=== PATIENT | male | born 1955 | race Caucasian/White ===

== ENCOUNTER 2016-07-06 09:03 | Emergency (ER) | payer MEDICARE, MEDICAID | END 2016-07-06 10:55 | disposition home or self-care (01) | LOC: D.ER 09:03 | DX: S22.41XA Multiple fractures of ribs, right side, initial encounter for closed fracture (principal); W22.8XXA Striking against or struck by other objects, initial encounter; Y93.89 Activity, other specified; Y92.019 Unspecified place in single-family (private) house as the place of occurrence of the external cause; J44.9 Chronic obstructive pulmonary disease, unspecified; B19.20 Unspecified viral hepatitis C without hepatic coma; G40.909 Epilepsy, unspecified, not intractable, without status epilepticus; Z89.512 Acquired absence of left leg below knee; F17.200 Nicotine dependence, unspecified, uncomplicated ==

== ENCOUNTER 2016-10-10 08:05 | Inpatient (IN) | payer MEDICARE, MEDICAID ==
[~2016-10-10] VITALS: Ht 175.3 cm; Wt 63.2 kg
[2016-10-10 10:17] LABS: BASOPHILS 0.2 % (0-2); EOSINOPHILS 0 % (0-7); HEMATOCRIT 40.1 % (42.0-54.0); HEMOGLOBIN 13.4 g/dL (13.5-17.5); IMMATURE GRANULOCYTES 0.3 % (0-5); LYMPHOCYTES 10.7 % (15-50); MCHC 33.4 g/dL (31.0-37.0); MCV 101.8 fL (80.0-100.0); MEAN PLATELET VOLUME 8.6 fL (7.4-10.4); NEUTROPHILS 78.8 % (40-80); RBC 3.94 10x6/uL (4.20-6.10); RDW 13.1 % (11.5-14.5); WBC 9.2 10x3/uL (4.8-10.8)
[2016-10-10 10:19] LABS: PLATELET COUNT 277 10x3/uL (130-400)
[2016-10-10 10:27] LABS: INR 0.85 (0.85-1.17); PROTIME 11.5 SECONDS (11.6-15.0)
[2016-10-10 10:37] LABS: ALBUMIN 3.6 g/dL (3.4-5.0); ALKALINE PHOSPHATASE 76 U/L (46-116); ALT (SGPT) 124 U/L (10-68); BILIRUBIN - TOTAL 0.36 mg/dL (0.2-1.3); CALC OSMOLALITY 279 mosm/kg (275-300); CARBON DIOXIDE 20.2 mmol/L (21.0-32.0); CHLORIDE - SERUM 101 mmol/L (98-107); CREATININE - SERUM 0.8 mg/dL (0.6-1.3); GLUCOSE 102 mg/dL (74-106); POTASSIUM - SERUM 4.6 mmol/L (3.5-5.1); SODIUM 141 mmol/L (136-145); UREA NITROGEN 11 mg/dL (7-18); eGFR NON AFRICAN AMERICAN > 90 mL/min (90-120)
--- NOTE | 2016-10-10 14:10 | NUR ---
RECIEVED PT FROM ER, REPORT WAS GIVEN BY ADRIANNE BARRON. PT ADJUSTED IN BED. ASSESSMENT DONE PER FLOWSHEET. BED IN LOW POSITION AND CALL LIGHT WITHIN REACH. WILLCONTINUE TO MONITOR.
[2016-10-10 14:20] VITALS: BP 145/109
[2016-10-10 14:30] VITALS: BP 145/109; Ht 175.3 cm; Wt 63.2 kg
[2016-10-10] MEDS ORDERED: PERCOCET 10/3251 TA1 PO (14:31)
[2016-10-10] MEDS ORDERED: NEURONTIN 300300 MG PO (14:31)
[2016-10-10] MEDS ORDERED: PROZAC20 MG PO (14:32)
[2016-10-10] MEDS ORDERED: APTIOM 800 MG (14:33)
[2016-10-10] MEDS ORDERED: DILANTIN100 MG PO (14:34)
[2016-10-10 15:59] VITALS: BP 170/110
--- NOTE | 2016-10-10 16:06 | NUR ---
CALL PLACED AT THIS TIME TO ELIZABETH VELASQUEZ (ON-CALL) ABOUT PT BLOOD PRESSURE. WILL CALL BACK WITH ORDERS.
--- NOTE | 2016-10-10 19:00 | NUR ---
PATIENT SLEEPING ON RIGHT SIDE. HOB 10 DEGREES. RR EVEN AND UNLABORED 0 S/S OF DISTRESS. IV TO RIGHT HAND PATENT WITH NO REDNESS OR SWELLING. TELEMETRY ON. B/A ON. SR PADDED AND UPX2. BED LOW. CALL LIGHT WITHIN REACH.
[2016-10-10 20:00] VITALS: BP 143/80
--- NOTE | 2016-10-10 21:00 | NUR ---
NIGHTTIME MED GIVEN. MORPHINE GIVEN FOR PAIN. WILL REASSESS.
--- NOTE | 2016-10-10 23:40 | NUR ---
PERCOCET GIVEN FOR PAIN.
[2016-10-11] VITALS: BP 138/81
--- NOTE | 2016-10-11 03:30 | NUR ---
PATIENT PULLED IV TO RIGHT HAND OUT. RESITED TO RIGHT FA WITH 20 GAUGE. MORPHINE GIVEN. BATH GIVEN.
[2016-10-11 04:00] VITALS: BP 139/94
--- NOTE | 2016-10-11 04:11 | NUR ---
PATIENT KEEPS URINATING ON SELF AND SPILLING URINAL. HAVE CHANGED HIM TWICE, BUT EVERY TIME IT CAUSES HIM INTENSE PAIN. HE IS BARELY ABLE TO TURN OFF OF RIGHT SIDE AT ALL. LOPEZ CATHETER INSERTED PER ORDER.
[2016-10-11 05:46] LABS: BASOPHILS 0.4 % (0-2); EOSINOPHILS 0.1 % (0-7); HEMOGLOBIN 12.5 g/dL (13.5-17.5); IMMATURE GRANULOCYTES 0.3 % (0-5); MCH 34.8 pg (26.0-34.0); MCHC 34.7 g/dL (31.0-37.0); MCV 100.3 fL (80.0-100.0); MONOCYTES 20.9 % (2-11); NEUTROPHILS 57.3 % (40-80); PLATELET COUNT 236 10x3/uL (130-400); RBC 3.59 10x6/uL (4.20-6.10); RDW 12.7 % (11.5-14.5); WBC 7.9 10x3/uL (4.8-10.8)
[2016-10-11 06:11] LABS: ALBUMIN 3.1 g/dL (3.4-5.0); ALKALINE PHOSPHATASE 65 U/L (46-116); ALT (SGPT) 113 U/L (10-68); BILIRUBIN - TOTAL 1.08 mg/dL (0.2-1.3); CHLORIDE - SERUM 97 mmol/L (98-107); CREATININE - SERUM 0.7 mg/dL (0.6-1.3); SODIUM 135 mmol/L (136-145); eGFR NON AFRICAN AMERICAN > 90 mL/min (90-120)
[2016-10-11 06:17] LABS: CALC OSMOLALITY 270 mosm/kg (275-300); CARBON DIOXIDE 32.9 mmol/L (21.0-32.0); GLUCOSE 151 mg/dL (74-106); POTASSIUM - SERUM 3.7 mmol/L (3.5-5.1); UREA NITROGEN 7 mg/dL (7-18)
--- NOTE | 2016-10-11 07:30 | NUR ---
PT AWAKE AND ALERT ORINETD X 3 LUNGS CLEAR BIALTERALLY HAS NOTED FRACTURE TO FEMUR ABOVE AMPUTATION SITE. PT WITH SIGNIFICANT AMOUT OF PAIN WILL TREAT PER ORDER
--- NOTE | 2016-10-11 07:30 | NUR ---
PATIENT IS AWAKE AND ALERT. LAYING ON HIS RIGHT SIDE. PATIENT VERBALIZING PAIN. SKIN IS HOT AND SWEATY. DRUG CLERK IN ROOM, CHECKED OXYGEN SATURATION 80% ON ROOM AIR. APPLIED 2L/MIN OF OXYGEN VIA NASAL CANNULA. BED IN LOWEST POSITION, CALL LIGHT IN REACH. BED RAILS UP X'S 2.
[2016-10-11 08:17] VITALS: BP 148/79
[2016-10-11 12:03] VITALS: BP 143/74
[2016-10-11 16:06] VITALS: BP 155/91
--- NOTE | 2016-10-11 19:00 | NUR ---
PATIENT SLEEPING WITH NO DISTRESS NOTED. HOB 20 DEGREES. RR EVEN AND UNLABORED. 0 S/S OF DISTRESS. IV TO RIGHT FA PATENT WITH NO REDNESS OR SWELLING.LOPEZ SECURED WITH STAT LOCK AND DRAINING TO GRAVITY. TELEMETRY ON. / ON. SRX2. BED LOW. CALL LIGHT WITHIN REACH.
[2016-10-11 20:00] VITALS: BP 107/63
--- NOTE | 2016-10-11 22:30 | NUR ---
PATIENT AWAKE AND STATES THAT PAIN IS A 6/10. NIGHTTIME MED GIVEN.
[2016-10-12] VITALS: BP 123/79
--- NOTE | 2016-10-12 03:00 | NUR ---
PATIENT'S LOPEZ IS LEAKING AND BED IS SOAKED WITH URINE. PATIENT STATES THAT HE CAN USE A URINAL AND PREFERS THE LOPEZ BE REMOVED. REMOVED CATHETER. BATH GIVEN. LINENS CHANGED.
[2016-10-12 04:00] VITALS: BP 111/79
[2016-10-12 05:32] LABS: BASOPHILS 0.2 % (0-2); EOSINOPHILS 0.3 % (0-7); HEMATOCRIT 37.4 % (42.0-54.0); HEMOGLOBIN 12.8 g/dL (13.5-17.5); IMMATURE GRANULOCYTES 0.3 % (0-5); LYMPHOCYTES 22.9 % (15-50); MCHC 34.2 g/dL (31.0-37.0); MCV 99.5 fL (80.0-100.0); MEAN PLATELET VOLUME 9.2 fL (7.4-10.4); MONOCYTES 12.6 % (2-11); NEUTROPHILS 63.7 % (40-80); PLATELET COUNT 187 10x3/uL (130-400); RBC 3.76 10x6/uL (4.20-6.10); RDW 12.5 % (11.5-14.5); WBC 9.6 10x3/uL (4.8-10.8)
[2016-10-12 05:58] LABS: ALBUMIN 2.9 g/dL (3.4-5.0); ALKALINE PHOSPHATASE 62 U/L (46-116); BILIRUBIN - TOTAL 1.47 mg/dL (0.2-1.3); CALC OSMOLALITY 263 mosm/kg (275-300); CALCIUM 9.1 mg/dL (8.5-10.1); CHLORIDE - SERUM 94 mmol/L (98-107); CREATININE - SERUM 0.7 mg/dL (0.6-1.3); GLUCOSE 113 mg/dL (74-106); PHENYTOIN (DILANTIN) 8.4 ug/mL (10.0-20.0); POTASSIUM - SERUM 3.3 mmol/L (3.5-5.1); PROTEIN - SERUM 7.1 g/dL (6.4-8.2); SODIUM 132 mmol/L (136-145); UREA NITROGEN 7 mg/dL (7-18); eGFR NON AFRICAN AMERICAN > 90 mL/min (90-120)
[2016-10-12 06:00] LABS: ALT (SGPT) 83 U/L (10-68)
--- NOTE | 2016-10-12 08:30 | NUR ---
PATIENT AWAKE AND ALERT, HE IS PLEASANT.
[2016-10-12 09:04] VITALS: BP 110/78
--- NOTE | 2016-10-12 10:30 | NUR ---
PATIENT IS HAVING CRAMPS IN HIS LEFT STUMP WHERE HE FX IT, LOWERED THE HOB AND TOLD HIM TO PUSH HIS PAIN BUTTON AND TAKE SLOW DEEP BREATHS. THIS HELPED THE PATIENT HE BEGAN TO RELAX.
[2016-10-12 11:40] VITALS: BP 123/83
--- NOTE | 2016-10-12 12:00 | NUR ---
OBTAINED CONSENTS FOR PATIENT TO GO TO SURGERY AND HE IS READY TO GO.
--- NOTE | 2016-10-12 12:30 | NUR ---
PATIENT TAKEN TO SURGERY NOW.
--- NOTE | 2016-10-12 15:30 | NUR ---
PATIENT BACK FROM SURGERY, HE IS PLEASANT, SITTING UP IN BED, HE IS TALKING. VSS TAKEN.
--- NOTE | 2016-10-12 15:35 | NUR ---
BP 148/80, P 94, R 20 SPO2 94 ON O2 AT 4L/M.
--- NOTE | 2016-10-12 15:50 | NUR ---
BP 148/82, P 90, R 20, SPO2 96 ON 4L/M PER NC
[2016-10-12 15:52] VITALS: BP 140/82
--- NOTE | 2016-10-12 16:05 | NUR ---
BP 150/94, T. 98.7, R 20, P. 92, SPO2 96%
--- NOTE | 2016-10-12 16:25 | NUR ---
BP 142/80, P 90, R 20, SPO2 94%
--- NOTE | 2016-10-12 16:29 | NUR ---
Patient Name: CLAUDIA SUGGS Admission Status: ER Accout number: [id number] Admission Date: 10-10-2016 : 1955 Admission Diagnosis:DISPL SUPRCNDL FX W INTRCNDL EXTN LOWER END OF L FEMUR, Attending: RAFY Current LOS: 2 Anticipated DC Date: 10-15-2016 Planned Disposition: Home Primary Insurance: [facility] Discharge Planning Comments: CM MET WITH PATIENT REGARDING D/C NEEDS AND PLANS. PATIENT STATED HE LIVES WITH HIS BROTHER VENICE AND HE WILL DRIVE HIM HOME AT DISCHARGE. PATIENT STATED THERE ARE 3 STEPS W/O RAILS AND NO STAIRS AT HIS HOME. PATIENT STATED HE IS INDEPENDENT WITH HIS CARE AND HAS A WALKER, WC, SHOWER CHAIR, AND BS COMMODE AT HOME. PATIENTS PCP IS DR. MONGE AND PHARMACY IS [facility]. PATIENT DOES NOT WANT HOME HEALTH AND HAS NO OTHER NEEDS FOR DISCHARGE AT THIS TIME. CM WILL CONTINUE TO FOLLOW PATIENT WITH D/C NEEDS AND PLANS. PCP DR. MONGE [facility]- [phone] VENICE (BROTHER) [phone] Research Laboratory Specialist: Emma De Jesus Is the patient Alert and Oriented? Yes 0 * How many steps to enter\exit or inside your home? 3 W/O RAIL 0 * PCP DR. MONGE 0 * Pharmacy [facility] 0 * Preadmission Environment Home with Family 0 * ADLs Independent 0 * Equipment Bedside Commode Shower Chair Walker Wheelchair 0 * List name and contact numbers for known caregivers / representatives who currently or will assist patient after discharge: VENICE (BROTHER) [phone] 0 * Community resources currently utilized None 0 * Additional services required to return to the preadmission environment? Yes 0 * Can the patient safely return to the preadmission environment? Yes 0 * Has this patient been hospitalized within the prior 30 days at any hospital? No 0 Grand Total: 0
--- NOTE | 2016-10-12 18:51 | NUR ---
PATIENT IS AWAKE AND ALERT HE HAS NOW STATED THAT HE DOES NOT FEEL PAIN, HE FEELS SO MUCH BETTER THAN BEFORE HE LEFT, BUT SAYS "WOW, MY LEG FEELS HEAVY" EXPLAINED TO HIM THAT HE HAD A BLOCK. HE SAID 'OH YEA, I REMEMBER THE DR DID SAY THAT" PATIENT SITTING UP, READING MAGAXINES IN BED. NO NEEDS.
[2016-10-12 20:00] VITALS: BP 108/84
[2016-10-13] VITALS: BP 132/83; BP 136/80
--- NOTE | 2016-10-13 00:58 | NUR ---
ASSESSED AT THE BEGINNING OF THE SHIFT. PT IS ALERT AND ORIENTED, WITH JUST A LITTLE CONFUSION AT THE BEGINNING OF THE SHIFT. HE IS SET UP FOR SEIZURES A PRECAUTION. 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 THE DRESSING IS CLEAN DRY AND INTACT. WITH A ALIX WRAP IN PLACE. THERE IS ALSO TELEMETRY SHOWING SR AND A BROILER MANAGER FOR PAIN CONTROL. THE URINAL IS AT THE BEDSIDE AND HE IS USING IT FOR VOIDING AND OSTOMY. THE BED IS LOW, RAILS UP X'S 2 WITH THE CALL LIGHT AT HAND.
[2016-10-13 04:00] VITALS: BP 117/79
[2016-10-13 06:08] LABS: BASOPHILS 0.1 % (0-2); EOSINOPHILS 0.1 % (0-7); HEMATOCRIT 31.7 % (42.0-54.0); HEMOGLOBIN 10.9 g/dL (13.5-17.5); IMMATURE GRANULOCYTES 0.2 % (0-5); LYMPHOCYTES 21.3 % (15-50); MCH 34.5 pg (26.0-34.0); MCHC 34.4 g/dL (31.0-37.0); MCV 100.3 fL (80.0-100.0); MEAN PLATELET VOLUME 9.5 fL (7.4-10.4); MONOCYTES 15.7 % (2-11); NEUTROPHILS 62.6 % (40-80); RBC 3.16 10x6/uL (4.20-6.10); RDW 12.2 % (11.5-14.5); WBC 9.6 10x3/uL (4.8-10.8)
[2016-10-13 06:10] LABS: PLATELET COUNT 142 10x3/uL (130-400)
[2016-10-13 06:23] LABS: ALBUMIN 2.6 g/dL (3.4-5.0); ALKALINE PHOSPHATASE 51 U/L (46-116); CALC OSMOLALITY 263 mosm/kg (275-300); CHLORIDE - SERUM 97 mmol/L (98-107); CREATININE - SERUM 0.7 mg/dL (0.6-1.3); GLUCOSE 108 mg/dL (74-106); POTASSIUM - SERUM 3.1 mmol/L (3.5-5.1); PROTEIN - SERUM 6.3 g/dL (6.4-8.2); SODIUM 132 mmol/L (136-145); UREA NITROGEN 8 mg/dL (7-18); eGFR NON AFRICAN AMERICAN > 90 mL/min (90-120)
[2016-10-13 06:24] LABS: ALT (SGPT) 58 U/L (10-68)
--- NOTE | 2016-10-13 07:15 | NUR ---
PATIENT RECEIVED ALERT IN MID HEATH POSITION RESTING QUIETLY. RESPIRATIONS EVEN AND UNLABORED. SIDE RAILS UP X2. BED IN LOW POSITION. CALL LIGHT AND COTTON ROLL PACKER BUTTON IN REACH. DENIES NEEDS.
[2016-10-13 07:57] VITALS: BP 128/82
--- NOTE | 2016-10-13 09:20 | NUR ---
PATIENT IN BED RESTING QUIETLY WITH EYES CLOSED. RESPIRATIONS EVEN AND UNLABORED. WAKES EASY. SCHEDULED MEDICATION ADMINISTERED. SIDE RAILS UP X2. BED IN LOW POSITION. CALL LIGHT IN REACH. BED ALARM ON.
--- NOTE | 2016-10-13 11:30 | NUR ---
IV TO LEFT WRIST SALINE LOCKED. CROSS TIE TRAM LOADER D/C PER ORDERS. DENIES NEEDS. SIDE RAILS UP X2. BED IN LOW POSITION. CALL LIGHT IN REACH.
[2016-10-13 11:45] VITALS: BP 125/84
--- NOTE | 2016-10-13 13:33 | NUR ---
C/O PAIN 03/12. PERCOCET ADMINISTERED PER PROTOCOL. POTASSIUM REPLACED PER PROTOCOL. DENIES FURTHER NEEDS. SIDE RAILS UP X2. BED IN LOW POSITION. CALL LIGHT IN REACH.
--- NOTE | 2016-10-13 16:00 | NUR ---
PATIENT IN RIGHT LATERAL POSITION RESTING WITH EYES CLOSED. RESPIRATIONS EVEN AND UNLABORED. SIDE RAILS UP X2. BED IN LOW POSITION. CALL LIGHT IN REACH.
[2016-10-13 16:13] VITALS: BP 126/85
--- NOTE | 2016-10-13 17:38 | NUR ---
ALERT IN BED. SCHEDULED MEDICATION ADMINISTERED. SIDE RAILS UP X2. BED IN LOW POSITION. CALL LIGHT IN REACH. PATIENT DRY HEAVING AND C/O NAUSEA. ZOFRAN PER PRN ORDER. SIDE RAILS UP X2. BED IN LOW POSITION. CALL LIGHT IN REACH.
[2016-10-13 20:00] VITALS: BP 140/87
[2016-10-14] VITALS: BP 142/84
[2016-10-14 04:00] VITALS: BP 132/81
[2016-10-14 05:28] LABS: BASOPHILS 0.3 % (0-2); HEMATOCRIT 32.3 % (42.0-54.0); HEMOGLOBIN 11.1 g/dL (13.5-17.5); IMMATURE GRANULOCYTES 0.1 % (0-5); LYMPHOCYTES 20.3 % (15-50); MCH 34.2 pg (26.0-34.0); MCHC 34.4 g/dL (31.0-37.0); MCV 99.4 fL (80.0-100.0); MEAN PLATELET VOLUME 9.8 fL (7.4-10.4); MONOCYTES 20.2 % (2-11); NEUTROPHILS 58.1 % (40-80); PLATELET COUNT 128 10x3/uL (130-400); RBC 3.25 10x6/uL (4.20-6.10); RDW 12.2 % (11.5-14.5); WBC 7.3 10x3/uL (4.8-10.8)
[2016-10-14 05:54] LABS: ALBUMIN 2.5 g/dL (3.4-5.0); ALKALINE PHOSPHATASE 55 U/L (46-116); ALT (SGPT) 54 U/L (10-68); CALC OSMOLALITY 263 mosm/kg (275-300); CALCIUM 8.5 mg/dL (8.5-10.1); CARBON DIOXIDE 30.4 mmol/L (21.0-32.0); CHLORIDE - SERUM 96 mmol/L (98-107); CREATININE - SERUM 0.6 mg/dL (0.6-1.3); GLUCOSE 108 mg/dL (74-106); POTASSIUM - SERUM 3.4 mmol/L (3.5-5.1); PROTEIN - SERUM 6.5 g/dL (6.4-8.2); SODIUM 132 mmol/L (136-145); UREA NITROGEN 6 mg/dL (7-18); eGFR NON AFRICAN AMERICAN > 90 mL/min (90-120)
--- NOTE | 2016-10-14 06:04 | NUR ---
ASSESSED AT THE BEGINNING OF THE SHIFT. PT IS ALERT AND ORIENTED, ABLE TO VERBALIZE NEEDS. HE HAS A LEFT BKA AND HE HAD FALLEN AND FRACTURED IT SO IT IS A NEW ORIF AND THE DRESSING IS INPLACE WITH NO DRAINAGE NOTED. HE USES A URINAL TO VOID AND WE HAVE GIVEN HIM PAIN MEDS AND ATIVAN FOR HIS PAIN. HE FEELS PHANTOM PAIN IN HIS LEFT HEEL AND KIARA OUT IN HIS SLEEP WITH PAIN. THIS MORNING HE RECEIVED A BATH AND CLEAN LINENS. THE BED IS LOW, RAILS UP X'S 2 WITH THE CALL LIGHT AT HAND.
[2016-10-14 09:06] VITALS: BP 130/79
--- NOTE | 2016-10-14 09:12 | NUR ---
SCHEDULED MEDICATIONS ADMINISTERED AT THIS TIME WITHOUT DIFFICULTY. ELECTROLYTE PROTOCOL INITIATED FOR POTASSIUM OF 3.4. PT IS NAUSEOUS WITHOUT EMESIS AND NOT EATING BREAKFAST AT THIS TIME. DENIES NEED FOR ZOFRAN. SCD TO RIGHT LEG PRESENT AND DRESSING TO LEFT SURGICAL LEG C/D/I. ASSESSMENT PERFORMED PER FLOWSHEET AND IV TO LEFT WRIST PATENT WITH NO S/S OF INFILTRATION PRESENT.
--- NOTE | 2016-10-14 10:50 | NUR ---
PRN NORCO ADMINISTERED FOR PAIN 10/10 INCISIONALLY AT THIS TIME. DENIES FURTHER NEEDS. BED ALARM ON AND CALL LIGHT IN REACH, WILL CONTINUE WITH PLAN OF CARE.
[2016-10-14 11:48] VITALS: BP 104/63
--- NOTE | 2016-10-14 12:10 | NUR ---
PT HAD LARGE EPISODE OF LOOSE STOOL AT THIS TIME, AROUND 400ML IN THE BEDPAN. PT STATED THAT THE DIARRHEA WAS NEW. NOTIFIED DR ESCAMILLA VIA TELEPHONE AND NEW ORDERS GIVEN FOR STOOL CDT LAB TEST. SPECIMEN OBTAINED AND SENT TO LAB. WILL AWAIT RESULTS AND IF NEGATIVE WILL ADMINISTER IMODIUM PER ORDER. DENIES FURTHER NEEDS, CALL LIGHT IN REACH. WILL CONTINUE WITH PLAN OF CARE.
--- NOTE | 2016-10-14 15:20 | NUR ---
DRESSING TO LEFT STUMP TIGHT AT THIS TIME AND PT COMPLAINING THAT UPPER THIGH IS SWOLLEN AND NUMB. CIRCULATION TO STUMP <3 SECONDS AND DRESSING RE-WRAPPED, BUT NOT TIGHT AT THIS TIME. PRN NORCO AND SCHEDULED NEURONTIN ADMINISTERED AT THIS TIME FOR PAIN 03/12. DENIES FURTHER NEEDS, PROVIDED PT WITH FRESH ICE WATER. CALL LIGHT IN REACH. WILL CONTINUE WITH PLAN OF CARE.
[2016-10-14 16:14] VITALS: BP 120/84
[2016-10-14 20:00] VITALS: BP 111/74
--- NOTE | 2016-10-14 21:10 | NUR ---
ASSESS PER FLOWSHEET. RESTING QUIETLY WITH EYES CLOSED. RESP DEEP EVEN UNLABORED. BED LOW, CL IN REACH, ALL FALL PRECAUTIONS IN PLACE.
--- NOTE | 2016-10-14 23:16 | NUR ---
AWAKE, ALERT, TEARFUL, C/O PAIN 10/10 TO RIGHT FEMUR. 1 PERCOCET GIVEN PER MD ORDER. RT. RESIDUAL LIMB ELEVATED FOR COMFORT. BED LOW CL IN REACH.
[2016-10-15] VITALS: BP 135/80
[2016-10-15 04:00] VITALS: BP 122/76
[2016-10-15 06:12] LABS: BASOPHILS 0.2 % (0-2); HEMATOCRIT 31.5 % (42.0-54.0); IMMATURE GRANULOCYTES 0.2 % (0-5); LYMPHOCYTES 20.2 % (15-50); MCH 34.2 pg (26.0-34.0); MCHC 34.9 g/dL (31.0-37.0); MCV 97.8 fL (80.0-100.0); MEAN PLATELET VOLUME 10.2 fL (7.4-10.4); NEUTROPHILS 56.4 % (40-80); RBC 3.22 10x6/uL (4.20-6.10); RDW 12.1 % (11.5-14.5)
[2016-10-15 06:13] LABS: PLATELET COUNT 154 10x3/uL (130-400); WBC 5.4 10x3/uL (4.8-10.8)
[2016-10-15 06:59] LABS: ALBUMIN 2.4 g/dL (3.4-5.0); ALKALINE PHOSPHATASE 56 U/L (46-116); ALT (SGPT) 42 U/L (10-68); BILIRUBIN - TOTAL 0.81 mg/dL (0.2-1.3); CALC OSMOLALITY 261 mosm/kg (275-300); CALCIUM 8.6 mg/dL (8.5-10.1); CARBON DIOXIDE 28.1 mmol/L (21.0-32.0); CHLORIDE - SERUM 96 mmol/L (98-107); CREATININE - SERUM 0.6 mg/dL (0.6-1.3); GLUCOSE 109 mg/dL (74-106); POTASSIUM - SERUM 3.4 mmol/L (3.5-5.1); PROTEIN - SERUM 6.4 g/dL (6.4-8.2); SODIUM 131 mmol/L (136-145); UREA NITROGEN 6 mg/dL (7-18); eGFR NON AFRICAN AMERICAN > 90 mL/min (90-120)
[2016-10-15 08:08] VITALS: BP 143/91
--- NOTE | 2016-10-15 08:55 | NUR ---
PATIENT ALERT AND ORIENTED X'S 4. FACE GRIMMACED. PATIENT RATED PAIN A 10/10. ADMINISTERED PERCOCET. PATIENT FINISHED EATING BREAKFAST. TOOK HIS TRAY. PATIENT STATED HE IS GOING TO BE DISCHARGED TODAY. PATIENT STATED HE HAS A WALKER AND WHEELCHAIR AT HOME. PATIENT STATED HE LIVES WITH HIS YOUNGER BROTHER AND HE CAN HELP HIM. HE STATED HE IS NOT GOING TO DRINK WHEN HE GETS HOME, AND STATED THAT HIS BROTHER WILL NOT SUPPLY HIM WITH ALCOHOL.
[2016-10-15 12:11] VITALS: BP 136/79
--- NOTE | 2016-10-15 12:35 | NUR ---
SET PATIENT UP FOR LUNCH. PATIENT DENIES NEEDS AT THIS TIME.
[2016-10-15 15:40] VITALS: BP 120/82
--- NOTE | 2016-10-15 18:11 | OP ---
PATIENT NAME: CLAUDIA SUGGS MEDICAL RECORD: [id number] :57 LOCATION:[id number] ADMISSION DATE:10/10/16 SURGEON: LEONID SMITH MD DATE OF OPERATION: 10/12/2016 DATE OF OPERATION: 10/12/2016 PREOPERATIVE DIAGNOSIS: Supracondylar femur fracture of the left femur with intercondylar split. POSTOPERATIVE DIAGNOSIS: Supracondylar femur fracture of the left femur with intercondylar split. PROCEDURE: Open reduction internal fixation of above. SURGEON: Leonid Smith MD. ANESTHESIA: General. INTRAOPERATIVE COMPLICATIONS: None. SUMMARY OF PATHOLOGIC FINDINGS: Consistent with the preoperative radiographs and CT. The patient not only had a valgus placed supracondylar femur fracture. There was a crack into the shaft. OPERATIVE SUMMARY IN DETAIL: After obtaining the appropriate preoperative surgery consent as well as anesthetic consultation, evaluation and clearance, the patient was brought to the operating room and placed on the operating table in supine position. After general laryngeal mask was administered, tourniquet was placed about the proximal aspect of the left lower extremity. The patient was placed in a right lateral decubitus position. All pressure points were well padded to include down leg peroneal pad as well as axillary roll. Left lower extremity and BKA stump were prepped and draped in routine sterile fashion. The BKA stump and thigh were exsanguinated and tourniquet was inflated to 350 mmHg. Lateral base incision was taken from the distal tip of the lateral thigh to beyond the area of fracture. This was taken to the IT band through the vastus lateralis, gentle periosteal elevation was done. The fracture was reduced. At this time, using fluoroscopic guidance back to a normal alignment. The Variax large frag plate was then utilized. Under fluoroscopic guidance, it was aligned and serial and sequential drill and fill with a combination of compression as well as locking screws, this resulted in good realignment. Having completed this, the wound was copiously irrigated. AP and lateral views were taken for final radiographic review. Wound was again copiously irrigated. The vastus lateralis was closed with #1 Vicryl. This was followed by closure of the IT band with #2 Ethibond and this was followed by closure of the skin with #1 Vicryl and skin kylee. Sterile dressings were applied. Tourniquet was deflated. A posterior splint was applied. The patient was awakened and taken to recovery in stable condition. All final needle and sponge counts were correct. TRANSINT:[id number] Voice Confirmation ID: [id number] DOCUMENT ID: [id number] OPERATIVE REPORT [id number] CLAUDIA SUGGS MD, LEONID PIPER at 1811 CC: [id number] DICTATION DATE: 10/12/16 1429 ETHICS INSTRUCTOR: 10/13/16 0130 ADM IN [facility] [address] [id number]
[2016-10-15 20:00] VITALS: BP 116/89
--- NOTE | 2016-10-15 20:00 | NUR ---
ASSESSMENT PER FLOWSHEET. IV PATENT LEFT WRIST OF NS AT 30CC'S/HR SITE CLEAR. OLD LEFT BKA NOTED WITH LEFT HIP INCISION DRESSING C/D/I. LEFT STUMP ELEVATED ON PILLOW. PT IN ENTERIC ISOLATION. SCD TO RT LEG.
--- NOTE | 2016-10-15 21:15 | NUR ---
MEDS GIVEN PER AUG. SR UP X2 CALL LIGHT WITHIN REACH.
--- NOTE | 2016-10-15 22:43 | NUR ---
C/O PAIN INCISIONAL SITE RATES PAIN LEVEL #10 PERCOCET TAB ONE PO GIVEN FOR PAIN CONTROL.
[2016-10-16] VITALS: BP 126/89
--- NOTE | 2016-10-16 00:23 | NUR ---
RESTING QUIETLY AT THIS TIME BODY IN GOOD ALIGNMENT.
[2016-10-16 04:00] VITALS: BP 128/90
--- NOTE | 2016-10-16 07:10 | NUR ---
PATIENT RECEIVED IN LOW HEATH POSITION ALERT AND RESTING QUIETLY. RESPIRATIONS EVEN AND UNLABORED. DENIES NEEDS. SIDE RAILS UP X2. BED IN LOW POSITION. CALL LIGHT IN REACH.
[2016-10-16] MEDS ORDERED: PERCOCET 10/3251 TA1 PO (07:55)
[2016-10-16] MEDS ORDERED: FLAGYL500 MG PO (07:58)
[2016-10-16 08:35] VITALS: BP 158/94
--- NOTE | 2016-10-16 08:40 | NUR ---
PATIENT ALERT IN BED. NO SIGNS OF DISTRESS NOTED. SCHEDULED MEDICATION ADMINISTERED WELL PRN PERCOCET. DENIES NEEDS. ANTICIPATING D/C TODAY. SIDE RAILS UP X2. BED IN LOW POSITION. CALL LIGHT IN REACH.
--- NOTE | 2016-10-16 09:24 | NUR ---
CM REASSESSMENT NOTE: PATIENT IS DISCHARGING HOME TODAY - NEEDS CAB RIDE. CM SPOKE TO HIM REGARDING HOME HEALTH. PATIENT CHOSE [facility] BUT THEY DID NOT TAKE HIS INSURANCE, 2ND IS [facility] (FACE SHEET FAXED-THEY ACCEPT SOME [facility]), 3RD IS [facility]. D/C IMM SERVED. CM WILL CONTINUE TO FOLLOW PATIENT WITH D/C NEEDS AND PLANS.
--- NOTE | 2016-10-16 09:35 | NUR ---
DRESSING TO LEFT LEG CHANGED. OLD DRESSING REMOVED. SMALL AMOUNT OF BLOODY DRAINAGE NOTED TO DRESSING. 27 VIC INTACT. NO REDNESS, DRAINAGE OR ODOR NOTED. XEROFORM GAUZE AND 4X4 PLACED OVER INCISION. WRAPPED WITH CAST PADDING. SPLINT APPLIED AND WRAPPED WITH ALIX WRAP. WELL TOLERATED. SIDE RAILS UP X2. BED IN LOW POSITION. CALL LIGHT IN REACH.
--- NOTE | 2016-10-16 11:15 | NUR ---
D/C REASSESSMENT NOTE: PATIENTS BROTHER WILL PICK HIM UP TODAY AT 5PM-NO NEED FOR A CAB.
--- NOTE | 2016-10-16 12:39 | NUR ---
ALERT IN BED. C/O PAIN 02/10. PERCOCET PER PRN ORDER. NO FURTHER NEEDS VOICED. SIDE RAILS UP X2. BED IN LOW POSITION. CALL LIGHT IN REACH.
[2016-10-16 13:46] VITALS: BP 153/90
--- NOTE | 2016-10-16 14:05 | NUR ---
ALERT IN BED WATCHING TV. NO SIGNS OF DISTRESS NOTED. DENIES NEEDS. SIDE RAILS UP X2. BED IN LOW POSITION. CALL LIGHT IN REACH.
--- NOTE | 2016-10-16 17:15 | NUR ---
D/C TEACHING AND WRITTEN PRESCRIPTION PROVIDED TO PATIENT. STATES UNDERSTANDING. IV D/C WITH CATH TIP INTACT. SITE COVERED WITH GAUZE AND BANDAID.
--- NOTE | 2016-10-16 17:20 | NUR ---
PATIENT D/C HOME VIA WHEELCHAIR WITH BROTHER.
== END 2016-10-16 17:25 | disposition home health service (06) | DRG 482 ==
LOC: D.ER 08:05 → D.MS 12:33
PROVIDERS: Emergency Medicine; Family Medicine; ADMIT Orthopaedic Surgery
PROC: 0QSC04Z Reposition Left Lower Femur with Internal Fixation Device, Open Approach (ICD-10-PCS; principal; 2016-10-12 13:00)
DX: S72.462A Displaced supracondylar fracture with intracondylar extension of lower end of left femur, initial encounter for closed fracture (principal); W19.XXXA Unspecified fall, initial encounter; Z89.512 Acquired absence of left leg below knee; G40.909 Epilepsy, unspecified, not intractable, without status epilepticus; J44.9 Chronic obstructive pulmonary disease, unspecified; F10.20 Alcohol dependence, uncomplicated; M62.838 Other muscle spasm; F17.200 Nicotine dependence, unspecified, uncomplicated

== ENCOUNTER → 2017-01-17 09:23 | Outpatient (CLI) | payer MEDICARE, MEDICAID ==
[2016-10-10 14:30] VITALS: BMI 20.5
[~2017-01-17 09:23] MED LIST: APTIOM 800 MG; DILANTIN100 MG PO; FLAGYL500 MG PO; NEURONTIN 300300 MG PO; PERCOCET 10/3251 TA1 PO; PROZAC20 MG PO
== END | disposition home or self-care (01) ==
LOC: D.US 09:23
DX: N49.2 Inflammatory disorders of scrotum (principal)

== ENCOUNTER 2017-02-15 07:36 | Outpatient (CLI) | payer MEDICARE, MEDICAID | END 2017-02-15 15:45 | disposition home or self-care (01) | LOC: D.OPS 07:36 | DX: R16.0 Hepatomegaly, not elsewhere classified (principal); J44.9 Chronic obstructive pulmonary disease, unspecified; Z01.812 Encounter for preprocedural laboratory examination ==

== ENCOUNTER 2017-04-04 07:38 | Outpatient (CLI) | payer MEDICARE, MEDICAID ==
[2017-04-04] VITALS (15 sets, daily range): BP systolic 156–199; BP diastolic 79–105; BMI 22.1
--- NOTE | ~2017-04-04 | HEMODYNAMI ---
PATIENT:CLAUDIA SUGGS MEDICAL RECORD: [id number] : 57 LOCATION:[facility] ADMISSION DATE: 04/04/17 Generatedon:04/04/201712:13 Patient name: CLAUDIA SUGGS Patient #: [id number] SSN: D OB: 1955 Date of study: 04/04/2017 Page: Of Hemodynamic Procedure Report Patient Data Patient Demographics Procedure consent was obtained First Name: CLAUDIA Gender: Male Last Name: IFEANYI : 1955 Middle Initial: E Age: 62 year(s) Patient #: [id number] Race: Unknown Additional ID: [id number] Contact details Address: [address] [place] [address] State: [place] City: [facility] Zip code: [address] Past Medical History Allergies: No known allergies Admission Admission Data Admission Date: 04/04/2017 Admission Time: 7:38 Weight (lbs.): 141 Weight (kg.): 63.96 Procedure Procedure Types Cath Procedure Peripheral Cath Diagnostic Procedure Cath Peripheral Peripheral vascular Intervention Embolization Chemo Embolization Procedure Description Procedure Date Procedure Date: 04/04/2017 Procedure Start Time: 10:36 Procedure Staff Name Function Mehdi Ramirez MD Performing Physician Alexei Ghotra RT Scrub Nicole Jaramillo RN Nurse Pilar Johnston RT Inspector Floor Sub Assembly Pilar Johnston RT Monitor Procedure Data Cath Procedure Fluoroscopy Diagnostic fluoroscopy Total fluoroscopy Time: time: 14.9 min 14.9 min Diagnostic fluoroscopy Total fluoroscopy dose: dose: 1804 mGy 1804 mGy Contrast Material Contrast Material Type Amount (ml) Isovue 300 80 Diagnostic catheters Device Type Used For End Catheter Placement Merit Impress 5Fr SIM 1 Catheter Procedure Medications Medication Administration Route Dosage Rocephin I.V. 1 g Versed I.V. 1 mg Fentanyl I.V. 50 mcg Versed I.V. 1 mg Fentanyl I.V. 50 mcg Heparin Flush Bag added to field 3 bags (1000units/500ml NS) Lidocaine 1% added to field 20 Oxygen NC 3 l/min Versed I.V. 1 mg Fentanyl I.V. 50 mcg Versed I.V. 1 mg Fentanyl I.V. 50 mcg Hydralizine I.V. 10 mg Hemodynamics Rest Heart Rate: 75 (bpm) Snapshots Pre Cath Intra NCS Post Cath Vital Signs Time Heart Resp SPO2 etCO2 NIBP (mmHg) Rhythm Pain Sedation Rate (ipm) (%) (mmHg) Status Level (bpm) 10:14:24 75 6 98 29.1 171/97(136) NSR 0 (11) 10(A) , No pain 10:18:46 77 9 99 42.6 156/107(144) NSR 0 (11) 10(A) , No pain 10:23:02 77 9 98 40.4 156/98(138) NSR 0 (11) 10(A) , No pain 10:28:01 78 5 98 41.1 Measuring NSR 0 (11) 10(A) , No pain 10:28:11 79 5 98 41.1 167/100(143) NSR 0 (11) 10(A) , No pain 10:32:33 80 9 96 37.4 159/101(144) NSR 0 (11) 10(A) , No pain 10:36:51 75 12 96 32.9 164/96(143) NSR 0 (11) 10(A) , No pain 10:41:11 95 10 98 26.9 164/114(142) NSR 0 (11) 10(A) , No pain 10:43:04 77 9 97 38.1 170/101(138) NSR 0 (11) 10(A) , No pain 10:47:16 80 21 90 29.9 140/93(122) NSR 0 (11) 10(A) , No pain 10:51:28 79 12 93 30.6 137/86(114) NSR 0 (11) 10(A) , No pain 10:55:40 79 10 95 16.4 136/85(118) NSR 0 (11) 10(A) , No pain 10:59:52 81 9 97 30.6 143/81(120) NSR 0 (11) 10(A) , No pain 11:04:06 77 10 97 28.4 148/86(131) NSR 0 (11) 10(A) , No pain 11:08:16 72 10 96 30.6 147/86(119) NSR 0 (11) 10(A) , No pain 11:12:26 82 11 96 0 140/97(111) NSR 0 (11) 10(A) , No pain 11:16:38 74 11 96 23.9 148/91(126) NSR 0 (11) 10(A) , No pain 11:20:49 79 6 98 34.4 166/102(135) NSR 0 (11) 10(A) , No pain 11:25:10 88 13 98 35.1 186/115(170) NSR 0 (11) 10(A) , No pain 11:29:30 81 14 92 0 157/93(130) NSR 0 (11) 10(A) , No pain 11:33:48 68 13 97 27.6 163/92(145) NSR 0 (11) 10(A) , No pain 11:38:47 72 10 97 20.9 Measuring NSR 0 (11) 10(A) , No pain 11:39:09 70 11 96 26.9 190/111(156) NSR 0 (11) 10(A) , No pain 11:43:40 78 4 98 27.6 208/120(182) NSR 0 (11) 10(A) , No pain 11:46:36 74 11 98 32.8 204/116(152) NSR 0 (11) 10(A) , No pain 11:51:04 75 16 96 28.4 194/108(153) NSR 0 (11) 10(A) , No pain 11:55:35 70 15 98 22.4 199/108(158) NSR 0 (11) 10(A) , No pain 11:59:59 82 15 97 28.4 196/115(154) NSR 0 (11) 10(A) , No pain 12:04:23 76 16 96 29.1 183/99(147) NSR 0 (11) 10(A) , No pain 12:08:43 84 13 96 26.9 166/99(148) NSR 0 (11) 10(A) , No pain 12:13:08 25.4 170/88(123) NSR 0 (11) 10(A) , No pain Medications Time Medication Route Dose Verified Delivered Reason Notes Ef fectiveness by by 10:10:29 Heparin Flush added 3 Nicole Mehdi used for Bag to bags Clint Ramirez procedure (1000units/500ml field RN NS) 10:10:43 Rocephin I.V. 1g Mehdi Nicole Per Ashley Jaramillo RN physician MD 10:15:57 Oxygen NC 3 Nicole Nicole l/min Clint Jaramillo RN, RN 10:35:44 Lidocaine 1% added 20ml Nicole Mehdi for local to vial Clint Ashley anesthetic field ADRIANNE MOREIRA 10:41:22 Versed I.V. 1 mg Mehdi Nicole for sedation Ashley Jaramillo RN, MD 10:41:33 Fentanyl I.V. 50 Mehdi Nicole for sedation mcg Ashley Jaramillo RN, MD 10:44:41 Versed I.V. 1 mg Mehdi Nicole for sedation Ashley Jaramillo RN, MD 10:44:48 Fentanyl I.V. 50 Mehdi Rivera for sedation mcg Ashley Jaramillo RN, MD 11:27:50 Versed I.V. 1 mg Mehdi Nicole for sedation Ashley Jaramillo RN, MD 11:27:59 Fentanyl I.V. 50 Mehdi Rivera for sedation mcg Ashley Jaramillo RN, MD 11:51:51 Versed I.V. 1 mg Mehdi Nicole for sedation Ashley Jaramillo RN, MD 11:52:04 Fentanyl I.V. 50 Mehdi Nicole for sedation mcg Ashley Jaramillo RN, MD 11:54:16 Hydralizine I.V. 10 mg Mehdi Rivera for Ashley Jaramillo RN hypertension MD Procedure Log Time Note 8:57:56 Patient Weight : 141 lbs 9:51:51 Use device set IR Diagnostic 9:51:56 Sterile Angiographic Pack opened to sterile field. 9:51:57 Bag Decanter opened to sterile field. 9:51:58 Acist Manifold opened to sterile field. 9:51:59 Acist Hand Control opened to sterile field. 9:52:00 Acist Syringe opened to sterile field. 9:52:25 TUBING, CONTRAST INJCTN HI PRES opened to sterile field. 9:52:26 Terumo 5Fr [place] Sheath opened to sterile field. 9:52:27 Griffin KAHN 145cm guide wire opened to sterile field. 9:52:28 Micropuncture VSI 4FR kit opened to sterile field. 9:52:49 - 10:00:22 Time tracking: Regular hours 10:00:29 Plan of Care:Hemodynamics will remain stable., Cardiac rhythm will remain stable., Comfort level will be maintained., Respiratory function will remain adequate., Patient/ family verbilizes understanding of procedure., Procedure tolerated without complication., Recovers from procedure without complications.. 10:10:29 Heparin Flush Bag (1000units/500ml NS) 3 bags added to field was administered by Mehdi Ramirez MD; used for procedure; 10:10:43 Rocephin 1g I.V. was administered by Nicole Jaramillo RN; Per physician; 10:13:14 Vital chart was started 10:13:24 Patient received from Outpatients to IR Alert and oriented. Tansferred to table in Supine position. 10:13:28 Correct patient and procedure confirmed by team. 10:13:30 Signed procedure consent form obtained from patient. 10:13:31 ECG and BP/O2 sat monitors applied to patient. 10:13:33 Baseline sample Acquired. 10:13:34 Full Disclosure recording started 10:13:35 - 10:13:40 H&P Date Dictated: 04/04/2017 Within 30 days and on chart.. 10:13:43 Pre-procedure instructions explained to patient. 10:13:44 Pre-op teaching completed and patient verbalized understanding. 10:13:48 Family in waiting room. 10:13:51 Patient NPO since Midnight. 10:14:04 Patient allergic to No known allergies 10:14:08 Is the patient allergic to Iodine/contrast media? No. 10:14:12 Is patient on blood thinner?No 10:14:15 Patient diabetic? No. 10:14:35 - 10:14:36 ----Pre-sedation anethsthesia assessment.---- 10:14:41 Previous problem with sedation/anesthesia? No ? 10:14:43 Snore? No 10:14:46 Sleep apnea? No 10:14:49 Deviated septum? No 10:14:51 Opens mouth fully? Yes 10:14:53 Sticks out tongue? Yes 10:15:29 Airway obstruction? Yes copd 10:15:34 Dentures? No ? 10:15:48 Pre procedure: right dorsailis pedis pulse 1+ Palpable, but thready & weak; easily obliterated 10:15:54 Pre procedure: right posterior tibial pulse Doppler 10:15:57 Oxygen 4 l/min NC was administered by Nicole Jaramillo RN; ; 10:16:21 IV patent on arrival in left forearm with 0.9% NaCl at [facility]. 10:16:29 Right groin area was prepped with chlora-prep and draped in sterile fashion 10:16:40 Patient pain scale 0/10 ?. 10:16:44 Alarms reviewed by Daryl Mederos 10:16:45 Sharps counted by scrub and verified by RMónica 10:16:46 - 10:17:04 A Merit Impress 5Fr SIM 1 Catheter was opened to sterile field 10:18:[address] STOPC[address] 3-WAY LARGE BORE opened to sterile field. 10:33:33 Physician arrived 10:35:44 Lidocaine 1% 20ml vial added to field was administered by Mehdi bhakta MD; for local anesthetic; 10:35:46 --------ALL STOP TIME OUT------ 10:35:47 Final Timeout: patient, procedure, and site verified with staff and physician. All members of the team are in agreement. 10:36:02 Right groin site verified by team. 10:36:10 Sedation plan: IV Moderate Sedation Versed, Fentanyl 10:36:21 Procedure started. 10:36:26 Local anesthetic to right femoral artery with Lidocaine 1% by Mehdi Ramirez MD.INITIAL ACCESS ONLY 10:37:45 Arterial access obtained using ultrasound guidance. 10:41:22 Versed 1 mg I.V. was administered by Nicole Jaramillo RN; for sedation; 10:41:33 Fentanyl 50 mcg I.V. was administered by Nicole Jaramillo RN; for sedation ; 10:44:41 Versed 1 mg I.V. was administered by Nicole Jaramillo RN; for sedation; 10:44:48 Fentanyl 50 mcg I.V. was administered by Nicole Jaramillo RN; for sedation ; 10:54:32 RENEGADE HI-STEFFANY microcatheter opened to sterile field. 10:54:42 [place] FusionStorm TRANSEND STEERABLE guide wire opened to sterile field. 10:55:05 Copilot Bleedback Control Valve opened to sterile field. 11:07:11 PERCUTANEOUS ENTRY 19GA needle opened to sterile field. 11:14:24 BEADS LC M1 100-300UM opened to sterile field. 11:27:50 Versed 1 mg I.V. was administered by Nicole Jaramillo RN; for sedation; 11:27:59 Fentanyl 50 mcg I.V. was administered by Nicole Jaramillo RN; for sedation ; 11:29:57 BEADS LC M1 100-300UM opened to sterile field. 11:41:56 EMBO PARTICLES 250-355 MICRONS opened to sterile field. 11:49:38 Cordis 5Fr Exoseal opened to sterile field. 11:49:43 Procedure ended.(Physican Out) 11:49:50 Fluoroscopy time 14.90 minutes. 11:50:29 Fluoroscopy dose: 1804 mGy 11:50:29 Flurop Dose total: 1804 11:51:35 Contrast amount:Isovue 300 80ml. 11:51:51 Versed 1 mg I.V. was administered by Nicole Jaramillo RN; for sedation; 11:52:02 Sharps counted by scrub and verified by R.N. 11:52:04 Fentanyl 50 mcg I.V. was administered by Nicole Jaramillo RN; for sedation ; 11:52:34 Procedure and supply charges have been captured, reviewed, submitted an d are correct. 11:54:11 Post Procedure Pulses reassessed and unchanged 11:54:16 Hydralizine 10 mg I.V. was administered by Nicole Jaramillo RN; for hypertension; :54:34 Report given to CVICU. 11:54:46 Patient transfered to CVICU with Bed. 12:13:52 Vital chart was stopped Device Usage Item Name Manufacture Quantity Catalog Hospital Part Current Min imal Lot# / Number Charge Number Stock Stock Serial# Code Sterile Parlin 1 [id number] 5 Angiographic Health Pack Bag Decanter Microtek 1 2001S 848907 32922 757905 5 Medical Inc. Acist Acist Medical 1 51277 342956 312710 044548 5 Manifold Systems Inc Acist Hand Acist Medical 1 05344 081737 374046 253287 5 Control Systems Inc Acist Syringe Acist Medical 1 88900 699502 841938 437506 20 Systems Micro Interventional Devices TUBING, [facility] Medical 1 [id number] 533002 534898 313901 5 CONTRAST INJCTN HI PRES Terumo 5Fr Terumo 1 [id number] 935157 396957 767610 40 [place] Sheath Cook [facility] 1 [id number] 695697 080093 5 [id number] 145cm guide wire Micropuncture VSI VASCULAR 1 7266V 403977 026930 5 VSI 4FR kit SOLUTIONS [facility] Medical 1 [id number] 585479 378286 243023 5 5Fr SIM 1 Catheter STOPCOCK [facility] 1 R05954 154171 6458 705669 5 [id number] 3-WAY LARGE BORE RENEGADE [place] 1 [id number] 437555 867287 5 HI-STFEFANY Scientific microcatheter Tipton Sci Tipton 1 [id number] 179305 396146 5 TRANSEND Scientific STEERABLE guide wire Copilot Lucas 1 [id number] 265471 723804 340549 5 Bleedback Vascular Control Valve PERCUTANEOUS [facility] 1 C19288 166897 827062 5 9991006 ENTRY 19GA needle BEADS LC M1 BIOCOMPATIBLES 2 [id number] 147106 369493 410875 5 [id number] 100-300UM INC [id number] [facility] 1 [id number] 807586 6459 041873 5 [id number] PARTICLES Scientific 250-355 MICRONS Cordis 5Fr Cardinal 1 EX500 108584 208970 626861 10 [id number] [facility] Signature Audit [place] Stage Time Signature Unsigned Intra-Procedure 04/04/2017 Pilar Johnston 12:13:49 PM RT(R) Signatures Monitor : Pilar Johnston RT Signature : Date : Time : [facility] [address] [place] [address]
[2017-04-04 08:24] LABS: BASOPHILS 0.8 % (0-2); HEMATOCRIT 41.6 % (42.0-54.0); HEMOGLOBIN 15.3 g/dL (13.5-17.5); IMMATURE GRANULOCYTES 0.2 % (0-5); LYMPHOCYTES 35.8 % (15-50); MCH 35.4 pg (26.0-34.0); MCHC 36.8 g/dL (31.0-37.0); MCV 96.3 fL (80.0-100.0); MEAN PLATELET VOLUME 8.1 fL (7.4-10.4); MONOCYTES 10.5 % (2-11); NEUTROPHILS 50.7 % (40-80); PLATELET COUNT 211 10x3/uL (130-400); RBC 4.32 10x6/uL (4.20-6.10); RDW 13.1 % (11.5-14.5); WBC 5.9 10x3/uL (4.8-10.8)
[2017-04-04 08:37] LABS: ALBUMIN 3.8 g/dL (3.4-5.0); ALKALINE PHOSPHATASE 141 U/L (46-116); ALT (SGPT) 75 U/L (10-68); BILIRUBIN - DIRECT 0.11 mg/dL (0.00-0.30); BILIRUBIN - INDIRECT 0.27 mg/dL (0.00-1.00); BILIRUBIN - TOTAL 0.38 mg/dL (0.2-1.3); CALC OSMOLALITY 254 mosm/kg (275-300); CALCIUM 8.6 mg/dL (8.5-10.1); CHLORIDE - SERUM 92 mmol/L (98-107); CREATININE - SERUM 0.5 mg/dL (0.6-1.3); GLUCOSE 96 mg/dL (74-106); MAGNESIUM - SERUM 1.8 mg/dL (1.8-2.4); POTASSIUM - SERUM 3.9 mmol/L (3.5-5.1); PROTEIN - SERUM 7.8 g/dL (6.4-8.2); SODIUM 128 mmol/L (136-145); UREA NITROGEN 6 mg/dL (7-18); eGFR NON AFRICAN AMERICAN > 90 mL/min (90-120)
[2017-04-04 08:45] LABS: APTT 27.6 SECONDS (22.8-39.4); INR 0.86 (0.85-1.17); PROTIME 11.5 SECONDS (11.6-15.0)
--- NOTE | 2017-04-04 12:23 | NUR ---
RECEIVED PATIENT FROM INTERVENTIONAL RADIOLOGY. PATIENT STARTED VOMITING IMMEDIATELY, COMPLAINING OF SEVERE ABDOMINAL PAIN, AND VERY RESTLESS IN THE BED.
--- NOTE | 2017-04-04 12:30 | NUR ---
PATIENT ONLY HAS ORDERS FOR PO COMPAZINE ORDERED. CALLED RADIOLOGY BACK TO GET ORDERS FOR PATIENT FOR NAUSEA.
--- NOTE | 2017-04-04 13:10 | NUR ---
DR. SANCHEZ HERE IN TO SEE PATIENT. NEW ORDERS RECEIVED
--- NOTE | 2017-04-04 15:00 | NUR ---
PATIENT IS SLEEPING AROUSES EASILY TO VERBAL STIMULI. CALL LIGHT WITHIN REACH, BED IN LOW POSITION.
--- NOTE | 2017-04-04 15:53 | NUR ---
2ND IV STARTED IN R AC X1 STICK WITH 20G CATH. GOOD BLOOD RETURN NOTED AND FLUSHED EASILY.
--- NOTE | 2017-04-04 18:02 | NUR ---
Took call from Dr Gibson while primary nurse in with patient. PT SBP has been elevated. No rescue medications. Allergy info reviewed. Home medication list reviewed. She says is incomplete because he is on chemo and there wasn't any listed. Asked for PRN Clonidine to be given.
--- NOTE | 2017-04-04 19:30 | NUR ---
REPORT RECIEVED ASSESSMENT COMPLETED. SEE FLOW SHEET FOR FURTHER DETAILS. PT POSITIONED FOR COMFORT. BED IN LOW POSITION CALL LIGHT IN REACH. WILL CONTINEU TO MONITOR PT.
--- NOTE | 2017-04-04 21:00 | NUR ---
NO VISITORS AT THIS TIME. PT POSITIONED FOR COMFORT. SHOWING NO SIGNS OF DISTRESS. WILL CONTINUE TO MONITOR PT.
--- NOTE | 2017-04-04 23:00 | NUR ---
REASSESSMENT COMPLETED AT THIS TIME. NO ACUTE CHANGES AT THIS TIME. PT COMPLAINING OF NAUSEA. REPOSITIONED FOR COMFORT TO TX. WILL CONTINUE TO MONITOR PT.
[2017-04-05] VITALS (22 sets, daily range): BP systolic 140–184; BP diastolic 84–103; BMI 21.4
--- NOTE | 2017-04-05 01:00 | NUR ---
PT RESTING WITH EASE. STILL WORKING TO KEEP SBP DOWN. WILL CONTINUE TO MONITOR PT.
--- NOTE | 2017-04-05 01:53 | NUR ---
DR STEPHENS CALLED AND NOTIFIED ABOUT PT SBP. NEW ORDERS RECIEVED. WILL CONTINUE TO MONITOR PT.
--- NOTE | 2017-04-05 03:00 | NUR ---
REASSESSMENT COMPLETED. NO ACUTE CHANGES. PT SHOWS NO SIGNS OF DISTRES. POSITIONED PT FOR COMFORT WILL CONTINUE TO MONITOR PT.
--- NOTE | 2017-04-05 03:30 | NUR ---
REASSESSMENT COMPLETE, NO NEW CHANGES NOTED AT THIS TIME. RT GROIN WITH DRSG CDI, NO S/S OF HEMATOMA. PEDAL PULSES PRESENT. NO S/S OF ACUTE DISTRESS NOTED. CALL LIGHT AND BEDSIDE TABLE WITHIN PT REACH. CPOC.
--- NOTE | 2017-04-05 05:10 | NUR ---
PT SAYS THAT HIS STOMACH IS UNCOMFORTABLE AT TIMES THEN GOES AWAY. WILL CONTINUE TO MONITOR.
[2017-04-05 08:50] LABS: BASOPHILS 0.1 % (0-2); EOSINOPHILS 0.1 % (0-7); HEMATOCRIT 41.4 % (42.0-54.0); IMMATURE GRANULOCYTES 0.2 % (0-5); LYMPHOCYTES 16.2 % (15-50); MCH 34.9 pg (26.0-34.0); MCHC 36.2 g/dL (31.0-37.0); MCV 96.3 fL (80.0-100.0); MEAN PLATELET VOLUME 8.5 fL (7.4-10.4); MONOCYTES 14.3 % (2-11); NEUTROPHILS 69.1 % (40-80); PLATELET COUNT 201 10x3/uL (130-400); RDW 12.9 % (11.5-14.5)
[2017-04-05 09:05] LABS: WBC 8.4 10x3/uL (4.8-10.8)
[2017-04-05 09:12] LABS: ALBUMIN 3.5 g/dL (3.4-5.0); ALKALINE PHOSPHATASE 140 U/L (46-116); BILIRUBIN - TOTAL 0.64 mg/dL (0.2-1.3); CALC OSMOLALITY 252 mosm/kg (275-300); CALCIUM 8.9 mg/dL (8.5-10.1); CARBON DIOXIDE 26.2 mmol/L (21.0-32.0); CHLORIDE - SERUM 91 mmol/L (98-107); CREATININE - SERUM 0.6 mg/dL (0.6-1.3); GLUCOSE 129 mg/dL (74-106); POTASSIUM - SERUM 4.1 mmol/L (3.5-5.1); PROTEIN - SERUM 7.4 g/dL (6.4-8.2); SODIUM 126 mmol/L (136-145); UREA NITROGEN 7 mg/dL (7-18); eGFR NON AFRICAN AMERICAN > 90 mL/min (90-120)
[2017-04-05 09:13] LABS: ALT (SGPT) 121 U/L (10-68)
--- NOTE | 2017-04-05 09:54 | NUR ---
PATIENT RESTING QUIETLY WITH EYES CLOSED AT THIS TIME. CALL LIGHT WITHIN REACH, AND BED IN LOW POSITION.
--- NOTE | 2017-04-05 15:52 | NUR ---
DR. STEPHENS HERE IN TO SEE PATIENT NEW ORDERS RECEIVED.
--- NOTE | 2017-04-05 17:25 | NUR ---
DR. MONGE HERE IN TO SEE PATIENT.
--- NOTE | 2017-04-05 19:30 | NUR ---
PT AOX4. RESPIRATIONS EVEN AND UNLABORED, LUNG SOUNDS CLEAR THROUGHOUT. S1S2 HEARD, PERIPHERAL PULSES PRESENT. LT BKA. BOWEL SOUNDS ACTIVE IN ALL QUADRANTS. URINAL AT BEDSIDE. RT GROIN WITH DRSG CDI, NO S/S OF HEMATOMA. PT REPOSITIONS SELF INDEPENDENTLY. FRESH WATER TO BEDSIDE PER REQUEST. VSS, DENIES NEEDS AT THIS TIME. CALL LIGHT AND BEDSIDE TABLE WITHIN PT REACH. CPOC.
--- NOTE | 2017-04-05 21:34 | NUR ---
NO VISITORS AT THIS TIME. VSS, PT SLEEPING QUIETLY WITH NO S/S OF DISTRESS NOTED. CALL LIGHT AND BEDSIDE TABLE WITHIN PT REACH. CPOC.
--- NOTE | 2017-04-05 23:30 | NUR ---
REASSESSMENT COMPLETE, SEE FLOWSHEET FOR ALL FINDINGS. NO ACUTE CHANGES NOTED AT THIS TIME. PT REPOSITIONED FOR COMFORT WITH MINIMAL ASSISTANCE. VSS. FRESH WATER TO BEDSIDE. DENIES FURTHER NEEDS. CALL LIGHT AND BEDSIDE TABLE WITHIN PT REACH. CPOC.
[2017-04-06] VITALS (9 sets, daily range): BP systolic 124–162; BP diastolic 77–92
[2017-04-06] MEDS ORDERED: HYDRALAZINE HCL50 MG PO (09:36)
[2017-04-06] MEDS ORDERED: CATAPRES0.1 MG PO (09:36)
[2017-04-06] MEDS ORDERED: TOPROL XL50 MG PO (09:37)
--- NOTE | 2017-04-06 11:05 | NUR ---
PIV X 2 DC'D. WRITTEN SCRIPTS GIVEN TO PATIENT. DISCHARGE PAPERS SIGNED. DISCHARGE INSTRUCTIONS AND INSTRUCTIONS ON NEW MEDS GIVEN. PATIENT STATES HE HAS A MACHINE TO MONITOR HIS BLOOD PRESSURE AT HOME. DISCHARGED VIA WHEELCHAIR TO HOME WITH BROTHER.
== END 2017-04-06 11:05 | disposition home or self-care (01) ==
LOC: D.OPS 07:38 → D.CVICU 07:38 → D.RAD 10:00 → D.SP 10:00 → D.OPS 10:00 → D.CVICU 12:26 → D.OPS 04-06 11:05
PROVIDERS: Radiology Diagnostic Radiology
DX: C22.0 Liver cell carcinoma (principal); I10 Essential (primary) hypertension; B18.2 Chronic viral hepatitis C; K70.30 Alcoholic cirrhosis of liver without ascites; F10.20 Alcohol dependence, uncomplicated; S72.92XA Unspecified fracture of left femur, initial encounter for closed fracture; W18.30XA Fall on same level, unspecified, initial encounter; F32.9 Major depressive disorder, single episode, unspecified; G40.909 Epilepsy, unspecified, not intractable, without status epilepticus; F17.200 Nicotine dependence, unspecified, uncomplicated; F12.90 Cannabis use, unspecified, uncomplicated; Z89.519 Acquired absence of unspecified leg below knee; Z79.891 Long term (current) use of opiate analgesic; Z79.899 Other long term (current) drug therapy; Z01.812 Encounter for preprocedural laboratory examination; Z01.810 Encounter for preprocedural cardiovascular examination

== ENCOUNTER → 2017-05-23 07:09 | Outpatient (CLI) | payer MEDICARE, MEDICAID ==
[2017-04-05 09:18] VITALS: BMI 21.4
[~2017-05-23 07:09] MED LIST changes: +CATAPRES0.1 MG PO; +HYDRALAZINE HCL50 MG PO; +TOPROL XL50 MG PO
== END | disposition home or self-care (01) ==
LOC: D.CT 07:09
DX: C22.0 Liver cell carcinoma (principal)

== ENCOUNTER → 2017-07-29 08:26 | Outpatient (CLI) | payer MEDICARE, MEDICAID ==
[2017-04-05 09:18] VITALS: BMI 21.4
== END | disposition home or self-care (01) ==
LOC: D.MRI 07-26 11:00 → D.CT 08:00 → D.MRI 09:00
DX: R42 Dizziness and giddiness (principal); Z91.81 History of falling; R56.9 Unspecified convulsions; C22.8 Malignant neoplasm of liver, primary, unspecified as to type

== ENCOUNTER 2017-10-03 10:09 | Emergency (ER) | payer MEDICARE, MEDICAID ==
[2017-04-05 09:18] VITALS: BMI 21.4
[2017-10-03 12:08] LABS: BASOPHILS 0.5 % (0-2); EOSINOPHILS 1.2 % (0-7); HEMATOCRIT 37.1 % (42.0-54.0); HEMOGLOBIN 13.6 g/dL (13.5-17.5); LYMPHOCYTES 31.4 % (15-50); MCH 35.5 pg (26.0-34.0); MCHC 36.7 g/dL (31.0-37.0); MCV 96.9 fL (80.0-100.0); MEAN PLATELET VOLUME 8.7 fL (7.4-10.4); MONOCYTES 15.1 % (2-11); NEUTROPHILS 51.8 % (40-80); PLATELET COUNT 198 10x3/uL (130-400); RBC 3.83 10x6/uL (4.20-6.10); RDW 12.6 % (11.5-14.5); WBC 4.2 10x3/uL (4.8-10.8)
[2017-10-03 12:25] LABS: ALBUMIN 3.3 g/dL (3.4-5.0); ALKALINE PHOSPHATASE 103 U/L (46-116); ALT (SGPT) 30 U/L (10-68); BILIRUBIN - TOTAL 0.53 mg/dL (0.2-1.3); CALC OSMOLALITY 260 mosm/kg (275-300); CALCIUM 8.9 mg/dL (8.5-10.1); CARBON DIOXIDE 27.8 mmol/L (21.0-32.0); CHLORIDE - SERUM 93 mmol/L (98-107); CREATININE - SERUM 0.6 mg/dL (0.6-1.3); GLUCOSE 104 mg/dL (74-106); POTASSIUM - SERUM 3.2 mmol/L (3.5-5.1); PROTEIN - SERUM 7.4 g/dL (6.4-8.2); SODIUM 131 mmol/L (136-145); UREA NITROGEN 8 mg/dL (7-18); eGFR NON AFRICAN AMERICAN > 90 mL/min (90-120)
[2017-10-03 12:55] LABS: APPEARANCE HAZY (CLEAR); BILIRUBIN NEGATIVE (NEGATIVE); COLOR YELLOW (YELLOW); GLUCOSE NEGATIVE (NEGATIVE); KETONE NEGATIVE (NEGATIVE); NITRITE NEGATIVE (NEGATIVE); PROTEIN NEGATIVE (NEGATIVE); UROBILINOGEN NORMAL (NORMAL)
== END 2017-10-03 14:45 | disposition home or self-care (01) ==
LOC: D.ER 10:09
PROVIDERS: Family Medicine
DX: R53.1 Weakness (principal); F17.200 Nicotine dependence, unspecified, uncomplicated; J44.9 Chronic obstructive pulmonary disease, unspecified; G40.909 Epilepsy, unspecified, not intractable, without status epilepticus; M54.6 Pain in thoracic spine; M54.5 Low back pain

== ENCOUNTER → 2017-10-16 07:53 | Outpatient (CLI) | payer MEDICARE, MEDICAID ==
[2017-04-05 09:18] VITALS: BMI 21.4
== END | disposition home or self-care (01) ==
LOC: D.CT 07:53
DX: C22.0 Liver cell carcinoma (principal)

== ENCOUNTER → 2018-01-09 08:29 | Outpatient (CLI) | payer MEDICARE, MEDICAID ==
[2017-04-05 09:18] VITALS: BMI 21.4
[~2018-01-09 08:29] MED LIST changes: +NEXAVAR200 MG PO; +ZOFRAN ODT4 MG/UDTAB PO
== END | disposition home or self-care (01) ==
LOC: D.CT 08:29
DX: R11.0 Nausea (principal); C22.0 Liver cell carcinoma

== ENCOUNTER 2018-01-30 11:23 | Inpatient (IN) | payer MEDICARE, MEDICAID ==
[~2018-01-30] VITALS: Ht 170.2 cm; Wt 55.8 kg
[~2018-01-30 11:23] MED LIST changes: -NEXAVAR200 MG PO; -ZOFRAN ODT4 MG/UDTAB PO
[2018-01-30 13:34] VITALS: BP 128/90
[2018-01-30 14:22] LABS: BASOPHILS 0.4 % (0-2); HEMATOCRIT 33.9 % (42.0-54.0); HEMOGLOBIN 12.3 g/dL (13.5-17.5); IMMATURE GRANULOCYTES 0.2 % (0-5); LYMPHOCYTES 16.3 % (15-50); MCH 36.2 pg (26.0-34.0); MCHC 36.3 g/dL (31.0-37.0); MCV 99.7 fL (80.0-100.0); MEAN PLATELET VOLUME 8.9 fL (7.4-10.4); MONOCYTES 16.7 % (2-11); NEUTROPHILS 65.4 % (40-80); PLATELET COUNT 181 10x3/uL (130-400); RDW 13.2 % (11.5-14.5); WBC 4.9 10x3/uL (4.8-10.8)
[2018-01-30 14:31] LABS: APTT 23.9 SECONDS (22.8-39.4); INR 0.9 (0.85-1.17); PROTIME 11.7 SECONDS (11.6-15.0)
[2018-01-30 14:35] LABS: ALBUMIN 2.6 g/dL (3.4-5.0); ALKALINE PHOSPHATASE 133 U/L (46-116); ALT (SGPT) 54 U/L (10-68); BILIRUBIN - TOTAL 0.46 mg/dL (0.2-1.3); CALC OSMOLALITY 263 mosm/kg (275-300); CALCIUM 8.5 mg/dL (8.5-10.1); CHLORIDE - SERUM 94 mmol/L (98-107); CREATININE - SERUM 0.6 mg/dL (0.6-1.3); GLUCOSE 124 mg/dL (74-106); PHENYTOIN (DILANTIN) 13.6 ug/mL (10.0-20.0); PROTEIN - SERUM 6.6 g/dL (6.4-8.2); SODIUM 132 mmol/L (136-145); UREA NITROGEN 7 mg/dL (7-18); eGFR NON AFRICAN AMERICAN > 90 mL/min (90-120)
[2018-01-30 16:48] VITALS: BP 132/88
[2018-01-30 20:25] VITALS: BP 128/90; BMI 19.3
[2018-01-30 21:09] VITALS: BP 162/99
[2018-01-31] VITALS (13 sets, daily range): BP systolic 15–184; BP diastolic 67–104; Ht 170.2 cm; Wt 55.8 kg
[2018-01-31 05:29] LABS: BASOPHILS 0.4 % (0-2); EOSINOPHILS 0.7 % (0-7); HEMOGLOBIN 12.8 g/dL (13.5-17.5); IMMATURE GRANULOCYTES 0.4 % (0-5); LYMPHOCYTES 12.4 % (15-50); MCH 35.8 pg (26.0-34.0); MCHC 35.6 g/dL (31.0-37.0); MCV 100.6 fL (80.0-100.0); MONOCYTES 14.8 % (2-11); NEUTROPHILS 71.3 % (40-80); PLATELET COUNT 208 10x3/uL (130-400); RBC 3.58 10x6/uL (4.20-6.10); RDW 12.9 % (11.5-14.5); WBC 5.4 10x3/uL (4.8-10.8)
[2018-01-31 06:30] LABS: ALBUMIN 2.6 g/dL (3.4-5.0); ALKALINE PHOSPHATASE 132 U/L (46-116); ALT (SGPT) 54 U/L (10-68); BILIRUBIN - TOTAL 0.63 mg/dL (0.2-1.3); CALC OSMOLALITY 261 mosm/kg (275-300); CALCIUM 8.1 mg/dL (8.5-10.1); CARBON DIOXIDE 29.4 mmol/L (21.0-32.0); CHLORIDE - SERUM 94 mmol/L (98-107); CREATININE - SERUM 0.5 mg/dL (0.6-1.3); GLUCOSE 103 mg/dL (74-106); MAGNESIUM - SERUM 1.5 mg/dL (1.8-2.4); POTASSIUM - SERUM 3.8 mmol/L (3.5-5.1); PROTEIN - SERUM 6.6 g/dL (6.4-8.2); SODIUM 132 mmol/L (136-145); UREA NITROGEN 4 mg/dL (7-18); eGFR NON AFRICAN AMERICAN > 90 mL/min (90-120)
[2018-02-01 05:20] LABS: BASOPHILS 0.3 % (0-2); EOSINOPHILS 0.5 % (0-7); IMMATURE GRANULOCYTES 0.3 % (0-5); LYMPHOCYTES 10.5 % (15-50); MCH 35.6 pg (26.0-34.0); MCHC 35.3 g/dL (31.0-37.0); MCV 100.9 fL (80.0-100.0); MEAN PLATELET VOLUME 9.1 fL (7.4-10.4); MONOCYTES 15.5 % (2-11); NEUTROPHILS 72.9 % (40-80); PLATELET COUNT 217 10x3/uL (130-400); RBC 3.37 10x6/uL (4.20-6.10); WBC 6.7 10x3/uL (4.8-10.8)
[2018-02-01 05:41] LABS: ALBUMIN 2.4 g/dL (3.4-5.0); ALKALINE PHOSPHATASE 117 U/L (46-116); ALT (SGPT) 52 U/L (10-68); BILIRUBIN - TOTAL 0.68 mg/dL (0.2-1.3); CALC OSMOLALITY 254 mosm/kg (275-300); CALCIUM 8.2 mg/dL (8.5-10.1); CARBON DIOXIDE 30.1 mmol/L (21.0-32.0); CHLORIDE - SERUM 93 mmol/L (98-107); CREATININE - SERUM 0.5 mg/dL (0.6-1.3); GLUCOSE 105 mg/dL (74-106); MAGNESIUM - SERUM 1.5 mg/dL (1.8-2.4); POTASSIUM - SERUM 3.6 mmol/L (3.5-5.1); PROTEIN - SERUM 6.2 g/dL (6.4-8.2); SODIUM 128 mmol/L (136-145); UREA NITROGEN 6 mg/dL (7-18); eGFR NON AFRICAN AMERICAN > 90 mL/min (90-120)
[2018-02-01 11:05] VITALS: BP 141/89
[2018-02-01 22:12] VITALS: BP 154/106
[2018-02-02 04:27] VITALS: BP 121/83
[2018-02-02 05:45] LABS: BASOPHILS 0.2 % (0-2); EOSINOPHILS 0.2 % (0-7); HEMATOCRIT 32.4 % (42.0-54.0); HEMOGLOBIN 11.8 g/dL (13.5-17.5); IMMATURE GRANULOCYTES 0.2 % (0-5); LYMPHOCYTES 7.2 % (15-50); MCH 36.3 pg (26.0-34.0); MCHC 36.4 g/dL (31.0-37.0); MCV 99.7 fL (80.0-100.0); MEAN PLATELET VOLUME 9.3 fL (7.4-10.4); MONOCYTES 16.9 % (2-11); NEUTROPHILS 75.3 % (40-80); PLATELET COUNT 217 10x3/uL (130-400); RBC 3.25 10x6/uL (4.20-6.10); RDW 12.9 % (11.5-14.5); WBC 6.5 10x3/uL (4.8-10.8)
[2018-02-02 06:22] LABS: ALBUMIN 2.5 g/dL (3.4-5.0); ALKALINE PHOSPHATASE 107 U/L (46-116); ALT (SGPT) 52 U/L (10-68); BILIRUBIN - TOTAL 0.59 mg/dL (0.2-1.3); CALC OSMOLALITY 248 mosm/kg (275-300); CALCIUM 8.3 mg/dL (8.5-10.1); CARBON DIOXIDE 29.9 mmol/L (21.0-32.0); CHLORIDE - SERUM 89 mmol/L (98-107); CREATININE - SERUM 0.4 mg/dL (0.6-1.3); GLUCOSE 119 mg/dL (74-106); MAGNESIUM - SERUM 1.7 mg/dL (1.8-2.4); POTASSIUM - SERUM 3.7 mmol/L (3.5-5.1); PROTEIN - SERUM 6.4 g/dL (6.4-8.2); SODIUM 124 mmol/L (136-145); UREA NITROGEN 7 mg/dL (7-18); eGFR NON AFRICAN AMERICAN > 90 mL/min (90-120)
[2018-02-02 09:19] VITALS: BP 147/100
[2018-02-02 21:44] VITALS: BP 124/64
[2018-02-03 04:23] VITALS: BP 136/96
[2018-02-03 05:25] LABS: APPEARANCE CLEAR (CLEAR); BILIRUBIN NEGATIVE (NEGATIVE); COLOR YELLOW (YELLOW); GLUCOSE NEGATIVE (NEGATIVE); KETONE NEGATIVE (NEGATIVE); NITRITE NEGATIVE (NEGATIVE); PROTEIN NEGATIVE (NEGATIVE); SPECIFIC GRAVITY 1.015 (1.005-1.020); UROBILINOGEN NORMAL (NORMAL)
[2018-02-03 05:28] LABS: BASOPHILS 0.2 % (0-2); EOSINOPHILS 0.5 % (0-7); HEMATOCRIT 30.5 % (42.0-54.0); HEMOGLOBIN 10.9 g/dL (13.5-17.5); IMMATURE GRANULOCYTES 0.3 % (0-5); LYMPHOCYTES 10.4 % (15-50); MCH 35.6 pg (26.0-34.0); MCHC 35.7 g/dL (31.0-37.0); MCV 99.7 fL (80.0-100.0); MEAN PLATELET VOLUME 9.2 fL (7.4-10.4); MONOCYTES 23.8 % (2-11); NEUTROPHILS 64.8 % (40-80); PLATELET COUNT 220 10x3/uL (130-400); RBC 3.06 10x6/uL (4.20-6.10); RDW 13.2 % (11.5-14.5)
[2018-02-03 05:48] LABS: ALBUMIN 2.3 g/dL (3.4-5.0); ALKALINE PHOSPHATASE 98 U/L (46-116); ALT (SGPT) 64 U/L (10-68); BILIRUBIN - TOTAL 0.65 mg/dL (0.2-1.3); CALC OSMOLALITY 250 mosm/kg (275-300); CALCIUM 8.1 mg/dL (8.5-10.1); CARBON DIOXIDE 28.3 mmol/L (21.0-32.0); CHLORIDE - SERUM 93 mmol/L (98-107); CREATININE - SERUM 0.4 mg/dL (0.6-1.3); GLUCOSE 106 mg/dL (74-106); MAGNESIUM - SERUM 1.9 mg/dL (1.8-2.4); POTASSIUM - SERUM 4.2 mmol/L (3.5-5.1); PROTEIN - SERUM 5.5 g/dL (6.4-8.2); SODIUM 126 mmol/L (136-145); UREA NITROGEN 6 mg/dL (7-18); eGFR NON AFRICAN AMERICAN > 90 mL/min (90-120)
[2018-02-03 08:27] VITALS: BP 142/100
[2018-02-03 13:32] VITALS: BP 153/99
[2018-02-03 18:34] VITALS: BP 145/96
[2018-02-03 22:14] VITALS: BP 132/85
[2018-02-04 05:07] LABS: HEMATOCRIT 30.7 % (42.0-54.0); HEMOGLOBIN 10.9 g/dL (13.5-17.5); MCH 35.3 pg (26.0-34.0); MCHC 35.5 g/dL (31.0-37.0); MCV 99.4 fL (80.0-100.0); MEAN PLATELET VOLUME 8.9 fL (7.4-10.4); PLATELET COUNT 208 10x3/uL (130-400); RBC 3.09 10x6/uL (4.20-6.10); WBC 5.3 10x3/uL (4.8-10.8)
[2018-02-04 05:21] VITALS: BP 139/91
[2018-02-04 05:25] LABS: ALBUMIN 2.4 g/dL (3.4-5.0); ALKALINE PHOSPHATASE 105 U/L (46-116); ALT (SGPT) 81 U/L (10-68); BILIRUBIN - TOTAL 0.56 mg/dL (0.2-1.3); CALC OSMOLALITY 248 mosm/kg (275-300); CALCIUM 8.1 mg/dL (8.5-10.1); CARBON DIOXIDE 26.4 mmol/L (21.0-32.0); CHLORIDE - SERUM 91 mmol/L (98-107); CREATININE - SERUM 0.5 mg/dL (0.6-1.3); GLUCOSE 107 mg/dL (74-106); MAGNESIUM - SERUM 1.6 mg/dL (1.8-2.4); POTASSIUM - SERUM 4.1 mmol/L (3.5-5.1); PROTEIN - SERUM 5.7 g/dL (6.4-8.2); SODIUM 125 mmol/L (136-145); UREA NITROGEN 5 mg/dL (7-18); eGFR NON AFRICAN AMERICAN > 90 mL/min (90-120)
[2018-02-04 05:43] LABS: BASOPHILS 1 % (0-2); EOSINOPHILS 1 % (0-7); LYMPHOCYTES 7 % (15-50); MONOCYTES 17 % (2-11); NEUTROPHILS 70 % (40-80)
[2018-02-04 05:44] LABS: PLATELET ESTIMATE NORMAL
[2018-02-04 09:18] VITALS: BP 149/100
[2018-02-04 12:28] VITALS: BP 140/98
[2018-02-04 16:14] VITALS: BP 138/86
[2018-02-04] MEDS ORDERED: NEXAVAR200 MG PO (18:36)
[2018-02-04 20:00] VITALS: BP 132/85
[2018-02-05 08:17] VITALS: BP 125/82
[2018-02-05 10:31] LABS: ALBUMIN 2.3 g/dL (3.4-5.0); ALKALINE PHOSPHATASE 100 U/L (46-116); ALT (SGPT) 77 U/L (10-68); BILIRUBIN - TOTAL 0.45 mg/dL (0.2-1.3); CALC OSMOLALITY 250 mosm/kg (275-300); CALCIUM 8.2 mg/dL (8.5-10.1); CARBON DIOXIDE 29.3 mmol/L (21.0-32.0); CHLORIDE - SERUM 92 mmol/L (98-107); CREATININE - SERUM 0.6 mg/dL (0.6-1.3); GLUCOSE 113 mg/dL (74-106); POTASSIUM - SERUM 4.2 mmol/L (3.5-5.1); PROTEIN - SERUM 5.9 g/dL (6.4-8.2); SODIUM 125 mmol/L (136-145); eGFR NON AFRICAN AMERICAN > 90 mL/min (90-120)
[2018-02-05 10:33] LABS: UREA NITROGEN 7 mg/dL (7-18)
[2018-02-05 13:47] VITALS: BP 116/91
[2018-02-05 22:11] VITALS: BP 123/88
[2018-02-06 04:12] VITALS: BP 120/88
[2018-02-06 06:25] LABS: BASOPHILS 0.4 % (0-2); EOSINOPHILS 0.4 % (0-7); HEMATOCRIT 28.6 % (42.0-54.0); HEMOGLOBIN 10.2 g/dL (13.5-17.5); IMMATURE GRANULOCYTES 0.4 % (0-5); MCHC 35.7 g/dL (31.0-37.0); MCV 101.1 fL (80.0-100.0); MEAN PLATELET VOLUME 8.7 fL (7.4-10.4); MONOCYTES 20.6 % (2-11); NEUTROPHILS 49.2 % (40-80); PLATELET COUNT 228 10x3/uL (130-400); RBC 2.83 10x6/uL (4.20-6.10); RDW 12.6 % (11.5-14.5); WBC 4.8 10x3/uL (4.8-10.8)
[2018-02-06 06:45] LABS: ALBUMIN 2.3 g/dL (3.4-5.0); ALKALINE PHOSPHATASE 85 U/L (46-116); ALT (SGPT) 64 U/L (10-68); BILIRUBIN - TOTAL 0.49 mg/dL (0.2-1.3); CALC OSMOLALITY 252 mosm/kg (275-300); CALCIUM 8.1 mg/dL (8.5-10.1); CARBON DIOXIDE 29.2 mmol/L (21.0-32.0); CHLORIDE - SERUM 92 mmol/L (98-107); CREATININE - SERUM 0.5 mg/dL (0.6-1.3); GLUCOSE 103 mg/dL (74-106); POTASSIUM - SERUM 4.1 mmol/L (3.5-5.1); PROTEIN - SERUM 5.7 g/dL (6.4-8.2); SODIUM 127 mmol/L (136-145); UREA NITROGEN 8 mg/dL (7-18); eGFR NON AFRICAN AMERICAN > 90 mL/min (90-120)
[2018-02-06 09:23] VITALS: BP 133/94
[2018-02-06 12:25] VITALS: BP 106/71
[2018-02-06 17:02] VITALS: BP 134/93
[2018-02-06 21:08] VITALS: BP 114/70
[2018-02-07 04:45] VITALS: BP 119/78
[2018-02-07 05:10] LABS: HEMATOCRIT 28.8 % (42.0-54.0); HEMOGLOBIN 10.5 g/dL (13.5-17.5); LYMPHOCYTES 10.6 % (15-50); MCH 36.5 pg (26.0-34.0); MCHC 36.5 g/dL (31.0-37.0); MEAN PLATELET VOLUME 8.4 fL (7.4-10.4); NEUTROPHILS 53.3 % (40-80); PLATELET COUNT 257 10x3/uL (130-400); RBC 2.88 10x6/uL (4.20-6.10); RDW 13.4 % (11.5-14.5); WBC 5.4 10x3/uL (4.8-10.8)
[2018-02-07 05:22] LABS: ALBUMIN 2.4 g/dL (3.4-5.0); ALKALINE PHOSPHATASE 92 U/L (46-116); ALT (SGPT) 60 U/L (10-68); BILIRUBIN - TOTAL 0.46 mg/dL (0.2-1.3); CALC OSMOLALITY 250 mosm/kg (275-300); CALCIUM 8.7 mg/dL (8.5-10.1); CARBON DIOXIDE 29.5 mmol/L (21.0-32.0); CHLORIDE - SERUM 93 mmol/L (98-107); CREATININE - SERUM 0.5 mg/dL (0.6-1.3); GLUCOSE 89 mg/dL (74-106); POTASSIUM - SERUM 4.3 mmol/L (3.5-5.1); PROTEIN - SERUM 5.9 g/dL (6.4-8.2); SODIUM 126 mmol/L (136-145); UREA NITROGEN 9 mg/dL (7-18); eGFR NON AFRICAN AMERICAN > 90 mL/min (90-120)
[2018-02-07 08:52] VITALS: BP 127/81
[2018-02-07] MEDS ORDERED: ZOFRAN ODT4 MG/UDTAB PO (11:19)
[2018-02-07] MEDS ORDERED: PERCOCET 10/3251 TA1 PO (11:19)
== END 2018-02-07 11:20 | disposition home or self-care (01) | DRG 392 ==
LOC: D.MS 11:23
PROVIDERS: Family Medicine; Internal Medicine Hematology & Oncology; Specialist
PROC: 07DD3ZX Extraction of Aortic Lymphatic, Percutaneous Approach, Diagnostic (ICD-10-PCS; principal; 2018-01-31 08:45)
DX: A08.4 Viral intestinal infection, unspecified (principal); C22.0 Liver cell carcinoma; E87.1 Hypo-osmolality and hyponatremia; B19.20 Unspecified viral hepatitis C without hepatic coma; F10.20 Alcohol dependence, uncomplicated; J44.9 Chronic obstructive pulmonary disease, unspecified; R59.9 Enlarged lymph nodes, unspecified; G40.909 Epilepsy, unspecified, not intractable, without status epilepticus; M62.838 Other muscle spasm; E87.6 Hypokalemia; K59.00 Constipation, unspecified; G47.00 Insomnia, unspecified; F17.200 Nicotine dependence, unspecified, uncomplicated

== ENCOUNTER → 2018-02-12 10:20 | Outpatient (CLI) | payer MEDICARE, MEDICAID ==
[2018-01-31 13:23] VITALS: BMI 19.2
[~2018-02-12 10:20] MED LIST changes: +NEXAVAR200 MG PO; +ZOFRAN ODT4 MG/UDTAB PO
== END | disposition home or self-care (01) ==
LOC: D.US 10:20
DX: N43.3 Hydrocele, unspecified (principal)

== ENCOUNTER 2018-03-04 14:35 | Inpatient (IN) | payer MEDICARE, MEDICAID ==
[~2018-03-04] VITALS: Ht 170.2 cm; Wt 53.5 kg
--- NOTE | ~2018-03-04 | EC ---
PATIENT:CLAUDIA SUGGS DATE OF SERVICE: 03/04/18 SEX: M MEDICAL RECORD: [id number] DATE OF : [birth year] LOCATION:[facility] AGE OF PATIENT: 63 ADMISSION DATE: 03/04/18 REFERRING PHYSICIAN: INTERPRETING PHYSICIAN: JERRY LLAMAS MD ECHOCARDIOGRAM REPORT ECHO CHARGES Date: CLINICAL DIAGNOSIS: ECHOCARDIOGRAPHIC MEASUREMENTS (adult normal given) AC root (d.<3.7cm) cm LV Septum d (<1.2 cm> cm Valve Excursion cm LV Septum (systole) cm Left Atria (s.<4.0cm> cm LVPW d(<1.2cm) cm RV (d.<2.3cm) cm LVPW (sytole) cm LV diastole(<5.6CM) cm MV E-F(>70mm/sec) cm LV systole cm LVOT Diameter cm MV exc.(>10mm) cm Est.ejection fraction (50-75%) % DOPPLER: LVIT cm/sec A cm/sec E cm/sec LA cm/sec RVSP mmHg LVOT cm/sec AOP1/2T m/s Asc. Ao cm/sec RVOT cm/sec RA cm/sec PA cm/sec AV Gradient Peak mmHg AV Mean mmHg AV Area cm MV Gradient Peak mmHg MV Mean mmHg MV Area cm COMMENTS: Greenhouse Florist: Dredge Worker: RADHA# Pericardial Effusion DATE OF SERVICE: PROCEDURE: Transthoracic echocardiogram. FINDINGS: Left ventricle shows a normal left ventricular ejection fraction, EF of 60%, normal right ventricular function, normal valvular function with mildly dilated left atrium. TRANSINT:[id number] Voice Confirmation ID: [id number] DOCUMENT ID: [id number] ECHOCARDIOGRAM REPORT [id number] CLAUDIA SUGGS JERRY LLAMAS MD at 2344 CC: [id number] DICTATION DATE: 03/13/18806 CARNALLITE PLANT OPERATOR: 03/13/18 0816 DIS IN 03/18/18 [place] [id number]
--- NOTE | ~2018-03-04 | MORECARE ---
CASE MANAGEMENT DISCHARGE SUMMARY PATIENT: CLAUDIA SUGGS UNIT: [id number] ADM DATE: 03/04/18 AGE: 62 : 57 SEX: M ROOM/BED: D.2217 AUTHOR: ALEJANDRA,DOC PHYSICIAN: REFERRING PHYSICIAN: VIVEK MONGE MD DATE OF SERVICE: 03/19/18 Discharge Plan Patient Name: CLAUDIA SUGGS Facility: [facility]:[place] : 1955 Planned Disposition: Home with Home Health Anticipated Discharge Date: Discharge Date: 03/18/2018 Expected LOS: Initial Reviewer: [email or web address] Initial Review Date: 03/04/2018 Generated: 03/19/18 10:42 am Comments DCP- Discharge Planning Updated by [email or web address]: Yahaira Durant on 03/19/18 8:[address] PATIENT WAS DISCHARGED 10/ PM, ORDER RECEIVED FOR HIM TO RESUME HOME HEALTH, PATIENT WAS CURRENT WITH [facility], I CALLED AND SPOKE WITH MARITA AT [facility] AND FAXED OVER CLINICAL INFORAMTION FOR THEM TO PICK PATIENT BACK UP . DCP- Discharge Planning Updated by [email or web address]: Yahaira Durant on 03/07/18 3:[address] Patient Name: CLAUDIA SUGGS Admission Status: Urgent Accout number: [id number] Admission Date: 03-04-2018 : 1955 Admission Diagnosis:OBSTRUCTION OF BILE DUCT Attending: VIEVK MONGE Current LOS: 3 Anticipated DC Date: Planned Disposition: Home with Home Health Primary Insurance: [facility] MEDIC[facility] SOLUTIONS Discharge Planning Comments: CM met with patient to assess discharge planning needs. Patient lives with his brother on [facility]. He stated his brother will be the one to take him home. He denies any DME he does use a prosthetic leg. He is current with [facility]. He stated his home is safe to return. CM will continue to follow and assist with DC planning as needed. Business Teacher: Yahaira Durant DCP- Discharge Planning Updated by [email or web address]: Yahaira Durant on 03/06/18 3:[address] attempted to see patient, patient was sleeping will assess at later date DCPIA - Discharge Planning Initial Assessment Updated by [email or web address]: Yahaira Durant on 03/07/18 4:21 pm * Is the patient Alert and Oriented? Yes * How many steps to enter\exit or inside your home? * PCP MARIPOSA * Pharmacy [facility] * Preadmission Environment Home with Family * ADLs Independent * Equipment Other * Other Equipment PROSTHETIC * List name and contact numbers for known caregivers / representatives who currently or will assist patient after discharge: BROTHER * Verbal permission to speak to the caregivers and representatives has been obtained from the patient. N/A * Community resources currently utilized None * Additional services required to return to the preadmission environment? No * Can the patient safely return to the preadmission environment? Yes * Has this patient been hospitalized within the prior 30 days at any hospital? Yes External Providers External Provider: [facility] [[email or web address] Next Contact Date: Service Request Date: Service Type: Resolution: Reviewer: Comments: Last DP export: 03/07/18 3:23 p Patient Name: CLAUDIA SUGGS Page [phone] at 0942 All edits/amendments must be made on the electronic document DICTATION DATE: 03/19/18940 CRISIS MANAGER: MADISYN 03/19/18940 RPT#: [id number] DC DATE:03/18/18 STATUS: DIS IN [facility] [address] [place] [address] END OF REPORT
--- NOTE | ~2018-03-04 | MORECARE ---
CASE MANAGEMENT DISCHARGE SUMMARY PATIENT: CLAUDIA SUGGS UNIT: [id number] ADM DATE: 03/04/18 AGE: 62 : 57 SEX: M ROOM/BED: D.2217 AUTHOR: ALEJANDRA,DOC PHYSICIAN: REFERRING PHYSICIAN: VIVEK MONGE MD DATE OF SERVICE: 03/24/18 Discharge Plan Patient Name: CLAUDIA SUGGS Facility: [facility]:[place] : 1955 Planned Disposition: Home with Home Health Anticipated Discharge Date: Discharge Date: 03/18/2018 Expected LOS: 0 Initial Reviewer: [email or web address] Initial Review Date: 03/04/2018 Generated: 03/24/18 9:18 am Comments DCP- Discharge Planning Updated by [email or web address]: Yahaira Durant on 03/19/18 8:[address] PATIENT WAS DISCHARGED 10 PM, ORDER RECEIVED FOR HIM TO RESUME HOME HEALTH, PATIENT WAS CURRENT WITH [facility], I CALLED AND SPOKE WITH MARITA AT [facility] AND FAXED OVER CLINICAL INFORAMTION FOR THEM TO PICK PATIENT BACK UP . DCP- Discharge Planning Updated by [email or web address]: Yahaira Durant on 03/07/18 3:[address] Patient Name: CLAUDIA SUGGS Admission Status: Urgent Accout number: [id number] Admission Date: 03-04-2018 : 1955 Admission Diagnosis:OBSTRUCTION OF BILE DUCT Attending: VIVEK MONGE Current LOS: 3 Anticipated DC Date: Planned Disposition: Home with Home Health Primary Insurance: [facility] MEDICARE SOLUTIONS Discharge Planning Comments: CM met with patient to assess discharge planning needs. Patient lives with his brother on [facility]. He stated his brother will be the one to take him home. He denies any DME he does use a prosthetic leg. He is current with [employer]. He stated his home is safe to return. CM will continue to follow and assist with DC planning as needed. Plate Driller: Yahaira Durant DCP- Discharge Planning Updated by [email or web address]: Yahaira Durant on 03/06/18 3:[address] attempted to see patient, patient was sleeping will assess at later date DCPIA - Discharge Planning Initial Assessment Updated by [email or web address]: Yahaira Durant on 03/07/18 4:21 pm * Is the patient Alert and Oriented? Yes * How many steps to enter\exit or inside your home? * PCP MARIPOSA * Pharmacy [facility] * Preadmission Environment Home with Family * ADLs Independent * Equipment Other * Other Equipment PROSTHETIC * List name and contact numbers for known caregivers / representatives who currently or will assist patient after discharge: BROTHER * Verbal permission to speak to the caregivers and representatives has been obtained from the patient. N/A * Community resources currently utilized None * Additional services required to return to the preadmission environment? No * Can the patient safely return to the preadmission environment? Yes * Has this patient been hospitalized within the prior 30 days at any hospital? Yes Last DP export: 03/19/18 8:42 Patient Name: CLAUDIA SUGGS Page 19381 at 0818 All edits/amendments must be made on the electronic document DICTATION DATE: 03/24/18816 SQL SSRS SSIS DEVELOPER: MADISYN 03/24/18816 RPT#: [id number] DC DATE:03/18/18 STATUS: DIS IN [facility] [address] [place] [address] END OF REPORT
[2018-03-04 15:30] VITALS: BP 105/73
[2018-03-04 16:11] LABS: HEMATOCRIT 32.1 % (42.0-54.0); HEMOGLOBIN 11.4 g/dL (13.5-17.5); MCH 35.5 pg (26.0-34.0); MCHC 35.5 g/dL (31.0-37.0); MEAN PLATELET VOLUME 9.7 fL (7.4-10.4); PLATELET COUNT 210 10x3/uL (130-400); RBC 3.21 10x6/uL (4.20-6.10); RDW 13.4 % (11.5-14.5); WBC 5.6 10x3/uL (4.8-10.8)
[2018-03-04 16:17] VITALS: BP 124/72; BMI 18.5
[2018-03-04 16:24] LABS: ALBUMIN 2.5 g/dL (3.4-5.0); ALKALINE PHOSPHATASE 477 U/L (46-116); ALT (SGPT) 163 U/L (10-68); BILIRUBIN - TOTAL 6.93 mg/dL (0.2-1.3); CALC OSMOLALITY 261 mosm/kg (275-300); CALCIUM 8.4 mg/dL (8.5-10.1); CARBON DIOXIDE 35.2 mmol/L (21.0-32.0); CHLORIDE - SERUM 90 mmol/L (98-107); CREATININE - SERUM 0.5 mg/dL (0.6-1.3); GLUCOSE 90 mg/dL (74-106); PHENYTOIN (DILANTIN) 5.6 ug/mL (10.0-20.0); PROTEIN - SERUM 6.4 g/dL (6.4-8.2); SODIUM 131 mmol/L (136-145); UREA NITROGEN 9 mg/dL (7-18); eGFR NON AFRICAN AMERICAN > 90 mL/min (90-120)
[2018-03-04 16:29] LABS: POTASSIUM - SERUM 2.5 mmol/L (3.5-5.1)
[2018-03-04 16:37] LABS: LYMPHOCYTES 23 % (15-50); MONOCYTES 6 % (2-11); NEUTROPHILS 71 % (40-80); PLATELET ESTIMATE NORMAL
[2018-03-04 17:48] LABS: AMYLASE - SERUM 111 U/L (25-115); LIPASE 473 U/L (73-393)
[2018-03-04 21:00] VITALS: BP 122/75
[2018-03-05 05:30] VITALS: BP 135/62
[2018-03-05 05:57] LABS: HEMATOCRIT 32.7 % (42.0-54.0); HEMOGLOBIN 11.4 g/dL (13.5-17.5); MCHC 34.9 g/dL (31.0-37.0); MCV 100.3 fL (80.0-100.0); MEAN PLATELET VOLUME 9.6 fL (7.4-10.4); PLATELET COUNT 199 10x3/uL (130-400); RBC 3.26 10x6/uL (4.20-6.10); RDW 13.5 % (11.5-14.5)
[2018-03-05 06:22] LABS: ALBUMIN 2.2 g/dL (3.4-5.0); ALKALINE PHOSPHATASE 444 U/L (46-116); ALT (SGPT) 134 U/L (10-68); BILIRUBIN - TOTAL 7.55 mg/dL (0.2-1.3); CALCIUM 8.3 mg/dL (8.5-10.1); CARBON DIOXIDE 30.6 mmol/L (21.0-32.0); CHLORIDE - SERUM 92 mmol/L (98-107); CREATININE - SERUM 0.5 mg/dL (0.6-1.3); MAGNESIUM - SERUM 1.6 mg/dL (1.8-2.4); SODIUM 129 mmol/L (136-145); UREA NITROGEN 7 mg/dL (7-18); eGFR NON AFRICAN AMERICAN > 90 mL/min (90-120)
[2018-03-05 06:30] LABS: CALC OSMOLALITY 254 mosm/kg (275-300); GLUCOSE 69 mg/dL (74-106)
[2018-03-05 06:55] LABS: LYMPHOCYTES 10 % (15-50); MONOCYTES 17 % (2-11); NEUTROPHILS 72 % (40-80); PLATELET ESTIMATE DECREASED
[2018-03-05 07:09] LABS: APTT 27.5 SECONDS (22.8-39.4); INR 0.93 (0.85-1.17); PROTIME 12.1 SECONDS (11.6-15.0)
[2018-03-05 08:18] VITALS: BP 157/85
[2018-03-05 13:05] VITALS: BMI 18.4
[2018-03-05 19:53] VITALS: BP 125/83
[2018-03-06 04:23] VITALS: BP 111/79
[2018-03-06 06:30] LABS: BASOPHILS 0.5 % (0-2); EOSINOPHILS 0.9 % (0-7); HEMATOCRIT 31.4 % (42.0-54.0); IMMATURE GRANULOCYTES 0.7 % (0-5); LYMPHOCYTES 17.7 % (15-50); MEAN PLATELET VOLUME 9.5 fL (7.4-10.4); MONOCYTES 18.8 % (2-11); NEUTROPHILS 61.4 % (40-80); PLATELET COUNT 225 10x3/uL (130-400); RBC 3.14 10x6/uL (4.20-6.10); RDW 13.8 % (11.5-14.5); WBC 5.6 10x3/uL (4.8-10.8)
[2018-03-06 07:01] LABS: INR 1.01 (0.85-1.17); PROTIME 12.9 SECONDS (11.6-15.0)
[2018-03-06 07:30] LABS: ALBUMIN 2.1 g/dL (3.4-5.0); ALKALINE PHOSPHATASE 453 U/L (46-116); ALT (SGPT) 114 U/L (10-68); BILIRUBIN - DIRECT 7.09 mg/dL (0.00-0.30); CALC OSMOLALITY 257 mosm/kg (275-300); CALCIUM 8.1 mg/dL (8.5-10.1); CARBON DIOXIDE 24.6 mmol/L (21.0-32.0); CHLORIDE - SERUM 95 mmol/L (98-107); CREATININE - SERUM 0.4 mg/dL (0.6-1.3); GLUCOSE 74 mg/dL (74-106); MAGNESIUM - SERUM 1.7 mg/dL (1.8-2.4); PROTEIN - SERUM 5.8 g/dL (6.4-8.2); SODIUM 130 mmol/L (136-145); UREA NITROGEN 6 mg/dL (7-18); eGFR NON AFRICAN AMERICAN > 90 mL/min (90-120)
[2018-03-06 08:09] VITALS: BP 113/70
[2018-03-06 12:54] VITALS: BP 104/81
[2018-03-06 16:00] VITALS: BP 128/76
[2018-03-06 20:00] VITALS: BP 104/66
[2018-03-07] VITALS: BP 102/64
[2018-03-07 04:00] VITALS: BP 91/59
[2018-03-07 05:27] LABS: BASOPHILS 0.3 % (0-2); EOSINOPHILS 0.6 % (0-7); HEMATOCRIT 30.9 % (42.0-54.0); HEMOGLOBIN 11.2 g/dL (13.5-17.5); IMMATURE GRANULOCYTES 0.4 % (0-5); LYMPHOCYTES 13.8 % (15-50); MCH 36.2 pg (26.0-34.0); MCHC 36.2 g/dL (31.0-37.0); MEAN PLATELET VOLUME 9.5 fL (7.4-10.4); MONOCYTES 17.5 % (2-11); NEUTROPHILS 67.4 % (40-80); PLATELET COUNT 238 10x3/uL (130-400); RBC 3.09 10x6/uL (4.20-6.10); RDW 13.9 % (11.5-14.5); WBC 6.7 10x3/uL (4.8-10.8)
[2018-03-07 05:51] LABS: ALBUMIN 1.9 g/dL (3.4-5.0); ALKALINE PHOSPHATASE 545 U/L (46-116); ALT (SGPT) 111 U/L (10-68); BILIRUBIN - TOTAL 9.46 mg/dL (0.2-1.3); CALC OSMOLALITY 242 mosm/kg (275-300); CALCIUM 8.1 mg/dL (8.5-10.1); CARBON DIOXIDE 27.3 mmol/L (21.0-32.0); CHLORIDE - SERUM 94 mmol/L (98-107); CREATININE - SERUM 0.5 mg/dL (0.6-1.3); GLUCOSE 97 mg/dL (74-106); MAGNESIUM - SERUM 1.8 mg/dL (1.8-2.4); POTASSIUM - SERUM 3.8 mmol/L (3.5-5.1); PROTEIN - SERUM 5.6 g/dL (6.4-8.2); SODIUM 122 mmol/L (136-145); UREA NITROGEN 5 mg/dL (7-18); eGFR NON AFRICAN AMERICAN > 90 mL/min (90-120)
[2018-03-07 08:13] VITALS: BP 120/82
[2018-03-07 12:00] VITALS: BP 102/77
[2018-03-07 12:26] VITALS: Ht 170.2 cm; Wt 53.5 kg
[2018-03-07 19:49] VITALS: BP 126/81
[2018-03-08] VITALS: BP 104/62
[2018-03-08 04:00] VITALS: BP 124/74
[2018-03-08 05:15] LABS: BASOPHILS 0.2 % (0-2); EOSINOPHILS 0.6 % (0-7); HEMATOCRIT 29.3 % (42.0-54.0); HEMOGLOBIN 10.4 g/dL (13.5-17.5); IMMATURE GRANULOCYTES 0.5 % (0-5); LYMPHOCYTES 7.4 % (15-50); MCH 35.3 pg (26.0-34.0); MCHC 35.5 g/dL (31.0-37.0); MCV 99.3 fL (80.0-100.0); MEAN PLATELET VOLUME 9.9 fL (7.4-10.4); MONOCYTES 21.9 % (2-11); NEUTROPHILS 69.4 % (40-80); PLATELET COUNT 245 10x3/uL (130-400); RBC 2.95 10x6/uL (4.20-6.10); RDW 13.8 % (11.5-14.5); WBC 6.5 10x3/uL (4.8-10.8)
[2018-03-08 06:04] LABS: ALBUMIN 1.9 g/dL (3.4-5.0); ALKALINE PHOSPHATASE 539 U/L (46-116); ALT (SGPT) 107 U/L (10-68); BILIRUBIN - TOTAL 10.72 mg/dL (0.2-1.3); CALC OSMOLALITY 253 mosm/kg (275-300); CALCIUM 7.9 mg/dL (8.5-10.1); CARBON DIOXIDE 24.9 mmol/L (21.0-32.0); CHLORIDE - SERUM 96 mmol/L (98-107); CREATININE - SERUM 0.5 mg/dL (0.6-1.3); GLUCOSE 137 mg/dL (74-106); MAGNESIUM - SERUM 1.7 mg/dL (1.8-2.4); POTASSIUM - SERUM 4.1 mmol/L (3.5-5.1); PROTEIN - SERUM 5.6 g/dL (6.4-8.2); SODIUM 127 mmol/L (136-145); UREA NITROGEN 4 mg/dL (7-18); eGFR NON AFRICAN AMERICAN > 90 mL/min (90-120)
[2018-03-08 09:25] VITALS: BP 100/76
[2018-03-08 13:22] VITALS: BP 129/83
[2018-03-08 15:46] VITALS: BP 134/80
[2018-03-08 19:58] VITALS: BP 96/56
[2018-03-09] VITALS: BP 89/57
[2018-03-09 04:00] VITALS: BP 114/81
[2018-03-09 05:40] LABS: BASOPHILS 0.3 % (0-2); EOSINOPHILS 0.9 % (0-7); HEMATOCRIT 27.7 % (42.0-54.0); HEMOGLOBIN 9.8 g/dL (13.5-17.5); IMMATURE GRANULOCYTES 0.4 % (0-5); LYMPHOCYTES 7.6 % (15-50); MCH 35.1 pg (26.0-34.0); MCHC 35.4 g/dL (31.0-37.0); MCV 99.3 fL (80.0-100.0); MEAN PLATELET VOLUME 9.7 fL (7.4-10.4); MONOCYTES 23.9 % (2-11); NEUTROPHILS 66.9 % (40-80); PLATELET COUNT 247 10x3/uL (130-400); RBC 2.79 10x6/uL (4.20-6.10); RDW 13.9 % (11.5-14.5); WBC 7.5 10x3/uL (4.8-10.8)
[2018-03-09 06:21] LABS: ALBUMIN 1.8 g/dL (3.4-5.0); ALKALINE PHOSPHATASE 498 U/L (46-116); ALT (SGPT) 97 U/L (10-68); BILIRUBIN - TOTAL 10.98 mg/dL (0.2-1.3); CALC OSMOLALITY 250 mosm/kg (275-300); CALCIUM 8.1 mg/dL (8.5-10.1); CARBON DIOXIDE 21.9 mmol/L (21.0-32.0); CHLORIDE - SERUM 95 mmol/L (98-107); CREATININE - SERUM 0.5 mg/dL (0.6-1.3); GLUCOSE 118 mg/dL (74-106); MAGNESIUM - SERUM 1.7 mg/dL (1.8-2.4); POTASSIUM - SERUM 4.9 mmol/L (3.5-5.1); PROTEIN - SERUM 5.6 g/dL (6.4-8.2); SODIUM 126 mmol/L (136-145); UREA NITROGEN 5 mg/dL (7-18); eGFR NON AFRICAN AMERICAN > 90 mL/min (90-120)
[2018-03-09 08:30] VITALS: BP 108/73
[2018-03-09 14:02] VITALS: BP 108/78
[2018-03-09 20:22] VITALS: BP 101/64
[2018-03-09 21:11] VITALS: BP 131/88
[2018-03-10] VITALS (12 sets, daily range): BP systolic 102–139; BP diastolic 72–91
[2018-03-10 04:24] LABS: BASOPHILS 0.3 % (0-2); EOSINOPHILS 0.9 % (0-7); HEMATOCRIT 26.4 % (42.0-54.0); HEMOGLOBIN 9.3 g/dL (13.5-17.5); IMMATURE GRANULOCYTES 0.4 % (0-5); LYMPHOCYTES 6.3 % (15-50); MCHC 35.2 g/dL (31.0-37.0); MCV 99.2 fL (80.0-100.0); MEAN PLATELET VOLUME 9.8 fL (7.4-10.4); MONOCYTES 24.9 % (2-11); NEUTROPHILS 67.2 % (40-80); PLATELET COUNT 281 10x3/uL (130-400); RBC 2.66 10x6/uL (4.20-6.10)
[2018-03-10 04:36] LABS: ALBUMIN 1.7 g/dL (3.4-5.0); ALKALINE PHOSPHATASE 508 U/L (46-116); ALT (SGPT) 86 U/L (10-68); BILIRUBIN - TOTAL 9.72 mg/dL (0.2-1.3); CALC OSMOLALITY 249 mosm/kg (275-300); CALCIUM 8.1 mg/dL (8.5-10.1); CARBON DIOXIDE 24.4 mmol/L (21.0-32.0); CHLORIDE - SERUM 94 mmol/L (98-107); CREATININE - SERUM 0.4 mg/dL (0.6-1.3); GLUCOSE 98 mg/dL (74-106); POTASSIUM - SERUM 4.7 mmol/L (3.5-5.1); PROTEIN - SERUM 5.4 g/dL (6.4-8.2); SODIUM 126 mmol/L (136-145); UREA NITROGEN 4 mg/dL (7-18); eGFR NON AFRICAN AMERICAN > 90 mL/min (90-120)
[2018-03-10 07:55] LABS: INR 1.14 (0.85-1.17); PROTIME 14.2 SECONDS (11.6-15.0)
[2018-03-11 05:31] VITALS: BP 120/80
[2018-03-11 08:08] VITALS: BP 120/80
[2018-03-11 08:58] LABS: BASOPHILS 0.1 % (0-2); EOSINOPHILS 0.4 % (0-7); HEMATOCRIT 27.5 % (42.0-54.0); HEMOGLOBIN 9.5 g/dL (13.5-17.5); IMMATURE GRANULOCYTES 0.8 % (0-5); LYMPHOCYTES 6.7 % (15-50); MCH 34.8 pg (26.0-34.0); MCHC 34.5 g/dL (31.0-37.0); MCV 100.7 fL (80.0-100.0); MEAN PLATELET VOLUME 9.8 fL (7.4-10.4); MONOCYTES 24.4 % (2-11); NEUTROPHILS 67.6 % (40-80); RBC 2.73 10x6/uL (4.20-6.10); WBC 7.5 10x3/uL (4.8-10.8)
[2018-03-11 09:03] LABS: PLATELET COUNT 368 10x3/uL (130-400)
[2018-03-11 09:11] LABS: ALBUMIN 1.9 g/dL (3.4-5.0); ALKALINE PHOSPHATASE 469 U/L (46-116); ALT (SGPT) 73 U/L (10-68); BILIRUBIN - TOTAL 5.08 mg/dL (0.2-1.3); CALC OSMOLALITY 256 mosm/kg (275-300); CALCIUM 8.2 mg/dL (8.5-10.1); CARBON DIOXIDE 27.4 mmol/L (21.0-32.0); CHLORIDE - SERUM 94 mmol/L (98-107); CREATININE - SERUM 0.6 mg/dL (0.6-1.3); GLUCOSE 110 mg/dL (74-106); POTASSIUM - SERUM 4.2 mmol/L (3.5-5.1); SODIUM 129 mmol/L (136-145); UREA NITROGEN 3 mg/dL (7-18); eGFR NON AFRICAN AMERICAN > 90 mL/min (90-120)
[2018-03-11 20:00] VITALS: BP 111/80
[2018-03-12 05:34] VITALS: BP 128/84
[2018-03-12 06:06] LABS: BASOPHILS 0.2 % (0-2); EOSINOPHILS 0.6 % (0-7); HEMATOCRIT 24.7 % (42.0-54.0); HEMOGLOBIN 8.6 g/dL (13.5-17.5); IMMATURE GRANULOCYTES 0.7 % (0-5); LYMPHOCYTES 15.5 % (15-50); MCH 35.1 pg (26.0-34.0); MCHC 34.8 g/dL (31.0-37.0); MCV 100.8 fL (80.0-100.0); MEAN PLATELET VOLUME 10.1 fL (7.4-10.4); MONOCYTES 18.6 % (2-11); NEUTROPHILS 64.4 % (40-80); PLATELET COUNT 361 10x3/uL (130-400); RBC 2.45 10x6/uL (4.20-6.10); RDW 14.1 % (11.5-14.5)
[2018-03-12 06:40] LABS: ALBUMIN 1.7 g/dL (3.4-5.0); ALKALINE PHOSPHATASE 363 U/L (46-116); ALT (SGPT) 61 U/L (10-68); BILIRUBIN - TOTAL 3.36 mg/dL (0.2-1.3); CARBON DIOXIDE 25.5 mmol/L (21.0-32.0); CHLORIDE - SERUM 94 mmol/L (98-107); GLUCOSE 98 mg/dL (74-106); POTASSIUM - SERUM 4.3 mmol/L (3.5-5.1); PROTEIN - SERUM 5.4 g/dL (6.4-8.2); SODIUM 127 mmol/L (136-145)
[2018-03-12 06:41] LABS: CALC OSMOLALITY 251 mosm/kg (275-300); CREATININE - SERUM 0.4 mg/dL (0.6-1.3); UREA NITROGEN 5 mg/dL (7-18); eGFR NON AFRICAN AMERICAN > 90 mL/min (90-120)
[2018-03-12 08:20] VITALS: BP 109/79
[2018-03-12 08:56] LABS: % SATURATION 17 % (15-55); IRON 30 ug/dl (35-150); TOTAL IRON BIND CAPACITY 169 ug/dl (260-445); UNSAT IRON BIND CAPACITY 139 ug/dl (150-375)
[2018-03-12 17:06] VITALS: BP 134/87
[2018-03-12 20:20] VITALS: BP 102/63
[2018-03-13 05:18] VITALS: BP 128/78
[2018-03-13 08:45] VITALS: BP 110/70
[2018-03-13 12:08] LABS: BASOPHILS 0.2 % (0-2); EOSINOPHILS 0.4 % (0-7); HEMATOCRIT 26.4 % (42.0-54.0); IMMATURE GRANULOCYTES 0.9 % (0-5); LYMPHOCYTES 7.3 % (15-50); MCH 35.2 pg (26.0-34.0); MCHC 34.1 g/dL (31.0-37.0); MEAN PLATELET VOLUME 9.2 fL (7.4-10.4); MONOCYTES 26.9 % (2-11); NEUTROPHILS 64.3 % (40-80); PLATELET COUNT 384 10x3/uL (130-400); RBC 2.56 10x6/uL (4.20-6.10); RDW 13.9 % (11.5-14.5); WBC 9.8 10x3/uL (4.8-10.8)
[2018-03-13 12:11] LABS: MCV 103.1 fL (80.0-100.0)
[2018-03-13 12:32] LABS: ALBUMIN 1.9 g/dL (3.4-5.0); ALKALINE PHOSPHATASE 324 U/L (46-116); ALT (SGPT) 58 U/L (10-68); BILIRUBIN - TOTAL 2.89 mg/dL (0.2-1.3); CALC OSMOLALITY 251 mosm/kg (275-300); CARBON DIOXIDE 25.8 mmol/L (21.0-32.0); CHLORIDE - SERUM 92 mmol/L (98-107); CREATININE - SERUM 0.5 mg/dL (0.6-1.3); GLUCOSE 99 mg/dL (74-106); POTASSIUM - SERUM 4.1 mmol/L (3.5-5.1); PROTEIN - SERUM 5.3 g/dL (6.4-8.2); SODIUM 127 mmol/L (136-145); UREA NITROGEN 5 mg/dL (7-18); eGFR NON AFRICAN AMERICAN > 90 mL/min (90-120)
[2018-03-13 20:00] VITALS: BP 120/81
[2018-03-14] VITALS: BP 142/82
[2018-03-14 04:00] VITALS: BP 110/76
[2018-03-14 09:01] VITALS: BP 135/84
[2018-03-14 12:23] VITALS: BP 115/76
[2018-03-14 16:02] VITALS: BP 115/79
[2018-03-14 20:00] VITALS: BP 116/82
[2018-03-15] VITALS: BP 107/54
[2018-03-15 04:00] VITALS: BP 129/82
[2018-03-15 05:02] LABS: BASOPHILS 0.2 % (0-2); EOSINOPHILS 0.7 % (0-7); HEMATOCRIT 24.2 % (42.0-54.0); HEMOGLOBIN 8.2 g/dL (13.5-17.5); LYMPHOCYTES 6.2 % (15-50); MCH 34.6 pg (26.0-34.0); MCHC 33.9 g/dL (31.0-37.0); MCV 102.1 fL (80.0-100.0); MEAN PLATELET VOLUME 9.2 fL (7.4-10.4); MONOCYTES 23.9 % (2-11); PLATELET COUNT 318 10x3/uL (130-400); RBC 2.37 10x6/uL (4.20-6.10); RDW 13.9 % (11.5-14.5)
[2018-03-15 05:30] LABS: ALBUMIN 1.8 g/dL (3.4-5.0); ALKALINE PHOSPHATASE 236 U/L (46-116); ALT (SGPT) 59 U/L (10-68); BILIRUBIN - TOTAL 2.05 mg/dL (0.2-1.3); CALC OSMOLALITY 255 mosm/kg (275-300); CALCIUM 8.5 mg/dL (8.5-10.1); CARBON DIOXIDE 24.9 mmol/L (21.0-32.0); CHLORIDE - SERUM 95 mmol/L (98-107); CREATININE - SERUM 0.5 mg/dL (0.6-1.3); GLUCOSE 124 mg/dL (74-106); POTASSIUM - SERUM 4.6 mmol/L (3.5-5.1); PROTEIN - SERUM 5.5 g/dL (6.4-8.2); SODIUM 128 mmol/L (136-145); UREA NITROGEN 6 mg/dL (7-18); eGFR NON AFRICAN AMERICAN > 90 mL/min (90-120)
[2018-03-15 12:33] VITALS: BP 107/76
[2018-03-15 17:47] VITALS: BP 131/75
[2018-03-15 19:50] VITALS: BP 130/79
[2018-03-16] VITALS: BP 123/80
[2018-03-16 04:00] VITALS: BP 147/80
[2018-03-16 12:18] VITALS: BP 116/80
[2018-03-16 16:49] VITALS: BP 114/89
[2018-03-16 20:00] VITALS: BP 123/81
[2018-03-17] VITALS (8 sets, daily range): BP systolic 105–127; BP diastolic 67–76
[2018-03-17 05:40] LABS: BASOPHILS 0.4 % (0-2); EOSINOPHILS 0.8 % (0-7); HEMATOCRIT 24.6 % (42.0-54.0); HEMOGLOBIN 8.3 g/dL (13.5-17.5); IMMATURE GRANULOCYTES 0.9 % (0-5); LYMPHOCYTES 13.1 % (15-50); MCHC 33.7 g/dL (31.0-37.0); MCV 100.8 fL (80.0-100.0); MEAN PLATELET VOLUME 9.3 fL (7.4-10.4); NEUTROPHILS 68.8 % (40-80); PLATELET COUNT 302 10x3/uL (130-400); RBC 2.44 10x6/uL (4.20-6.10); RDW 13.7 % (11.5-14.5); WBC 8.5 10x3/uL (4.8-10.8)
[2018-03-17 05:49] LABS: CALC OSMOLALITY 259 mosm/kg (275-300); CALCIUM 8.3 mg/dL (8.5-10.1); CARBON DIOXIDE 26.8 mmol/L (21.0-32.0); CHLORIDE - SERUM 96 mmol/L (98-107); CREATININE - SERUM 0.5 mg/dL (0.6-1.3); GLUCOSE 93 mg/dL (74-106); POTASSIUM - SERUM 4.1 mmol/L (3.5-5.1); SODIUM 131 mmol/L (136-145); UREA NITROGEN 5 mg/dL (7-18); eGFR NON AFRICAN AMERICAN > 90 mL/min (90-120)
[2018-03-18] VITALS: BP 128/77
[2018-03-18 00:30] VITALS: BP 128/88
[2018-03-18 01:00] VITALS: BP 117/69
[2018-03-18 04:11] VITALS: BP 138/78
[2018-03-18 05:58] LABS: BASOPHILS 0.2 % (0-2); EOSINOPHILS 0.7 % (0-7); HEMATOCRIT 29.4 % (42.0-54.0); HEMOGLOBIN 9.9 g/dL (13.5-17.5); IMMATURE GRANULOCYTES 1.1 % (0-5); LYMPHOCYTES 11.5 % (15-50); MCH 33.3 pg (26.0-34.0); MCHC 33.7 g/dL (31.0-37.0); MEAN PLATELET VOLUME 9.4 fL (7.4-10.4); MONOCYTES 15.2 % (2-11); NEUTROPHILS 71.3 % (40-80); PLATELET COUNT 302 10x3/uL (130-400); RDW 15.6 % (11.5-14.5)
[2018-03-18 06:08] LABS: RBC 2.97 10x6/uL (4.20-6.10); WBC 11.1 10x3/uL (4.8-10.8)
[2018-03-18 16:41] VITALS: BP 122/70
[2018-03-18] MEDS ORDERED: LEVAQUIN250 MG PO (16:41)
[2018-03-18] MEDS ORDERED: DIFLUCAN100 MG PO (16:41)
[2018-03-18] MEDS ORDERED: ZYLOPRIM300 MG PO (16:42)
== END 2018-03-18 18:00 | disposition home health service (06) | DRG 823 ==
LOC: D.MS 14:35 → D.SDCHOLD 14:35 → D.MS 15:05
PROVIDERS: Family Medicine; General Practice; Internal Medicine Gastroenterology; Internal Medicine Hematology & Oncology; Radiology Vascular & Interventional Radiology
PROC: 0WBH3ZX Excision of Retroperitoneum, Percutaneous Approach, Diagnostic (ICD-10-PCS; principal; 2018-03-06 11:30)
PROC: 0F798DZ Dilation of Common Bile Duct with Intraluminal Device, Via Natural or Artificial Opening Endoscopic (ICD-10-PCS; 2018-03-10)
PROC: 0FD98ZX Extraction of Common Bile Duct, Via Natural or Artificial Opening Endoscopic, Diagnostic (ICD-10-PCS; 2018-03-10)
PROC: 0QB33ZX Excision of Left Pelvic Bone, Percutaneous Approach, Diagnostic (ICD-10-PCS; 2018-03-12)
PROC: 07DR3ZX Extraction of Iliac Bone Marrow, Percutaneous Approach, Diagnostic (ICD-10-PCS; 2018-03-12)
PROC: 0JH63WZ Insertion of Totally Implantable Vascular Access Device into Chest Subcutaneous Tissue and Fascia, Percutaneous Approach (ICD-10-PCS; 2018-03-13)
PROC: 02HV33Z Insertion of Infusion Device into Superior Vena Cava, Percutaneous Approach (ICD-10-PCS; 2018-03-13)
PROC: B5181ZA Fluoroscopy of Superior Vena Cava using Low Osmolar Contrast, Guidance (ICD-10-PCS; 2018-03-13)
DX: C93.10 Chronic myelomonocytic leukemia not having achieved remission (principal); K83.1 Obstruction of bile duct; C22.0 Liver cell carcinoma; E87.1 Hypo-osmolality and hyponatremia; I87.1 Compression of vein; C83.33 Diffuse large B-cell lymphoma, intra-abdominal lymph nodes; N45.1 Epididymitis; E87.6 Hypokalemia; G40.909 Epilepsy, unspecified, not intractable, without status epilepticus; F10.20 Alcohol dependence, uncomplicated; L29.9 Pruritus, unspecified; R63.4 Abnormal weight loss; D64.9 Anemia, unspecified

== ENCOUNTER 2018-04-05 11:55 | Outpatient (CLI) | payer MEDICARE, MEDICAID ==
[~2018-04-05 11:55] MED LIST changes: +DIFLUCAN100 MG PO; +LEVAQUIN250 MG PO; +ZYLOPRIM300 MG PO
== END 2018-04-05 14:54 | disposition home or self-care (01) ==
LOC: D.OPS 11:55 → D.MS 11:55 → D.OPS 14:54
DX: C85.10 Unspecified B-cell lymphoma, unspecified site (principal); Z01.812 Encounter for preprocedural laboratory examination

== ENCOUNTER 2018-04-06 10:19 | Outpatient (CLI) | payer MEDICARE, MEDICAID ==
[~2018-04-06] VITALS: Ht 170.2 cm; Wt 59.1 kg
[2018-04-06 11:15] VITALS: BP 95/58; Ht 170.2 cm; Wt 59.1 kg
== END 2018-04-06 13:00 ==
LOC: D.OPS 10:19 → D.MS 11:13 → D.OPS 13:00
DX: C85.10 Unspecified B-cell lymphoma, unspecified site (principal); Z01.812 Encounter for preprocedural laboratory examination

== ENCOUNTER → 2018-04-16 08:54 | Outpatient (CLI) | payer MEDICARE, MEDICAID ==
[2018-04-06 11:15] VITALS: BMI 20.4
[~2018-04-16 08:54] MED LIST changes: +CEFUROXIME500 MG PO
== END | disposition home or self-care (01) ==
LOC: D.CT 08:54
DX: C22.0 Liver cell carcinoma (principal)

== ENCOUNTER 2018-04-29 15:43 | Inpatient (IN) | payer MEDICARE, MEDICAID ==
[~2018-04-29] VITALS: Ht 170.2 cm; Wt 53.5 kg
--- NOTE | ~2018-04-29 | MORECARE ---
CASE MANAGEMENT DISCHARGE SUMMARY PATIENT: CLAUDIA SUGGS E UNIT: [id number] ADM DATE: 04/29/18 AGE: 63 : 57 SEX: M ROOM/BED: D.2224 AUTHOR: DORY ROBERTS PHYSICIAN: REFERRING PHYSICIAN: VIVEK MONGE MD DATE OF SERVICE: 05/02/18 Discharge Plan Patient Name: CLAUDIA SUGGS [facility] 1955 Planned Disposition: Home with Home Health Anticipated Discharge Date: Discharge Date: Expected LOS: Initial Reviewer: [email or web address] Initial Review Date: 05/02/2018 Generated: 05/02/18 5:07 pm DCPIA - Discharge Planning Initial Assessment Updated by [email or web address]: Ina Arteaga on 05/02/18 4:06 pm * Is the patient Alert and Oriented? Yes * How many steps to enter\exit or inside your home? 3/0 * PCP Dr. Monge * Pharmacy [facility] * Preadmission Environment Home with Family * ADLs Partial Dependent * Partial ADLs (Assistance needed) Ambulation * List name and contact numbers for known caregivers / representatives who currently or will assist patient after discharge: Khurram quick - [phone] * Verbal permission to speak to the caregivers and representatives has been obtained from the patient. Yes * Community resources currently utilized Home Health * Please name any agencies selected above. [facility] * Additional services required to return to the preadmission environment? No * Can the patient safely return to the preadmission environment? Yes * Has this patient been hospitalized within the prior 30 days at any hospital? No Patient Name: CLAUDIA SUGGS Page 86666 at 1607 All edits/amendments must be made on the electronic document DICTATION DATE: 05/02/181605 DIRECTOR MULTIPLE SCLEROSIS CENTER: MADISYN 05/02/18 160 RPT#: [id number] DC DATE: STATUS: ADM IN [facility] [address] [place] [address] END OF REPORT
--- NOTE | ~2018-04-29 | MORECARE ---
CASE MANAGEMENT DISCHARGE SUMMARY PATIENT: CLAUDIA SUGGS UNIT: [id number] ADM DATE: 04/29/18 AGE: 63 : 57 SEX: M ROOM/BED: D.2224 AUTHOR: ALEJANDRA,DOC PHYSICIAN: REFERRING PHYSICIAN: VIVEK MONGE MD DATE OF SERVICE: 05/02/18 Discharge Plan Patient Name: CLAUDIA SUGGS Facility: [facility] : 1955 Planned Disposition: Home with Home Health Anticipated Discharge Date: Discharge Date: Expected LOS: Initial Reviewer: [email or web address] Initial Review Date: 05/02/2018 Generated: 05/02/18 5:16 pm Comments DCP- Discharge Planning Updated by [email or web address]: Ina Arteaga on 05/02/18 3:[address] Patient Name: CLAUDIA SUGGS Admission Status: Elective Accout number: [id number] Admission Date: 04-29-2018 : 1955 Admission Diagnosis:AGRANULOCYTOSIS SECONDARY TO CANCER CHEMOTHERAPY Attending: VIVEK MONGE Current LOS: 3 Anticipated DC Date: Planned Disposition: Home with Home Health Primary Insurance: [facility] MEDICARE SOLUTIONS Discharge Planning Comments: CM met with patient to discuss discharge planning, he is alone in the room. States he lives with his brother. States he is mostly independent with all ADL's. States he does not drive. His brother will take him home on discharge. He has a prosthetic leg. He states [facility] is coming one day a week. States he plans to return home with his brother with resumption of home health on discharge. CM will continue to follow and assist with discharge planning/needs. Office Machine Servicer Apprentice: Ina Arteaga DCPIA - Discharge Planning Initial Assessment Updated by [email or web address]: Ina Arteaga on 05/02/18 4:06 pm * Is the patient Alert and Oriented? Yes * How many steps to enter\exit or inside your home? 3/0 * PCP Dr. Monge * Pharmacy [facility] * Preadmission Environment Home with Family * ADLs Partial Dependent * Partial ADLs (Assistance needed) Ambulation * List name and contact numbers for known caregivers / representatives who currently or will assist patient after discharge: Khurram Rosario [phone] * Verbal permission to speak to the caregivers and representatives has been obtained from the patient. Yes * Community resources currently utilized Home Health * Please name any agencies selected above. [facility] * Additional services required to return to the preadmission environment? No * Can the patient safely return to the preadmission environment? Yes * Has this patient been hospitalized within the prior 30 days at any hospital? No Last DP export: 05/02/18 3:07 Patient Name: CLAUDIA SUGGS Page 14395 at 1616 All edits/amendments must be made on the electronic document DICTATION DATE: 05/02/181614 CITY DRIVER: MADISYN 05/02/181614 RPT#: [id number] DC DATE: STATUS: ADM IN [facility] [address] [place] [address] END OF REPORT
--- NOTE | ~2018-04-29 | MORECARE ---
CASE MANAGEMENT DISCHARGE SUMMARY PATIENT: CLAUDIA SUGGS UNIT: [id number] ADM DATE: 04/29/18 AGE: 63 : 57 SEX: M ROOM/BED: D.2224 AUTHOR: ALEJANDRA,DOC PHYSICIAN: REFERRING PHYSICIAN: VIVEK MONGE MD DATE OF SERVICE: 05/05/18 Discharge Plan Patient Name: CLAUDIA SUGGS Facility: [facility]:[place] : 1955 Planned Disposition: Home with Home Health Anticipated Discharge Date: Discharge Date: Expected LOS: Initial Reviewer: [email or web address] Initial Review Date: 05/02/2018 Generated: 05/05/18 3:55 pm Comments DCP- Discharge Planning Updated by [email or web address]: Ina Arteaga on 05/05/18 1:[address] Received orders for discharge. I met with patient and informed he was being discharged today. He states he will call his brother for a ride home. IMM explained, signed, copy given, original placed in MR. He denies need for further DME, states [facility] is still working on prosthesis. I called [facility] to continue home health and spoke to izabela Quan faxfederica. CM will continue to follow and assist with discharge planning/needs. Going home with home health. DCP- Discharge Planning Updated by [email or web address]: Radhaclayton Osullivan on 05/04/18 2:[address] TELEPHONE CALL BY PLASTIC JIG AND FIXTURE BUILDER TO [facility]. SHE SPOKE WITH PHILL. HE STATED HE IS WORKING ON THE PROSTHESIS. NO DATE FOR COMPLETION GIVEN AT THIS TIME. NOTED SIX MD ORDERS FOR WOUND CARE EVALUATION. WILL LEAVE VOICE MAIL MESSAGE AND ADVISE UNIT CM TO FOLLOW UP ON CONSULT ORDER. DCP- Discharge Planning Updated by [email or web address]: Ina Arteaga on 05/02/18 3:[address] Patient Name: CLAUDIA SUGGS Admission Status: Elective Accout number: [id number] Admission Date: 04-29-2018 : 1955 Admission Diagnosis:AGRANULOCYTOSIS SECONDARY TO CANCER CHEMOTHERAPY Attending: VIVEK MONGE Current LOS: 3 Anticipated DC Date: Planned Disposition: Home with Home Health Primary Insurance: [facility] MEDICARE SOLUTIONS Discharge Planning Comments: CM met with patient to discuss discharge planning, he is alone in the room. States he lives with his brother. States he is mostly independent with all ADL's. States he does not drive. His brother will take him home on discharge. He has a prosthetic leg. He states [facility] is coming one day a week. States he plans to return home with his brother with resumption of home health on discharge. CM will continue to follow and assist with discharge planning/needs. Medical Record Specialist: Ina Arteaga DCPIA - Discharge Planning Initial Assessment Updated by [email or web address]: Ina Arteaga on 05/02/18 4:06 pm * Is the patient Alert and Oriented? Yes * How many steps to enter\exit or inside your home? 3/0 * PCP Dr. Monge * Pharmacy [facility] * Preadmission Environment Home with Family * ADLs Partial Dependent * Partial ADLs (Assistance needed) Ambulation * List name and contact numbers for known caregivers / representatives who currently or will assist patient after discharge: Khurram quick - [phone] * Verbal permission to speak to the caregivers and representatives has been obtained from the patient. Yes * Community resources currently utilized Home Health * Please name any agencies selected above. [facility] * Additional services required to return to the preadmission environment? No * Can the patient safely return to the preadmission environment? Yes * Has this patient been hospitalized within the prior 30 days at any hospital? No External Providers [facility] [place] Next Contact Date: Service Request Date: Service Type: Resolution: Reviewer: Comments: Coverage Notice Reviewer: [id number] - Ina Arteaga Notice Issued Date-Time: 05/05/2018 14:44 Notice Type: IM Discharge Notice Notice Delivered To: Patient Relationship to Patient: Self Basket Operator Name: Delivery Method: HAND - Hand Delivered Mary Days: Prior Verbal Notification: Recipient Understood Notice: Yes Recipient Signature: Yes Med Rec Note Co-signed by Attending: Coverage Notice Comment: IMM explained, signed, copy given, original placed in MR Last DP export: 05/04/18 2:33 p Patient Name: CLAUDIA SUGGS Page 09820 at 9337 All edits/amendments must be made on the electronic document DICTATION DATE: 05/05/181454 PACKING LINE WORKER: MADISYN 05/05/181454 RPT#: [id number] DC DATE: STATUS: ADM IN [facility] [address] [place] [address] END OF REPORT
--- NOTE | ~2018-04-29 | MORECARE ---
CASE MANAGEMENT DISCHARGE SUMMARY PATIENT: CLAUDIA SUGGS UNIT: [id number] ADM DATE: 04/29/18 AGE: 63 : 57 SEX: M ROOM/BED: D.2224 AUTHOR: ALEJANDRA,DOC PHYSICIAN: REFERRING PHYSICIAN: VIVEK MONGE MD DATE OF SERVICE: 05/04/18 Discharge Plan Patient Name: CLAUDIA SUGGS Facility: [facility]:[place] : 1955 Planned Disposition: Home with Home Health Anticipated Discharge Date: Discharge Date: Expected LOS: Initial Reviewer: [email or web address] Initial Review Date: 05/02/2018 Generated: 05/04/18 4:33 pm Comments DCP- Discharge Planning Updated by [email or web address]: Radha Osullivan on 05/04/18 2:[address] TELEPHONE CALL BY FREIGHT TRUCKER TO [facility]. SHE SPOKE WITH PHILL. HE STATED HE IS WORKING ON THE PROSTHESIS. NO DATE FOR COMPLETION GIVEN AT THIS TIME. NOTED SIX MD ORDERS FOR WOUND CARE EVALUATION. WILL LEAVE VOICE MAIL MESSAGE AND ADVISE UNIT CM TO FOLLOW UP ON CONSULT ORDER. DCP- Discharge Planning Updated by [email or web address]: Ina Arteaga on 05/02/18 3:[address] Patient Name: CLAUDIA SUGGS Admission Status: Elective Accout number: [id number] Admission Date: 04-29-2018 : 1955 Admission Diagnosis:AGRANULOCYTOSIS SECONDARY TO CANCER CHEMOTHERAPY Attending: VIVEK MONGE Current LOS: 3 Anticipated DC Date: Planned Disposition: Home with Home Health Primary Insurance: [facility] MEDICARE SOLUTIONS Discharge Planning Comments: CM met with patient to discuss discharge planning, he is alone in the room. States he lives with his brother. States he is mostly independent with all ADL's. States he does not drive. His brother will take him home on discharge. He has a prosthetic leg. He states [facility] is coming one day a week. States he plans to return home with his brother with resumption of home health on discharge. CM will continue to follow and assist with discharge planning/needs. Warehouse Logistics Coordinator: Ina Arteaga DCPIA - Discharge Planning Initial Assessment Updated by [email or web address]: Ina Arteaga on 05/02/18 4:06 pm * Is the patient Alert and Oriented? Yes * How many steps to enter\exit or inside your home? 3/0 * PCP Dr. Monge * Pharmacy [facility] * Preadmission Environment Home with Family * ADLs Partial Dependent * Partial ADLs (Assistance needed) Ambulation * List name and contact numbers for known caregivers / representatives who currently or will assist patient after discharge: Khurram quick - [phone] * Verbal permission to speak to the caregivers and representatives has been obtained from the patient. Yes * Community resources currently utilized Home Health * Please name any agencies selected above. [facility] * Additional services required to return to the preadmission environment? No * Can the patient safely return to the preadmission environment? Yes * Has this patient been hospitalized within the prior 30 days at any hospital? No Last DP export: 05/02/18 3:16 Patient Name: CLAUDIA SUGGS Page 14222 at 1533 All edits/amendments must be made on the electronic document DICTATION DATE: 05/04/18 1533 DIGITAL MEDIA PLANNER: MADISYN 05/04/18 1533 RPT#: [id number] DC DATE: STATUS: ADM IN [facility] [address] [place] [address] END OF REPORT
--- NOTE | ~2018-04-29 | MORECARE ---
CASE MANAGEMENT DISCHARGE SUMMARY PATIENT: CLAUDIA SUGGS UNIT: [id number] ADM DATE: 04/29/18 AGE: 63 : 57 SEX: M ROOM/BED: D.2224 AUTHOR: ALEJANDRA,DOC PHYSICIAN: REFERRING PHYSICIAN: VIVEK MONGE MD DATE OF SERVICE: 05/06/18 Discharge Plan Patient Name: CLAUDIA SUGGS Facility: [facility]:[place] : 1955 Planned Disposition: Home with Home Health Anticipated Discharge Date: Discharge Date: 05/05/2018 Expected LOS: 0 Initial Reviewer: [email or web address] Initial Review Date: 05/02/2018 Generated: 05/06/18 10:40 am Comments DCP- Discharge Planning Updated by [email or web address]: Ina Arteaga on 05/05/18 1:[address] Received orders for discharge. I met with patient and informed he was being discharged today. He states he will call his brother for a ride home. IMM explained, signed, copy given, original placed in MR. He denies need for further DME, states [facility] is still working on prosthesis. I called [facility] to continue home health and spoke to izabela Quan faxfederica. CM will continue to follow and assist with discharge planning/needs. Going home with home health. DCP- Discharge Planning Updated by [email or web address]: Radha Osullivan on 05/04/18 2:[address] TELEPHONE CALL BY HOOF TRIMMER TO [facility] [employer]. SHE SPOKE WITH PHILL. HE STATED HE IS WORKING ON THE PROSTHESIS. NO DATE FOR COMPLETION GIVEN AT THIS TIME. NOTED SIX MD ORDERS FOR WOUND CARE EVALUATION. WILL LEAVE VOICE MAIL MESSAGE AND ADVISE UNIT CM TO FOLLOW UP ON CONSULT ORDER. DCP- Discharge Planning Updated by [email or web address]: Ina Chandler on 05/02/18 3:[address] Patient Name: CLAUDIA SUGGS Admission Status: Elective Accout number: [id number] Admission Date: 04-29-2018 : 1955 Admission Diagnosis:AGRANULOCYTOSIS SECONDARY TO CANCER CHEMOTHERAPY Attending: VIVEK MONGE Current LOS: 3 Anticipated DC Date: Planned Disposition: Home with Home Health Primary Insurance: [facility] MEDICARE SOLUTIONS Discharge Planning Comments: CM met with patient to discuss discharge planning, he is alone in the room. States he lives with his brother. States he is mostly independent with all ADL's. States he does not drive. His brother will take him home on discharge. He has a prosthetic leg. He states [facility] is coming one day a week. States he plans to return home with his brother with resumption of home health on discharge. CM will continue to follow and assist with discharge planning/needs. Production Analyst: Ina Arteaga DCPIA - Discharge Planning Initial Assessment Updated by [email or web address]: Ina Arteaga on 05/02/18 4:06 pm * Is the patient Alert and Oriented? Yes * How many steps to enter\exit or inside your home? 3/0 * PCP Dr. Monge * Pharmacy [facility] * Preadmission Environment Home with Family * ADLs Partial Dependent * Partial ADLs (Assistance needed) Ambulation * List name and contact numbers for known caregivers / representatives who currently or will assist patient after discharge: Khurram quick - [phone] * Verbal permission to speak to the caregivers and representatives has been obtained from the patient. Yes * Community resources currently utilized Home Health * Please name any agencies selected above. [facility] * Additional services required to return to the preadmission environment? No * Can the patient safely return to the preadmission environment? Yes * Has this patient been hospitalized within the prior 30 days at any hospital? No Coverage Notice Reviewer: [email or web address] - Ina Arteaga Notice Issued Date-Time: 05/05/2018 14:44 Notice Type: IM Discharge Notice Notice Delivered To: Patient Relationship to Patient: Self Interior Decorator Name: Delivery Method: HAND - Hand Delivered Mary Days: Prior Verbal Notification: Recipient Understood Notice: Yes Recipient Signature: Yes Med Rec Note Co-signed by Attending: Coverage Notice Comment: IMM explained, signed, copy given, original placed in MR Last DP export: 05/05/18 1:55 p Patient Name: CLAUDIA SUGGS Page 83790 at 0940 All edits/amendments must be made on the electronic document DICTATION DATE: 05/06/18939 PERSONAL ATTENDANT: MADISYN 05/06/18939 RPT#: [id number] DC DATE:05/05/18 STATUS: DIS IN [facility] [address] [facility] [address] END OF REPORT
[~2018-04-29 15:43] MED LIST changes: -CEFUROXIME500 MG PO
[2018-04-29 17:18] VITALS: BMI 18.5
[2018-04-29 17:57] VITALS: BP 75/54
[2018-04-29 21:23] VITALS: BP 92/57
[2018-04-30 05:52] VITALS: BP 91/54
[2018-04-30 06:45] LABS: ALBUMIN 1.8 g/dL (3.4-5.0); ALKALINE PHOSPHATASE 148 U/L (46-116); ALT (SGPT) 43 U/L (10-68); BILIRUBIN - TOTAL 1.01 mg/dL (0.2-1.3); CALC OSMOLALITY 248 mosm/kg (275-300); CALCIUM 8.2 mg/dL (8.5-10.1); CARBON DIOXIDE 26.7 mmol/L (21.0-32.0); CHLORIDE - SERUM 91 mmol/L (98-107); CREATININE - SERUM 0.4 mg/dL (0.6-1.3); GLUCOSE 93 mg/dL (74-106); POTASSIUM - SERUM 3.1 mmol/L (3.5-5.1); PROTEIN - SERUM 5.5 g/dL (6.4-8.2); SODIUM 124 mmol/L (136-145); UREA NITROGEN 9 mg/dL (7-18); eGFR NON AFRICAN AMERICAN > 90 mL/min (90-120)
[2018-04-30 08:01] VITALS: BP 91/60
[2018-04-30 08:10] LABS: BASOPHILS 0 % (0-2); EOSINOPHILS 3.3 % (0-7); LYMPHOCYTES 38.3 % (15-50); MCH 32.6 pg (26.0-34.0); MCHC 35.4 g/dL (31.0-37.0); MCV 92.1 fL (80.0-100.0); MEAN PLATELET VOLUME 11.8 fL (7.4-10.4); NEUTROPHILS 8.4 % (40-80); RBC 2.15 10x6/uL (4.20-6.10); RDW 14.6 % (11.5-14.5)
[2018-04-30 08:16] LABS: PLATELET COUNT 25 10x3/uL (130-400)
[2018-04-30 08:17] LABS: HEMATOCRIT 19.8 % (42.0-54.0); WBC 0.6 10x3/uL (4.8-10.8)
[2018-04-30 09:31] VITALS: Ht 170.2 cm; Wt 53.5 kg
[2018-04-30 17:41] VITALS: BP 105/69
[2018-04-30 22:38] VITALS: BP 109/58
[2018-05-01 01:06] VITALS: BP 85/49
[2018-05-01 06:31] VITALS: BP 133/74
[2018-05-01 06:41] LABS: MCH 31.4 pg (26.0-34.0); MCHC 35.8 g/dL (31.0-37.0); MEAN PLATELET VOLUME 10.7 fL (7.4-10.4)
[2018-05-01 06:48] LABS: ALBUMIN 1.8 g/dL (3.4-5.0); ALKALINE PHOSPHATASE 166 U/L (46-116); ALT (SGPT) 40 U/L (10-68); BILIRUBIN - TOTAL 2.52 mg/dL (0.2-1.3); CALC OSMOLALITY 254 mosm/kg (275-300); CALCIUM 8.2 mg/dL (8.5-10.1); CARBON DIOXIDE 26.2 mmol/L (21.0-32.0); CHLORIDE - SERUM 94 mmol/L (98-107); CREATININE - SERUM 0.4 mg/dL (0.6-1.3); GLUCOSE 129 mg/dL (74-106); PROTEIN - SERUM 5.7 g/dL (6.4-8.2); SODIUM 127 mmol/L (136-145); UREA NITROGEN 8 mg/dL (7-18); eGFR NON AFRICAN AMERICAN > 90 mL/min (90-120)
[2018-05-01 06:55] LABS: HEMATOCRIT 28.2 % (42.0-54.0); HEMOGLOBIN 10.1 g/dL (13.5-17.5); MCV 87.6 fL (80.0-100.0); PLATELET COUNT 43 10x3/uL (130-400); RBC 3.22 10x6/uL (4.20-6.10); WBC 1.1 10x3/uL (4.8-10.8)
[2018-05-01 07:03] LABS: POTASSIUM - SERUM 2.9 mmol/L (3.5-5.1)
[2018-05-01 07:59] LABS: LYMPHOCYTES 50 % (15-50); MONOCYTES 44 % (2-11); NEUTROPHILS 4 % (40-80); PLATELET ESTIMATE DECREASED
[2018-05-01 09:39] VITALS: BP 88/55
[2018-05-01 12:43] VITALS: BP 107/66
[2018-05-01 17:28] VITALS: BP 98/58
[2018-05-01 21:55] VITALS: BP 112/68
[2018-05-02 05:48] VITALS: BP 85/53
[2018-05-02 06:28] LABS: ALBUMIN 1.6 g/dL (3.4-5.0); ALKALINE PHOSPHATASE 157 U/L (46-116); BASOPHILS 0.5 % (0-2); BILIRUBIN - TOTAL 1.56 mg/dL (0.2-1.3); CALC OSMOLALITY 261 mosm/kg (275-300); CALCIUM 8.6 mg/dL (8.5-10.1); CARBON DIOXIDE 25.5 mmol/L (21.0-32.0); CHLORIDE - SERUM 95 mmol/L (98-107); EOSINOPHILS 0 % (0-7); GLUCOSE 149 mg/dL (74-106); HEMATOCRIT 28.6 % (42.0-54.0); HEMOGLOBIN 10.1 g/dL (13.5-17.5); LYMPHOCYTES 10.9 % (15-50); MCH 31.5 pg (26.0-34.0); MCHC 35.3 g/dL (31.0-37.0); MCV 89.1 fL (80.0-100.0); MEAN PLATELET VOLUME 11.5 fL (7.4-10.4); MONOCYTES 86.9 % (2-11); NEUTROPHILS 1.7 % (40-80); PROTEIN - SERUM 5.4 g/dL (6.4-8.2); RBC 3.21 10x6/uL (4.20-6.10); SODIUM 130 mmol/L (136-145); UREA NITROGEN 8 mg/dL (7-18)
[2018-05-02 06:29] LABS: ALT (SGPT) 28 U/L (10-68); CREATININE - SERUM 0.6 mg/dL (0.6-1.3); POTASSIUM - SERUM 4.3 mmol/L (3.5-5.1); eGFR NON AFRICAN AMERICAN > 90 mL/min (90-120)
[2018-05-02 06:31] LABS: PLATELET COUNT 57 10x3/uL (130-400); WBC 1.8 10x3/uL (4.8-10.8)
[2018-05-02 08:30] VITALS: BP 117/63
[2018-05-02 12:53] VITALS: BP 80/50
[2018-05-02 16:24] VITALS: BP 107/69
[2018-05-02 20:20] VITALS: BP 141/89
[2018-05-03 01:15] VITALS: BP 98/56
[2018-05-03 05:19] VITALS: BP 154/84
[2018-05-03 06:33] LABS: BASOPHILS 0.2 % (0-2); EOSINOPHILS 0.5 % (0-7); HEMATOCRIT 28.6 % (42.0-54.0); HEMOGLOBIN 9.7 g/dL (13.5-17.5); IMMATURE GRANULOCYTES 0.3 % (0-5); LYMPHOCYTES 7.1 % (15-50); MCH 30.7 pg (26.0-34.0); MCHC 33.9 g/dL (31.0-37.0); MCV 90.5 fL (80.0-100.0); MEAN PLATELET VOLUME 12.1 fL (7.4-10.4); MONOCYTES 49.5 % (2-11); NEUTROPHILS 42.4 % (40-80); RBC 3.16 10x6/uL (4.20-6.10); WBC 5.9 10x3/uL (4.8-10.8)
[2018-05-03 06:34] LABS: PLATELET COUNT 87 10x3/uL (130-400)
[2018-05-03 07:07] LABS: ALBUMIN 1.5 g/dL (3.4-5.0); ALKALINE PHOSPHATASE 128 U/L (46-116); ALT (SGPT) 21 U/L (10-68); BILIRUBIN - TOTAL 0.81 mg/dL (0.2-1.3); CALC OSMOLALITY 263 mosm/kg (275-300); CALCIUM 8.3 mg/dL (8.5-10.1); CARBON DIOXIDE 25.1 mmol/L (21.0-32.0); CHLORIDE - SERUM 98 mmol/L (98-107); GLUCOSE 129 mg/dL (74-106); POTASSIUM - SERUM 3.8 mmol/L (3.5-5.1); PROTEIN - SERUM 4.5 g/dL (6.4-8.2); SODIUM 131 mmol/L (136-145); UREA NITROGEN 11 mg/dL (7-18)
[2018-05-03 07:08] LABS: CREATININE - SERUM 0.3 mg/dL (0.6-1.3); eGFR NON AFRICAN AMERICAN > 90 mL/min (90-120)
[2018-05-03 09:05] VITALS: BP 90/56
[2018-05-03 13:33] VITALS: BP 99/68
[2018-05-03 16:27] VITALS: BP 113/83
[2018-05-03 21:08] VITALS: BP 115/75
[2018-05-04 05:03] VITALS: BP 116/70
[2018-05-04 05:58] LABS: ALBUMIN 1.5 g/dL (3.4-5.0); ALKALINE PHOSPHATASE 196 U/L (46-116); ALT (SGPT) 16 U/L (10-68); BILIRUBIN - TOTAL 0.83 mg/dL (0.2-1.3); CALCIUM 8.3 mg/dL (8.5-10.1); CHLORIDE - SERUM 94 mmol/L (98-107); GLUCOSE 124 mg/dL (74-106); POTASSIUM - SERUM 3.6 mmol/L (3.5-5.1); PROTEIN - SERUM 5.2 g/dL (6.4-8.2); SODIUM 128 mmol/L (136-145)
[2018-05-04 06:03] LABS: CALC OSMOLALITY 255 mosm/kg (275-300); CREATININE - SERUM 0.5 mg/dL (0.6-1.3); UREA NITROGEN 8 mg/dL (7-18); eGFR NON AFRICAN AMERICAN > 90 mL/min (90-120)
[2018-05-04 06:04] LABS: BASOPHILS 0.2 % (0-2); EOSINOPHILS 0.1 % (0-7); HEMATOCRIT 31.1 % (42.0-54.0); HEMOGLOBIN 10.7 g/dL (13.5-17.5); IMMATURE GRANULOCYTES 7.4 % (0-5); LYMPHOCYTES 2.7 % (15-50); MCH 31.3 pg (26.0-34.0); MCHC 34.4 g/dL (31.0-37.0); MCV 90.9 fL (80.0-100.0); MEAN PLATELET VOLUME 12.1 fL (7.4-10.4); NEUTROPHILS 72.6 % (40-80); PLATELET COUNT 96 10x3/uL (130-400); RBC 3.42 10x6/uL (4.20-6.10); RDW 15.3 % (11.5-14.5); WBC 21.5 10x3/uL (4.8-10.8)
[2018-05-04 08:43] VITALS: BP 105/74
[2018-05-04 12:38] VITALS: BP 121/80
[2018-05-04 16:50] VITALS: BP 111/76
[2018-05-04 20:47] VITALS: BP 117/81
[2018-05-05 01:01] VITALS: BP 117/80
[2018-05-05 05:01] VITALS: BP 117/72
[2018-05-05 08:45] VITALS: BP 127/82
[2018-05-05 09:32] LABS: BASOPHILS 0.4 % (0-2); EOSINOPHILS 0.1 % (0-7); HEMATOCRIT 35.5 % (42.0-54.0); HEMOGLOBIN 12.1 g/dL (13.5-17.5); IMMATURE GRANULOCYTES 10.5 % (0-5); LYMPHOCYTES 3.5 % (15-50); MCH 31.3 pg (26.0-34.0); MCHC 34.1 g/dL (31.0-37.0); MCV 91.7 fL (80.0-100.0); MEAN PLATELET VOLUME 11.2 fL (7.4-10.4); MONOCYTES 16.1 % (2-11); NEUTROPHILS 69.4 % (40-80); RBC 3.87 10x6/uL (4.20-6.10); RDW 15.2 % (11.5-14.5); WBC 17.5 10x3/uL (4.8-10.8)
[2018-05-05 09:33] LABS: PLATELET COUNT 122 10x3/uL (130-400)
[2018-05-05 09:57] LABS: ALBUMIN 1.8 g/dL (3.4-5.0); ALKALINE PHOSPHATASE 264 U/L (46-116); BILIRUBIN - TOTAL 0.63 mg/dL (0.2-1.3); CALC OSMOLALITY 264 mosm/kg (275-300); CALCIUM 8.3 mg/dL (8.5-10.1); CARBON DIOXIDE 26.8 mmol/L (21.0-32.0); CHLORIDE - SERUM 98 mmol/L (98-107); CREATININE - SERUM 0.4 mg/dL (0.6-1.3); GLUCOSE 117 mg/dL (74-106); POTASSIUM - SERUM 3.6 mmol/L (3.5-5.1); SODIUM 132 mmol/L (136-145); UREA NITROGEN 9 mg/dL (7-18); eGFR NON AFRICAN AMERICAN > 90 mL/min (90-120)
[2018-05-05 10:03] LABS: ALT (SGPT) 21 U/L (10-68)
[2018-05-05 13:07] VITALS: BP 128/87
[2018-05-05] MEDS ORDERED: CEFUROXIME500 MG PO (13:47)
== END 2018-05-05 15:31 | disposition home health service (06) | DRG 809 ==
LOC: D.M2 15:43 → D.MS 15:54
PROVIDERS: Family Medicine; Internal Medicine Hematology & Oncology
DX: D70.1 Agranulocytosis secondary to cancer chemotherapy (principal); C85.10 Unspecified B-cell lymphoma, unspecified site; E44.0 Moderate protein-calorie malnutrition; D69.59 Other secondary thrombocytopenia; J44.9 Chronic obstructive pulmonary disease, unspecified; R56.9 Unspecified convulsions; B19.20 Unspecified viral hepatitis C without hepatic coma; F32.9 Major depressive disorder, single episode, unspecified

== ENCOUNTER → 2018-05-21 08:10 | Day surgery (SDC) | payer MEDICARE, MEDICAID ==
[~2018-05-21] VITALS: Ht 170.2 cm; Wt 51.4 kg
[~2018-05-21 08:10] MED LIST changes: +CEFUROXIME500 MG PO; +CHEMO; +LEXAPRO10 MG PO; +PHENERGAN25 M1 PO; +[UNRECOGNIZED DRUG - OTHER]
[2018-05-21 08:38] LABS: HEMATOCRIT 37.4 % (42.0-54.0); HEMOGLOBIN 12.8 g/dL (13.5-17.5); MCH 32.1 pg (26.0-34.0); MCHC 34.2 g/dL (31.0-37.0); MCV 93.7 fL (80.0-100.0); MEAN PLATELET VOLUME 9.1 fL (7.4-10.4); RBC 3.99 10x6/uL (4.20-6.10); RDW 16.5 % (11.5-14.5); WBC 8.5 10x3/uL (4.8-10.8)
[2018-05-21 09:23] VITALS: BP 115/72; Ht 170.2 cm; Wt 51.4 kg
--- NOTE | 2018-05-21 13:23 | NUR ---
1200 IV REMOVED WITH CATHALON INTACT. COVERED WITH BANDAID AND PRESSURE APPLIED. NO BLEEDING NOTED. ABLE TO TOLERATE LIQUIDS WITHOUT NAUSEA. ALL DISCHARGE CRITERIA MET. ALL DC INSTRUCTIONS GIVEN. VOICES UNDERSTANDING. DRESSED AT BEDSIDE. TAKEN OUT VIA W/C AND ASSISTED TO VEHICLE WITH BROTHER. ADVISED TO CALL OR COME BACK IS ANY PROBLEMS.
--- NOTE | 2018-05-26 17:43 | OP ---
PATIENT NAME: CLAUDIA SUGGS MEDICAL RECORD: [id number] :[birth year] LOCATION:D.OPS ADMISSION DATE: SURGEON: MAE ALEJANDRE DO DATE OF OPERATION: 05/21/2018 PROCEDURE: EGD with removal of biliary stent and biopsies. INDICATION FOR PROCEDURE: Epigastric pain, status post biliary stent placement needing removal. SCOPE: Olympus video gastroscope. MEDICATIONS: Propofol 200 mg IV per anesthesia. ESTIMATED BLOOD LOSS: Minimal. COMPLICATIONS: None. FINDINGS AND DESCRIPTION OF PROCEDURE: Informed consent was given. The patient was made comfortable with the above medication. After reaching an adequate level of sedation by slow IV push, the patient was placed on his left side. The endoscope was advanced under direct visualization through the mouth through the third portion of the duodenum. The entire esophagus appeared normal including the GE junction. The endoscope was advanced beyond the GE junction into the stomach and retroflexed to view the cardia, where a small sliding hiatal hernia was present. The fundus and body of the stomach appeared normal. In the antrum, there was a single, superficial ulcer measuring approximately 8-9 mm in diameter. Cold forceps biopsies were taken of the ulcer to submit for histopathology. Random cold forceps biopsies were taken in the antrum of the stomach to submit for histopathology and to rule out the presence of H. pylori. The endoscope was advanced beyond the pylorus into the duodenum. The entire duodenum that was examined appeared to have some slight congestion. The previously placed biliary stent was visualized in the second portion of the duodenum with the distal portion of the stent outside of the ampulla. The stent was grasped using a snare and the entire stent and endoscope was removed together from the patient. The patient tolerated the procedure well and there were no complications. IMPRESSIONS: 1. Small sliding hiatal hernia. 2. A single superficial gastric ulcer, which was biopsied. 3. Biliary stent that was previously placed has been removed using a snare. PLAN AND RECOMMENDATIONS: 1. Discharge home when recovery parameters are met. 2. Follow up biopsy specimen results. 3. GERD diet and reflux precautions. 4. Continue current medications. 5. A prescription will be provided for omeprazole 40 mg daily times 60 days. 6. Monitor the patient's bilirubin and liver enzymes. If these start to increase and there are signs of biliary obstruction, recommend repeating ERCP for placement of another plastic stent versus a metal permanent stent. TRANSINT:[id number] Voice Confirmation ID: [id number] DOCUMENT ID: [id number] OPERATIVE REPORT [id number] CLAUDIA SUGGS,MAE Walker DO at 1743 CC: [id number] DICTATION DATE: 05/21/18 1107 SECURITIES BROKER: 05/21/18 1226 [facility] 05/21/18 [place] [id number]
== END | disposition home or self-care (01) ==
LOC: D.OPS 05-19 14:00
PROVIDERS: Anesthesiology
DX: K44.9 Diaphragmatic hernia without obstruction or gangrene (principal); K25.9 Gastric ulcer, unspecified as acute or chronic, without hemorrhage or perforation; K31.9 Disease of stomach and duodenum, unspecified; Z01.812 Encounter for preprocedural laboratory examination

== ENCOUNTER 2018-05-30 16:01 | Inpatient (IN) | payer MEDICARE, MEDICAID ==
[~2018-05-30] VITALS: Ht 170.2 cm; Wt 47.2 kg
[~2018-05-30 16:01] MED LIST changes: -CHEMO; -LEXAPRO10 MG PO; -PHENERGAN25 M1 PO; -[UNRECOGNIZED DRUG - OTHER]
[2018-05-30] MEDS ORDERED: [UNRECOGNIZED DRUG - OTHER] (16:07)
[2018-05-30] MEDS ORDERED: CHEMO (16:08)
[2018-05-30 17:11] LABS: BASOPHILS 0.1 % (0-2); EOSINOPHILS 0.4 % (0-7); HEMATOCRIT 35.5 % (42.0-54.0); HEMOGLOBIN 12.4 g/dL (13.5-17.5); IMMATURE GRANULOCYTES 0.4 % (0-5); LYMPHOCYTES 8.2 % (15-50); MCH 32.7 pg (26.0-34.0); MCHC 34.9 g/dL (31.0-37.0); MCV 93.7 fL (80.0-100.0); MEAN PLATELET VOLUME 9.7 fL (7.4-10.4); MONOCYTES 12.1 % (2-11); NEUTROPHILS 78.8 % (40-80); PLATELET COUNT 104 10x3/uL (130-400); RBC 3.79 10x6/uL (4.20-6.10); RDW 16.6 % (11.5-14.5); WBC 17.9 10x3/uL (4.8-10.8)
[2018-05-30 18:19] LABS: APPEARANCE CLEAR (CLEAR); BILIRUBIN NEGATIVE (NEGATIVE); COLOR YELLOW (YELLOW); GLUCOSE NEGATIVE (NEGATIVE); KETONE NEGATIVE (NEGATIVE); NITRITE NEGATIVE (NEGATIVE); PROTEIN NEGATIVE (NEGATIVE); UROBILINOGEN NORMAL (NORMAL)
[2018-05-30 18:20] LABS: AMORPHOUS SEDIMENT >1+ /lpf (NONE SEEN); BACTERIA FEW /hpf (NONE SEEN); WHITE CELLS - URINE 0-5 /hpf (0-5)
[2018-05-30 18:57] LABS: ALKALINE PHOSPHATASE 145 U/L (46-116); ALT (SGPT) 26 U/L (10-68); BILIRUBIN - TOTAL 0.47 mg/dL (0.2-1.3); CALC OSMOLALITY 251 mosm/kg (275-300); CALCIUM 8.5 mg/dL (8.5-10.1); CARBON DIOXIDE 30.5 mmol/L (21.0-32.0); CHLORIDE - SERUM 91 mmol/L (98-107); CREATININE - SERUM 0.4 mg/dL (0.6-1.3); GLUCOSE 132 mg/dL (74-106); POTASSIUM - SERUM 4.1 mmol/L (3.5-5.1); PROTEIN - SERUM 5.9 g/dL (6.4-8.2); SODIUM 126 mmol/L (136-145); UREA NITROGEN 5 mg/dL (7-18); eGFR NON AFRICAN AMERICAN > 90 mL/min (90-120)
[2018-05-30 18:58] LABS: AMYLASE - SERUM 21 U/L (25-115); LIPASE 67 U/L (73-393); MAGNESIUM - SERUM 1.6 mg/dL (1.8-2.4); TROPONIN-I < 0.017 ng/mL (0.000-0.060)
[2018-05-30 22:32] VITALS: BP 123/79
[2018-05-30 23:33] VITALS: BP 121/75
[2018-05-31] VITALS (7 sets, daily range): BP systolic 96–129; BP diastolic 62–84; Ht 170.2 cm; Wt 47.2 kg
[2018-05-31] MEDS ORDERED: LEXAPRO10 MG PO (04:39)
[2018-05-31] MEDS ORDERED: PHENERGAN25 M1 PO (04:40)
[2018-05-31 07:11] LABS: BASOPHILS 0.2 % (0-2); EOSINOPHILS 0.9 % (0-7); HEMATOCRIT 32.3 % (42.0-54.0); HEMOGLOBIN 10.8 g/dL (13.5-17.5); IMMATURE GRANULOCYTES 0.3 % (0-5); LYMPHOCYTES 12.2 % (15-50); MCH 31.2 pg (26.0-34.0); MCHC 33.4 g/dL (31.0-37.0); MCV 93.4 fL (80.0-100.0); MEAN PLATELET VOLUME 9.6 fL (7.4-10.4); MONOCYTES 18.4 % (2-11); PLATELET COUNT 95 10x3/uL (130-400); RBC 3.46 10x6/uL (4.20-6.10); RDW 16.5 % (11.5-14.5)
[2018-05-31 07:14] LABS: WBC 12.7 10x3/uL (4.8-10.8)
[2018-05-31 07:22] LABS: ALBUMIN 1.7 g/dL (3.4-5.0); ALKALINE PHOSPHATASE 122 U/L (46-116); ALT (SGPT) 26 U/L (10-68); AMYLASE - SERUM 15 U/L (25-115); BILIRUBIN - TOTAL 0.62 mg/dL (0.2-1.3); CALC OSMOLALITY 259 mosm/kg (275-300); CALCIUM 8.2 mg/dL (8.5-10.1); CARBON DIOXIDE 28.2 mmol/L (21.0-32.0); CHLORIDE - SERUM 96 mmol/L (98-107); CREATININE - SERUM 0.3 mg/dL (0.6-1.3); GLUCOSE 90 mg/dL (74-106); LIPASE 42 U/L (73-393); POTASSIUM - SERUM 3.9 mmol/L (3.5-5.1); PROTEIN - SERUM 5.4 g/dL (6.4-8.2); SODIUM 131 mmol/L (136-145); UREA NITROGEN 4 mg/dL (7-18); eGFR NON AFRICAN AMERICAN > 90 mL/min (90-120)
[2018-06-01] VITALS: BP 118/73
[2018-06-01 04:00] VITALS: BP 114/76
[2018-06-01 06:43] LABS: BASOPHILS 0.2 % (0-2); EOSINOPHILS 1.7 % (0-7); HEMATOCRIT 34.7 % (42.0-54.0); HEMOGLOBIN 11.7 g/dL (13.5-17.5); IMMATURE GRANULOCYTES 0.3 % (0-5); LYMPHOCYTES 11.6 % (15-50); MCH 31.8 pg (26.0-34.0); MCHC 33.7 g/dL (31.0-37.0); MCV 94.3 fL (80.0-100.0); MONOCYTES 17.3 % (2-11); NEUTROPHILS 68.9 % (40-80); PLATELET COUNT 107 10x3/uL (130-400); RBC 3.68 10x6/uL (4.20-6.10); RDW 16.1 % (11.5-14.5); WBC 10.5 10x3/uL (4.8-10.8)
[2018-06-01 06:52] LABS: APTT 33.9 SECONDS (22.8-39.4); INR 1.04 (0.85-1.17); PROTIME 13.1 SECONDS (11.6-15.0)
[2018-06-01 07:11] LABS: ALBUMIN 1.8 g/dL (3.4-5.0); ALKALINE PHOSPHATASE 127 U/L (46-116); ALT (SGPT) 32 U/L (10-68); BILIRUBIN - TOTAL 0.59 mg/dL (0.2-1.3); CALC OSMOLALITY 258 mosm/kg (275-300); CALCIUM 8.1 mg/dL (8.5-10.1); CARBON DIOXIDE 30.1 mmol/L (21.0-32.0); CHLORIDE - SERUM 96 mmol/L (98-107); CREATININE - SERUM 0.3 mg/dL (0.6-1.3); GLUCOSE 82 mg/dL (74-106); POTASSIUM - SERUM 3.4 mmol/L (3.5-5.1); PROTEIN - SERUM 5.5 g/dL (6.4-8.2); SODIUM 131 mmol/L (136-145); UREA NITROGEN 5 mg/dL (7-18); eGFR NON AFRICAN AMERICAN > 90 mL/min (90-120)
[2018-06-01 09:24] VITALS: BP 107/71
[2018-06-01 13:06] VITALS: BP 110/67
[2018-06-01 20:00] VITALS: BP 106/69
[2018-06-02] VITALS (7 sets, daily range): BP systolic 107–127; BP diastolic 68–79
[2018-06-03] VITALS (7 sets, daily range): BP systolic 82–140; BP diastolic 57–85
[2018-06-03 06:17] LABS: BASOPHILS 0.3 % (0-2); EOSINOPHILS 1.6 % (0-7); HEMATOCRIT 32.7 % (42.0-54.0); HEMOGLOBIN 11.1 g/dL (13.5-17.5); IMMATURE GRANULOCYTES 0.2 % (0-5); LYMPHOCYTES 17.2 % (15-50); MCH 31.9 pg (26.0-34.0); MCHC 33.9 g/dL (31.0-37.0); MEAN PLATELET VOLUME 9.3 fL (7.4-10.4); MONOCYTES 21.2 % (2-11); NEUTROPHILS 59.5 % (40-80); PLATELET COUNT 117 10x3/uL (130-400); RBC 3.48 10x6/uL (4.20-6.10); RDW 16.2 % (11.5-14.5); WBC 8.8 10x3/uL (4.8-10.8)
[2018-06-03 06:39] LABS: ALBUMIN 1.8 g/dL (3.4-5.0); ALKALINE PHOSPHATASE 157 U/L (46-116); ALT (SGPT) 24 U/L (10-68); BILIRUBIN - TOTAL 0.35 mg/dL (0.2-1.3); CALCIUM 8.3 mg/dL (8.5-10.1); CARBON DIOXIDE 32.1 mmol/L (21.0-32.0); CHLORIDE - SERUM 94 mmol/L (98-107); GLUCOSE 104 mg/dL (74-106); POTASSIUM - SERUM 3.9 mmol/L (3.5-5.1); PROTEIN - SERUM 5.5 g/dL (6.4-8.2); SODIUM 133 mmol/L (136-145)
[2018-06-03 06:40] LABS: CALC OSMOLALITY 264 mosm/kg (275-300); CREATININE - SERUM 0.4 mg/dL (0.6-1.3); UREA NITROGEN 9 mg/dL (7-18); eGFR NON AFRICAN AMERICAN > 90 mL/min (90-120)
[2018-06-04 04:00] VITALS: BP 122/71
[2018-06-04 04:55] LABS: BASOPHILS 0.2 % (0-2); HEMATOCRIT 33.5 % (42.0-54.0); HEMOGLOBIN 11.3 g/dL (13.5-17.5); IMMATURE GRANULOCYTES 0.3 % (0-5); LYMPHOCYTES 20.9 % (15-50); MCH 31.8 pg (26.0-34.0); MCHC 33.7 g/dL (31.0-37.0); MCV 94.4 fL (80.0-100.0); MEAN PLATELET VOLUME 9.7 fL (7.4-10.4); MONOCYTES 20.7 % (2-11); NEUTROPHILS 54.9 % (40-80); PLATELET COUNT 129 10x3/uL (130-400); RBC 3.55 10x6/uL (4.20-6.10); RDW 16.2 % (11.5-14.5); WBC 9.3 10x3/uL (4.8-10.8)
[2018-06-04 05:19] LABS: ALBUMIN 1.9 g/dL (3.4-5.0); ALKALINE PHOSPHATASE 163 U/L (46-116); ALT (SGPT) 25 U/L (10-68); BILIRUBIN - TOTAL 0.29 mg/dL (0.2-1.3); CALC OSMOLALITY 264 mosm/kg (275-300); CALCIUM 8.5 mg/dL (8.5-10.1); CARBON DIOXIDE 30.8 mmol/L (21.0-32.0); CHLORIDE - SERUM 96 mmol/L (98-107); CREATININE - SERUM 0.3 mg/dL (0.6-1.3); GLUCOSE 106 mg/dL (74-106); POTASSIUM - SERUM 4.2 mmol/L (3.5-5.1); PROTEIN - SERUM 5.8 g/dL (6.4-8.2); SODIUM 133 mmol/L (136-145); UREA NITROGEN 10 mg/dL (7-18); eGFR NON AFRICAN AMERICAN > 90 mL/min (90-120)
[2018-06-04 15:15] VITALS: BP 140/83
[2018-06-04 16:41] VITALS: BP 136/80
[2018-06-04 20:00] VITALS: BP 112/71
[2018-06-04 23:47] VITALS: BP 111/75
[2018-06-05 04:00] VITALS: BP 124/76
[2018-06-05 05:44] LABS: HEMATOCRIT 30.9 % (42.0-54.0); HEMOGLOBIN 10.5 g/dL (13.5-17.5); MCH 31.9 pg (26.0-34.0); MCV 93.9 fL (80.0-100.0); MEAN PLATELET VOLUME 9.7 fL (7.4-10.4); PLATELET COUNT 116 10x3/uL (130-400); RBC 3.29 10x6/uL (4.20-6.10); RDW 16.6 % (11.5-14.5); WBC 8.4 10x3/uL (4.8-10.8)
[2018-06-05 06:08] LABS: ALBUMIN 1.8 g/dL (3.4-5.0); ALKALINE PHOSPHATASE 153 U/L (46-116); ALT (SGPT) 22 U/L (10-68); BILIRUBIN - TOTAL 0.31 mg/dL (0.2-1.3); CALC OSMOLALITY 257 mosm/kg (275-300); CALCIUM 8.4 mg/dL (8.5-10.1); CARBON DIOXIDE 29.3 mmol/L (21.0-32.0); CHLORIDE - SERUM 94 mmol/L (98-107); CREATININE - SERUM 0.3 mg/dL (0.6-1.3); GLUCOSE 94 mg/dL (74-106); POTASSIUM - SERUM 3.9 mmol/L (3.5-5.1); PROTEIN - SERUM 5.6 g/dL (6.4-8.2); SODIUM 129 mmol/L (136-145); UREA NITROGEN 11 mg/dL (7-18); eGFR NON AFRICAN AMERICAN > 90 mL/min (90-120)
[2018-06-05 08:08] LABS: EOSINOPHILS 5 % (0-7); LYMPHOCYTES 27 % (15-50); MONOCYTES 19 % (2-11); NEUTROPHILS 49 % (40-80)
[2018-06-05 08:09] LABS: ANISOCYTOSIS OCC; HYPOCHROMASIA OCC; PLATELET ESTIMATE DECREASED; ROULEAUX OCC
[2018-06-05 08:37] VITALS: BP 112/75
--- NOTE | 2018-06-05 11:14 | MORECARE ---
CASE MANAGEMENT DISCHARGE SUMMARY PATIENT: CLAUDIA SUGGS UNIT: [id number] ADM DATE: 05/30/18 AGE: 63 : 57 SEX: M ROOM/BED: D.2210 AUTHOR: DORY ROBERTS PHYSICIAN: REFERRING PHYSICIAN: VIVEK MONGE MD DATE OF SERVICE: 06/05/18 Discharge Plan Patient Name: CLAUDIA SUGGS Facility: [facility]:[place] : 1955 Planned Disposition: Home Hlth Svc w Plan Readm Anticipated Discharge Date: Discharge Date: Expected LOS: Initial Reviewer: [email or web address] Initial Review Date: 06/05/2018 Generated: 06/05/18 12:14 pm Comments DCP- Discharge Planning Updated by [email or web address]: Justa Langford on 06/05/18 10:[address] Patient Name: CLAUDIA SUGGS Admission Status: ER Accout number: [id number] Admission Date: 05-30-2018 : 1955 Admission Diagnosis:PNEUMONIA, UNSPECIFIED ORGANISM Attending: VIVEK MONGE Current LOS: 6 Anticipated DC Date: Planned Disposition: Home Hlth Svc w Plan Readm Primary Insurance: [facility] MEDICARE SOLUTIONS Discharge Planning Comments: CM MET WITH PATIENT, HE WAS TOO DROWSY TO ANSWER [facility]. I WAS ABLE TO OBTAIN MOST OF HIS INFORMATION FROM HIS CHART. HE IS CURRENTLY USING [facility]. PHONE NUMBER [phone], FAX [phone]. Regenerator Operator: Justa Langford DCPIA - Discharge Planning Initial Assessment Updated by [id number]: Justa Langford on 06/05/18 11:09 am * Is the patient Alert and Oriented? No * PCP [facility] * Preadmission Environment Home with Family * List name and contact numbers for known caregivers / representatives who currently or will assist patient after discharge: VENICE CAREY, * Community resources currently utilized Home Health * Please name any agencies selected above. [facility] External Providers External Provider: [facility] Next Contact Date: Service Request Date: Service Type: Resolution: Reviewer: Comments: Patient Name: CLAUDIA SUGGS Page 01424 at 1114 All edits/amendments must be made on the electronic document DICTATION DATE: 06/05/181112 PLANT TAXONOMY TEACHER: MADISYN 06/05/181112 RPT#: [id number] DC DATE: STATUS: ADM IN [facility] [address] [place] [address] END OF REPORT
[2018-06-05 12:26] VITALS: BP 91/60
[2018-06-05 17:21] VITALS: BP 122/72
[2018-06-05 20:00] VITALS: BP 110/67
[2018-06-06 04:00] VITALS: BP 109/68
[2018-06-06 05:44] LABS: HEMATOCRIT 31.3 % (42.0-54.0); HEMOGLOBIN 10.5 g/dL (13.5-17.5); MCH 32.3 pg (26.0-34.0); MCHC 33.5 g/dL (31.0-37.0); MEAN PLATELET VOLUME 9.2 fL (7.4-10.4); PLATELET COUNT 130 10x3/uL (130-400); RBC 3.25 10x6/uL (4.20-6.10); RDW 16.9 % (11.5-14.5); WBC 8.6 10x3/uL (4.8-10.8)
[2018-06-06 06:07] LABS: MCV 96.3 fL (80.0-100.0)
[2018-06-06 06:51] LABS: ALBUMIN 1.9 g/dL (3.4-5.0); ALKALINE PHOSPHATASE 174 U/L (46-116); ALT (SGPT) 25 U/L (10-68); BILIRUBIN - TOTAL 0.33 mg/dL (0.2-1.3); CALC OSMOLALITY 264 mosm/kg (275-300); CALCIUM 8.6 mg/dL (8.5-10.1); CARBON DIOXIDE 31.3 mmol/L (21.0-32.0); CHLORIDE - SERUM 96 mmol/L (98-107); CREATININE - SERUM 0.3 mg/dL (0.6-1.3); GLUCOSE 92 mg/dL (74-106); PROTEIN - SERUM 5.7 g/dL (6.4-8.2); SODIUM 132 mmol/L (136-145); UREA NITROGEN 12 mg/dL (7-18); eGFR NON AFRICAN AMERICAN > 90 mL/min (90-120)
[2018-06-06 06:56] LABS: POTASSIUM - SERUM 4.7 mmol/L (3.5-5.1)
[2018-06-06 08:00] VITALS: BP 127/85
[2018-06-06 08:38] LABS: ANISOCYTOSIS OCC; EOSINOPHILS 5 % (0-7); LYMPHOCYTES 22 % (15-50); MONOCYTES 20 % (2-11); NEUTROPHILS 53 % (40-80); PLATELET ESTIMATE NORMAL
[2018-06-06 12:00] VITALS: BP 108/67
[2018-06-06 16:12] VITALS: BP 115/76
[2018-06-06 19:00] VITALS: BP 139/80
[2018-06-07 00:46] VITALS: BP 115/71
[2018-06-07 05:24] VITALS: BP 155/79
[2018-06-07 07:13] LABS: BASOPHILS 0.5 % (0-2); EOSINOPHILS 4.4 % (0-7); HEMATOCRIT 32.9 % (42.0-54.0); HEMOGLOBIN 10.9 g/dL (13.5-17.5); IMMATURE GRANULOCYTES 0.2 % (0-5); LYMPHOCYTES 23.6 % (15-50); MCH 32.1 pg (26.0-34.0); MCHC 33.1 g/dL (31.0-37.0); MCV 96.8 fL (80.0-100.0); MONOCYTES 24.2 % (2-11); NEUTROPHILS 47.1 % (40-80); PLATELET COUNT 156 10x3/uL (130-400); RDW 17.3 % (11.5-14.5); WBC 9.5 10x3/uL (4.8-10.8)
[2018-06-07 07:29] LABS: ALBUMIN 2.2 g/dL (3.4-5.0); ALKALINE PHOSPHATASE 203 U/L (46-116); ALT (SGPT) 29 U/L (10-68); BILIRUBIN - TOTAL 0.32 mg/dL (0.2-1.3); CALC OSMOLALITY 265 mosm/kg (275-300); CARBON DIOXIDE 30.1 mmol/L (21.0-32.0); CHLORIDE - SERUM 94 mmol/L (98-107); CREATININE - SERUM 0.3 mg/dL (0.6-1.3); GLUCOSE 101 mg/dL (74-106); POTASSIUM - SERUM 4.1 mmol/L (3.5-5.1); PROTEIN - SERUM 6.3 g/dL (6.4-8.2); SODIUM 132 mmol/L (136-145); UREA NITROGEN 14 mg/dL (7-18); eGFR NON AFRICAN AMERICAN > 90 mL/min (90-120)
[2018-06-07 09:53] VITALS: BP 120/78
[2018-06-07 20:42] VITALS: BP 106/70
[2018-06-08 04:32] VITALS: BP 99/66
[2018-06-08 08:48] VITALS: BP 120/74
[2018-06-08 16:10] VITALS: BP 104/61
[2018-06-08 20:45] VITALS: BP 101/66
[2018-06-09 00:27] VITALS: BP 101/69
[2018-06-09 04:41] VITALS: BP 101/60
[2018-06-09 05:54] LABS: HEMATOCRIT 31.3 % (42.0-54.0); HEMOGLOBIN 10.3 g/dL (13.5-17.5); MCHC 32.9 g/dL (31.0-37.0); MCV 97.2 fL (80.0-100.0); MEAN PLATELET VOLUME 9.6 fL (7.4-10.4); PLATELET COUNT 169 10x3/uL (130-400); RBC 3.22 10x6/uL (4.20-6.10); RDW 17.7 % (11.5-14.5); WBC 8.6 10x3/uL (4.8-10.8)
[2018-06-09 06:12] LABS: ALBUMIN 2.3 g/dL (3.4-5.0); ALKALINE PHOSPHATASE 213 U/L (46-116); ALT (SGPT) 32 U/L (10-68); BILIRUBIN - TOTAL 0.29 mg/dL (0.2-1.3); CALC OSMOLALITY 268 mosm/kg (275-300); CARBON DIOXIDE 30.8 mmol/L (21.0-32.0); CHLORIDE - SERUM 94 mmol/L (98-107); CREATININE - SERUM 0.4 mg/dL (0.6-1.3); GLUCOSE 109 mg/dL (74-106); POTASSIUM - SERUM 4.2 mmol/L (3.5-5.1); PROTEIN - SERUM 6.4 g/dL (6.4-8.2); SODIUM 133 mmol/L (136-145); UREA NITROGEN 18 mg/dL (7-18); eGFR NON AFRICAN AMERICAN > 90 mL/min (90-120)
[2018-06-09 08:09] LABS: ANISOCYTOSIS OCC; BASOPHILS 2 % (0-2); EOSINOPHILS 1 % (0-7); LYMPHOCYTES 32 % (15-50); MONOCYTES 15 % (2-11); NEUTROPHILS 49 % (40-80); PLATELET ESTIMATE NORMAL; ROULEAUX OCC
[2018-06-09 08:49] VITALS: BP 111/76
[2018-06-09 12:55] VITALS: BP 129/62
[2018-06-09 16:34] VITALS: BP 100/71
[2018-06-09 19:00] VITALS: BP 113/72
[2018-06-10] VITALS: BP 100/65
[2018-06-10 05:55] VITALS: BP 103/74
[2018-06-10 08:40] VITALS: BP 105/67
[2018-06-10 12:46] VITALS: BP 110/61
[2018-06-10 16:21] VITALS: BP 110/61
[2018-06-10 20:17] VITALS: BP 105/63
[2018-06-11 01:10] VITALS: BP 124/72
[2018-06-11 05:36] VITALS: BP 112/64
[2018-06-11 08:45] VITALS: BP 117/76
[2018-06-11 12:59] VITALS: BP 115/74
[2018-06-11 17:01] VITALS: BP 115/76
[2018-06-11 20:23] VITALS: BP 107/73
[2018-06-12 00:15] VITALS: BP 112/74
[2018-06-12 04:23] VITALS: BP 107/68
[2018-06-12 08:22] VITALS: BP 112/79
[2018-06-12 13:16] VITALS: BP 102/62
[2018-06-12 16:51] VITALS: BP 118/72
[2018-06-12 20:53] VITALS: BP 116/69
[2018-06-13 01:11] VITALS: BP 113/72
[2018-06-13 09:35] VITALS: BP 100/67
--- NOTE | 2018-06-13 10:18 | MORECARE ---
CASE MANAGEMENT DISCHARGE SUMMARY PATIENT: CLAUDIA SUGGS UNIT: [id number] ADM DATE: 05/30/18 AGE: 63 : 57 SEX: M ROOM/BED: D.2210 AUTHOR: DORY ROBERTS PHYSICIAN: REFERRING PHYSICIAN: VIVEK MONGE MD DATE OF SERVICE: 06/13/18 Discharge Plan Patient Name: CLAUDIA SUGGS Facility: [facility]:[place] : 1955 Planned Disposition: Home Hlth Svc w Plan Readm Anticipated Discharge Date: Discharge Date: Expected LOS: Initial Reviewer: [email or web address] Initial Review Date: 06/05/2018 Generated: 06/13/18 11:18 am Comments DCP- Discharge Planning Updated by [email or web address]: Yahaira Durant on 06/13/18 9:[address] patient is discharging home today with [facility] who he is current with imm served and explained DCP- Discharge Planning Updated by [email or web address]: Justa Langford on 06/05/18 10:[address] Patient Name: CLAUDIA SUGGS Admission Status: ER Accout number: [id number] Admission Date: 05-30-2018 : 1955 Admission Diagnosis:PNEUMONIA, UNSPECIFIED ORGANISM Attending: VIVEK MONGE Current LOS: 6 Anticipated DC Date: Planned Disposition: Home Hlth Svc w Plan Readm Primary Insurance: [facility] MEDICARE SOLUTIONS Discharge Planning Comments: CM MET WITH PATIENT, HE WAS TOO DROWSY TO ANSWER [facility]. I WAS ABLE TO OBTAIN MOST OF HIS INFORMATION FROM HIS CHART. HE IS CURRENTLY USING [employer] . PHONE NUMBER [phone], FAX [phone]. Pole Lift Operator: Justa Langford DCPIA - Discharge Planning Initial Assessment Updated by [email or web address]: Justa Langford on 06/05/18 11:09 am * Is the patient Alert and Oriented? No * PCP [facility] * Preadmission Environment Home with Family * List name and contact numbers for known caregivers / representatives who currently or will assist patient after discharge: VENICE CAREY, * Community resources currently utilized Home Health * Please name any agencies selected above. [facility] Cover[facility] Notice Reviewer: [email or web address] Abraham Durant Notice Issued Date-Time: 06/13/2018 9:40 Notice Type: IM Discharge Notice Notice Delivered To: Patient Relationship to Patient: Human Resources Assistant Manager Name: Delivery Method: HAND - Hand Delivered Mary Days: Prior Verbal Notification: Recipient Understood Notice: Yes Recipient Signature: Yes Med Rec Note Co-signed by Attending: Coverage Notice Comment: Last DP export: 06/05/18 10:14 am Patient Name: CLAUDIA SUGGS Page 44950 at 1018 All edits/amendments must be made on the electronic document DICTATION DATE: 06/13/18 1017 CORPORATE ACCOUNTANT: MADISYN 06/13/18 1017 RPT#: [id number] DC DATE: STATUS: ADM IN [facility] [address] [place] [address] END OF REPORT
== END 2018-06-13 11:20 | disposition home health service (06) | DRG 444 ==
LOC: D.ER 16:01 → D.EDHOLD 23:32 → D.MS 23:32
PROVIDERS: Emergency Medicine; Family Medicine; Internal Medicine Gastroenterology; Internal Medicine Hematology & Oncology; ADMIT Family Medicine
DX: K80.20 Calculus of gallbladder without cholecystitis without obstruction (principal); J18.9 Pneumonia, unspecified organism; C85.10 Unspecified B-cell lymphoma, unspecified site; E46 Unspecified protein-calorie malnutrition; Z68.1 Body mass index [BMI] 19.9 or less, adult; J44.9 Chronic obstructive pulmonary disease, unspecified

== ENCOUNTER 2018-06-23 08:15 | Day surgery (SDC) | payer MEDICARE, MEDICAID ==
[~2018-06-23] VITALS: Ht 170.2 cm; Wt 47.7 kg
[~2018-06-23 08:15] MED LIST changes: +CHEMO; +LEXAPRO10 MG PO; +PHENERGAN25 M1 PO; +[UNRECOGNIZED DRUG - OTHER]
[2018-06-23 08:38] LABS: HEMATOCRIT 36.1 % (42.0-54.0); HEMOGLOBIN 12.2 g/dL (13.5-17.5); MCH 33.5 pg (26.0-34.0); MCHC 33.8 g/dL (31.0-37.0); MCV 99.2 fL (80.0-100.0); MEAN PLATELET VOLUME 8.8 fL (7.4-10.4); PLATELET COUNT 182 10x3/uL (130-400); RBC 3.64 10x6/uL (4.20-6.10); RDW 16.6 % (11.5-14.5); WBC 5.6 10x3/uL (4.8-10.8)
[2018-06-23 08:52] LABS: APTT 32.2 SECONDS (22.8-39.4); INR 0.96 (0.85-1.17); PROTIME 12.3 SECONDS (11.6-15.0)
[2018-06-23 08:55] LABS: ALBUMIN 2.7 g/dL (3.4-5.0); ALKALINE PHOSPHATASE 270 U/L (46-116); ALT (SGPT) 35 U/L (10-68); CALC OSMOLALITY 273 mosm/kg (275-300); CALCIUM 8.9 mg/dL (8.5-10.1); CARBON DIOXIDE 28.9 mmol/L (21.0-32.0); CHLORIDE - SERUM 101 mmol/L (98-107); CREATININE - SERUM 0.4 mg/dL (0.6-1.3); GLUCOSE 100 mg/dL (74-106); POTASSIUM - SERUM 4.2 mmol/L (3.5-5.1); SODIUM 138 mmol/L (136-145); UREA NITROGEN 7 mg/dL (7-18); eGFR NON AFRICAN AMERICAN > 90 mL/min (90-120)
[2018-06-23 09:47] LABS: BASOPHILS 1 % (0-2); EOSINOPHILS 6 % (0-7); LYMPHOCYTES 44 % (15-50); MONOCYTES 11 % (2-11); NEUTROPHILS 34 % (40-80); PLATELET ESTIMATE NORMAL
[2018-06-23 10:39] VITALS: BP 107/68; Ht 170.2 cm; Wt 47.7 kg
--- NOTE | 2018-06-23 11:30 | NUR ---
PT REC'D TO ROOM VIA STRETCHER FROM GI LAB. AWAKE, ALERT, ORIENTED.
--- NOTE | 2018-06-23 11:48 | NUR ---
ASSISTED TO BR. RET'D TO BED, FULL LIQ DIET SERVED AND TOLERATED.
--- NOTE | 2018-06-23 12:03 | NUR ---
IV D/C'D CATH INTACT.
--- NOTE | 2018-06-23 12:15 | NUR ---
D/C INSTRUCTIONS EXPLAINED TO PT. VOICED UNDERSTANDING. COPIES OF ALL GIVEN. D/C'D HOME VIA W/C TO PRIVATE CAR.
--- NOTE | 2018-06-29 16:48 | OP ---
PATIENT NAME: CLAUDIA SUGGS MEDICAL RECORD: [id number] :57 LOCATION:D.OPS ADMISSION DATE: SURGEON: MAE ALEJANDRE DO DATE OF OPERATION: 06/23/2018 PROCEDURE: Colonoscopy. INDICATIONS FOR PROCEDURE: Screening for colorectal cancer. SCOPE: Olympus video pediatric colonoscope. MEDICATIONS: Propofol 200 mg IV per anesthesia. WITHDRAWAL TIME: 9 minutes. ESTIMATED BLOOD LOSS: None. COMPLICATIONS: None. FINDINGS AND DESCRIPTION OF PROCEDURE: Informed consent was given. The patient was made comfortable with the above medication. After reaching an adequate level of sedation by slow IV push, the patient was placed on his left side. A digital rectal examination was performed and was normal. The endoscope was then advanced under direct visualization through the rectum, to the cecum, confirmed by the presence of the appendiceal orifice and ileocecal valve. The endoscope was slowly withdrawn and mucosa was carefully examined. The prep quality was excellent. There were no polyps visualized on today's examination. There were no diverticula seen. Retroflexion was performed in the rectum with visualization of grade II internal hemorrhoids without active bleeding. The endoscope was withdrawn from the patient. The patient tolerated the procedure well and there were no complications. IMPRESSION: 1. Grade II internal hemorrhoids without active bleeding. 2. Otherwise, normal colonoscopy. PLAN AND RECOMMENDATIONS: 1. Discharge home when recovery parameters are met. 2. High-fiber diet. 3. Continue current medications. 4. Recall colonoscopy in 10 years. TRANSINT:[id number] Voice Confirmation ID: [id number] DOCUMENT ID: [id number] MAE ALEJANDRE DO at 1648 CC: [id number] DICTATION DATE: 06/23/18 1122 RESISTOR TESTER: 06/23/18 1355 [facility] 06/23/18 [place] [id number]
== END 2018-06-23 12:15 | disposition home or self-care (01) ==
LOC: D.OPS 08:15
PROVIDERS: Anesthesiology
DX: Z12.11 Encounter for screening for malignant neoplasm of colon (principal)

== ENCOUNTER 2018-08-02 21:14 | Inpatient (IN) | payer MEDICARE, MEDICAID ==
[~2018-08-02] VITALS: Ht 170.2 cm; Wt 55.2 kg
[2018-08-02 21:45] LABS: APPEARANCE CLEAR (CLEAR); BILIRUBIN NEGATIVE (NEGATIVE); COLOR YELLOW (YELLOW); GLUCOSE NEGATIVE (NEGATIVE); KETONE NEGATIVE (NEGATIVE); NITRITE NEGATIVE (NEGATIVE); PROTEIN NEGATIVE (NEGATIVE); SPECIFIC GRAVITY 1.015 (1.005-1.020); UROBILINOGEN NORMAL (NORMAL)
[2018-08-02 22:00] LABS: BASOPHILS 0.6 % (0-2); EOSINOPHILS 0.1 % (0-7); HEMATOCRIT 37.6 % (42.0-54.0); HEMOGLOBIN 13.5 g/dL (13.5-17.5); IMMATURE GRANULOCYTES 0.4 % (0-5); LYMPHOCYTES 35.1 % (15-50); MCH 33.9 pg (26.0-34.0); MCHC 35.9 g/dL (31.0-37.0); MCV 94.5 fL (80.0-100.0); MEAN PLATELET VOLUME 9.4 fL (7.4-10.4); MONOCYTES 20.4 % (2-11); NEUTROPHILS 43.4 % (40-80); RBC 3.98 10x6/uL (4.20-6.10); RDW 14.7 % (11.5-14.5); WBC 8.5 10x3/uL (4.8-10.8)
[2018-08-02 22:08] LABS: PLATELET COUNT 56 10x3/uL (130-400)
--- NOTE | 2018-08-02 22:15 | NUR ---
NO DISTRESS NOTED AT THIS TIME. VSS. PT LAYING IN BED RESPIRATIONS ARE EVEN AND UNLABORED. COLOR WNL FOR RACE. WILL CONTINUE TO MONITOR
[2018-08-02 22:18] LABS: ALBUMIN 2.6 g/dL (3.4-5.0); ALKALINE PHOSPHATASE 256 U/L (46-116); ALT (SGPT) 42 U/L (10-68); BILIRUBIN - TOTAL 0.17 mg/dL (0.2-1.3); CALC OSMOLALITY 259 mosm/kg (275-300); CALCIUM 7.6 mg/dL (8.5-10.1); CARBON DIOXIDE 23.7 mmol/L (21.0-32.0); CHLORIDE - SERUM 96 mmol/L (98-107); CREATININE - SERUM 0.5 mg/dL (0.6-1.3); GLUCOSE 120 mg/dL (74-106); POTASSIUM - SERUM 3.5 mmol/L (3.5-5.1); PROTEIN - SERUM 6.6 g/dL (6.4-8.2); SODIUM 130 mmol/L (136-145); UREA NITROGEN 7 mg/dL (7-18); eGFR NON AFRICAN AMERICAN > 90 mL/min (90-120)
[2018-08-02 22:21] LABS: AMYLASE - SERUM 61 U/L (25-115); LIPASE 173 U/L (73-393); TROPONIN-I < 0.017 ng/mL (0.000-0.060)
[2018-08-02 22:42] VITALS: BP 128/77
[2018-08-03] VITALS (7 sets, daily range): BP systolic 98–134; BP diastolic 64–91; BMI 17.9
--- NOTE | 2018-08-03 00:47 | NUR ---
PT LAYING IN BED. RESPIRATIONS ARE EVEN AND UNLABORED. VSS. NO DISTRESS NOTED. IV PATENT AND NO SIGNS OF INFILTRATION NOTED . COLOR WNL FOR RACE. WILL CONTINUE TO MONITOR
--- NOTE | 2018-08-03 02:00 | NUR ---
PT ARRIVED ON UNIT VIA STRETCHER ESCORTED BY ER STAFF. TRANSFERRED TO BED AND POSITIONED FOR COMFORT. ORIENTED TO ROOM AND CALL LIGHT.
--- NOTE | 2018-08-03 02:15 | NUR ---
GAVE DEMERAL 50 MG IVP PER REQUEST FOR PAIN IN RUQ ABDOMEN AT LEVEL 10/. WILL MONITOR FOR EFFECTIVENESS. SIDE RAILS UP X2 AND BED ALARM IN USE FOR SAFETY. CALL LIGHT WITHIN REACH.
--- NOTE | 2018-08-03 20:00 | NUR ---
RESTING IN BED RESP UNLABORED, NO APPARENT DISTRESS CALL LIGHT IN REACH
[2018-08-04 00:18] VITALS: BP 123/77
[2018-08-04 04:27] VITALS: BP 120/70
[2018-08-04 07:23] LABS: HEMATOCRIT 37.4 % (42.0-54.0); HEMOGLOBIN 13.1 g/dL (13.5-17.5); MCH 33.5 pg (26.0-34.0); MCV 95.7 fL (80.0-100.0); MEAN PLATELET VOLUME 8.8 fL (7.4-10.4); RBC 3.91 10x6/uL (4.20-6.10); RDW 14.8 % (11.5-14.5)
[2018-08-04 07:31] LABS: INR 0.95 (0.85-1.17); PROTIME 12.2 SECONDS (11.6-15.0)
[2018-08-04 07:36] LABS: ALBUMIN 2.2 g/dL (3.4-5.0); ALKALINE PHOSPHATASE 314 U/L (46-116); ALT (SGPT) 38 U/L (10-68); BILIRUBIN - TOTAL 0.85 mg/dL (0.2-1.3); CALC OSMOLALITY 251 mosm/kg (275-300); CARBON DIOXIDE 28.5 mmol/L (21.0-32.0); CHLORIDE - SERUM 92 mmol/L (98-107); CREATININE - SERUM 0.4 mg/dL (0.6-1.3); GLUCOSE 85 mg/dL (74-106); PHENYTOIN (DILANTIN) 5.7 ug/mL (10.0-20.0); POTASSIUM - SERUM 3.7 mmol/L (3.5-5.1); PROTEIN - SERUM 6.1 g/dL (6.4-8.2); SODIUM 127 mmol/L (136-145); UREA NITROGEN 6 mg/dL (7-18); eGFR NON AFRICAN AMERICAN > 90 mL/min (90-120)
[2018-08-04 07:40] LABS: WBC 6.2 10x3/uL (4.8-10.8)
[2018-08-04 07:41] LABS: PLATELET COUNT 46 10x3/uL (130-400)
--- NOTE | 2018-08-04 07:43 | NUR ---
LOW PLATELET COUNT RECEIVED FROM LAB. CALLED DR ESCAMILLA TO INFORM AND RECEIVE INSTRUCTIONS
[2018-08-04 08:22] VITALS: BP 120/71
[2018-08-04 08:37] LABS: ANISOCYTOSIS OCC; LYMPHOCYTES 30 % (15-50); MONOCYTES 20 % (2-11); NEUTROPHILS 37 % (40-80); PLATELET ESTIMATE DECREASED
[2018-08-04 12:28] VITALS: BP 125/85
[2018-08-04 13:15] VITALS: BMI 17.8
[2018-08-04 16:37] VITALS: BP 118/69
[2018-08-05] VITALS (14 sets, daily range): BP systolic 100–133; BP diastolic 62–79
--- NOTE | 2018-08-05 00:44 | NUR ---
REC'D. EYES CLOSED RESP. DEEP AND EVEN.LYING ON RIGHT SIDE.WILL CONTINUE TO MONITOR FOR ANY CHGES. IN ABDOMINAL STATUS AND FOLLOW CURRENT PLAN OF CARE.
[2018-08-05 05:48] LABS: BASOPHILS 0.5 % (0-2); EOSINOPHILS 0.2 % (0-7); HEMATOCRIT 33.7 % (42.0-54.0); HEMOGLOBIN 11.9 g/dL (13.5-17.5); IMMATURE GRANULOCYTES 0.5 % (0-5); LYMPHOCYTES 36.2 % (15-50); MCH 33.5 pg (26.0-34.0); MCHC 35.3 g/dL (31.0-37.0); MCV 94.9 fL (80.0-100.0); MEAN PLATELET VOLUME 9.2 fL (7.4-10.4); NEUTROPHILS 26.6 % (40-80); PLATELET COUNT 51 10x3/uL (130-400); RBC 3.55 10x6/uL (4.20-6.10); RDW 14.6 % (11.5-14.5)
[2018-08-05 05:51] LABS: WBC 4.3 10x3/uL (4.8-10.8)
[2018-08-05 06:16] LABS: ALBUMIN 1.9 g/dL (3.4-5.0); ALKALINE PHOSPHATASE 288 U/L (46-116); BILIRUBIN - TOTAL 0.68 mg/dL (0.2-1.3); CALCIUM 7.7 mg/dL (8.5-10.1); CARBON DIOXIDE 26.2 mmol/L (21.0-32.0); CHLORIDE - SERUM 94 mmol/L (98-107); CREATININE - SERUM 0.4 mg/dL (0.6-1.3); POTASSIUM - SERUM 3.5 mmol/L (3.5-5.1); PROTEIN - SERUM 5.7 g/dL (6.4-8.2); SODIUM 128 mmol/L (136-145); eGFR NON AFRICAN AMERICAN > 90 mL/min (90-120)
[2018-08-05 06:21] LABS: ALT (SGPT) 26 U/L (10-68); CALC OSMOLALITY 256 mosm/kg (275-300); GLUCOSE 141 mg/dL (74-106); UREA NITROGEN 8 mg/dL (7-18)
--- NOTE | 2018-08-05 10:15 | NUR ---
SEUN CALLED FROM SURGERY TO HAVE ME DO THE PLATELETS BEFORE SURGERY.
--- NOTE | 2018-08-05 11:19 | NUR ---
PATIENT LEFT CHEST PORT ACCESSED. DIFFICULT TO RECEIVE BLOOD RETURN. OTHERWISE PATENT. BIOPATCH, ORANGE SWABS AND DRESSING CDI.
--- NOTE | 2018-08-05 13:19 | MORECARE ---
CASE MANAGEMENT DISCHARGE SUMMARY PATIENT: CLAUDIA SUGGS UNIT: [id number] ADM DATE: 08/03/18 AGE: 63 : 57 SEX: M ROOM/BED: D.2231 AUTHOR: DORY ROBERTS PHYSICIAN: REFERRING PHYSICIAN: VIVEK MONGE MD DATE OF SERVICE: 08/05/18 Discharge Plan Patient Name: CLAUDIA SUGGS Facility: [facility]:[place] : 1955 Planned Disposition: Anticipated Discharge Date: Discharge Date: Expected LOS: Initial Reviewer: [email or web address] Initial Review Date: 08/03/2018 Generated: 08/05/18 2:19 pm Patient Name: CLAUDIA SUGGS Page 57872 at 1319 All edits/amendments must be made on the electronic document DICTATION DATE: 08/05/18 1319 LATHE PULLER: MADISYN 08/05/18 1319 RPT#: [id number] DC DATE: STATUS: ADM IN [facility] [address] [place] [address] END OF REPORT
[2018-08-05 17:49] LABS: HEMATOCRIT 29.8 % (42.0-54.0); HEMOGLOBIN 10.3 g/dL (13.5-17.5); MCH 33.6 pg (26.0-34.0); MCHC 34.6 g/dL (31.0-37.0); MEAN PLATELET VOLUME 9.7 fL (7.4-10.4); RBC 3.07 10x6/uL (4.20-6.10); RDW 14.7 % (11.5-14.5)
[2018-08-05 17:57] LABS: MCV 97.1 fL (80.0-100.0); PLATELET COUNT 103 10x3/uL (130-400); WBC 1.3 10x3/uL (4.8-10.8)
[2018-08-05 18:05] LABS: APTT 35.2 SECONDS (22.8-39.4); INR 1.13 (0.85-1.17)
--- NOTE | 2018-08-05 18:13 | NUR ---
RECEIVED A CALL FROM ALYSE FROM LAB WITH CRITICAL LAB RESULTS. CALLED DR WEBER AND REPORTED THE RESULTS TO HIM. NO NEW ORDERS RECEIVED FROM DR WEBER AT THIS TIME. WILL CONTINUE TO MONITOR.
--- NOTE | 2018-08-05 18:14 | NUR ---
CONSULTED ANESTHESIA REGARDING PATIENT LOC. PATIENT STILL DROUSY. HE DOES OPENS HIS EYES SPONTANEOUSLY AND ANSWERS QUESTIONS APPROPRIATELY. BILATERAL MEDICAL SECRETARY STRENGTH IS EQUAL. CHELI HAWKINS CRNA ORDERED SPO2 MONITORING CONTINOUSLY FOR 24 HOURS. ORDERS RECEIVED AND IMPLEMENTED. WILL CONTINUE TO MONITOR. O2 SAT 96% 3L VIA NASAL CANNULA UPON DISCHARGE TO PACU.
[2018-08-05 18:35] LABS: ALBUMIN 2.1 g/dL (3.4-5.0); ALKALINE PHOSPHATASE 257 U/L (46-116); ALT (SGPT) 31 U/L (10-68); BILIRUBIN - TOTAL 0.93 mg/dL (0.2-1.3); CALC OSMOLALITY 265 mosm/kg (275-300); CALCIUM 7.5 mg/dL (8.5-10.1); CARBON DIOXIDE 23.1 mmol/L (21.0-32.0); CHLORIDE - SERUM 96 mmol/L (98-107); CREATININE - SERUM 0.5 mg/dL (0.6-1.3); GLUCOSE 152 mg/dL (74-106); POTASSIUM - SERUM 3.8 mmol/L (3.5-5.1); PROTEIN - SERUM 5.5 g/dL (6.4-8.2); SODIUM 132 mmol/L (136-145); UREA NITROGEN 8 mg/dL (7-18); eGFR NON AFRICAN AMERICAN > 90 mL/min (90-120)
--- NOTE | 2018-08-05 19:55 | NUR ---
PT RESTING IN BED. LETHARGIC ALERTS TO VERBAL STIMULI. NO SIGNS OF DISTRESS. BREATHING EVEN AND UNLABORED. PT SHOWES NO PROBLEMS AT THIS TIME. IV SITE LT CHEST PORT SL. DRESSING CLEAN DRY AND INTACT. NO SIGNS OF INFECTION. LT AC IV DRESSING CLEAN DRY AND INTACT. NO SIGNS OF INFECTION. 2LO2 NASAL CANNULA. ABD INCISIONS CLEAN DRY AND INTACT. OBDULIO DRAIN RT LOWER ABD. BOWEL SOUNDS ACTIVE. NO LOWER LEG SWELLING PRESENT. LT BELOW THE KNEE AMPUTATION. RT LEG SCD ON. WILL CONTINUE PLAN OF CARE. CALL LIGHT IN REACH. BED LOWERED AND LOCKED. BED ALARM ON. BED RAILS UPX2.
[2018-08-05 19:57] LABS: EOSINOPHILS 2 % (0-7); LYMPHOCYTES 68 % (15-50); MONOCYTES 8 % (2-11); NEUTROPHILS 22 % (40-80); PLATELET ESTIMATE DECREASED
[2018-08-06 04:00] VITALS: BP 114/70
[2018-08-06 05:20] LABS: ALBUMIN 1.8 g/dL (3.4-5.0); ALKALINE PHOSPHATASE 194 U/L (46-116); ALT (SGPT) 26 U/L (10-68); BILIRUBIN - TOTAL 0.84 mg/dL (0.2-1.3); CALCIUM 7.5 mg/dL (8.5-10.1); CARBON DIOXIDE 26.4 mmol/L (21.0-32.0); CHLORIDE - SERUM 97 mmol/L (98-107); CREATININE - SERUM 0.4 mg/dL (0.6-1.3); GLUCOSE 121 mg/dL (74-106); POTASSIUM - SERUM 3.3 mmol/L (3.5-5.1); PROTEIN - SERUM 5.4 g/dL (6.4-8.2); SODIUM 132 mmol/L (136-145); eGFR NON AFRICAN AMERICAN > 90 mL/min (90-120)
[2018-08-06 05:22] LABS: BASOPHILS 0 % (0-2); EOSINOPHILS 0 % (0-7); HEMATOCRIT 27.3 % (42.0-54.0); HEMOGLOBIN 9.5 g/dL (13.5-17.5); LYMPHOCYTES 41.1 % (15-50); MCH 32.9 pg (26.0-34.0); MCHC 34.8 g/dL (31.0-37.0); MCV 94.5 fL (80.0-100.0); MEAN PLATELET VOLUME 9.5 fL (7.4-10.4); MONOCYTES 50.8 % (2-11); NEUTROPHILS 8.1 % (40-80); PLATELET COUNT 114 10x3/uL (130-400); RBC 2.89 10x6/uL (4.20-6.10); RDW 14.5 % (11.5-14.5)
[2018-08-06 05:23] LABS: WBC 1.2 10x3/uL (4.8-10.8)
[2018-08-06 05:25] LABS: CALC OSMOLALITY 262 mosm/kg (275-300); UREA NITROGEN 5 mg/dL (7-18)
--- NOTE | 2018-08-06 07:15 | NUR ---
REC'D IN BED WITH EYES CLOSED EASILY AROUSED WHEN NAME IS CALLED. RESP EVEN AND UNLABORED WITH NO DISTRESS NOTED. CAN EXPRESS NEEDS AND WANTS. NO C/O NOTED AT THIS TIME. ASSESSMENT COMPLETED. C/L IN REACH AT BEDSIDE.
[2018-08-06 08:39] VITALS: BP 112/54
--- NOTE | 2018-08-06 13:30 | MORECARE ---
CASE MANAGEMENT DISCHARGE SUMMARY PATIENT: CLAUDIA SUGGS UNIT: [id number] ADM DATE: 08/03/18 AGE: 63 : 57 SEX: M ROOM/BED: D.2231 AUTHOR: DORY ROBERTS PHYSICIAN: REFERRING PHYSICIAN: VIVEK MONGE MD DATE OF SERVICE: 08/06/18 Discharge Plan Patient Name: CLAUDIA SUGGS Facility: [facility]:[place] : 1955 Planned Disposition: Home Anticipated Discharge Date: Discharge Date: Expected LOS: Initial Reviewer: [email or web address] Initial Review Date: 08/03/2018 Generated: 08/06/18 2:30 pm Comments DCP- Discharge Planning Updated by [email or web address]: Ina Arteaga on 08/05/18 12:[address] Attempted to meet with patient, he is getting ready to go to [place]. I will meet with him tomorrow to discuss discharge planning/needs. Last DP export: 08/05/18 12:19 pm Patient Name: CLAUDIA SUGGS Page 27749 at 1330 All edits/amendments must be made on the electronic document DICTATION DATE: 08/06/181328 METALLURGY TEACHER: MADISYN 08/06/18 132 RPT#: [id number] DC DATE: STATUS: ADM IN [facility] [address] [place] [address] END OF REPORT
--- NOTE | 2018-08-06 13:38 | MORECARE ---
CASE MANAGEMENT DISCHARGE SUMMARY PATIENT: CLAUDIA SUGGS UNIT: [id number] ADM DATE: 08/03/18 AGE: 63 : 57 SEX: M ROOM/BED: D.2231 AUTHOR: DORY ROBERTS PHYSICIAN: REFERRING PHYSICIAN: VIVEK MONGE MD DATE OF SERVICE: 08/06/18 Discharge Plan Patient Name: CLAUDIA SUGGS Facility: [facility]:[place] : 1955 Planned Disposition: Home Anticipated Discharge Date: Discharge Date: Expected LOS: Initial Reviewer: [email or web address] Initial Review Date: 08/03/2018 Generated: 08/06/18 2:38 pm Comments DCP- Discharge Planning Updated by [email or web address]: Ina Arteaga on 08/05/18 12:[address] Attempted to meet with patient, he is getting ready to go to [place]. I will meet with him tomorrow to discuss discharge planning/needs. DCPIA - Discharge Planning Initial Assessment Updated by [email or web address]: Ina Arteaga on 08/06/18 1:33 pm * Is the patient Alert and Oriented? No * How many steps to enter\exit or inside your home? 3/0 * PCP Dr. Monge * Pharmacy [facility] * Preadmission Environment Home with Family * ADLs Partial Dependent * Partial ADLs (Assistance needed) Ambulation * Equipment Other Oxygen Walker Wheelchair * Other Equipment Prosthetic Leg * List name and contact numbers for known caregivers / representatives who currently or will assist patient after discharge: Khurram Bose - [facility] - [phone] * Verbal permission to speak to the caregivers and representatives has been obtained from the patient. Yes * Community resources currently utilized None * Please name any agencies selected above. Oxygen from [facility] from [employer] * Additional services required to return to the preadmission environment? No * Can the patient safely return to the preadmission environment? Yes * Has this patient been hospitalized within the prior 30 days at any hospital? No Last DP export: 08/06/18 12:30 pm Patient Name: CLAUDIA SUGGS Page 16564 at 1338 All edits/amendments must be made on the electronic document DICTATION DATE: 08/06/181336 CAMERA STORAGE CLERK: MADISYN 08/06/181336 RPT#: [id number] DC DATE: STATUS: ADM IN [facility] [address] [place] [address] END OF REPORT
--- NOTE | 2018-08-06 13:46 | MORECARE ---
CASE MANAGEMENT DISCHARGE SUMMARY PATIENT: CLAUDIA SUGGS UNIT: [id number] ADM DATE: 08/03/18 AGE: 63 : 57 SEX: M ROOM/BED: D.2231 AUTHOR: ALEJANDRADOC PHYSICIAN: REFERRING PHYSICIAN: VIVEK MONGE MD DATE OF SERVICE: 08/06/18 Discharge Plan Patient Name: CLAUDIA SUGGS Facility: [facility]:[place] : 1955 Planned Disposition: Home Anticipated Discharge Date: Discharge Date: Expected LOS: Initial Reviewer: [email or web address] Initial Review Date: 08/03/2018 Generated: 08/06/18 2:46 pm Comments DCP- Discharge Planning Updated by [email or web address]: Ina Arteaga on 08/06/18 12:[address] Patient Name: CLAUDIA SUGGS Admission Status: ER Accout number: [id number] Admission Date: 08-03-2018 : 1955 Admission Diagnosis:RIGHT UPPER QUADRANT PAIN Attending: VIVEK MONGE Current LOS: 3 Anticipated DC Date: Planned Disposition: Home Primary Insurance: [facility] MEDICARE SOLUTIONS Discharge Planning Comments: CM met with patient to discuss discharge planning, he is alone in the room. He is oriented and answers questions appropriately, he does seem drowsy. States he has still been living with his brother, Khurram, he will take him home on discharge. States that he is usually now in a self propelled wheelchair. States he also has a walker. States he no longer is using home health and does not feel he will need them at discharge. He has had [facility] in the past. He states he uses oxygen as needed and gets supplies from [facility]. CM will continue to follow and assist with discharge planning/needs. [place] Knitter: Ina Arteaga DCP- Discharge Planning Updated by [email or web address]: Ina Arteaga on 08/05/18 12:[address] Attempted to meet with patient, he is getting ready to go to [place]. I will meet with him tomorrow to discuss discharge planning/needs. DCPIA - Discharge Planning Initial Assessment Updated by [email or web address]: Ina Arteaga on 08/06/18 1:33 pm * Is the patient Alert and Oriented? No * How many steps to enter\exit or inside your home? 3/0 * PCP Dr. Monge * Pharmacy [place] * Preadmission Environment Home with Family * ADLs Partial Dependent * Partial ADLs (Assistance needed) Ambulation * Equipment Other Oxygen Walker Wheelchair * Other Equipment Prosthetic Leg * List name and contact numbers for known caregivers / representatives who currently or will assist patient after discharge: Khurram Bose - brother - [phone] * Verbal permission to speak to the caregivers and representatives has been obtained from the patient. Yes * Community resources currently utilized None * Please name any agencies selected above. Oxygen from [facility] from [employer] * Additional services required to return to the preadmission environment? No * Can the patient safely return to the preadmission environment? Yes * Has this patient been hospitalized within the prior 30 days at any hospital? No Last DP export: 08/06/18 12:38 pm Patient Name: CLAUDIA SUGGS Page [id number] at 1346 All edits/amendments must be made on the electronic document DICTATION DATE: 08/06/18 1346 BREAKER HAND: MADISYN 08/06/18 1346 RPT#: [id number] DC DATE: STATUS: ADM IN [facility] [address] [place] [address] END OF REPORT
--- NOTE | 2018-08-06 13:47 | NUR ---
NUTRITION F//U PT S/P PROCEDURE. CLEAR LIQUID DIET. WILL MONITOR DIET ADVANCEMENT, PO INTAKE. RD FOLLOWING
[2018-08-06 13:48] VITALS: BP 104/49
[2018-08-06 16:58] VITALS: BP 119/56
--- NOTE | 2018-08-06 17:09 | NUR ---
MEDICATED WITH NORCO FOR C/O PAIN RATING 8/10 ON PAIN SCALE. C/L IN REACH AT BEDSIDE.
--- NOTE | 2018-08-06 19:55 | NUR ---
PT RESTING IN BED. PT LETHARGIC BUT WILL OPEN EYES AND RESPOND TO VERBAL STIMULI. NO SIGNS OF DISTRESS. BREATHING EVEN AND UNLABORED. PT STATES NO PROBLEMS AT THIS TIME. IV SITE LT AC DRESSING CLEAN DRY AND INTACT. NO SIGNS OF INFECTION. LT CHEST PORT DRESSING CLEAN DRY AND INTACT. NO SIGNS OF INFECTION. 3LO2 NASAL CANNULA. 02 95%. ABD INCISIONS DRESSINGS CLEAN DRY AND ITNACT. OBDULIO DRAIN RT LOWER ABD. LT BELOW THE KNEE AMPUTATION. SCD RT LEG. WILL CONTINUE PLAN OF CARE. CALL LIGHT IN REACH. BED LOWERED AND LOCKED. BED RAILS UP X2. BED ALARM ON. YELLOW GOWN AND ARM BAND ON.
[2018-08-06 20:00] VITALS: BP 97/59
[2018-08-07 04:00] VITALS: BP 103/68
--- NOTE | 2018-08-07 04:28 | NUR ---
I have reviewed this patient and I concur with the Shift Assessment completed by the Licensed Practical Nurse today this shift.
[2018-08-07 06:16] LABS: ALBUMIN 1.7 g/dL (3.4-5.0); ALKALINE PHOSPHATASE 154 U/L (46-116); ALT (SGPT) 20 U/L (10-68); BILIRUBIN - TOTAL 0.76 mg/dL (0.2-1.3); CHLORIDE - SERUM 101 mmol/L (98-107); CREATININE - SERUM 0.4 mg/dL (0.6-1.3); GLUCOSE 87 mg/dL (74-106); POTASSIUM - SERUM 3.5 mmol/L (3.5-5.1); PROTEIN - SERUM 5.2 g/dL (6.4-8.2); SODIUM 135 mmol/L (136-145); eGFR NON AFRICAN AMERICAN > 90 mL/min (90-120)
[2018-08-07 06:32] LABS: CALC OSMOLALITY 267 mosm/kg (275-300); CALCIUM 7.9 mg/dL (8.5-10.1); UREA NITROGEN 9 mg/dL (7-18)
[2018-08-07 06:34] LABS: HEMATOCRIT 25.3 % (42.0-54.0); HEMOGLOBIN 8.6 g/dL (13.5-17.5); MCH 32.6 pg (26.0-34.0); MCV 95.8 fL (80.0-100.0); MEAN PLATELET VOLUME 9.6 fL (7.4-10.4); PLATELET COUNT 115 10x3/uL (130-400); RBC 2.64 10x6/uL (4.20-6.10); RDW 14.7 % (11.5-14.5)
[2018-08-07 06:38] LABS: WBC 2.6 10x3/uL (4.8-10.8)
--- NOTE | 2018-08-07 08:00 | NUR ---
REC'D IN BED AWAkE AND ALERT TO SELF ONLY. RESP EVEN AND UNLABORED WITH NO DISTRESS NOTED. CAN EXPRESS NEEDS AND WANTS. ASSESSMENT COMPLETD. C/L IN REACH AT BEDSIDE.
[2018-08-07 08:33] LABS: ANISOCYTOSIS OCC; HYPOCHROMASIA OCC; LYMPHOCYTES 33 % (15-50); MONOCYTES 38 % (2-11); NEUTROPHILS 21 % (40-80); PLATELET ESTIMATE DECREASED
[2018-08-07 08:48] VITALS: BP 113/65
[2018-08-07 13:01] VITALS: BP 103/71
[2018-08-07 16:47] VITALS: BP 103/68
[2018-08-07 21:18] VITALS: BP 112/70
[2018-08-08 00:25] VITALS: BP 113/67
[2018-08-08 04:20] VITALS: BP 117/69
[2018-08-08 05:40] LABS: BASOPHILS 0.7 % (0-2); EOSINOPHILS 0.3 % (0-7); HEMOGLOBIN 8.6 g/dL (13.5-17.5); LYMPHOCYTES 28.4 % (15-50); MCH 32.5 pg (26.0-34.0); MCHC 34.4 g/dL (31.0-37.0); MCV 94.3 fL (80.0-100.0); MEAN PLATELET VOLUME 9.7 fL (7.4-10.4); MONOCYTES 44.7 % (2-11); NEUTROPHILS 25.9 % (40-80); PLATELET COUNT 134 10x3/uL (130-400); RBC 2.65 10x6/uL (4.20-6.10); RDW 14.8 % (11.5-14.5); WBC 5.7 10x3/uL (4.8-10.8)
[2018-08-08 06:06] LABS: ALBUMIN 1.5 g/dL (3.4-5.0); ALKALINE PHOSPHATASE 161 U/L (46-116); ALT (SGPT) 21 U/L (10-68); BILIRUBIN - TOTAL 0.65 mg/dL (0.2-1.3); CALCIUM 7.9 mg/dL (8.5-10.1); CARBON DIOXIDE 29.3 mmol/L (21.0-32.0); CHLORIDE - SERUM 102 mmol/L (98-107); CREATININE - SERUM 0.5 mg/dL (0.6-1.3); POTASSIUM - SERUM 3.1 mmol/L (3.5-5.1); PROTEIN - SERUM 5.2 g/dL (6.4-8.2); SODIUM 140 mmol/L (136-145); eGFR NON AFRICAN AMERICAN > 90 mL/min (90-120)
[2018-08-08 06:15] LABS: CALC OSMOLALITY 281 mosm/kg (275-300); GLUCOSE 140 mg/dL (74-106); UREA NITROGEN 15 mg/dL (7-18)
--- NOTE | 2018-08-08 08:16 | NUR ---
GARBLED SPEECH, LETHARGIC, ON 4 LPM VIA NC, POTASSIUM RIDER HUNG PER PROTOCOL VIA PORT TO LEFT CHEST, UNABLE TO ANSWER QUESTIONS VERBALLY, ABG'S TAKEN THIS MORNING WERE WITHIN RANGE, OBDULIO DRAIN TO LEFT SIDE, DRAINING SEREOSANGIOUS FLUIDS, BED LOWERED AND LOCKED, CALL LIGHT WITHIN REACH, CPOC
[2018-08-08 08:54] VITALS: BP 166/75
--- NOTE | 2018-08-08 09:44 | NUR ---
ADMISTRATION OF PO NORCO, ASPIRATED, GARBLED SPEECH CONTINUED, HELD REMAINDER OF MORNING PO MEDS, MYNOR VELASQUEZ HAS BEEN MADE AWARE, DENIES ANY CURRENT NEEDS OR DISCOMFORTS, BED LOWERED AND LOCKED, CALL LIGHT WITHIN REACH. CPOC
--- NOTE | 2018-08-08 12:31 | NUR ---
PT CONTINUES TO BE LETHARGIC, SHALLOW BREATHS, DIMINISHED LUNG SOUNDS, 02 PRESENT AT 4LPM VIA CODIE, DR. ATKINS ORDER REPEAT STAT ABG'S. PT DENIES ANY NEEDS OR DISCOMFORTS, CALLED RESPIRATORY THEARPY, SPOKE WITH YVONNE, AWARE OF THE STAT ORDER, BED LOWERED AND LOCKED, CALL LIGHT WITHIN REACH,. CPOC
--- NOTE | 2018-08-08 14:23 | NUR ---
CONTINUES TO BE LETHARGIC, 02 PRESENT AT 4LPM, SHALLOW SHORT BREATHS, CONTINOUS LEVEL AT 94, DIFLUCAN STARTED FOR THRUSH IN MOUTH, ORAL CAVITY REDDENED, WITH BLACK PATCHES, DENIES ANY OTHER NEEDS OR DISCOMFORTS, BED LOWERED AND LOCKED, CALL LIGHT WITHIN REACH. CPOC
--- NOTE | 2018-08-08 15:07 | NUR ---
PT WOULD NOT LEAVE BIPAP MASK ON THIS MORNING. ATTEMPTED TO PLACE MASK ON PT SEVERAL TIMES AND PT KEPT TEARING IT OFF AND ENDED UP BREAKING THE BIPAP MASK. PLACED PT ON 5L NC AND PUT BIPAP ON STANDBY
[2018-08-08 17:19] VITALS: BP 100/66
--- NOTE | 2018-08-08 18:20 | NUR ---
DARK BROWN/BLACK EMESIS OVESERVED ON PILLOW AND DOWN MOUTH. DR. ESCAMILLA REQUESTED THAT WE GET AN OCCULT BLOOD TEST OF EMESIS IF POSSIBLE. NEW ORDER FOR PEPCID IV 20MG BID. PORT SITE TO LEFT CHEST INFILITRATED, NO DRAINAGE OF SITE. UNACCESSED BY ADRIANNE RODRIGUEZ, DRESSING APPLIED, NEW IV TO LEFT FOREARM STARTED WITH 20 GAUGE, ONE ATTEMPT, DENIES ANY NEEDS OR DISCOMFORTS, BED LOWERED AND LOCKED, CALL LIGHT WITHIN REACH. CPOC
--- NOTE | 2018-08-08 18:22 | NUR ---
I have reviewed this patient and I concur with the Shift Assessment completed by the Licensed Practical Nurse today this shift.
[2018-08-08 19:00] VITALS: BP 103/61
--- NOTE | 2018-08-08 19:00 | NUR ---
PT IN BED IN LOW FOWLERS POSITION. RESPIRATIONS EVEN AND UNLABORED. VS STABLE AND AFEBRILE. NO VISUAL CUES OF DISTRESS NOTED. WILL CONTINUE TO MONITOR.
[2018-08-09] VITALS (14 sets, daily range): BP systolic 88–108; BP diastolic 51–69
[2018-08-09 07:32] LABS: ALBUMIN 1.5 g/dL (3.4-5.0); ALKALINE PHOSPHATASE 133 U/L (46-116); ALT (SGPT) 22 U/L (10-68); BILIRUBIN - TOTAL 0.53 mg/dL (0.2-1.3); CALCIUM 7.8 mg/dL (8.5-10.1); CHLORIDE - SERUM 108 mmol/L (98-107); GLUCOSE 127 mg/dL (74-106); POTASSIUM - SERUM 3.1 mmol/L (3.5-5.1); PROTEIN - SERUM 4.6 g/dL (6.4-8.2); SODIUM 144 mmol/L (136-145)
[2018-08-09 07:33] LABS: CALC OSMOLALITY 291 mosm/kg (275-300); CREATININE - SERUM 0.3 mg/dL (0.6-1.3); UREA NITROGEN 22 mg/dL (7-18); eGFR NON AFRICAN AMERICAN > 90 mL/min (90-120)
--- NOTE | 2018-08-09 08:00 | NUR ---
REC'D IN ROOM WITH EYES CLOSED AROUSABLE WHEN NAME IS CALLED AND TACTILE STIMULI. HAS O2 IN USE VIA NC. RESP EVEN AND SLIGHTY LABORED. NO C/O NOTED OR OBDULIO DRAIN INTACT AND DRAINING VIA GRAVITY. ASSESSMENT COMPLETD. C/L IN REACH AT BEDSIDE.
[2018-08-09 08:29] LABS: HEMATOCRIT 20.1 % (42.0-54.0); MCH 32.4 pg (26.0-34.0); MCHC 33.3 g/dL (31.0-37.0); MEAN PLATELET VOLUME 9.4 fL (7.4-10.4); PLATELET COUNT 127 10x3/uL (130-400); RBC 2.07 10x6/uL (4.20-6.10); RDW 15.4 % (11.5-14.5)
[2018-08-09 08:31] LABS: WBC 7.8 10x3/uL (4.8-10.8)
[2018-08-09 08:32] LABS: HEMOGLOBIN 6.7 g/dL (13.5-17.5); MCV 97.1 fL (80.0-100.0)
--- NOTE | 2018-08-09 09:30 | NUR ---
DR. WEBER HER MAKING ROUNDS REC'D ORDERS FOR 2 UNITS OF PRBC D/T HEMOGLOBIN 5.7 AND TO TRANSFER TO ICU REPORT WAS GIVEN ICU NURSE PT IN STABLE CONDITION UPON DEPARTURE.
[2018-08-09 09:56] LABS: LYMPHOCYTES 21 % (15-50); MONOCYTES 14 % (2-11); NEUTROPHILS 47 % (40-80); PLATELET ESTIMATE NORMAL
[2018-08-09 09:57] LABS: CRENATED CELLS 2+; HYPOCHROMASIA 2+
--- NOTE | 2018-08-09 10:02 | NUR ---
recieved pt from Med surg via bed, bipap applied by respiratory, telemetry applied, infusport to left chest, patent, iv to left forearm patent, scd's to left leg, below the knee aputation to right leg, celeste drain to right upper abd, draining bloody drainage, lethragic, opens eyes to verbal stimulation, skin warm to touch, bed lowered and locked, call light within reach.
--- NOTE | 2018-08-09 10:23 | NUR ---
attenpted to contact emergency contact Khurram Bose to inform him of his family members transfer to ICU, unable to leave voicemail, will try again
--- NOTE | 2018-08-09 10:49 | NUR ---
LOPEZ CATHETER PLACED PER ORDER. TOLERATED WELL, 16 ROMANIAN, 10CC BULB, STAT LOCKED APPLIED TO RIGHT THIGH, BAG HUNG BELOW THE BLADDER. BED LOWERED AND LOCKED, CALL LIGHT WITHIN REACH. CPOC
--- NOTE | 2018-08-09 11:05 | NUR ---
TRANSFUSION OF 1/2 PRBC VIA INFUSAPORT BEGAN. PREVITALS WERE STABLE. BED LOWERED AND LOCKED, CALL LIGHT WITHIN REACH. CPOC
[2018-08-09 11:34] LABS: INR 1.07 (0.85-1.17); PROTIME 13.4 SECONDS (11.6-15.0)
--- NOTE | 2018-08-09 14:36 | NUR ---
EYES CLOSED, BIPAP PRESENT, 2ND BAG OF PRBC INFUSING VIA INFUSAPORT TO LEFT CHEST, TEMP OF 100.3 AT 15 MINUTE CHECK, RECHECK WAS 98.5 BOTH UNDER THE ARM, LOPEZ CATHETER PRESENT, DRAINING YELLOW CLEAR URINE, IV IN LEFT FOREARM, PATENT, SALINE LOCKED, BED LOWERED AND LOCKED, CALL LIGHT WITHIN REACH. CPOC
--- NOTE | 2018-08-09 14:41 | NUR ---
FAMILY MEMBER VENICE CAREY, CAME IN TO VISIT, ASKED HIM DID HE KNOW OF THE PATIENTS REQUEST IN REGARDS TO LIFE SAVING MEASURES AND INFORMED US THAT HE HAS A LIVING WILL AND HE HAS A COPY OF IT AT THE HOUSE. VENICE WAS REQUESTED TO BRING IT IN SOON POSSIBLE, HE WILL CONTINUE TO BE A FULL CODE WHILE HE IS HERE WITH US.
--- NOTE | 2018-08-09 15:16 | NUR ---
BLOOD TRANSFUSION COMPLETE. VS STABLE. LUNGS DIMINISHED, RHONCHI OF MIDDLE AND UPPER LOBES BILATERAL, NO CHANGES SINCE PRE-TRANSFUSION. TOLERATED WELL. SLIGHT TEMP OF 99.9 AUX, BED LOWERED AND LOCKED, CALL LIGHT WITHIN REACH. CPOC
--- NOTE | 2018-08-09 16:34 | NUR ---
BIPAP PRESENT, PT ATTEMPTED TO REMOVE MASK ONE TIME BUT WAS EASILY DISTRACTED TO NOT DO THAT, LOPZE CATHETER PRESENT, EASILY AROUSED BY VOICE, INFUSAPORT TO LEFT CHEST INFUSING NS, BED LOWERED AND LOCKED, CALL LIGHT WITHIN REACH. CPOC
--- NOTE | 2018-08-09 18:01 | NUR ---
EYES CLOSED, BIPAP PRESENT, SETTINGS PER ORDER AND SET BY RESPIRATORY THEARPIST, APNEIC EPISODES, LUNG SOUNDS DIMINISHED, RHONCHI AUSCULATED UPPER AND MID LOBES BILATERAL. INFUSAPORT INFUSING NS AT 100ML/HR, IV IN LEFT FOREARM PATENT AND SALINE LOCKED, REPSONDS TO VERBAL STIMULI, BED LOWERED AND LOCKED CALL LIGHT WITHIN REACH. CPOC
--- NOTE | 2018-08-09 19:15 | NUR ---
VALUABLES SENT TO BE LOCKED IN SAFE, COPY OF TRANSFER IN CHART.
[2018-08-10] VITALS (25 sets, daily range): BP systolic 93–130; BP diastolic 56–86
[2018-08-10 08:33] LABS: BASOPHILS 0.6 % (0-2); EOSINOPHILS 1.2 % (0-7); IMMATURE GRANULOCYTES 1.7 % (0-5); LYMPHOCYTES 17.7 % (15-50); MCH 31.1 pg (26.0-34.0); MCHC 33.5 g/dL (31.0-37.0); MEAN PLATELET VOLUME 10.1 fL (7.4-10.4); MONOCYTES 18.8 % (2-11); RDW 19.2 % (11.5-14.5)
[2018-08-10 08:43] LABS: HEMOGLOBIN 8.7 g/dL (13.5-17.5); MCV 92.9 fL (80.0-100.0); PLATELET COUNT 83 10x3/uL (130-400); WBC 10.3 10x3/uL (4.8-10.8)
[2018-08-10 08:47] LABS: CALC OSMOLALITY 297 mosm/kg (275-300); CALCIUM 7.7 mg/dL (8.5-10.1); CARBON DIOXIDE 28.4 mmol/L (21.0-32.0); CHLORIDE - SERUM 112 mmol/L (98-107); CREATININE - SERUM 0.4 mg/dL (0.6-1.3); GLUCOSE 130 mg/dL (74-106); POTASSIUM - SERUM 3.1 mmol/L (3.5-5.1); SODIUM 149 mmol/L (136-145); UREA NITROGEN 13 mg/dL (7-18)
[2018-08-10 08:48] LABS: eGFR NON AFRICAN AMERICAN > 90 mL/min (90-120)
--- NOTE | 2018-08-10 13:56 | NUR ---
1100-BIPAP PRESSURE CHANGED TO 12/5 AND 40%
--- NOTE | 2018-08-10 18:25 | NUR ---
1500 KEEPING BPAP ON NOW NO C/O VOICED
--- NOTE | 2018-08-10 18:26 | NUR ---
1700 SERUM K 2.9 INITIATED K+ 20 MEQ RIDERS PER PROTOCOL
--- NOTE | 2018-08-10 19:30 | NUR ---
ASSESSMENT COMPLETE, PER NURSING FLOWSHEET, PATIENT REPOSITIONED, BIPAP ADJUSTED, CONTINUE POC
--- NOTE | 2018-08-10 21:00 | NUR ---
PATIENT REPOSITIONED, INCONTINENCE CHECK, PATIENT IS CURRENTLY C/D
--- NOTE | 2018-08-10 23:00 | NUR ---
PATIENT REPOSITIONED, BIPAP ADJUSTED, NO OTHER NEEDS NOTED OR COMMUNICATED AT THIS TIME
[2018-08-11] VITALS (22 sets, daily range): BP systolic 94–139; BP diastolic 60–82
--- NOTE | 2018-08-11 01:00 | NUR ---
PATIENT REPOSITIONED, LOPEZ CARE PROVIDED, VSS, WILL CONTINUE TO MONITOR
--- NOTE | 2018-08-11 03:00 | NUR ---
PATIENT REPOSITIONED, VSS, C/L IN REACH, BIPAP ADJUSTED ON PATIENT'S FACE
--- NOTE | 2018-08-11 05:00 | NUR ---
PATIENT REPOSITIONED, INCONTINENCE CHECK, PATIENT IS CURRENTLY C/D, VSS, CONTINUE POC
[2018-08-11 06:39] LABS: HEMATOCRIT 26.3 % (42.0-54.0); HEMOGLOBIN 8.5 g/dL (13.5-17.5); MCH 30.5 pg (26.0-34.0); MCHC 32.3 g/dL (31.0-37.0); MCV 94.3 fL (80.0-100.0); MEAN PLATELET VOLUME 11.1 fL (7.4-10.4); PLATELET COUNT 82 10x3/uL (130-400); RBC 2.79 10x6/uL (4.20-6.10); RDW 18.7 % (11.5-14.5); WBC 11.2 10x3/uL (4.8-10.8)
[2018-08-11 06:42] LABS: CALC OSMOLALITY 292 mosm/kg (275-300); CALCIUM 7.9 mg/dL (8.5-10.1); CHLORIDE - SERUM 109 mmol/L (98-107); CREATININE - SERUM 0.3 mg/dL (0.6-1.3); GLUCOSE 159 mg/dL (74-106); POTASSIUM - SERUM 3.1 mmol/L (3.5-5.1); SODIUM 147 mmol/L (136-145); eGFR NON AFRICAN AMERICAN > 90 mL/min (90-120)
[2018-08-11 06:44] LABS: UREA NITROGEN 8 mg/dL (7-18)
[2018-08-11 09:14] LABS: EOSINOPHILS 1 % (0-7); LYMPHOCYTES 12 % (15-50); MONOCYTES 15 % (2-11); NEUTROPHILS 66 % (40-80); PLATELET ESTIMATE DECREASED
[2018-08-11 09:15] LABS: ANISOCYTOSIS 1+; HYPOCHROMASIA OCC; ROULEAUX OCC
--- NOTE | 2018-08-11 09:41 | NUR ---
0700 INCONTINENT OF BROWN STOOL BATH GIVEN TOTAL LINEN CHANGE ASSESSMENT COMPLETE
--- NOTE | 2018-08-11 09:42 | NUR ---
0730 POTASSIUM 3.1 STARTED K RIDER 20 MEQ INFUSING TO LEFT CHEST WALL PORT PER ELECTROLYTE PROTOCOL
--- NOTE | 2018-08-11 09:44 | NUR ---
[address] STEPHENS ROUNDING ON PATIENT
--- NOTE | 2018-08-11 10:43 | NUR ---
Nutrition follow-up: Diet: Clear liquids +BM Wt: 113# MVI with thiamine infusing Labs reviewed Pt not meeting estimated energy needs with current PO intake. Recommend nutrition support start if/when medically feasible. RDN following.
--- NOTE | 2018-08-11 11:45 | NUR ---
11OO INCONTINENT OF STOOL REPOSITIONED WITH PILLOW BETWEEN NEES PLACED MEPILEX TO SACRAL AREA NO BREAKDOWN OF SKIN NOTED
--- NOTE | 2018-08-11 16:22 | NUR ---
1500 REPOSITIONED IN BED
--- NOTE | 2018-08-11 18:31 | NUR ---
1700 REMOVED OBDULIO DRAIN WITHOUT COMPLICATIONS 4X4s TAPED OVER ABDOMINAL SITE
--- NOTE | 2018-08-11 19:40 | NUR ---
REC'D TO CARE, TAPE FOLDING MACHINE OPERATOR PER FLOWSHEET. PT GIVEN BREAK FROM BIPAP - REQUIRED EXTENSIVE ORAL CARE FOR DRY/THICK SECRETIONS. O2 SAT 95% ON 4L NC. PT ABLE TO GARGLE AND SPIT. NEURO CHECK PER FLOWSHEET. REORIENTED TO DATE/TIME AND SITUATION BY NURSE. NO SIGN OF DISTRESS. WILL CONT CLOSE MONITORING . ALARMS ON.
--- NOTE | 2018-08-11 21:00 | NUR ---
NO VISITORS, PT REMAINS OFF BIPAP WITH O2 SAT 94%, NO SIGN OF DISTRESS. STILL LETHARGIC BUT AWAKENING EASILY AND ANSWERING APPROP.
--- NOTE | 2018-08-11 23:00 | NUR ---
PT INCONT OF LOOSE BLACK STOOL, LEXX-CARE, LOPEZ-CARE DONE. DSG REMOVED FROM COCCYX, SKIN INTACT WITH REDNESS NOTED. BARRIER CREAM APPLIED. PT REPOSITIONED UP IN BED TO R SIDE. ABLE TO TAKE SMALL SIPS PER REQUEST, NO COUGHING. ORIENTED X 3, REOIENTED TO TIME OF DAY BY NURSE. ALARMS ON, C/L IN REACH.
[2018-08-12] VITALS (24 sets, daily range): BP systolic 93–135; BP diastolic 60–90
--- NOTE | 2018-08-12 00:45 | NUR ---
BACK ON BIPAP PER RT, PER MD ORDERS.
--- NOTE | 2018-08-12 02:01 | NUR ---
RESTING QUIETLY, NO SIGN OF DISTRESS.
--- NOTE | 2018-08-12 03:30 | NUR ---
REASSESSMENT PER FLOWSHEET, BREAK FROM BIPAP TOLERATED, ORAL CARE PROVIDED. PT WITH MINIMAL SPEECH, BUT ANSWERING APPROP. VSS. NO SIGN OF DISTRESS.
[2018-08-12 05:49] LABS: BASOPHILS 0.3 % (0-2); EOSINOPHILS 1.3 % (0-7); HEMATOCRIT 28.6 % (42.0-54.0); HEMOGLOBIN 9.3 g/dL (13.5-17.5); IMMATURE GRANULOCYTES 4.9 % (0-5); LYMPHOCYTES 19.1 % (15-50); MCH 30.8 pg (26.0-34.0); MCHC 32.5 g/dL (31.0-37.0); MCV 94.7 fL (80.0-100.0); MEAN PLATELET VOLUME 11.7 fL (7.4-10.4); NEUTROPHILS 63.4 % (40-80); PLATELET COUNT 88 10x3/uL (130-400); RBC 3.02 10x6/uL (4.20-6.10); RDW 18.1 % (11.5-14.5)
[2018-08-12 06:13] LABS: WBC 14.4 10x3/uL (4.8-10.8)
[2018-08-12 06:32] LABS: ALBUMIN 1.5 g/dL (3.4-5.0); ALKALINE PHOSPHATASE 182 U/L (46-116); ALT (SGPT) 19 U/L (10-68); BILIRUBIN - TOTAL 0.53 mg/dL (0.2-1.3); CALC OSMOLALITY 285 mosm/kg (275-300); CALCIUM 7.7 mg/dL (8.5-10.1); CHLORIDE - SERUM 109 mmol/L (98-107); GLUCOSE 122 mg/dL (74-106); PHOSPHOROUS 2.8 mg/dL (2.5-4.9); POTASSIUM - SERUM 3.7 mmol/L (3.5-5.1); PROTEIN - SERUM 4.8 g/dL (6.4-8.2); SODIUM 144 mmol/L (136-145); UREA NITROGEN 7 mg/dL (7-18)
[2018-08-12 06:35] LABS: CREATININE - SERUM 0.4 mg/dL (0.6-1.3); eGFR NON AFRICAN AMERICAN > 90 mL/min (90-120)
--- NOTE | 2018-08-12 07:00 | NUR ---
SHIFT ASSESSMENT COMPLETED. PT CARE ASSUMED. MONITORS ON AND WORKING, VITALS STABLE, PT AWAKE AND ALERT, NO SIGNS/SYMPTOMS OF PAIN OR DISCOMFORT NOTED. CALL LIGHT WITHIN REACH, WILL CONTINUE TO OBSERVE.
--- NOTE | 2018-08-12 09:00 | NUR ---
PT RESTING, MONITORS ON AND WORKING, VITALS STABLE, NO SIGNS/SYMPTOMS OF PAIN OR DISCOMFORT NOTED AT THIS TIME, CALL LIGHT WITHIN REACH WILL CONTINUE TO OBSERVE.
--- NOTE | 2018-08-12 11:00 | NUR ---
PT TURNED AND REPOSITIONED FOR COMFORT, MONITORS ON AND WORKING, VITALS STABLE, CALL LIGHT WITHIN REACH, SEE FLOW SHEET FOR FURTHER DETAILS. WILL CONTINUE TO OBSERVE.
--- NOTE | 2018-08-12 13:00 | NUR ---
PT TURNED AND REPOSITIONED FOR COMFORT, MONITORS ON AND WORKING, VITALS STABLE. CALL LIGHT WTIHIN REACH, WILL CONTINUE TO OBSERVE.
--- NOTE | 2018-08-12 15:00 | NUR ---
NO CHANGES, PT SLEEPING MOST OF MY SHIFT, DENIES ANY COMPLAINT OF PAIN OR DISCOMFORT, ONLY STATES ABOUT BEING TIRED, MONITORS ON AND WORKING, VITALS STBALE, SEE FLOW SHEET FOR FURTHER DETIALS, WILL CONTINUE TO OBSERVE.
--- NOTE | 2018-08-12 15:10 | OP ---
PATIENT NAME: CLAUDIA SUGGS MEDICAL RECORD: [id number] :57 LOCATION:D[facility] D.2311 ADMISSION DATE:08/03/18 SURGEON: WU WEBER MD DATE OF OPERATION: 08/05/2018 PREOPERATIVE DIAGNOSES: 1. Acute cholecystitis. 2. B-cell lymphoma. 3. History of liver cancer. 4. ETOH abuse. POSTOPERATIVE DIAGNOSES: 1. Acute cholecystitis. 2. B-cell lymphoma. 3. History of liver cancer. 4. ETOH abuse. PROCEDURES: 1. Laparoscopic cholecystectomy. 2. Laparoscopic left liver biopsy. 3. Laparoscopic lysis of adhesions. SURGEON: Wu Weber MD BUSINESS SUPPORT ADMINISTRATOR: Elina Elizabeth APRN REPORT OF OPERATION: The patient's abdomen was prepped and draped in sterile fashion. A cutdown was made in the midline below the umbilicus. Electrocautery was used to dissect through the subcutaneous tissues down to the fascia. The fascia was opened up and #0 Vicryls were placed bilaterally. I then bluntly entered the abdominal cavity and placed a 12-mm Supa port. Upon inserting a camera, there was noted to be a lot of adhesions present in the midline. I eventually took out the Supa port and then did a blunt dissection with my finger of some of these adhesions to the anterior abdominal wall. Once the Supa was replaced, then we had better visualization, but there was still lot of adhesions in the midline and the right upper quadrant. The 5-mm trocar was placed just to the left of midline and then the left upper quadrant. A tedious dissection was performed of these adhesions, which were mainly omentum and the transverse colon to the anterior abdominal wall. The transverse colon was densely adherent to the wall with inflammatory changes, and as we took this down, there was noted to be purulent material present between it and the anterior abdominal wall. As we took this down, we were able to suction out the small abscess collection. I did not see any evidence of any injury to the colon. The colon itself appeared to be normal. There were no necrotic changes visible. As we took this down, we did encounter a very inflamed mass of tissue, which we penetrated and eventually dissected out and determined this was the fundus of the gallbladder. The gallbladder had a large calcified black stone present within it. We did a tedious dissection of the surrounding tissues off of the gallbladder including the patient's duodenum. We were eventually able to free up the gallbladder, and as we dissected down, we found the patient's common duct. We tried to dissect up, but were having a lot of difficulty determining location of the cystic duct and the cystic arteries, so we performed a dome down technique. As we took down the gallbladder, we were able to find the cystic artery, which was clipped proximally and distally and ligated in standard fashion. The patient's cystic duct was encountered. It was quite enlarged. We OPERATIVE REPORT [id number] CLAUDIA SUGGS ended up placing a 12-mm trocar in the left upper quadrant, and using a 45 white load Endo-ELISE stapler, we transected the cystic duct. The gallbladder was placed into an Endo Catch bag along with the large stone. During our dissection, there was noted to be dense amount of adhesions present to the left lobe of the liver. We took these down using electrocautery in order to facilitate visualization of the Calot's triangle. As we took this down, we did take a piece of the left lateral lobe of the liver and this piece was sent off for permanent specimen. We went back and reviewed the areas on the liver where we had done dissection and any bleeding that was found was treated with electrocautery. At the conclusion of the case, we had a gentle ooze from a lot of the fatty tissues present throughout the abdomen, but no sign of any arterial bleeding or major surgical bleeding. We irrigated out the abdomen thoroughly with normal saline. A 19-Congolese [place] drain was inserted in the abdomen through an opening in the right upper lateral quadrant. This was placed near the gallbladder fossa. This was then sutured into place with a 3-0 nylon. At this point, the ports and insufflation were then removed. The gallbladder and its contents were taken out through the umbilicus. The umbilical fascia was closed with interrupted #0 Vicryls times 3. The 12-mm upper abdominal trocar site fascia was closed with interrupted #0 Vicryls times 3. We irrigated out the wounds with normal saline and then infused 10 mL of 0.25% Marcaine with epinephrine. The skin incisions were closed with subcutaneous 5-0 Monocryl and dressed appropriately. COMPLICATIONS: None. CONDITION: Stable. ANESTHESIA: General endotracheal and local. BLOOD LOSS: 200 mL. TRANSINT:[id number] Voice Confirmation ID: [id number] DOCUMENT ID: [id number] WU WEBER MD at 1510 CC: [id number] DICTATION DATE: 08/05/181708 DIRECTOR OF INSTRUCTION: 08/05/18 2309 ADM IN [facility] [address] [place] [address]
--- NOTE | 2018-08-12 18:26 | MORECARE ---
CASE MANAGEMENT DISCHARGE SUMMARY PATIENT: CLAUDIA SUGGS UNIT: [id number] ADM DATE: 08/03/18 AGE: 63 : 57 SEX: M ROOM/BED: D.2311 AUTHOR: ALEJANDRA,DOC PHYSICIAN: REFERRING PHYSICIAN: VIVEK MONGE MD DATE OF SERVICE: 08/12/18 Discharge Plan Patient Name: CLAUDIA SUGGS Facility: [facility]:[place] : 1955 Planned Disposition: Home Anticipated Discharge Date: Discharge Date: Expected LOS: Initial Reviewer: [email or web address] Initial Review Date: 08/03/2018 Generated: 08/12/18 7:26 pm Comments DCP- Discharge Planning Updated by [email or web address]: María Gallagher on 08/12/18 5:[address] CM spoke with Khurram Bose whom is listed as patient's contact. Khurram stated that he is patient's best friend. They consider each others as brothers. Khurram states that the patient doesn't have any family that he is in contact with. The patient has two estranged sons that he hasn't seen in over 25 yrs. and a daughter that no one knows how to contact her. No siblings and parents are . CM asked if there was any plans for patient upon discharge. Khurram states he doesn't know he hopes that the patient turns around soon. He states that he could stay with him until he gets back on his feet. At this time the patient is unable to make decisions for himself and there isn't any family or POA to make decisions for him. CM will continue to follow and assist as needed with discharge planning / needs. DCP- Discharge Planning Updated by [email or web address]: Ina Arteaga on 08/06/18 11:[address] Patient Name: CLAUDIA SUGGS Admission Status: ER Accout number: [id number] Admission Date: 08-03-2018 : 1955 Admission Diagnosis:RIGHT UPPER QUADRANT PAIN Attending: VIVEK MONGE Current LOS: 3 Anticipated DC Date: Planned Disposition: Home Primary Insurance: [facility] MEDICARE SOLUTIONS Discharge Planning Comments: CM met with patient to discuss discharge planning, he is alone in the room. He is oriented and answers questions appropriately, he does seem drowsy. States he has still been living with his brother, Khurram, he will take him home on discharge. States that he is usually now in a self propelled wheelchair. States he also has a walker. States he no longer is using home health and does not feel he will need them at discharge. He has had [facility] in the past. He states he uses oxygen as needed and gets supplies from [employer]. CM will continue to follow and assist with discharge planning/needs. Supervisor Title: Ina Arteaga DCP- Discharge Planning Updated by [email or web address]: Ina Arteaga on 08/05/18 11:[address] Attempted to meet with patient, he is getting ready to go to [place]. I will meet with him tomorrow to discuss discharge planning/needs. DCPIA - Discharge Planning Initial Assessment Updated by [id number]: Ina Arteaga on 08/06/18 1:33 pm * Is the patient Alert and Oriented? No * How many steps to enter\exit or inside your home? 3/0 * PCP Dr. Monge * Pharmacy [facility] * Preadmission Environment Home with Family * ADLs Partial Dependent * Partial ADLs (Assistance needed) Ambulation * Equipment Other Oxygen Walker Wheelchair * Other Equipment Prosthetic Leg * List name and contact numbers for known caregivers / representatives who currently or will assist patient after discharge: Khurram Bose - brother - [phone] * Verbal permission to speak to the caregivers and representatives has been obtained from the patient. Yes * Community resources currently utilized None * Please name any agencies selected above. Oxygen from [facility] Prosthetic from [employer] * Additional services required to return to the preadmission environment? No * Can the patient safely return to the preadmission environment? Yes * Has this patient been hospitalized within the prior 30 days at any hospital? No Last DP export: 08/06/18 11:46 am Patient Name: CLAUDIA SUGGS Page [id number] at 7476 All edits/amendments must be made on the electronic document DICTATION DATE: 08/12/181825 GRANT SPECIALIST: MADISYN 08/12/181825 RPT#: [id number] DC DATE: STATUS: ADM IN [facility] [address] [place] [address] END OF REPORT
--- NOTE | 2018-08-12 21:20 | NUR ---
COMPLETE BATH AND LINEN CHANGE DONE. LEXX-CARE AND LOPEZ-CARE DONE. PT REPOSITIONED UP IN BED. NO SIGN OF DISTRESS. R HEEL AND L STUMP ON PILLOWS.
--- NOTE | 2018-08-12 23:00 | NUR ---
REASSESSMENT PER FLOWSHEET, NO ACUTE CHANGES. BACK ON BIPAP PER MD ORDERS. VSS. PT COOPERATIVE AND ANSWERING APPROP.
[2018-08-13] VITALS (23 sets, daily range): BP systolic 90–131; BP diastolic 58–75
--- NOTE | 2018-08-13 01:00 | NUR ---
PT REPOSITIONED UP IN BED TO R SIDE. COOPERATIVE, ORAL CARE PROVIDED, CONT ON BIPAP.
--- NOTE | 2018-08-13 03:50 | NUR ---
REASSESSMENT PER FLOWSHEET, NO ACUTE CHANGES.
--- NOTE | 2018-08-13 05:36 | NUR ---
PT REPOSITIONED UP IN BED TO L SIDE. VSS. TAKING WATER WITHOUT DIFFICULTY, ARMS STILL WEAK AND REQUIRES ASSIST. C/L IN REACH.
[2018-08-13 06:11] LABS: CALC OSMOLALITY 275 mosm/kg (275-300); CALCIUM 7.4 mg/dL (8.5-10.1); CARBON DIOXIDE 27.8 mmol/L (21.0-32.0); CHLORIDE - SERUM 104 mmol/L (98-107); CREATININE - SERUM 0.4 mg/dL (0.6-1.3); GLUCOSE 130 mg/dL (74-106); POTASSIUM - SERUM 3.4 mmol/L (3.5-5.1); SODIUM 138 mmol/L (136-145); UREA NITROGEN 7 mg/dL (7-18); eGFR NON AFRICAN AMERICAN > 90 mL/min (90-120)
--- NOTE | 2018-08-13 07:00 | NUR ---
SHIFT ASSESSMENT COMPLETED, PT CARE ASSUMED. MONITORS ON AND WORKING, VITALS STABLE, PT MORE ALERT THIS MORNING, CALL LIGHT WITHIN REACH, SEE FLOW SHEET FOR FURTHER DETIALS. WILL CONTINUE TO OBSERVE.
[2018-08-13 07:16] LABS: BASOPHILS 0.3 % (0-2); HEMATOCRIT 24.7 % (42.0-54.0); HEMOGLOBIN 8.1 g/dL (13.5-17.5); IMMATURE GRANULOCYTES 3.7 % (0-5); LYMPHOCYTES 13.3 % (15-50); MCH 30.7 pg (26.0-34.0); MCHC 32.8 g/dL (31.0-37.0); MCV 93.6 fL (80.0-100.0); MEAN PLATELET VOLUME 10.2 fL (7.4-10.4); MONOCYTES 11.7 % (2-11); PLATELET COUNT 88 10x3/uL (130-400); RBC 2.64 10x6/uL (4.20-6.10); WBC 13.3 10x3/uL (4.8-10.8)
[2018-08-13 08:11] LABS: PLATELET ESTIMATE DECREASED
--- NOTE | 2018-08-13 09:00 | NUR ---
PT SITTING UP IN BED, ATE JELLO AND DRINKS WATER WITHOUT ANY DIFFICULTY, PT MORE AWAKE AND ALERT, WATCHING TELEVISION, CALL LIGHT WITHIN REACH, WILL CONTINUE TO OBSERVE.
--- NOTE | 2018-08-13 09:32 | NUR ---
NUTRITION F/U CHART REVIEWED. PT SLEEPING. PT WITH SMALL AMT CLEAR LIQUID DIET. RECOMMEND ADVANCING DIET AND ADDING ENSURE TO MEALS IF MEDICALLY FEASIBLE. MAY BENEFIT FROM DOBHOFF TUBE FEEDS IF UNABLE TO TAKE ADEQUATE PO. RD FOLLOWING
--- NOTE | 2018-08-13 11:00 | NUR ---
NO CHANGES, MONITORS ON AND WORKING, VITALS STABLE. PT INCREASINGLY MORE AWAKE AND ALERT THROUGHOUT THE DAY, PT SITTING UP WATCHING TELEVISION, CALL LIGHT WITHIN REACH, SEE FLOW SHEET FOR FURTHER DETAILS. WILL CONTINUE TO OBSERVE.
--- NOTE | 2018-08-13 13:00 | NUR ---
PT CLEANED OF LARGE DARK BM, FULL LINEN CHANGE COMPLETED AT THIS TIME, NO SIGNS/SYMPTOMS OF PAIN OR DISCOMFORT, PT AWAKE, EATING FULL LIQUID LUNCH WITHOUT ANY DIFFICULTY. VITALS STABLE. CALL [facility] WITHIN REACH, WILL CONTINUE TO OBSERVE.
--- NOTE | 2018-08-13 15:00 | NUR ---
PT CLEANED FROM BM, LINEN CHANGE DONE AT THIS TIME, PT AWAKE AND ALERT, NO SIGNS/SYMPTOMS OF PAIN OR DISCOMFORT NOTED, CALL LIGHT WITHIN REACH, WILL CONTINUE TO OBSERVE. SEE FLOW SHEET FOR FURTHER DETAILS. WILL CONTINUE TO OBSERVE.
[2018-08-14] VITALS (11 sets, daily range): BP systolic 102–119; BP diastolic 69–77
[2018-08-14 07:01] LABS: BASOPHILS 0.2 % (0-2); EOSINOPHILS 1.4 % (0-7); HEMATOCRIT 24.5 % (42.0-54.0); HEMOGLOBIN 8.2 g/dL (13.5-17.5); IMMATURE GRANULOCYTES 2.3 % (0-5); LYMPHOCYTES 10.5 % (15-50); MCH 31.2 pg (26.0-34.0); MCHC 33.5 g/dL (31.0-37.0); MCV 93.2 fL (80.0-100.0); MEAN PLATELET VOLUME 10.5 fL (7.4-10.4); MONOCYTES 10.3 % (2-11); NEUTROPHILS 75.3 % (40-80); RBC 2.63 10x6/uL (4.20-6.10); RDW 17.2 % (11.5-14.5); WBC 14.6 10x3/uL (4.8-10.8)
[2018-08-14 07:02] LABS: PLATELET COUNT 111 10x3/uL (130-400)
[2018-08-14 07:03] LABS: CALC OSMOLALITY 263 mosm/kg (275-300); CALCIUM 7.2 mg/dL (8.5-10.1); CARBON DIOXIDE 29.5 mmol/L (21.0-32.0); CHLORIDE - SERUM 100 mmol/L (98-107); CREATININE - SERUM 0.3 mg/dL (0.6-1.3); GLUCOSE 110 mg/dL (74-106); POTASSIUM - SERUM 3.2 mmol/L (3.5-5.1); SODIUM 133 mmol/L (136-145); UREA NITROGEN 5 mg/dL (7-18); eGFR NON AFRICAN AMERICAN > 90 mL/min (90-120)
--- NOTE | 2018-08-14 09:08 | NUR ---
NUTRITION F/U CHART REVIEWED, PT VISIT. REPLIED "I THINK I WANT TO EAT" WHEN ASKED IF HE WAS HUNGRY. NURSING ASSISTING PT WITH MEAL SETUP. WILL MONITOR DIET ADVANCEMENT, PO INTAKE. RD FOLLOWING
--- NOTE | 2018-08-14 14:00 | NUR ---
PT HERE TO GET PT OUT OF BED. 100 PERCENT ASSIST. UP ON SIDE OF BED. WILL GET UP TOMORROW.
--- NOTE | 2018-08-14 15:05 | NUR ---
REPORT CALLED TO AAMIR SILVER.
--- NOTE | 2018-08-14 15:20 | NUR ---
RECIEVED TO ROOM 1212 FROM ICU VIA BED. LOPEZ PATENT DRAINING YELLOW URINE. O2 4L NC IN USE. HISTORY OF L AKA. CALL LIGHT WITHIN REACH. BED ALARM IN USE. DENIES ANY NEEDS AT THIS TIME.
--- NOTE | 2018-08-14 18:15 | NUR ---
DISORIENTED TO TIME,PLACE AND SITUATION. CONTINUES TRYING TO CLIMB OOB. BED ALARM IN USE. WHEN ASKED WHERE IS TRYING TO GO, HE STATES THAT HE NEEDS OUT OF HERE AND HE DOESN'T NEED TO BE IN THE HOSPITAL.
--- NOTE | 2018-08-14 19:25 | NUR ---
LYING IN BED. CONFUSED. ORIENTED TO SELF AND PLACE. SPEECH GARBLED AT TIMES AND DIFF TO UNDERSTAND. SLOW TO RESPOND TO QUESTIONS. SKIN IS JAUNDICED. GEN WEAKNESS NOTED. LOPEZ CATH PATENT AND DRAINING DK YELLOW URINE. LAP SITES NOTED TO ABD. RESP IRREG. O2 @ 2.5L/NC. LT BKA NOTED. IV INFUSING IN LT CW MEDIPORT WITHOUT DIFF. SALINE LOCK NOTED TO LT FOREARM. BED ALARM ON FOR PT SAFETY. SR ELEVATED X3. CL IN REACH.
--- NOTE | 2018-08-15 00:30 | NUR ---
TRYING TO GET BETWEEN BEDRAILS AND GET OOB. CONFUSED. THINKS ITS DAY TIME AND WANTING TO USE CELL PHONE TO CALL SOMEONE. REDIRECTED EASILY. BED ALARM ON. CL IN REACH.
[2018-08-15 00:45] VITALS: BP 143/59
--- NOTE | 2018-08-15 03:42 | NUR ---
LYING IN BED WITH EYES CLOSED. RESP NONLABORED. NO DISTRESS. BED ALARM ON. CL IN REACH.
[2018-08-15 05:35] VITALS: BP 111/65
--- NOTE | 2018-08-15 07:51 | NUR ---
VANCOMYCIN TROUGH WAS LOW AT 6, BUT WAS DRAWN ALMOST 2 HOURS LATE. WILL BUMP THE DOSE UP TO 1.25 GRAM Q 12H. 10 DOSES REMAIN ON CURRENT COURSE
--- NOTE | 2018-08-15 08:38 | MORECARE ---
CASE MANAGEMENT DISCHARGE SUMMARY PATIENT: CLAUDIA SUGGS UNIT: [id number] ADM DATE: 08/03/18 AGE: 63 : 57 SEX: M ROOM/BED: D.1212 AUTHOR: ALEJANDRA,DOC PHYSICIAN: REFERRING PHYSICIAN: VIVEK MONGE MD DATE OF SERVICE: 08/15/18 Discharge Plan Patient Name: CLAUDIA SUGGS Facility: [facility]:[place] : 1955 Planned Disposition: Home Anticipated Discharge Date: Discharge Date: Expected LOS: Initial Reviewer: [email or web address] Initial Review Date: 08/03/2018 Generated: 08/15/18 9:38 am Comments DCP- Discharge Planning Updated by [id number]: María Gallagher on 08/12/18 5:[address] CM spoke with Khurram Bose whom is listed as patient's contact. Khurram stated that he is patient's best friend. They consider each others as brothers. Khurram states that the patient doesn't have any family that he is in contact with. The patient has two estranged sons that he hasn't seen in over 25 yrs. and a daughter that no one knows how to contact her. No siblings and parents are . CM asked if there was any plans for patient upon discharge. Khurram states he doesn't know he hopes that the patient turns around soon. He states that he could stay with him until he gets back on his feet. At this time the patient is unable to make decisions for himself and there isn't any family or POA to make decisions for him. CM will continue to follow and assist as needed with discharge planning / needs. DCP- Discharge Planning Updated by [id number]: Ina Arteaga on 08/06/18 11:[address] Patient Name: CLAUDIA SUGGS Admission Status: ER Accout number: [id number] Admission Date: 08-03-2018 : 1955 Admission Diagnosis:RIGHT UPPER QUADRANT PAIN Attending: VIVEK MONGE Current LOS: 3 Anticipated DC Date: Planned Disposition: Home Primary Insurance: [facility] MEDICARE SOLUTIONS Discharge Planning Comments: CM met with patient to discuss discharge planning, he is alone in the room. He is oriented and answers questions appropriately, he does seem drowsy. States he has still been living with his brother, Khurram, he will take him home on discharge. States that he is usually now in a self propelled wheelchair. States he also has a walker. States he no longer is using home health and does not feel he will need them at discharge. He has had [facility] in the past. He states he uses oxygen as needed and gets supplies from [employer]. CM will continue to follow and assist with discharge planning/needs. Apns: Ina Arteaga DCP- Discharge Planning Updated by [email or web address]: Ina Chandler on 08/05/18 11:[address] Attempted to meet with patient, he is getting ready to go to [place]. I will meet with him tomorrow to discuss discharge planning/needs. DCPIA - Discharge Planning Initial Assessment Updated by [email or web address]: Ina Arteaga on 08/06/18 1:33 pm * Is the patient Alert and Oriented? No * How many steps to enter\exit or inside your home? 3/0 * PCP Dr. Monge * Pharmacy [facility] * Preadmission Environment Home with Family * ADLs Partial Dependent * Partial ADLs (Assistance needed) Ambulation * Equipment Other Oxygen Walker Wheelchair * Other Equipment Prosthetic Leg * List name and contact numbers for known caregivers / representatives who currently or will assist patient after discharge: Khurram Bose - brother - [phone] * Verbal permission to speak to the caregivers and representatives has been obtained from the patient. Yes * Community resources currently utilized None * Please name any agencies selected above. Oxygen from [facility] Prosthetic from [employer] * Additional services required to return to the preadmission environment? No * Can the patient safely return to the preadmission environment? Yes * Has this patient been hospitalized within the prior 30 days at any hospital? No Last DP export: 08/12/18 5:26 p Patient Name: CLAUDIA SUGGS Page [id number] at 0838 All edits/amendments must be made on the electronic document DICTATION DATE: 08/15/18836 [employer] ANALYST: MADISYN 08/15/18836 RPT#: [id number] DC DATE: STATUS: ADM IN [facility] [address] [place] [address] END OF REPORT
--- NOTE | 2018-08-15 09:45 | NUR ---
INCONT OF BOWEL MOVEMENT. PATIENT CLEANED AND LINENS CHANGED.
[2018-08-15 11:39] VITALS: BP 118/69
--- NOTE | 2018-08-15 12:22 | NUR ---
NO CHANGES NOTED AT THIS TIME.
--- NOTE | 2018-08-15 15:03 | NUR ---
NORCO GIVEN FOR COMPLAINT OF ABDOMINAL PAIN. REPOSITIONED IN BED. BED ALARM IN USE.
[2018-08-15 17:34] VITALS: BP 104/56
--- NOTE | 2018-08-15 17:36 | NUR ---
NO CHANGES NOTED AT THIS TIME.
[2018-08-16 00:10] VITALS: BP 81/53
[2018-08-16 05:50] VITALS: BP 98/63
[2018-08-16 07:01] LABS: ALBUMIN 1.3 g/dL (3.4-5.0); ALKALINE PHOSPHATASE 211 U/L (46-116); ALT (SGPT) 18 U/L (10-68); BILIRUBIN - TOTAL 0.59 mg/dL (0.2-1.3); CALC OSMOLALITY 264 mosm/kg (275-300); CALCIUM 7.7 mg/dL (8.5-10.1); CARBON DIOXIDE 27.3 mmol/L (21.0-32.0); CHLORIDE - SERUM 102 mmol/L (98-107); CREATININE - SERUM 0.5 mg/dL (0.6-1.3); GLUCOSE 106 mg/dL (74-106); POTASSIUM - SERUM 3.5 mmol/L (3.5-5.1); PROTEIN - SERUM 4.8 g/dL (6.4-8.2); SODIUM 134 mmol/L (136-145); UREA NITROGEN 4 mg/dL (7-18); eGFR NON AFRICAN AMERICAN > 90 mL/min (90-120)
[2018-08-16 07:37] LABS: BASOPHILS 0.3 % (0-2); EOSINOPHILS 1.3 % (0-7); HEMATOCRIT 26.9 % (42.0-54.0); HEMOGLOBIN 8.9 g/dL (13.5-17.5); IMMATURE GRANULOCYTES 0.8 % (0-5); LYMPHOCYTES 11.4 % (15-50); MCH 30.8 pg (26.0-34.0); MCHC 33.1 g/dL (31.0-37.0); MCV 93.1 fL (80.0-100.0); MEAN PLATELET VOLUME 9.9 fL (7.4-10.4); MONOCYTES 12.7 % (2-11); NEUTROPHILS 73.5 % (40-80); RBC 2.89 10x6/uL (4.20-6.10); RDW 16.5 % (11.5-14.5); WBC 14.9 10x3/uL (4.8-10.8)
[2018-08-16 08:08] LABS: PLATELET COUNT 183 10x3/uL (130-400)
--- NOTE | 2018-08-16 08:33 | NUR ---
AWAKE AND ALERT. ORIENTED X3. NO C/O AT THIS TIME. ATTEMPTED TO DRAW BLOOD FROM PORT WITHOUT SUCCESS. WILL MONITOR. LUNGS ARE CLEAR BILATERALLY BUT DIMINISHED IN BILATERAL LOWER LOBES. NO COUGH NOTED. SKIN IS INTACT WITHOUT REDNESS. LOPEZ PATENT WITH CLEAR YELLOW URINE. LEFT PORT PATENT WITHOUT REDNESS AT INSERTION SITE. SL TO LEFT FOREARM IS PATENT WITHOUT REDNESS. BREAKFAST SERVED IN ROOM. ATE ALL HE WANTED.
[2018-08-16 09:07] VITALS: BP 102/54
--- NOTE | 2018-08-16 12:30 | NUR ---
LUNCH SERVED IN ROOM. DENIES NEEDS.
--- NOTE | 2018-08-16 12:45 | NUR ---
WAS UP WITH PT. REQUESTED AND GIVEN ONE HYDROCODONE PO FOR C/O BACK/ABDOMEN PAIN LEVEL 10. WILL MONITOR.
[2018-08-16 13:50] VITALS: BP 118/72
--- NOTE | 2018-08-16 17:08 | NUR ---
REQUESTED AND GIVEN ONE HYDROCODONE PO FOR C/O GENERALIZED PAIN LEVEL 10. WILL MONITOR. SUPPER SERVED IN ROOM. REFUSED TO EAT. REFUSED OFFER OF ALTERNATIVE FOODS WELL.
[2018-08-16 17:35] VITALS: BP 103/66
[2018-08-16 19:30] VITALS: BP 90/56
--- NOTE | 2018-08-16 19:59 | NUR ---
PATIENT RESTING IN BED WITH NO S/S OF DISTRESS. PATIENT REQUESTED MEDS WHEN DUE. PATIENT DENIES OTHER NEEDS AT THIS TIME. BED IN LOWEST POSITION AND CALL LIGHT WITHIN REACH. ENCOURAGED THE PATIENT TO CALL IF HE HAS NEEDS. WILL CONTINUE TO MONITOR.
[2018-08-17] VITALS: BP 94/61
[2018-08-17 04:00] VITALS: BP 97/64
--- NOTE | 2018-08-17 05:30 | NUR ---
REMOVED IV FROM PATIENT'S LEFT FA. TIP INTACT. CHANGED PATIENT'S PICC LINE DRESSING.
[2018-08-17 06:42] LABS: BASOPHILS 0.2 % (0-2); EOSINOPHILS 1.3 % (0-7); HEMATOCRIT 24.4 % (42.0-54.0); IMMATURE GRANULOCYTES 0.6 % (0-5); LYMPHOCYTES 7.2 % (15-50); MCH 30.7 pg (26.0-34.0); MCHC 32.8 g/dL (31.0-37.0); MCV 93.5 fL (80.0-100.0); MEAN PLATELET VOLUME 9.9 fL (7.4-10.4); MONOCYTES 15.1 % (2-11); NEUTROPHILS 75.6 % (40-80); RBC 2.61 10x6/uL (4.20-6.10); RDW 16.5 % (11.5-14.5); WBC 13.7 10x3/uL (4.8-10.8)
[2018-08-17 06:49] LABS: PLATELET COUNT 225 10x3/uL (130-400)
[2018-08-17 07:11] LABS: ALBUMIN 1.2 g/dL (3.4-5.0); ALKALINE PHOSPHATASE 198 U/L (46-116); ALT (SGPT) 17 U/L (10-68); BILIRUBIN - TOTAL 0.38 mg/dL (0.2-1.3); CALC OSMOLALITY 269 mosm/kg (275-300); CALCIUM 7.3 mg/dL (8.5-10.1); CARBON DIOXIDE 30.9 mmol/L (21.0-32.0); CHLORIDE - SERUM 102 mmol/L (98-107); CREATININE - SERUM 0.6 mg/dL (0.6-1.3); GLUCOSE 123 mg/dL (74-106); POTASSIUM - SERUM 3.3 mmol/L (3.5-5.1); PROTEIN - SERUM 4.6 g/dL (6.4-8.2); SODIUM 136 mmol/L (136-145); UREA NITROGEN 5 mg/dL (7-18); eGFR NON AFRICAN AMERICAN > 90 mL/min (90-120)
--- NOTE | 2018-08-17 07:48 | NUR ---
AWAKE AND ALERT. ORIENTED X3. NO C/O AT THIS TIME. REPORTED VERY LITTLE PAIN RELIEF, REFUSED OFFER OF POSSIBLE GETTING MORE PAIN MEDS. WILL MONITOR. LUNGS ARE CLEAR BILATERALLY, NO COUGH NOTED. SKIN IS INTACT WITHOUT REDNESS. LEFT PORT PATENT WITHOUT REDNESS AT INSERTION SITE. DENIES NEEDS. LOPEZ PATENT WITH CLEAR YELLOW URINE.
[2018-08-17 08:00] VITALS: BP 98/56
--- NOTE | 2018-08-17 10:00 | NUR ---
RESTING QUIETLY IN BED WITH EYES CLOSED. DENIES NEEDS.
[2018-08-17 12:00] VITALS: BP 101/68
--- NOTE | 2018-08-17 16:00 | NUR ---
REQUESTED AND GIVEN ONE HYDROCODONE PO FOR C/O BACK AND ABDOMINAL PAIN LEVEL 8. WILL MONITOR.
[2018-08-17 16:22] VITALS: BP 107/68
--- NOTE | 2018-08-17 16:47 | NUR ---
LOPEZ WAS LEAKING. D/C WITH TIP INTACT WITHOUT DIFFICULTY. PATIENT VERY GLAD IT'S GONE.
--- NOTE | 2018-08-17 17:59 | NUR ---
VOIDED 200CC CLEAR YELLOW URINE. REFUSED SUPPER TRAY. DENIES NEEDS. NO CHANGES NOTED.
[2018-08-17 19:38] VITALS: BP 119/76
--- NOTE | 2018-08-17 19:40 | NUR ---
PATIENT RESTING IN BED WITH NO S/S OF DISTRESS. PATIENT REQUESTED A PAIN MED WITH NIGHT MEDS WHEN IT IS DUE. PATIENT DENIES OTHER NEEDS AT THIS TIME. BED IN LOWEST POSITION AND CALL LIGHT WITHIN REACH. ENCOURAGED THE PATIENT TO CALL IF HE HAS NEEDS. WILL CONTINUE TO MONITOR.
[2018-08-18 00:43] VITALS: BP 98/62
[2018-08-18 04:24] VITALS: BP 114/77
[2018-08-18 07:04] LABS: HEMATOCRIT 25.7 % (42.0-54.0); HEMOGLOBIN 8.4 g/dL (13.5-17.5); MCH 30.5 pg (26.0-34.0); MCHC 32.7 g/dL (31.0-37.0); MCV 93.5 fL (80.0-100.0); MEAN PLATELET VOLUME 10.2 fL (7.4-10.4); PLATELET COUNT 242 10x3/uL (130-400); RBC 2.75 10x6/uL (4.20-6.10); RDW 16.4 % (11.5-14.5); WBC 20.6 10x3/uL (4.8-10.8)
[2018-08-18 07:08] LABS: ALBUMIN 1.4 g/dL (3.4-5.0); ALKALINE PHOSPHATASE 223 U/L (46-116); ALT (SGPT) 18 U/L (10-68); BILIRUBIN - TOTAL 0.53 mg/dL (0.2-1.3); CALC OSMOLALITY 268 mosm/kg (275-300); CALCIUM 8.1 mg/dL (8.5-10.1); CARBON DIOXIDE 30.9 mmol/L (21.0-32.0); CHLORIDE - SERUM 99 mmol/L (98-107); CREATININE - SERUM 0.6 mg/dL (0.6-1.3); GLUCOSE 115 mg/dL (74-106); POTASSIUM - SERUM 3.6 mmol/L (3.5-5.1); PROTEIN - SERUM 5.1 g/dL (6.4-8.2); SODIUM 135 mmol/L (136-145); UREA NITROGEN 6 mg/dL (7-18); eGFR NON AFRICAN AMERICAN > 90 mL/min (90-120)
--- NOTE | 2018-08-18 08:30 | NUR ---
LYING IN BED, AROUSES EASILY, SAYS HE DOES NOT FEEL GOOD TODAY. HE WANTS TO SLEEP A LOT. IV PATENT IN LEFT CHEST AREA WITH INFUSAPORT. WILL CONTINUE TO MONITOR.
[2018-08-18 09:07] VITALS: BP 107/69
[2018-08-18 09:38] LABS: LYMPHOCYTES 3 % (15-50); MONOCYTES 4 % (2-11); NEUTROPHILS 93 % (40-80); PLATELET ESTIMATE NORMAL; SMUDGE CELLS 2+
[2018-08-18 09:39] LABS: ROULEAUX 2+
[2018-08-18 12:28] VITALS: BP 105/65
--- NOTE | 2018-08-18 14:40 | NUR ---
Pt is on a regular diet with very poor po intake Pt consumed 10,5% of meals today Noted pt refused 4 of the past 6 meals prior to today Spoke with pt about nutrition and stressed the importance of nutrition Pt reports he has no appetite but even when he does eat he has lower abd pain Spoke with nursing about abd pain and poor intake Recommend to consider appetite stimulant Pt reports he is able to tolerate Ensure and milk. Will add Ensure and milk to very tray. This will provide ~[address] following
--- NOTE | 2018-08-18 15:00 | NUR ---
PHYSICAL THERAPY CAME TO GET PATIENT UP TO AMBULATE WITH PROTHESIS. HE START TREMBLING WHEN SAT ON SIDE OF BED, THE EYES ROLLED IN BACK OF HEAD, IF HE WAS HAVING A SEIZURE. LAID PATIENT DOWN AND REASSESSED STATUS. IT ONLY LASTED BRIEFLY. HE WAS NOT AMBULATEDDUE TO THIS EVENT.
[2018-08-18 17:29] VITALS: BP 101/64
--- NOTE | 2018-08-18 17:30 | NUR ---
DR. MONGE HERE TO SEE PAtient. INFORMED HIM OF PATIENT'S SEIZURE EARLIER.
--- NOTE | 2018-08-18 19:52 | NUR ---
PATIENT RESTING IN BED AND REQUESTED NIGHT MEDS WITH PAIN PILL. PATIENT DENIES OTHER NEEDS AT THIS TIME. BED IN LOWEST POSITION AND CALL LIGHT WITHIN REACH. ENCOURAGED THE PATIENT TO CALL IF HE HAS NEEDS. WILL CONTINUE TO MONITOR.
[2018-08-18 20:00] VITALS: BP 98/64
[2018-08-19] VITALS: BP 98/65
[2018-08-19 04:00] VITALS: BP 113/69
[2018-08-19 07:30] LABS: BASOPHILS 0.2 % (0-2); EOSINOPHILS 0.7 % (0-7); HEMATOCRIT 24.4 % (42.0-54.0); HEMOGLOBIN 7.8 g/dL (13.5-17.5); IMMATURE GRANULOCYTES 0.4 % (0-5); LYMPHOCYTES 7.4 % (15-50); MCH 29.9 pg (26.0-34.0); MCV 93.5 fL (80.0-100.0); MEAN PLATELET VOLUME 9.7 fL (7.4-10.4); NEUTROPHILS 78.3 % (40-80); PLATELET COUNT 258 10x3/uL (130-400); RBC 2.61 10x6/uL (4.20-6.10); RDW 16.3 % (11.5-14.5); WBC 16.1 10x3/uL (4.8-10.8)
[2018-08-19 07:56] LABS: ALBUMIN 1.6 g/dL (3.4-5.0); ALKALINE PHOSPHATASE 223 U/L (46-116); ALT (SGPT) 20 U/L (10-68); AMYLASE - SERUM 17 U/L (25-115); BILIRUBIN - DIRECT 0.21 mg/dL (0.00-0.30); BILIRUBIN - INDIRECT 0.15 mg/dL (0.00-1.00); BILIRUBIN - TOTAL 0.36 mg/dL (0.2-1.3); CALC OSMOLALITY 269 mosm/kg (275-300); CALCIUM 7.8 mg/dL (8.5-10.1); CARBON DIOXIDE 29.9 mmol/L (21.0-32.0); CHLORIDE - SERUM 100 mmol/L (98-107); CREATININE - SERUM 0.6 mg/dL (0.6-1.3); GLUCOSE 138 mg/dL (74-106); LIPASE 67 U/L (73-393); POTASSIUM - SERUM 3.6 mmol/L (3.5-5.1); PROTEIN - SERUM 5.1 g/dL (6.4-8.2); SODIUM 135 mmol/L (136-145); UREA NITROGEN 7 mg/dL (7-18); eGFR NON AFRICAN AMERICAN > 90 mL/min (90-120)
--- NOTE | 2018-08-19 09:02 | NUR ---
PT AM MEDS ADMINISTERED. PT DENIES NEEDS. WCTM.
[2018-08-19 09:12] VITALS: BP 98/59
[2018-08-19 12:30] VITALS: BP 96/66
[2018-08-19 17:18] VITALS: BP 107/69
[2018-08-19 20:00] VITALS: BP 103/63
--- NOTE | 2018-08-19 20:45 | NUR ---
RESUMING PT CARE. PT IS ALERT LAYING IN BED. NO C/O VOCIED AT THIS TIME. RESPIRATIONS EVEN AND UNLABORED. BED IN LOW POSITION WITH CALL LIGHT IN REACH. SIDE RAIL UP X 2. WILL CONTINUE TO MONITOR PT AND FOLLOW PLAN OF CARE.
[2018-08-20] VITALS: BP 95/62
--- NOTE | 2018-08-20 03:26 | NUR ---
I have reviewed this patient and I concur with the Shift Assessment completed by the Licensed Practical Nurse today this shift.
[2018-08-20 04:30] VITALS: BP 110/70
[2018-08-20 07:19] LABS: BASOPHILS 0.3 % (0-2); EOSINOPHILS 1.3 % (0-7); HEMATOCRIT 22.7 % (42.0-54.0); IMMATURE GRANULOCYTES 0.3 % (0-5); LYMPHOCYTES 8.5 % (15-50); MCH 30.3 pg (26.0-34.0); MCHC 32.2 g/dL (31.0-37.0); MCV 94.2 fL (80.0-100.0); MEAN PLATELET VOLUME 9.7 fL (7.4-10.4); MONOCYTES 14.6 % (2-11); PLATELET COUNT 269 10x3/uL (130-400); RBC 2.41 10x6/uL (4.20-6.10); RDW 16.3 % (11.5-14.5)
[2018-08-20 07:31] LABS: HEMOGLOBIN 7.3 g/dL (13.5-17.5)
[2018-08-20 07:40] LABS: ALBUMIN 1.6 g/dL (3.4-5.0); ALKALINE PHOSPHATASE 198 U/L (46-116); ALT (SGPT) 16 U/L (10-68); BILIRUBIN - TOTAL 0.35 mg/dL (0.2-1.3); CALCIUM 7.5 mg/dL (8.5-10.1); CARBON DIOXIDE 28.1 mmol/L (21.0-32.0); CHLORIDE - SERUM 97 mmol/L (98-107); CREATININE - SERUM 0.6 mg/dL (0.6-1.3); POTASSIUM - SERUM 3.3 mmol/L (3.5-5.1); PROTEIN - SERUM 4.9 g/dL (6.4-8.2); SODIUM 131 mmol/L (136-145); UREA NITROGEN 7 mg/dL (7-18); eGFR NON AFRICAN AMERICAN > 90 mL/min (90-120)
[2018-08-20 07:52] LABS: CALC OSMOLALITY 283 mosm/kg (275-300)
[2018-08-20 07:53] LABS: GLUCOSE 514 mg/dL (74-106)
[2018-08-20 08:25] VITALS: BP 111/75
--- NOTE | 2018-08-20 08:40 | NUR ---
PT AM MEDS ADMINISTERED. PT DENIES NEEDS. WCTM.
--- NOTE | 2018-08-20 09:45 | NUR ---
DR STEPHENS IN TO SEE PT. PT ABD INCISION HAS BEGUN DRAINING AT UPPER INCISION. DRAINAGE IS FOUL SMELLING, SERO SANG FLUID. DR MONGE NOTIFIED.
--- NOTE | 2018-08-20 10:08 | MORECARE ---
CASE MANAGEMENT DISCHARGE SUMMARY PATIENT: CLAUDIA SUGGS UNIT: [id number] ADM DATE: 08/03/18 AGE: 63 : 57 SEX: M ROOM/BED: D.1212 AUTHOR: ALEJANDRA,DOC PHYSICIAN: REFERRING PHYSICIAN: VIVEK MONGE MD DATE OF SERVICE: 08/20/18 Discharge Plan Patient Name: CLAUDIA SUGGS Facility: [facility]:[place] : 1955 Planned Disposition: Home Anticipated Discharge Date: Discharge Date: Expected LOS: Initial Reviewer: [id number] Initial Review Date: 08/03/2018 Generated: 08/20/18 11:08 am Comments DCP- Discharge Planning Updated by [id number]: Justa Langford on 08/20/18 9:[address] Patient Name: CLAUDIA SUGGS Admission Status: ER Accout number: [id number] Admission Date: 08-03-2018 : 1955 Admission Diagnosis:RIGHT UPPER QUADRANT PAIN Attending: VIVEK MONGE Current LOS: 17 Anticipated DC Date: Planned Disposition: Home Primary Insurance: [facility] MEDICARE SOLUTIONS Discharge Planning Comments: CM MET WITH PATIENT ABOUT DC PLANNING. PATIENT WILL NEED A SNF. [facility] SIGNED FOR [facility]. CM WILL FOLLOW AND ASSIST NEEDED WITH DC PLANNING/NEEDS. Guest Relations Receptionist: Justa Langford DCP- Discharge Planning Updated by [id number]: María Gallagher on 08/12/18 5:[address] CM spoke with Khurram Bose whom is listed as patient's contact. Khurram stated that he is patient's best friend. They consider each others as brothers. Khurram states that the patient doesn't have any family that he is in contact with. The patient has two estranged sons that he hasn't seen in over 25 yrs. and a daughter that no one knows how to contact her. No siblings and parents are . CM asked if there was any plans for patient upon discharge. Khurram states he doesn't know he hopes that the patient turns around soon. He states that he could stay with him until he gets back on his feet. At this time the patient is unable to make decisions for himself and there isn't any family or POA to make decisions for him. CM will continue to follow and assist as needed with discharge planning / needs. DCP- Discharge Planning Updated by [email or web address]: Ina Alforddeirdre on 08/06/18 11:[address] Patient Name: CLAUDIA SUGGS Admission Status: ER Accout number: [id number] Admission Date: 08-03-2018 : 1955 Admission Diagnosis:RIGHT UPPER QUADRANT PAIN Attending: VIVEK MONGE Current LOS: 3 Anticipated DC Date: Planned Disposition: Home Primary Insurance: [facility] MEDICARE SOLUTIONS Discharge Planning Comments: CM met with patient to discuss discharge planning, he is alone in the room. He is oriented and answers questions appropriately, he does seem drowsy. States he has still been living with his brother, Khurram, he will take him home on discharge. States that he is usually now in a self propelled wheelchair. States he also has a walker. States he no longer is using home health and does not feel he will need them at discharge. He has had [facility] in the past. He states he uses oxygen as needed and gets supplies from [employer]. CM will continue to follow and assist with discharge planning/needs. Guest Relations Receptionist: Ina Arteaga DCP- Discharge Planning Updated by [id number]: Ina Chandler on 08/05/18 11:[address] Attempted to meet with patient, he is getting ready to go to [place]. I will meet with him tomorrow to discuss discharge planning/needs. DCPIA - Discharge Planning Initial Assessment Updated by [id number]: Ina Arteaga on 08/06/18 1:33 pm * Is the patient Alert and Oriented? No * How many steps to enter\exit or inside your home? 3/0 * PCP Dr. Monge * Pharmacy [place] * Preadmission Environment Home with Family * ADLs Partial Dependent * Partial ADLs (Assistance needed) Ambulation * Equipment Other Oxygen Walker Wheelchair * Other Equipment Prosthetic Leg * List name and contact numbers for known caregivers / representatives who currently or will assist patient after discharge: Khurram Bose - brother - [phone] * Verbal permission to speak to the caregivers and representatives has been obtained from the patient. Yes * Community resources currently utilized None * Please name any agencies selected above. Oxygen from [employer] Prosthetic from [employer] * Additional services required to return to the preadmission environment? No * Can the patient safely return to the preadmission environment? Yes * Has this patient been hospitalized within the prior 30 days at any hospital? No Coverage Notice Reviewer: [id number] Abraham Langford Notice Issued Date-Time: 08/20/2018 10:04 Notice Type: Patient Choice Letter Notice Delivered To: Patient Relationship to Patient: Dobie Worker Name: Delivery Method: HAND - Hand Delivered Mary Days: Prior Verbal Notification: Recipient Understood Notice: Yes Recipient Signature: Yes Med Rec Note Co-signed by Attending: Coverage Notice Comment: perla for [facility] Last DP export: 08/15/18 7:38 a Patient Name: CLAUDIA SUGGS Page 11499 at 1008 All edits/amendments must be made on the electronic document DICTATION DATE: 08/20/18 100 SOAKING PITS SUPERVISOR: MADISYN 08/20/18 1008 RPT#: [id number] DC DATE: STATUS: ADM IN [facility] [address] [place] [address] END OF REPORT
--- NOTE | 2018-08-20 11:01 | MORECARE ---
CASE MANAGEMENT DISCHARGE SUMMARY PATIENT: CLAUDIA SUGGS UNIT: [id number] ADM DATE: 08/03/18 AGE: 63 : 57 SEX: M ROOM/BED: D.1212 AUTHOR: ALEJANDRA,DOC PHYSICIAN: REFERRING PHYSICIAN: VIVEK MONGE MD DATE OF SERVICE: 08/20/18 Discharge Plan Patient Name: CLAUDIA SUGGS Facility: [facility]:[place] : 1955 Planned Disposition: Intermediate Facility Anticipated Discharge Date: Discharge Date: Expected LOS: Initial Reviewer: [id number] Initial Review Date: 08/03/2018 Generated: 08/20/18 12:01 pm Comments DCP- Discharge Planning Updated by [id number]: Justa Langford on 08/20/18 9:[address] Patient Name: CLAUDIA SUGGS Admission Status: ER Accout number: [id number] Admission Date: 08-03-2018 : 1955 Admission Diagnosis:RIGHT UPPER QUADRANT PAIN Attending: VIVEK MONGE Current LOS: 17 Anticipated DC Date: Planned Disposition: Home Primary Insurance: [facility] MEDICARE SOLUTIONS Discharge Planning Comments: CM MET WITH PATIENT ABOUT DC PLANNING. PATIENT WILL NEED A SNF. [facility] SIGNED FOR [facility]. CM WILL FOLLOW AND ASSIST NEEDED WITH DC PLANNING/NEEDS. Showroom Executive Director: Justa Langford DCP- Discharge Planning Updated by [id number]: María Gallagher on 08/12/18 5:[address] CM spoke with Khurram Bose whom is listed as patient's contact. Khurram stated that he is patient's best friend. They consider each others as brothers. Khurram states that the patient doesn't have any family that he is in contact with. The patient has two estranged sons that he hasn't seen in over 25 yrs. and a daughter that no one knows how to contact her. No siblings and parents are . CM asked if there was any plans for patient upon discharge. Khurram states he doesn't know he hopes that the patient turns around soon. He states that he could stay with him until he gets back on his feet. At this time the patient is unable to make decisions for himself and there isn't any family or POA to make decisions for him. CM will continue to follow and assist as needed with discharge planning / needs. DCP- Discharge Planning Updated by [id number]: Ian Alforddeirdre on 08/06/18 11:[address] Patient Name: CLAUDIA SUGGS Admission Status: ER Accout number: [id number] Admission Date: 08-03-2018 : 1955 Admission Diagnosis:RIGHT UPPER QUADRANT PAIN Attending: VIVEK MONGE Current LOS: 3 Anticipated DC Date: Planned Disposition: Home Primary Insurance: [facility] MEDICARE SOLUTIONS Discharge Planning Comments: CM met with patient to discuss discharge planning, he is alone in the room. He is oriented and answers questions appropriately, he does seem drowsy. States he has still been living with his brother, Khurram, he will take him home on discharge. States that he is usually now in a self propelled wheelchair. States he also has a walker. States he no longer is using home health and does not feel he will need them at discharge. He has had [facility] in the past. He states he uses oxygen as needed and gets supplies from [employer]. CM will continue to follow and assist with discharge planning/needs. Showroom Executive Director: Ina Arteaga DCP- Discharge Planning Updated by [id number]: Ina Chandler on 08/05/18 11:[address] Attempted to meet with patient, he is getting ready to go to [place]. I will meet with him tomorrow to discuss discharge planning/needs. DCPIA - Discharge Planning Initial Assessment Updated by [id number]: Ina Arteaga on 08/06/18 1:33 pm * Is the patient Alert and Oriented? No * How many steps to enter\exit or inside your home? 3/0 * PCP Dr. Monge * Pharmacy [facility] * Preadmission Environment Home with Family * ADLs Partial Dependent * Partial ADLs (Assistance needed) Ambulation * Equipment Other Oxygen Walker Wheelchair * Other Equipment Prosthetic Leg * List name and contact numbers for known caregivers / representatives who currently or will assist patient after discharge: Khurram Bose - brother - [phone] * Verbal permission to speak to the caregivers and representatives has been obtained from the patient. Yes * Community resources currently utilized None * Please name any agencies selected above. Oxygen from [employer] [facility] Prosthetic from [employer] * Additional services required to return to the preadmission environment? No * Can the patient safely return to the preadmission environment? Yes * Has this patient been hospitalized within the prior 30 days at any hospital? No Coverage Notice Reviewer: [id number] Abraham Langford Notice Issued Date-Time: 08/20/2018 10:04 Notice Type: Patient Choice Letter Notice Delivered To: Patient Relationship to Patient: [employer] Spray Supervisor Name: Delivery Method: HAND - Hand Delivered Mary Days: Prior Verbal Notification: Recipient Understood Notice: Yes Recipient Signature: Yes Med Rec Note Co-signed by Attending: Coverage Notice Comment: perla for [facility] Last DP export: 08/20/18 9:08 a Patient Name: CLAUDIA SUGGS Page 13940 at 1101 All edits/amendments must be made on the electronic document DICTATION DATE: 08/20/18 1100 ELECTRONIC GLUER: MADISYN 08/20/18 1100 RPT#: [id number] DC DATE: STATUS: ADM IN [facility] [address] [place] [address] END OF REPORT
--- NOTE | 2018-08-20 11:17 | MORECARE ---
CASE MANAGEMENT DISCHARGE SUMMARY PATIENT: CLAUDIA SUGGS UNIT: [id number] ADM DATE: 08/03/18 AGE: 63 : 57 SEX: M ROOM/BED: D.1212 AUTHOR: ALEJANDRA,DOC PHYSICIAN: REFERRING PHYSICIAN: VIVEK MONGE MD DATE OF SERVICE: 08/20/18 Discharge Plan Patient Name: CLAUDIA SUGGS Facility: [facility]:[place] : 1955 Planned Disposition: Custodial Facility Anticipated Discharge Date: Discharge Date: Expected LOS: Initial Reviewer: [id number] Initial Review Date: 08/03/2018 Generated: 08/20/18 12:17 pm Comments DCP- Discharge Planning Updated by [id number]: Justa Langford on 08/20/18 9:[address] Patient Name: CLAUDIA SUGGS Admission Status: ER Accout number: [id number] Admission Date: 08-03-2018 : 1955 Admission Diagnosis:RIGHT UPPER QUADRANT PAIN Attending: VIVEK MONGE Current LOS: 17 Anticipated DC Date: Planned Disposition: Home Primary Insurance: [facility] MEDICARE SOLUTIONS Discharge Planning Comments: CM MET WITH PATIENT ABOUT DC PLANNING. PATIENT WILL NEED A SNF. [facility] SIGNED FOR [facility]. CM WILL FOLLOW AND ASSIST NEEDED WITH DC PLANNING/NEEDS. Engineering Document Control Clerk: Justa Langford DCP- Discharge Planning Updated by [email or web address]: María Gallagher on 08/12/18 5:[address] CM spoke with Khurram Bose whom is listed as patient's contact. Khurram stated that he is patient's best friend. They consider each others as brothers. Khurram states that the patient doesn't have any family that he is in contact with. The patient has two estranged sons that he hasn't seen in over 25 yrs. and a daughter that no one knows how to contact her. No siblings and parents are . CM asked if there was any plans for patient upon discharge. Khurram states he doesn't know he hopes that the patient turns around soon. He states that he could stay with him until he gets back on his feet. At this time the patient is unable to make decisions for himself and there isn't any family or POA to make decisions for him. CM will continue to follow and assist as needed with discharge planning / needs. DCP- Discharge Planning Updated by [id number]: Ina Alforddeirdre on 08/06/18 11:[address] Patient Name: CLAUDIA SUGGS Admission Status: ER Accout number: [id number] Admission Date: 08-03-2018 : 1955 Admission Diagnosis:RIGHT UPPER QUADRANT PAIN Attending: VIVEK MONGE Current LOS: 3 Anticipated DC Date: Planned Disposition: Home Primary Insurance: [facility] MEDICARE SOLUTIONS Discharge Planning Comments: CM met with patient to discuss discharge planning, he is alone in the room. He is oriented and answers questions appropriately, he does seem drowsy. States he has still been living with his brother, Khurram, he will take him home on discharge. States that he is usually now in a self propelled wheelchair. States he also has a walker. States he no longer is using home health and does not feel he will need them at discharge. He has had [facility] in the past. He states he uses oxygen as needed and gets supplies from [employer]. CM will continue to follow and assist with discharge planning/needs. Engineering Document Control Clerk: Ina Arteaga DCP- Discharge Planning Updated by [id number]: Ina Chandler on 08/05/18 11:[address] Attempted to meet with patient, he is getting ready to go to [place]. I will meet with him tomorrow to discuss discharge planning/needs. DCPIA - Discharge Planning Initial Assessment Updated by [id number]: Ina Arteaga on 08/06/18 1:33 pm * Is the patient Alert and Oriented? No * How many steps to enter\exit or inside your home? 3/0 * PCP Dr. Monge * Pharmacy [facility] * Preadmission Environment Home with Family * ADLs Partial Dependent * Partial ADLs (Assistance needed) Ambulation * Equipment Other Oxygen Walker Wheelchair * Other Equipment Prosthetic Leg * List name and contact numbers for known caregivers / representatives who currently or will assist patient after discharge: Khurram Bose - brother - [phone] * Verbal permission to speak to the caregivers and representatives has been obtained from the patient. Yes * Community resources currently utilized None * Please name any agencies selected above. Oxygen from [employer] [facility] Prosthetic from [employer] * Additional services required to return to the preadmission environment? No * Can the patient safely return to the preadmission environment? Yes * Has this patient been hospitalized within the prior 30 days at any hospital? No External Providers External Provider: [facility] Next Contact Date: Service Request Date: Service Type: Resolution: Reviewer: Comments: Coverage Notice Reviewer: [id number] - Justa Anastasiya Notice Issued Date-Time: 08/20/2018 10:04 Notice Type: Patient Choice Letter Notice Delivered To: Patient Relationship to Patient: Derivatives Trader Name: Delivery Method: HAND - Hand Delivered Mary Days: Prior Verbal Notification: Recipient Understood Notice: Yes Recipient Signature: Yes Med Rec Note Co-signed by Attending: Coverage Notice Comment: gita for [facility]IONELANTONIO W[facility]ER[facility] Last DP export: 08/20/18 10:01 a Patient Name: CLAUDIA SUGGS Page 60771 at 1117 All edits/amendments must be made on the electronic document DICTATION DATE: 08/20/18 1116 RUBY RAILS DEVELOPER: MADISYN 08/20/18 1116 RPT#: [id number] DC DATE: STATUS: ADM IN [facility] [address] [place] [address] END OF REPORT
--- NOTE | 2018-08-20 11:26 | MORECARE ---
CASE MANAGEMENT DISCHARGE SUMMARY PATIENT: CLAUDIA SUGGS UNIT: [id number] ADM DATE: 08/03/18 AGE: 63 : 57 SEX: M ROOM/BED: D.1212 AUTHOR: ALEJANDRA,DOC PHYSICIAN: REFERRING PHYSICIAN: VIVEK MONGE MD DATE OF SERVICE: 08/20/18 Discharge Plan Patient Name: CLAUDIA SUGGS Facility: [facility]:[place] : 1955 Planned Disposition: Detention Facility Anticipated Discharge Date: Discharge Date: Expected LOS: Initial Reviewer: [email or web address] Initial Review Date: 08/03/2018 Generated: 08/20/18 12:26 pm Comments DCP- Discharge Planning Updated by [email or web address]: Justa Langford on 08/20/18 10:[address] Patient Name: CLAUDIA SUGGS Admission Status: ER Accout number: [id number] Admission Date: 08-03-2018 : 1955 Admission Diagnosis:RIGHT UPPER QUADRANT PAIN Attending: VIVEK MONGE Current LOS: 17 Anticipated DC Date: Planned Disposition: Home Primary Insurance: [facility] MEDICARE SOLUTIONS Discharge Planning Comments: CM MET WITH PATIENT ABOUT DC PLANNING. PATIENT WILL NEED A SNF. [facility] SIGNED FOR [facility]. CM WILL FOLLOW AND ASSIST NEEDED WITH DC PLANNING/NEEDS. Manager Asset Management: Justa Langford Appended by Justa Langford on 08/20/2018 11:19 CDT: REFERRAL DOCUMENTS FAXED TO [facility]. WAITING FOR CALL BACK. DCP- Discharge Planning Updated by [email or web address]: María Gallagher on 08/12/18 5:[address] CM spoke with Khurram Bose whom is listed as patient's contact. Khurram stated that he is patient's best friend. They consider each others as brothers. Khurram states that the patient doesn't have any family that he is in contact with. The patient has two estranged sons that he hasn't seen in over 25 yrs. and a daughter that no one knows how to contact her. No siblings and parents are . CM asked if there was any plans for patient upon discharge. Khurram states he doesn't know he hopes that the patient turns around soon. He states that he could stay with him until he gets back on his feet. At this time the patient is unable to make decisions for himself and there isn't any family or POA to make decisions for him. CM will continue to follow and assist as needed with discharge planning / needs. DCP- Discharge Planning Updated by [email or web address]: Ina Arteaga on 08/06/18 11:[address] Patient Name: CLAUDIA SUGGS Admission Status: ER Accout number: [id number] Admission Date: 08-03-2018 : 1955 Admission Diagnosis:RIGHT UPPER QUADRANT PAIN Attending: VIVEK MONGE Current LOS: 3 Anticipated DC Date: Planned Disposition: Home Primary Insurance: [facility] [employer]UTIONS Discharge Planning Comments: CM met with patient to discuss discharge planning, he is alone in the room. He is oriented and answers questions appropriately, he does seem drowsy. States he has still been living with his brother, Khurram, he will take him home on discharge. States that he is usually now in a self propelled wheelchair. States he also has a walker. States he no longer is using home health and does not feel he will need them at discharge. He has had [facility] in the past. He states he uses oxygen as needed and gets supplies from [facility]. CM will continue to follow and assist with discharge planning/needs. Manager Asset Management: Ina Arteaga DCP- Discharge Planning Updated by [email or web address]: Ina Arteaga on 08/05/18 11:[address] Attempted to meet with patient, he is getting ready to go to [place]. I will meet with him tomorrow to discuss discharge planning/needs. DCPIA - Discharge Planning Initial Assessment Updated by [id number]: Ina Alforddeirdre on 08/06/18 1:33 pm * Is the patient Alert and Oriented? No * How many steps to enter\exit or inside your home? 3/0 * PCP Dr. Monge * Pharmacy [facility] * Preadmission Environment Home with Family * ADLs Partial Dependent * Partial ADLs (Assistance needed) Ambulation * Equipment Other Oxygen Walker Wheelchair * Other Equipment Prosthetic Leg * List name and contact numbers for known caregivers / representatives who currently or will assist patient after discharge: Khurram Bose - brother - [phone] * Verbal permission to speak to the caregivers and representatives has been obtained from the patient. Yes * Community resources currently utilized None * Please name any agencies selected above. Oxygen from [facility] Prosthetic from [employer] * Additional services required to return to the preadmission environment? No * Can the patient safely return to the preadmission environment? Yes * Has this patient been hospitalized within the prior 30 days at any hospital? No Coverage Notice Reviewer: [id number] Abraham Langford Notice Issued Date-Time: 08/20/2018 10:04 Notice Type: Patient Choice Letter Notice Delivered To: Patient Relationship to Patient: Personnel Records Clerk Name: Delivery Method: HAND - Hand Delivered Mary Days: Prior Verbal Notification: Recipient Understood Notice: Yes Recipient Signature: Yes Med Rec Note Co-signed by Attending: Coverage Notice Comment: perla for [facility] Last DP export: 08/20/18 10:17 a Patient Name: CLAUDIA SUGGS Page 04227 at 1126 All edits/amendments must be made on the electronic document DICTATION DATE: 08/20/18 1125 ELECTRICIAN TELEPHONE: MADISYN 08/20/18 1125 RPT#: [id number] DC DATE: STATUS: ADM IN [facility] [address] [place] [address] END OF REPORT
--- NOTE | 2018-08-20 14:00 | NUR ---
PT ARRIVES TO ROOM VIA BED TRANSPORTED BY HOSPITAL STAFF. PT WITH LAP SITES X 4 WITH SCANT AMOUNT OF DRAINAGE. 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 PT IS AAO X 4 AND ANSWERS QUESTIONS APPROPRIATELY. PT REPORTS PAIN IN ABDOMINAL AREA /. WILL REPORT TO SHIFT NURSE TO ADDRESS. PT DENIES FURTHER NEEDS AT THIS TIME. PT DENIES PRESENCE OF N/V. RESPIRATIONS ARE EVEN AND UNLABORED. BED IS IN THE LOWEST POSITION. CALL LIGHT AND BEDSIDE TABLE ARE WITHIN REACH. BED ALARM IS ON AND WORKING. PT DOES NOT HAVE ON SCDS AT THIS TIME. WILL REPORT FINDINGS TO SHIFT NURSE.
--- NOTE | 2018-08-20 14:14 | NUR ---
REPORT CALLED TO [facility] ROOM 2237 TO TRANSFER PT D/T BATHROOM FLOODING.
--- NOTE | 2018-08-20 14:41 | NUR ---
PATIENT TRANSFERRED FROM [facility] TO [facility] SURG. VIA BED, SKIN W/D TO TOUCH, COLOR PINK, RESP. REGULAR AND EVEN AT 20. PATIENT C/O PAIN AND NORCO 10 1 PO GIVEN. ALERT AND ORIENTED TO ROOM AND STAFF. C/L WITHIN REACH AND SR'S UP X'S 2.
[2018-08-20 20:00] VITALS: BP 98/64
--- NOTE | 2018-08-20 20:00 | NUR ---
ALERT AND ORIENTIATED RESTING IN BED O2 IN USE, ABD INCISIONS NOTED WITH STERISTRIPS SEROUS DRAINAGE NOTED FROM LAP INCISIONS, SEE SHIFT ASSESSMENT
[2018-08-21 04:00] VITALS: BP 99/61
--- NOTE | 2018-08-21 07:12 | NUR ---
PT IS RESTING IN BED WITH EYES CLOSED. RESPIRATIONS ARE EVEN AND UNLABORED. PT WITH LEFT BKA. PT HAS PROSTHESIS AT BEDSIDE. PT IS EASILY AROUSED WITH VERBAL STIMULATION. PT REPORTS PAIN BUT DENIES NEEDS AT THIS TIME. FALL PRECAUTIONS ARE IN PLACE. BED ALARM IS ON AND WORKING. BED IS IN THE LOWEST POSITION. CALL LIGHT AND BEDSIDE TABLE ARE WITHIN REACH. PT DENIES FURTHER NEEDS. WILL CONT TO MONITOR.
--- NOTE | 2018-08-21 08:17 | NUR ---
PT OFF FLOOR FOR PIPIDA SCAN. PT TRANSPORTED VIA WHEELCHAIR.
--- NOTE | 2018-08-21 09:28 | NUR ---
PT RETURNED FROM PROCEDURE. PT REPORTS PAIN /. NPO STATUS CONTINUED. BED IS IN THE LOWEST POSITION. CALL LIGHT AND BEDSIDE TABLE ARE WITHIN REACH. PROSTHETIC IS WITHIN REACH. PT DENIES FURTHER NEEDS AT THIS TIME. WILL ADDRESS PAIN. WILL CONT TO MONITOR.
[2018-08-21 09:30] VITALS: BP 105/71
--- NOTE | 2018-08-21 10:12 | NUR ---
CONSENTS FOR DIAGNOSTIC LAPAROSCOPY COVERED WITH PT. ALL QUESTIONS ANSWERED. CONSENTS SIGNED. PT DENIES FURTHER QUESTIONS/CONCERNS AT THIS TIME. SIGNED CONSENTS PLACED IN PT CHART.
--- NOTE | 2018-08-21 11:48 | MORECARE ---
CASE MANAGEMENT DISCHARGE SUMMARY PATIENT: CLAUIDA SUGGS UNIT: [id number] ADM DATE: 08/03/18 AGE: 63 : 57 SEX: M ROOM/BED: D.2237 AUTHOR: ALEJANDRA,DOC PHYSICIAN: REFERRING PHYSICIAN: VIVEK MONGE MD DATE OF SERVICE: 08/21/18 Discharge Plan Patient Name: CLAUDIA SUGGS Facility: [facility]:[place] : 1955 Planned Disposition: Snf Facility Anticipated Discharge Date: Discharge Date: Expected LOS: Initial Reviewer: [id number] Initial Review Date: 08/03/2018 Generated: 08/21/18 12:48 pm Comments DCP- Discharge Planning Updated by [email or web address]: Ina Arteaga on 08/21/18 10:[address] I spoke with Mayi at [facility] to check on skilled status and she has not received a fax for patient. I faxed face sheet so they could run his insurance to see if he is in network. CM will continue to follow and assist with discharge planning/needs. DCP- Discharge Planning Updated by [email or web address]: Justa Langford on 08/20/18 10:[address] Patient Name: CLAUDIA SUGGS Admission Status: ER Accout number: [id number] Admission Date: 08-03-2018 : 1955 Admission Diagnosis:RIGHT UPPER QUADRANT PAIN Attending: VIVEK MONGE Current LOS: 17 Anticipated DC Date: Planned Disposition: Home Primary Insurance: [facility] MEDICARE SOLUTIONS Discharge Planning Comments: CM MET WITH PATIENT ABOUT DC PLANNING. PATIENT WILL NEED A SNF. PERLA SIGNED FOR [facility]. CM WILL FOLLOW AND ASSIST NEEDED WITH DC PLANNING/NEEDS. Production Line Assembler: Justa Langford Appended by Justa Langford on 08/20/2018 11:19 CDT: REFERRAL DOCUMENTS FAXED TO [facility]. WAITING FOR CALL BACK. DCP- Discharge Planning Updated by [id number]: María Gallagher on 08/12/18 5:[address] CM spoke with Khurram Bose whom is listed as patient's contact. Khurram stated that he is patient's best friend. They consider each others as brothers. Khurram states that the patient doesn't have any family that he is in contact with. The patient has two estranged sons that he hasn't seen in over 25 yrs. and a daughter that no one knows how to contact her. No siblings and parents are . CM asked if there was any plans for patient upon discharge. Khurram states he doesn't know he hopes that the patient turns around soon. He states that he could stay with him until he gets back on his feet. At this time the patient is unable to make decisions for himself and there isn't any family or POA to make decisions for him. CM will continue to follow and assist as needed with discharge planning / needs. DCP- Discharge Planning Updated by [email or web address]: Ina Arteaga on 08/06/18 11:[address] Patient Name: CLAUDIA SUGGS Admission Status: ER Accout number: [id number] Admission Date: 08-03-2018 : 1955 Admission Diagnosis:RIGHT UPPER QUADRANT PAIN Attending: VIVEK MONGE Current LOS: 3 Anticipated DC Date: Planned Disposition: Home Primary Insurance: [facility] MEDICARE SOLUTIONS Discharge Planning Comments: CM met with patient to discuss discharge planning, he is alone in the room. He is oriented and answers questions appropriately, he does seem drowsy. States he has still been living with his brother, Khurram, he will take him home on discharge. States that he is usually now in a self propelled wheelchair. States he also has a walker. States he no longer is using home health and does not feel he will need them at discharge. He has had [facility] in the past. He states he uses oxygen as needed and gets supplies from [facility]. CM will continue to follow and assist with discharge planning/needs. Production Line Assembler: Ina Arteaga DCP- Discharge Planning Updated by [id number]: Ina Arteaga on 08/05/18 11:[address] Attempted to meet with patient, he is getting ready to go to [place]. I will meet with him tomorrow to discuss discharge planning/needs. DCPIA - Discharge Planning Initial Assessment Updated by [email or web address]: Ina Arteaga on 08/06/18 1:33 pm * Is the patient Alert and Oriented? No * How many steps to enter\exit or inside your home? 3/0 * PCP Dr. Monge * Pharmacy [place] * Preadmission Environment Home with Family * ADLs Partial Dependent * Partial ADLs (Assistance needed) Ambulation * Equipment Other Oxygen Walker Wheelchair * Other Equipment Prosthetic Leg * List name and contact numbers for known caregivers / representatives who currently or will assist patient after discharge: Khurram quick - [phone] * Verbal permission to speak to the caregivers and representatives has been obtained from the patient. Yes * Community resources currently utilized None * Please name any agencies selected above. Oxygen from [facility] Prosthetic from [employer] * Additional services required to return to the preadmission environment? No * Can the patient safely return to the preadmission environment? Yes * Has this patient been hospitalized within the prior 30 days at any hospital? No External Providers [facility] Provider[facility] Next Contact Date: Service Request Date: Service Type: Resolution: Reviewer: Comments: Coverage Notice Reviewer: [id number] - Justa Langford Notice Issued Date-Time: 08/20/2018 10:04 Notice Type: Patient Choice Letter Notice Delivered To: Patient Relationship to Patient: Fur Polisher Name: Delivery Method: HAND - Hand Delivered Mary Days: Prior Verbal Notification: Recipient Understood Notice: Yes Recipient Signature: Yes Med Rec Note Co-signed by Attending: Coverage Notice Comment: perla for [facility] Last DP export: 08/20/18 10:26 a Patient Name: CLAUDIA SUGGS Page [id number] at 1148 All edits/amendments must be made on the electronic document DICTATION DATE: 08/21/18 1148 TRACER BULLET SECTION SUPERVISOR: MADISYN 08/21/18 1148 RPT#: [id number] DC DATE: STATUS: ADM IN [facility] [address] [place] [address] END OF REPORT
--- NOTE | 2018-08-21 13:34 | NUR ---
OT NOTE: NURSING REPORTS THAT PT IS IN PAIN BUT UNABLE TO BE PROVIDED WITH PAIN MED AT THIS TIME. STATES THAT HE HAD A PROEDURE EARLIER THIS AM AND WILL BE HAVING ANOTHER AT SOME TIME TODAY. SUGGESTED TO HOLD ON THERAPY AT THIS TIME.KEYUR REYNOSO, OTR/L
[2018-08-21 13:37] VITALS: BP 117/77
--- NOTE | 2018-08-21 15:28 | MORECARE ---
CASE MANAGEMENT DISCHARGE SUMMARY PATIENT: CLAUDIA SUGGS UNIT: [id number] ADM DATE: 08/03/18 AGE: 63 : 57 SEX: M ROOM/BED: D.2237 AUTHOR: ALEJANDRA,DOC PHYSICIAN: REFERRING PHYSICIAN: VIVEK MONGE MD DATE OF SERVICE: 08/21/18 Discharge Plan Patient Name: CLAUDIA SUGGS Facility: [facility]:[place] : 1955 Planned Disposition: Prison Facility Anticipated Discharge Date: Discharge Date: Expected LOS: Initial Reviewer: [id number] Initial Review Date: 08/03/2018 Generated: 08/21/18 4:28 pm Comments DCP- Discharge Planning Updated by [id number]: Ina Arteaga on 08/21/18 2:[address] Received a call from Rhina at [facility] and they will accept his insurance, he will need preauthorization. Clinical faxed to [facility]. CM will continue to follow and assist with discharge planning/needs. DCP- Discharge Planning Updated by [id number]: Ina Arteaga on 08/21/18 10:[address] I spoke with Mayi at [facility] to check on skilled status and she has not received a fax for patient. I faxed face sheet so they could run his insurance to see if he is in network. CM will continue to follow and assist with discharge planning/needs. DCP- Discharge Planning Updated by [email or web address]: Justa Langford on 08/20/18 10:[address] Patient Name: CLAUDIA SUGGS Admission Status: ER Accout number: [id number] Admission Date: 08-03-2018 : 1955 Admission Diagnosis:RIGHT UPPER QUADRANT PAIN Attending: VIVEK MONGE Current LOS: 17 Anticipated DC Date: Planned Disposition: Home Primary Insurance: [facility] MEDIC[facility] SOLUTIONS Discharge Planning Comments: CM MET WITH PATIENT ABOUT DC PLANNING. PATIENT WILL NEED A SNF. PERLA SIGNED FOR [facility]. CM WILL FOLLOW AND ASSIST NEEDED WITH DC PLANNING/NEEDS. Sample Supervisor: Justa Langford Appended by Justa Langford on 08/20/2018 11:19 CDT: REFERRAL DOCUMENTS FAXED TO [facility]. WAITING FOR CALL BACK. DCP- Discharge Planning Updated by [id number]: María Gallagher on 08/12/18 5:[address] CM spoke with Khurram Bose whom is listed as patient's contact. Khurram stated that he is patient's best friend. They consider each others as brothers. Khurram states that the patient doesn't have any family that he is in contact with. The patient has two estranged sons that he hasn't seen in over 25 yrs. and a daughter that no one knows how to contact her. No siblings and parents are . CM asked if there was any plans for patient upon discharge. Khurram states he doesn't know he hopes that the patient turns around soon. He states that he could stay with him until he gets back on his feet. At this time the patient is unable to make decisions for himself and there isn't any family or POA to make decisions for him. CM will continue to follow and assist as needed with discharge planning / needs. DCP- Discharge Planning Updated by [email or web address]: Ina Arteaga on 08/06/18 11:[address] Patient Name: CLAUDIA SUGGS Admission Status: ER Accout number: [id number] Admission Date: 08-03-2018 : 1955 Admission Diagnosis:RIGHT UPPER QUADRANT PAIN Attending: VIVEK MONGE Current LOS: 3 Anticipated DC Date: Planned Disposition: Home Primary Insurance: [facility] MED[employer] SOLUTIONS Discharge Planning Comments: CM met with patient to discuss discharge planning, he is alone in the room. He is oriented and answers questions appropriately, he does seem drowsy. States he has still been living with his brother, Khurram, he will take him home on discharge. States that he is usually now in a self propelled wheelchair. States he also has a walker. States he no longer is using home health and does not feel he will need them at discharge. He has had [facility] in the past. He states he uses oxygen as needed and gets supplies from [facility]. CM will continue to follow and assist with discharge planning/needs. Sample Supervisor: Ina Arteaga DCP- Discharge Planning Updated by [email or web address]: Ina Arteaga on 08/05/18 11:[address] Attempted to meet with patient, he is getting ready to go to [place]. I will meet with him tomorrow to discuss discharge planning/needs. DCPIA - Discharge Planning Initial Assessment Updated by [email or web address]: Ina Chandler on 08/06/18 1:33 pm * Is the patient Alert and Oriented? No * How many steps to enter\exit or inside your home? 3/0 * PCP Dr. Monge * Pharmacy [facility] * Preadmission Environment Home with Family * ADLs Partial Dependent * Partial ADLs (Assistance needed) Ambulation * Equipment Other Oxygen Walker Wheelchair * Other Equipment Prosthetic Leg * List name and contact numbers for known caregivers / representatives who currently or will assist patient after discharge: Khurram Bose - [phone] * Verbal permission to speak to the caregivers and representatives has been obtained from the patient. Yes * Community resources currently utilized None * Please name any agencies selected above. Oxygen from [facility] Prosthetic from [facility] * Additional services required to return to the preadmission environment? No * Can the patient safely return to the preadmission environment? Yes * Has this patient been hospitalized within the prior 30 days at any hospital? No Coverage Notice Reviewer: [id number] Abraham Langford Notice Issued Date-Time: 08/20/2018 10:04 Notice Type: Patient Choice Letter Notice Delivered To: Patient Relationship to Patient: Nature Photographer Name: Delivery Method: HAND - Hand Delivered Mary Days: Prior Verbal Notification: Recipient Understood Notice: Yes Recipient Signature: Yes Med Rec Note Co-signed by Attending: Coverage Notice Comment: perla for [facility] [place] Last DP export: 08/21/18 10:48 a Patient Name: CLAUDIA SUGGS Page 53576 at 1528 All edits/amendments must be made on the electronic document DICTATION DATE: 08/21/181526 LAMP ASSEMBLER: MADISYN 08/21/18 152 RPT#: [id number] DC DATE: STATUS: ADM IN [facility] [address] [place] [address] END OF REPORT
[2018-08-21 17:34] VITALS: BP 110/77
--- NOTE | 2018-08-21 17:36 | NUR ---
PT SURGERY CANCELLED FOR THIS DAY. RESCHEDULED FOR AM. PT TO BE NPO AFTER MIDNIGHT FOR PROCEDURE. PT IS ABLE TO EAT NOW. TRAY AT BEDSIDE. PT IS AWARE. PT DENIES FURTHER QUESTIONS/CONCERNS/NEEDS AT THIS TIME. WILL CONT TO MONITOR.
--- NOTE | 2018-08-21 19:15 | NUR ---
AWAKE AND ALERT BED IS LOW WITH SRX2 AND CALL LIGHT IN REACH ...LCTA ABD TENDER WITH DRSG OVER 4 SITES NO DRAINAGE AT THIS TIME IV TO A LEFT SIDE MED PORT SKIN WARM AND DRY
[2018-08-21 20:00] VITALS: BP 110/68
[2018-08-22] VITALS: BP 98/57
--- NOTE | 2018-08-22 02:05 | NUR ---
REMOVED OTERO NEEDLE FROM LEFT INFUSAPORT IT WAS OCCLUDED. RE-ACCESSED USING 19 GUAGE 1 INCH OTERO NEEDLE USING STERILE TECHNIQUE. FLUSHED WELL AND HAS BLOOD RETURN. PT TOLERATED WELL.
--- NOTE | 2018-08-22 03:10 | NUR ---
I have reviewed this patient and I concur with the Shift Assessment completed by the Licensed Practical Nurse today this shift.
[2018-08-22 04:00] VITALS: BP 94/56
--- NOTE | 2018-08-22 07:05 | NUR ---
LAYING IN BED, PORT TO LEFT CHEST, INFUSING D51/2NS, EASILY AROUSED BY VOICE, ON ROOM AIR, DENIES ANY CURRENT NEEDS OR DISCOMFORTS, NPO SINCE MIDNIGHT, BED LOWERED AND LOCKED, CALL LIGHT WITHIN REACH. CPOC
[2018-08-22 09:18] VITALS: BP 112/71
--- NOTE | 2018-08-22 11:56 | NUR ---
PRE OP COMPLETED. TRANSPORTED OFF UNIT VIA BED.
--- NOTE | 2018-08-22 12:48 | MORECARE ---
CASE MANAGEMENT DISCHARGE SUMMARY PATIENT: CLAUDIA SUGGS UNIT: [id number] ADM DATE: 08/03/18 AGE: 63 : 57 SEX: M ROOM/BED: D.2237 AUTHOR: ALEJANDRA,DOC PHYSICIAN: REFERRING PHYSICIAN: VIVEK MONGE MD DATE OF SERVICE: 08/22/18 Discharge Plan Patient Name: CLAUDIA SUGGS Facility: [facility]:[place] : 1955 Planned Disposition: Snf Facility Anticipated Discharge Date: Discharge Date: Expected LOS: Initial Reviewer: [id number] Initial Review Date: 08/03/2018 Generated: 08/22/18 1:48 pm Comments DCP- Discharge Planning Updated by [email or web address]: Ina Arteaga on 08/22/18 11:[address] Received a call from Mayi at [facility] and she states they are not able to accept patient to their facility related to insurance and acuity. I called Kenya at [facility] (2nd choice) and referral sent. Patient is in surgery at this time, I will meet with him later. CM will continue to follow and assist with discharge planning/needs. DCP- Discharge Planning Updated by [id number]: Ina Arteaga on 08/21/18 2:[address] Received a call from Rhina at [facility] and they will accept his insurance, he will need preauthorization. Clinical faxed to [facility]. CM will continue to follow and assist with discharge planning/needs. DCP- Discharge Planning Updated by [id number]: Ina Arteaga on 08/21/18 10:[address] I spoke with Mayi at [facility] to check on skilled status and she has not received a fax for patient. I faxed face sheet so they could run his insurance to see if he is in network. CM will continue to follow and assist with discharge planning/needs. DCP- Discharge Planning Updated by [id number]: Justa Langford on 08/20/18 10:[address] Patient Name: CLAUDIA SUGGS Admission Status: ER Accout number: [id number] Admission Date: 08-03-2018 : 1955 Admission Diagnosis:RIGHT UPPER QUADRANT PAIN Attending: VIVEK MONGE Current LOS: 17 Anticipated DC Date: Planned Disposition: Home Primary Insurance: [facility] MEDICARE SOLUTIONS Discharge Planning Comments: CM MET WITH PATIENT ABOUT DC PLANNING. PATIENT WILL NEED A SNF. GITA SIGNED FOR [facility]. CM WILL FOLLOW AND ASSIST NEEDED WITH DC PLANNING/NEEDS. Segregator: Justa Langford Appended by Justa Langford on 08/20/2018 11:19 CDT: REFERRAL DOCUMENTS FAXED TO [facility]. WAITING FOR CALL BACK. DCP- Discharge Planning Updated by [id number]: María Gallagher on 08/12/18 5:[address] CM spoke with Khurram Bose whom is listed as patient's contact. Khurram stated that he is patient's best friend. They consider each others as brothers. Khurram states that the patient doesn't have any family that he is in contact with. The patient has two estranged sons that he hasn't seen in over 25 yrs. and a daughter that no one knows how to contact her. No siblings and parents are . CM asked if there was any plans for patient upon discharge. Khurram states he doesn't know he hopes that the patient turns around soon. He states that he could stay with him until he gets back on his feet. At this time the patient is unable to make decisions for himself and there isn't any family or POA to make decisions for him. CM will continue to follow and assist as needed with discharge planning / needs. DCP- Discharge Planning Updated by [email or web address]: Ina Arteaga on 08/06/18 11:[address] Patient Name: CLAUDIA SUGGS Admission Status: ER Accout number: [id number] Admission Date: 08-03-2018 : 1955 Admission Diagnosis:RIGHT UPPER QUADRANT PAIN Attending: VIVEK MONGE Current LOS: 3 Anticipated DC Date: Planned Disposition: Home Primary Insurance: [facility] [employer] SOLUTIONS Discharge Planning Comments: CM met with patient to discuss discharge planning, he is alone in the room. He is oriented and answers questions appropriately, he does seem drowsy. States he has still been living with his brother, Khurram, he will take him home on discharge. States that he is usually now in a self propelled wheelchair. States he also has a walker. States he no longer is using home health and does not feel he will need them at discharge. He has had [facility] in the past. He states he uses oxygen as needed and gets supplies from [facility]. CM will continue to follow and assist with discharge planning/needs. Segregator: Ina Arteaga DCP- Discharge Planning Updated by [id number]: Ina Arteaga on 08/05/18 11:[address] Attempted to meet with patient, he is getting ready to go to [place]. I will meet with him tomorrow to discuss discharge planning/needs. DCPIA - Discharge Planning Initial Assessment Updated by [id number]: Ina Arteaga on 08/06/18 1:33 pm * Is the patient Alert and Oriented? No * How many steps to enter\exit or inside your home? 0 * PCP Dr. Monge * Pharmacy [facility] * Preadmission Environment Home with Family * ADLs Partial Dependent * Partial ADLs (Assistance needed) Ambulation * Equipment Other Oxygen Walker Wheelchair * Other Equipment Prosthetic Leg * List name and contact numbers for known caregivers / representatives who currently or will assist patient after discharge: Khurram [facility] [phone] * Verbal permission to speak to the caregivers and representatives has been obtained from the patient. Yes * Community resources currently utilized None * Please name any agencies selected above. Oxygen from [facility] Prosthetic from [facility] * Additional services required to return to the preadmission environment? No * Can the patient safely return to the preadmission environment? Yes * Has this patient been hospitalized within the prior 30 days at any hospital? No External Providers External Provider: [facility] Next Contact Date: Service Request Date: Service Type: Resolution: Reviewer: Comments: External Provider: [facility] Next Contact Date: Service Request Date: Service Type: Resolution: Reviewer: Comments: Coverage Notice Reviewer: [email or web address] Abraham Langford Notice Issued Date-Time: 08/20/2018 10:04 Notice Type: Patient Choice Letter Notice Delivered To: Patient Relationship to Patient: Mathematics Instructor Name: Delivery Method: HAND - Hand Delivered Mary Days: Prior Verbal Notification: Recipient Understood Notice: Yes Recipient Signature: Yes Med Rec Note Co-signed by Attending: Coverage Notice Comment: gita for [facility] Last DP export: 08/21/18 2:28 p Patient Name: CLAUDIA SUGGS Page [id number] at 1248 All edits/amendments must be made on the electronic document DICTATION DATE: 08/22/181246 PLY SPLICER: MADISYN 08/22/18 1247 RPT#: [id number] DC DATE: STATUS: ADM IN [facility] [address] [place] [address] END OF REPORT
--- NOTE | 2018-08-22 13:44 | NUR ---
NUTRITION F/U PT OOR FOR PROCEDURE. WILL PROVIDE DIET WHEN RESUMED, MONITOR PO INTAKE. MAY BENEFIT FROM PROCALAMINE. RD FOLLOWING
[2018-08-22 13:45] LABS: BASOPHILS 0.4 % (0-2); EOSINOPHILS 1.3 % (0-7); HEMOGLOBIN 7.8 g/dL (13.5-17.5); IMMATURE GRANULOCYTES 0.3 % (0-5); LYMPHOCYTES 18.6 % (15-50); MCHC 32.5 g/dL (31.0-37.0); MCV 92.3 fL (80.0-100.0); MEAN PLATELET VOLUME 8.9 fL (7.4-10.4); MONOCYTES 20.6 % (2-11); NEUTROPHILS 58.8 % (40-80); PLATELET COUNT 306 10x3/uL (130-400)
--- NOTE | 2018-08-22 15:51 | NUR ---
OBDULIO DRAIN #1 NO DRAINAGE NOTED. OBDULIO DRAIN #2 120CC EMPTIED. OBDULIO DRAIN 3# 120CC EMPTIED IN PACU.
[2018-08-22 16:13] VITALS: BP 119/71
--- NOTE | 2018-08-22 16:28 | NUR ---
RECIEVED PT BACK FROM RECOVERY ROOM, POST OP VITAL SIGNS OBTAINED, SCD APPLIED TO RIGHT LEG, THREE DRAINS TO ABD, LABELED, DRAINING BLOODY DRAINAGE, DENIES ANY CURRENT NEEDS OR DISCOMFORTS, BED LOWERED AND LOCKED, CALL LIGHT WITHIN REACH. CPOC
--- NOTE | 2018-08-22 19:15 | NUR ---
LAYING IN BED, C/O PAIN LEVEL 10/10, ON ROOM AIR, THREE OBDULIO DRAINS TO ABD, DRAINING BLOODY DRAINAGE, LOPEZ CATHETER, YELLOW DRAINAGE, DENIES ANY CURRENT NEEDS OR DISCOMFORTS, BED LOWERED AND LOCKED, CALL LIGHT WITHIN REACH. CPOC
--- NOTE | 2018-08-22 19:26 | NUR ---
RESING WITH EYES CLOSED BUT EASILY AROUSES STATES HE IS IN PAIN INTERVENTION HAS BEEN DOCUMENTED BY PREVIOUS SHIFT RESP 20 AND PULSE IS 121 SKIN IS WARM AND DRY WILL ASSESS FURTHER LATER.. BED IS LOW CALL LIGHT IN REACH
--- NOTE | 2018-08-22 19:40 | NUR ---
HR 130 BP 130/72 RESP 26 . PT IS REPORTING GREAT PAIN FROM POST OP. TYLENOL AND DILAUDID GIVEN...LCTA OBDULIO DRAINS X3 AND NO BOWEL SOUNDS PRESENT PULSES ARE PRESENT BILAT ALERT AND OX4. SKIN DRY
[2018-08-22 20:00] VITALS: BP 112/75
--- NOTE | 2018-08-22 20:52 | NUR ---
VS RECHECKED 100.5 93/57 139 15 97% LCTA PT ALERT AND ORIENTED PAIN TO 5
[2018-08-22 23:55] VITALS: BP 87/57
--- NOTE | 2018-08-23 00:10 | NUR ---
POST DILAUDID 93/50 112 83 SPO2 O2 APPLIED AND SPO2 UP 97%
--- NOTE | 2018-08-23 00:13 | NUR ---
VS 8653 110 97%
--- NOTE | 2018-08-23 00:59 | NUR ---
OBDULIO DRAINS REMAIN CHARGED...VS 108 18 99% ON 2L RESTING WITH EYES CLOSED
--- NOTE | 2018-08-23 01:25 | NUR ---
REFUSES TO WEAR O2 NOW AND AWAKE 115/55 103 16 86% ALL 3 OBDULIO DRAINS ARE CHARGED
--- NOTE | 2018-08-23 02:12 | NUR ---
I have reviewed this patient and I concur with the Shift Assessment completed by the Licensed Practical Nurse today this shift.
--- NOTE | 2018-08-23 02:20 | NUR ---
SPO2 READING 82% CONVINCED TO PUT ON O2, UP TO 95% ON 2L VS 98/64 107 18
--- NOTE | 2018-08-23 02:22 | NUR ---
REQUESTED PAIN PILL
--- NOTE | 2018-08-23 03:46 | NUR ---
AT REST WITH EYES CLOSED POST DILAUDID..VS 99/59 98 16 100% ..SKIN WARM AND DRY OBDULIO DRAINS TIMES 3 CHARGED
[2018-08-23 04:00] VITALS: BP 105/53
--- NOTE | 2018-08-23 04:22 | NUR ---
ATTEMPTED X2 TO RETRIEVE BLOOD FROM MED PORT WITHOUT SUCCESS FLUSHES WELL POST ATTEMPTS
--- NOTE | 2018-08-23 05:09 | NUR ---
AWAKE AND DEMANDING PAIN MEDS...TYLENOL AND ZOFRAN GIVEN DUE TO DILAUDID NOT DUE AND PAIN IS ABD
--- NOTE | 2018-08-23 08:36 | NUR ---
LAYING IN BED, ON ROOM AIR, 02 AT 96%, BLOOD DRAW FROM PORT ATTEMPTED, ONLY RECIEVED 5ML OF BLOOD RETURN AND IT STOPPED, FLUSHED WITH 10ML, NO ISSUES, C/O PAIN 02/10, ESPECIALLY WITH MOVEMENT, TREATED PAIN WITH IV DILAUDID AT 0735. DENIES ANY OTHER NEEDS OR DISCOMFORTS, BED LOWERED AND LOCKED, CALL LIGHT WITHIN REACH. CPOC
[2018-08-23 08:44] LABS: HEMOGLOBIN 7.8 g/dL (13.5-17.5); MCH 30.2 pg (26.0-34.0); MCHC 32.5 g/dL (31.0-37.0); MEAN PLATELET VOLUME 8.7 fL (7.4-10.4); PLATELET COUNT 323 10x3/uL (130-400); RBC 2.58 10x6/uL (4.20-6.10); RDW 16.2 % (11.5-14.5)
[2018-08-23 08:48] LABS: WBC 11.3 10x3/uL (4.8-10.8)
[2018-08-23 09:04] VITALS: BP 90/45
[2018-08-23 09:04] LABS: LYMPHOCYTES 10 % (15-50); MONOCYTES 12 % (2-11); NEUTROPHILS 77 % (40-80); PLATELET ESTIMATE NORMAL
[2018-08-23 09:05] LABS: ANISOCYTOSIS 2+; HYPOCHROMASIA 2+
[2018-08-23 09:06] LABS: ALBUMIN 2.1 g/dL (3.4-5.0); ALKALINE PHOSPHATASE 227 U/L (46-116); ALT (SGPT) 24 U/L (10-68); BILIRUBIN - TOTAL 0.54 mg/dL (0.2-1.3); CALC OSMOLALITY 273 mosm/kg (275-300); CALCIUM 8.8 mg/dL (8.5-10.1); CARBON DIOXIDE 32.2 mmol/L (21.0-32.0); CHLORIDE - SERUM 100 mmol/L (98-107); CREATININE - SERUM 0.7 mg/dL (0.6-1.3); GLUCOSE 102 mg/dL (74-106); PHOSPHOROUS 4.2 mg/dL (2.5-4.9); PROTEIN - SERUM 5.7 g/dL (6.4-8.2); SODIUM 138 mmol/L (136-145); UREA NITROGEN 7 mg/dL (7-18); eGFR NON AFRICAN AMERICAN > 90 mL/min (90-120)
[2018-08-23 09:10] LABS: TROPONIN-I < 0.017 ng/mL (0.000-0.060)
--- NOTE | 2018-08-23 13:42 | NUR ---
DRESSING CHANGE TO EPIGASTRIC INCISION, BLOODY DRAINAGE, DRESSING CHANGE TO OBDULIO DRAIN ON LUQ,BLOODY DRAINAGE, VERY SENSITIVE/PAINFUL FOR PATIENT, PAIN MEDICATION IS BEING ADMINISTERED IF BP,HR, RESPIRATIONS ARE WITHIN SAFE LIMITS TO DO SO. BED LOWERED AND LOCKED, CALL LIGHT WITHIN REACH. CPOC
[2018-08-23 14:14] VITALS: BP 103/61
[2018-08-23 14:32] VITALS: BP 134/94
--- NOTE | 2018-08-23 17:21 | NUR ---
DISCONTINUED LOPEZ PER ORDER.CATHETER TIP INTACT.
[2018-08-23 17:53] VITALS: BP 88/70
[2018-08-23 20:00] VITALS: BP 122/63
[2018-08-24] VITALS: BP 109/62
[2018-08-24 04:00] VITALS: BP 93/55
--- NOTE | 2018-08-24 09:04 | NUR ---
SPOKE WITH BRIAN IN REGARDS TO PT PAIN CONTROL. PT STATES IT IS BETTER THAN YESTERDAY BUT ITS STILL "A 10". DR. TORRES WILL DISCUSS HIS FUTURE PAIN CONTROL NEEDS WHEN HE ROUNDS THIS MORNING.
[2018-08-24 09:45] VITALS: BP 97/59
[2018-08-24 13:46] VITALS: BP 145/99
--- NOTE | 2018-08-24 15:46 | NUR ---
I have reviewed this patient and I concur with the Shift Assessment completed by the Licensed Practical Nurse today this shift.
[2018-08-24 17:35] VITALS: BP 101/63
--- NOTE | 2018-08-24 18:40 | NUR ---
REMOVED OBDULIO DRAIN FROM RIGHT SIDE. DID NOT TOLERATE WELL. C/O SEVERE PAIN, EVEN WITH SELF ADMINISTERED DOSE FROM SOLAR MAINTENANCE TECHNICIAN AND A BOLUS AFTERWARDS. MUSCLES RELAXED AND FACIAL GRIMANCING STOPPED AFTER ABOUT 10 MINUTES AFTER REMOVAL. DENIES ANY CURRENT NEEDS OR DISCOMFORTS, BED LOWERED AND LOCKED, CALL LIGHT WITHIN REACH. CPOC
[2018-08-24 20:00] VITALS: BP 127/71
--- NOTE | 2018-08-24 23:55 | NUR ---
TEMP OF 101.2 AT 2200 GAVE TTYLENOL 500MG PO RECHECK 99.2 AT 2325
[2018-08-25] VITALS (7 sets, daily range): BP systolic 96–138; BP diastolic 60–83; Ht 170.2 cm; Wt 55.2 kg
--- NOTE | 2018-08-25 07:12 | NUR ---
PT IS RESTING IN BED WITH EYES OPEN. RESPIRATIONS ARE EVEN, UNLABORED. PT PUPILS ARE 2MM BILATERAL. PT WITH CONFUSION AND IS REFUSING HOSPITAL GOWN. PT REORIENTED TO SITUATION, PLACE AND DATE/TIME AND PT THEN ALLOWS FOR GOWN TO BE PLACED ON PT. BILATERAL OBDULIO DRAINS NOTED WITH LIGHT RED DRAINAGE IN BOTH. DRESSING TO ABDOMEN IN INTACT. NC IS NOT ON, PT IS REFUSING AT THIS TIME. SCDS ARE NOT ON. PT IS REFUSING AT THIS TIME. LEFT PORT WITH NS, PROCAL AND MERREM INFUSING WITHOUT DIFFICULTY. DECKHAND SHRIMP BOAT DILAUDID AT 0.2/10/6 WITH A CONT 1MG/HR RATE SET. NURSE MANAGER FURNITURE LACEY EM RN NOTIFIED. SEE EMAR. PT WITH LEFT BKA. PROSTHESIS IS IN ROOM AT BEDSIDE. PT DENIES PRESENCE OF PAIN AT THIS TIME AND DOES NOT SHOW NONVERBAL CUES OF PAIN. URINAL IS AT BEDSIDE. PT IS CONTINENT OR URINE. PT IS ABLE TO REPOSITION SELF IN BED. BED IS IN THE LOWEST POSITION. CALL LIGHT AND BEDSIDE TABLE ARE WITHIN REACH. FALL ALARM IS ON AND WORKING. WILL CONT TO CLOSELY MONITOR.
--- NOTE | 2018-08-25 07:50 | NUR ---
RENAN ADMINISTERED BY LACEY EM RN. SEE FLOWSHEET FOR VITALS.
[2018-08-25 08:06] LABS: BASOPHILS 0.2 % (0-2); EOSINOPHILS 2.6 % (0-7); HEMATOCRIT 23.9 % (42.0-54.0); HEMOGLOBIN 7.7 g/dL (13.5-17.5); IMMATURE GRANULOCYTES 0.9 % (0-5); LYMPHOCYTES 13.4 % (15-50); MCH 30.2 pg (26.0-34.0); MCHC 32.2 g/dL (31.0-37.0); MCV 93.7 fL (80.0-100.0); MEAN PLATELET VOLUME 8.8 fL (7.4-10.4); MONOCYTES 27.8 % (2-11); NEUTROPHILS 55.1 % (40-80); PLATELET COUNT 370 10x3/uL (130-400); RBC 2.55 10x6/uL (4.20-6.10); RDW 16.5 % (11.5-14.5); WBC 12.7 10x3/uL (4.8-10.8)
[2018-08-25 08:16] LABS: CALC OSMOLALITY 269 mosm/kg (275-300); CALCIUM 8.9 mg/dL (8.5-10.1); CARBON DIOXIDE 34.5 mmol/L (21.0-32.0); CHLORIDE - SERUM 96 mmol/L (98-107); CREATININE - SERUM 0.6 mg/dL (0.6-1.3); GLUCOSE 115 mg/dL (74-106); POTASSIUM - SERUM 4.1 mmol/L (3.5-5.1); SODIUM 134 mmol/L (136-145); eGFR NON AFRICAN AMERICAN > 90 mL/min (90-120)
[2018-08-25 08:17] LABS: UREA NITROGEN 15 mg/dL (7-18)
--- NOTE | 2018-08-25 15:07 | MORECARE ---
CASE MANAGEMENT DISCHARGE SUMMARY PATIENT: CLAUDIA SUGGS UNIT: [id number] ADM DATE: 08/03/18 AGE: 63 : 57 SEX: M ROOM/BED: D.2237 AUTHOR: ALEJANDRA,DOC PHYSICIAN: REFERRING PHYSICIAN: VIVEK MONGE MD DATE OF SERVICE: 08/25/18 Discharge Plan Patient Name: CLAUDIA SUGGS Facility: [facility]:[place] : 1955 Planned Disposition: Custodial Facility Anticipated Discharge Date: Discharge Date: Expected LOS: Initial Reviewer: [id number] Initial Review Date: 08/03/2018 Generated: 08/25/18 4:07 pm Comments DCP- Discharge Planning Updated by [id number]: Ina Arteaga on 08/25/18 1:[address] Met with patient and informed that [facility] does not take his insurance and I sent his clinical to [facility], he is in agreement to [facility] for SN therapy prior to returning home. CM will continue to follow and assist with discharge planning/needs. DCP- Discharge Planning Updated by [id number]: Ina Arteaga on 08/22/18 11:[address] Received a call from Mayi at [facility] and she states they are not able to accept patient to their facility related to insurance and acuity. I called Kenya at [facility] (2nd choice) and referral sent. Patient is in surgery at this time, I will meet with him later. CM will continue to follow and assist with discharge planning/needs. DCP- Discharge Planning Updated by [id number]: Ina Arteaga on 08/21/18 2:[address] Received a call from Rhina at [facility] and they will accept his insurance, he will need preauthorization. Clinical faxed to [facility]. CM will continue to follow and assist with discharge planning/needs. DCP- Discharge Planning Updated by [email or web address]: Ina Arteaga on 08/21/18 10:[address] I spoke with Mayi at [facility] to check on skilled status and she has not received a fax for patient. I faxed face sheet so they could run his insurance to see if he is in network. CM will continue to follow and assist with discharge planning/needs. DCP- Discharge Planning Updated by [id number]: Justa Langford on 08/20/18 10:[address] Patient Name: CLAUDIA SUGGS Admission Status: ER Accout number: [id number] Admission Date: 08-03-2018 : 1955 Admission Diagnosis:RIGHT UPPER QUADRANT PAIN Attending: VIVEK MONGE Current LOS: 17 Anticipated DC Date: Planned Disposition: Home Primary Insurance: [facility] [employer] Discharge Planning Comments: CM MET WITH PATIENT ABOUT DC PLANNING. PATIENT WILL NEED A SNF. GITA SIGNED FOR [facility]. CM WILL FOLLOW AND ASSIST NEEDED WITH DC PLANNING/NEEDS. Probate Clerk: Justa Langford Appended by Justa Langford on 08/20/2018 11:19 CDT: [facility]. WAITING FOR CALL BACK. DCP- Discharge Planning Updated by [id number]: María Gallagher on 08/12/18 5:[address] CM spoke with Khurram Bose whom is listed as patient's contact. Khurram stated that he is patient's best friend. They consider each others as brothers. Khurram states that the patient doesn't have any family that he is in contact with. The patient has two estranged sons that he hasn't seen in over 25 yrs. and a daughter that no one knows how to contact her. No siblings and parents are . CM asked if there was any plans for patient upon discharge. Khurram states he doesn't know he hopes that the patient turns around soon. He states that he could stay with him until he gets back on his feet. At this time the patient is unable to make decisions for himself and there isn't any family or POA to make decisions for him. CM will continue to follow and assist as needed with discharge planning / needs. DCP- Discharge Planning Updated by [email or web address]: Ina Arteaga on 08/06/18 11:[address] Patient Name: CLAUDIA SUGGS Admission Status: ER Accout number: [id number] Admission Date: 08-03-2018 : 1955 Admission Diagnosis:RIGHT UPPER QUADRANT PAIN Attending: VIVEK MONGE Current LOS: 3 Anticipated DC Date: Planned Disposition: Home Primary Insurance: [facility] [employer] Discharge Planning Comments: CM met with patient to discuss discharge planning, he is alone in the room. He is oriented and answers questions appropriately, he does seem drowsy. States he has still been living with his brother, Khurram, he will take him home on discharge. States that he is usually now in a self propelled wheelchair. States he also has a walker. States he no longer is using home health and does not feel he will need them at discharge. He has had [facility] in the past. He states he uses oxygen as needed and gets supplies from [facility]. CM will continue to follow and assist with discharge planning/needs. Probate Clerk: Ina Arteaga DCP- Discharge Planning Updated by [email or web address]: Ina Arteaga on 08/05/18 11:[address] Attempted to meet with patient, he is getting ready to go to [place]. I will meet with him tomorrow to discuss discharge planning/needs. DCPIA - Discharge Planning Initial Assessment Updated by [id number]: Ina Artegaa on 08/06/18 1:33 pm * Is the patient Alert and Oriented? No * How many steps to enter\exit or inside your home? 3/0 * PCP Dr. Monge * Pharmacy [place] * Preadmission Environment Home with Family * ADLs Partial Dependent * Partial ADLs (Assistance needed) Ambulation * Equipment Other Oxygen Walker Wheelchair * Other Equipment Prosthetic Leg * List name and contact numbers for known caregivers / representatives who currently or will assist patient after discharge: Khurram Bose - brother - [phone] * Verbal permission to speak to the caregivers and representatives has been obtained from the patient. Yes * Community resources currently utilized None * Please name any agencies selected above. Oxygen from [facility] Prosthetic from [facility] * Additional services required to return to the preadmission environment? No * Can the patient safely return to the preadmission environment? Yes * Has this patient been hospitalized within the prior 30 days at any hospital? No Coverage Notice Reviewer: [id number] Abraham Langford Notice Issued Date-Time: 08/20/2018 10:04 Notice Type: Patient Choice Letter Notice Delivered To: Patient Relationship to Patient: Supervisor Painting Name: Delivery Method: HAND - Hand Delivered Mary Days: Prior Verbal Notification: Recipient Understood Notice: Yes Recipient Signature: Yes Med Rec Note Co-signed by Attending: Coverage Notice Comment: gita for [facility] Last DP export: 08/22/18 11:48 a Patient Name: CLAUDIA SUGGS Page 45064 at 1507 All edits/amendments must be made on the electronic document DICTATION DATE: 08/25/181506 MECHANICAL PRESS OPERATOR: MADISYN 08/25/18 1507 RPT#: [id number] DC DATE: STATUS: ADM IN [facility] [address] [place] [address] END OF REPORT
--- NOTE | 2018-08-25 17:23 | MORECARE ---
CASE MANAGEMENT DISCHARGE SUMMARY PATIENT: CLAUDIA SUGGS UNIT: [id number] ADM DATE: 08/03/18 AGE: 63 : 57 SEX: M ROOM/BED: D.2237 AUTHOR: ALEJANDRA,DOC PHYSICIAN: REFERRING PHYSICIAN: VIVEK MONGE MD DATE OF SERVICE: 08/25/18 Discharge Plan Patient Name: CLAUDIA SUGGS Facility: [facility]:[place] : 1955 Planned Disposition: Half-Way Facility Anticipated Discharge Date: Discharge Date: Expected LOS: Initial Reviewer: [id number] Initial Review Date: 08/03/2018 Generated: 08/25/18 6:23 pm Comments DCP- Discharge Planning Updated by [id number]: Ina Arteaga on 08/25/18 4:[address] Kenya from [facility] returned call and states that he would have to pay 6700 dollars prior to admission to SNF since he has not met his out of pocket maximum and cannot be assured the hospital would bill prior to their facility billing. I informed the patient and he states "I just want to drop everything right now, I want to go home." I offered a rehab screen here without him having an out of pocket up front cost and offered to check another skilled facility. He states he wants to go home on discharge from here. I will follow along with therapy notes and continue to assist with discharge planning/needs. DCP- Discharge Planning Updated by [email or web address]: Ina Arteaga on 08/25/18 1:[address] Met with patient and informed that [facility] does not take his insurance and I sent his clinical to [facility], he is in agreement to [facility] for SN therapy prior to returning home. CM will continue to follow and assist with discharge planning/needs. DCP- Discharge Planning Updated by [id number]: Ina Arteaga on 08/22/18 11:[address] Received a call from Mayi at [facility] and she states they are not able to accept patient to their facility related to insurance and acuity. I called Kenya at [facility] (2nd choice) and referral sent. Patient is in surgery at this time, I will meet with him later. CM will continue to follow and assist with discharge planning/needs. DCP- Discharge Planning Updated by [id number]: Ina Arteaga on 08/21/18 2:[address] Received a call from Rhina at [facility] and they will accept his insurance, he will need preauthorization. Clinical faxed to [facility]. CM will continue to follow and assist with discharge planning/needs. DCP- Discharge Planning Updated by [email or web address]: Ina Arteaga on 08/21/18 10:[address] I spoke with Mayi at [facility] to check on skilled status and she has not received a fax for patient. I faxed face sheet so they could run his insurance to see if he is in network. CM will continue to follow and assist with discharge planning/needs. DCP- Discharge Planning Updated by [email or web address]: Justa Langford on 08/20/18 10:[address] Patient Name: CLAUDIA SUGGS Admission Status: ER Accout number: [id number] Admission Date: 08-03-2018 : 1955 Admission Diagnosis:RIGHT UPPER QUADRANT PAIN Attending: VIVEK MONGE Current LOS: 17 Anticipated DC Date: Planned Disposition: Home Primary Insurance: [facility] [employer] Discharge Planning Comments: CM MET WITH PATIENT ABOUT DC PLANNING. PATIENT WILL NEED A SNF. GITA SIGNED FOR [facility]. CM WILL FOLLOW AND ASSIST NEEDED WITH DC PLANNING/NEEDS. Supply Person: Justa Langford Appended by Justa Langford on 08/20/2018 11:19 CDT: REFERRAL DOCUMENTS FAXED TO [facility]. WAITING FOR CALL BACK. DCP- Discharge Planning Updated by [id number]: María Gallagher on 08/12/18 5:[address] CM spoke with Khurram Bose whom is listed as patient's contact. Khurram stated that he is patient's best friend. They consider each others as brothers. Khurram states that the patient doesn't have any family that he is in contact with. The patient has two estranged sons that he hasn't seen in over 25 yrs. and a daughter that no one knows how to contact her. No siblings and parents are . CM asked if there was any plans for patient upon discharge. Khurram states he doesn't know he hopes that the patient turns around soon. He states that he could stay with him until he gets back on his feet. At this time the patient is unable to make decisions for himself and there isn't any family or POA to make decisions for him. CM will continue to follow and assist as needed with discharge planning / needs. DCP- Discharge Planning Updated by [id number]: Ina Arteaga on 08/06/18 11:[address] Patient Name: CLAUDIA SUGGS Admission Status: ER Accout number: [id number] Admission Date: 08-03-2018 : 1955 Admission Diagnosis:RIGHT UPPER QUADRANT PAIN Attending: VIVEK MONGE Current LOS: 3 Anticipated DC Date: Planned Disposition: Home Primary Insurance: [facility] [employer] Discharge Planning Comments: CM met with patient to discuss discharge planning, he is alone in the room. He is oriented and answers questions appropriately, he does seem drowsy. States he has still been living with his brother, Khurram, he will take him home on discharge. States that he is usually now in a self propelled wheelchair. States he also has a walker. States he no longer is using home health and does not feel he will need them at discharge. He has had [facility] in the past. He states he uses oxygen as needed and gets supplies from [facility]. CM will continue to follow and assist with discharge planning/needs. Supply Person: Ina Alforddeirdre DCP- Discharge Planning Updated by [email or web address]: Ina Arteaga on 08/05/18 11:[address] Attempted to meet with patient, he is getting ready to go to [place]. I will meet with him tomorrow to discuss discharge planning/needs. DCPIA - Discharge Planning Initial Assessment Updated by [id number]: Ina Alforddeirdre on 08/06/18 1:33 pm * Is the patient Alert and Oriented? No * How many steps to enter\\exit or inside your home? 3/0 * PCP Dr. Monge * Pharmacy [facility] * Preadmission Environment Home with Family * ADLs Partial Dependent * Partial ADLs (Assistance needed) Ambulation * Equipment Other Oxygen Walker Wheelchair * Other Equipment Prosthetic Leg * List name and contact numbers for known caregivers / representatives who currently or will assist patient after discharge: Khurram Bose - brother - [phone] * Verbal permission to speak to the caregivers and representatives has been obtained from the patient. Yes * Community resources currently utilized None * Please name any agencies selected above. Oxygen from [facility] Prosthetic from [facility] * Additional services required to return to the preadmission environment? No * Can the patient safely return to the preadmission environment? Yes * Has this patient been hospitalized within the prior 30 days at any hospital? No Coverage Notice Reviewer: [id number] Abraham Langford Notice Issued Date-Time: 08/20/2018 10:04 Notice Type: Patient Choice Letter Notice Delivered To: Patient Relationship to Patient: Road Sign Installer Name: Delivery Method: HAND - Hand Delivered Mary Days: Prior Verbal Notification: Recipient Understood Notice: Yes Recipient Signature: Yes Med Rec Note Co-signed by Attending: Coverage Notice Comment: [facility]ita for [facility] Last DP export: 08/25/18 2:07 p Patient Name: CLAUDIA SUGGS Page 46860 at 1723 All edits/amendments must be made on the electronic document DICTATION DATE: 08/25/181722 POWER PLANT OPERATORS SUPERVISOR: MADISYN 08/25/181722 RPT#: [id number] DC DATE: STATUS: ADM IN [facility] [address] [place] [address] END OF REPORT
--- NOTE | 2018-08-25 20:00 | NUR ---
RESTING IN BED, REQUESTING PAIN MED,REMINDED HE HAD CLIP RIVETER DILAUDID, APPEARS TO BED FORGETFUL AT TIMES REPORTS ABD VERY TENDER AND SORE, OBDULIO DAINS IN PLACE X 2 DRESSINGS DRY AND INTACT, CALL EMELINA ELLISON
[2018-08-26 03:08] LABS: HEPATITIS C ANTIBODY >11.0 S/CO RAT (0.0-0.9)
[2018-08-26 04:00] VITALS: BP 105/18
[2018-08-26 08:52] VITALS: BP 99/64
--- NOTE | 2018-08-26 09:00 | NUR ---
PT [email or web address] RESP EVEN AND NONLBAORED, EXPRESSED HE IS UPSET WITH HIS PAIN MEDICATION DOSE I EXPRESSED TO PT I WOULD TALK TO THE DR, PT WANTS TO GET IN WHEELCHAIR AND GO DOWNSTAIRS, I EXPRESSED TO THE PT THAT HE COULD NOT DO THAT BY HIMSELF BECASUE HE IS ON HIGH FALL PREACAUTIONS AND IS ALSO ON NARCOTICS, CL IN REACH WILL CONTIUE TO MONITOR, NO SIGNS OF DISTRESS NOTED
--- NOTE | 2018-08-26 13:27 | NUR ---
NUTRITION F/U CHART REVIEWED. PT VISIT. RECEIVING PROCALAMINE @ 100 CC/HR. POOR PO INTAKE. PT DENIES CONSTIPATION. STATES "I EAT WHEN I WANT TO." WILL CONTINUE TO PROVIDE DIET, MONITOR INTAKE. RD FOLLOWING
[2018-08-26 13:49] VITALS: BP 101/70
--- NOTE | 2018-08-26 14:32 | MORECARE ---
CASE MANAGEMENT DISCHARGE SUMMARY PATIENT: CLAUDIA SUGGS UNIT: [id number] ADM DATE: 08/03/18 AGE: 63 : 57 SEX: M ROOM/BED: D.2237 AUTHOR: ALEJANDRA,DOC PHYSICIAN: REFERRING PHYSICIAN: VIVEK MONGE MD DATE OF SERVICE: 08/26/18 Discharge Plan Patient Name: CLAUDIA SUGGS Facility: [facility]:[place] : 1955 Planned Disposition: Care Home Facility Anticipated Discharge Date: Discharge Date: Expected LOS: Initial Reviewer: [email or web address] Initial Review Date: 08/03/2018 Generated: 08/26/18 3:31 pm Comments DCP- Discharge Planning Updated by [id number]: Ina Arteaga on 08/25/18 4:[address] Kenya from [facility] returned call and states that he would have to pay 6700 dollars prior to admission to SNF since he has not met his out of pocket maximum and cannot be assured the hospital would bill prior to their facility billing. I informed the patient and he states "I just want to drop everything right now, I want to go home." I offered a rehab screen here without him having an out of pocket up front cost and offered to check another skilled facility. He states he wants to go home on discharge from here. I will follow along with therapy notes and continue to assist with discharge planning/needs. DCP- Discharge Planning Updated by [id number]: Ina Arteaga on 08/25/18 1:[address] Met with patient and informed that [facility] does not take his insurance and I sent his clinical to [facility], he is in agreement to [facility] for SN therapy prior to returning home. CM will continue to follow and assist with discharge planning/needs. DCP- Discharge Planning Updated by [id number]: Ina Arteaga on 08/22/18 11:[address] Received a call from Mayi at [facility] and she states they are not able to accept patient to their facility related to insurance and acuity. I called Kenya at [facility] (2nd choice) and referral sent. Patient is in surgery at this time, I will meet with him later. CM will continue to follow and assist with discharge planning/needs. DCP- Discharge Planning Updated by [email or web address]: Ina Arteaga on 08/21/18 2:[address] Received a call from Rhina at [facility] and they will accept his insurance, he will need preauthorization. Clinical faxed to [facility]. CM will continue to follow and assist with discharge planning/needs. DCP- Discharge Planning Updated by [id number]: Ina Arteaga on 08/21/18 10:[address] I spoke with Mayi at [facility] to check on skilled status and she has not received a fax for patient. I faxed face sheet so they could run his insurance to see if he is in network. CM will continue to follow and assist with discharge planning/needs. DCP- Discharge Planning Updated by [id number]: Justa Langford on 08/20/18 10:[address] Patient Name: CLAUDIA SUGGS Admission Status: ER Accout number: [id number] Admission Date: 08-03-2018 : 1955 Admission Diagnosis:RIGHT UPPER QUADRANT PAIN Attending: VIVEK MONGE Current LOS: 17 Anticipated DC Date: Planned Disposition: Home Primary Insurance: [facility] MEDICARE SOLUTIONS Discharge Planning Comments: CM MET WITH PATIENT ABOUT DC PLANNING. PATIENT WILL NEED A SNF. GITA SIGNED FOR [facility]. CM WILL FOLLOW AND ASSIST NEEDED WITH DC PLANNING/NEEDS. Tc Operator: Justa Langford Appended by Justa Langford on 08/20/2018 11:19 CDT: REFERRAL DOCUMENTS FAXED TO [facility]. WAITING FOR CALL BACK. DCP- Discharge Planning Updated by [id number]: María Gallagher on 08/12/18 5:[address] CM spoke with Khurram Bose whom is listed as patient's contact. Khurram stated that he is patient's best friend. They consider each others as brothers. Khurram states that the patient doesn't have any family that he is in contact with. The patient has two estranged sons that he hasn't seen in over 25 yrs. and a daughter that no one knows how to contact her. No siblings and parents are . CM asked if there was any plans for patient upon discharge. Khurram states he doesn't know he hopes that the patient turns around soon. He states that he could stay with him until he gets back on his feet. At this time the patient is unable to make decisions for himself and there isn't any family or POA to make decisions for him. CM will continue to follow and assist as needed with discharge planning / needs. DCP- Discharge Planning Updated by [email or web address]: Ina Arteaga on 08/06/18 11:[address] Patient Name: CLAUDIA SUGGS Admission Status: ER Accout number: [id number] Admission Date: 08-03-2018 : 1955 Admission Diagnosis:RIGHT UPPER QUADRANT PAIN Attending: VIVEK MONGE Current LOS: 3 Anticipated DC Date: Planned Disposition: Home Primary Insurance: [facility] MEDICARE SOLUTIONS Discharge Planning Comments: CM met with patient to discuss discharge planning, he is alone in the room. He is oriented and answers questions appropriately, he does seem drowsy. States he has still been living with his brother, Khurram, he will take him home on discharge. States that he is usually now in a self propelled wheelchair. States he also has a walker. States he no longer is using home health and does not feel he will need them at discharge. He has had [facility] in the past. He states he uses oxygen as needed and gets supplies from [employer]. CM will continue to follow and assist with discharge planning/needs. Tc Operator: Ina Alforddeirdre DCP- Discharge Planning Updated by [email or web address]: Ina Arteaga on 08/05/18 11:[address] Attempted to meet with patient, he is getting ready to go to [place]. I will meet with him tomorrow to discuss discharge planning/needs. DCPIA - Discharge Planning Initial Assessment Updated by [email or web address]: Ina Alforddeirdre on 08/06/18 1:33 pm * Is the patient Alert and Oriented? No * How many steps to enter\\exit or inside your home? 3/0 * PCP Dr. Monge * Pharmacy [facility] * Preadmission Environment Home with Family * ADLs Partial Dependent * Partial ADLs (Assistance needed) Ambulation * Equipment Other Oxygen Walker Wheelchair * Other Equipment Prosthetic Leg * List name and contact numbers for known caregivers / representatives who currently or will assist patient after discharge: Khurram Bose - brother - [phone] * Verbal permission to speak to the caregivers and representatives has been obtained from the patient. Yes * Community resources currently utilized None * Please name any agencies selected above. Oxygen from [facility] from [employer] * Additional services required to return to the preadmission environment? No * Can the patient safely return to the preadmission environment? Yes * Has this patient been hospitalized within the prior 30 days at any hospital? No External Providers External Provider: [facility] Next Contact Date: Service Request Date: Service Type: Resolution: Reviewer: Comments: Coverage Notice Reviewer: [id number] Abraham Langford Notice Issued Date-Time: 08/20/2018 10:04 Notice Type: Patient Choice Letter Notice Delivered To: Patient Relationship to Patient: Material Handler Floorperson Name: Delivery Method: HAND - Hand Delivered Mary Days: Prior Verbal Notification: Recipient Understood Notice: Yes Recipient Signature: Yes Med Rec Note Co-signed by Attending: Coverage Notice Comment: gita for ANTONIO FLOWERS Last DP export: 08/25/18 4:23 p Patient Name: CLAUDIA SUGGS Page [id number] at 1432 All edits/amendments must be made on the electronic document DICTATION DATE: 08/26/18 1431 NEWSPAPER COLUMNIST: MADISYN 08/26/18 1431 RPT#: [id number] DC DATE: STATUS: ADM IN [facility] [address] [place] [address] END OF REPORT
--- NOTE | 2018-08-26 14:42 | MORECARE ---
CASE MANAGEMENT DISCHARGE SUMMARY PATIENT: CLAUDIA SUGGS UNIT: [id number] ADM DATE: 08/03/18 AGE: 63 : 57 SEX: M ROOM/BED: D.2237 AUTHOR: ALEJANDRA,DOC PHYSICIAN: REFERRING PHYSICIAN: VIVEK MONGE MD DATE OF SERVICE: 08/26/18 Discharge Plan Patient Name: CLAUDIA SUGGS Facility: [facility]:[place] : 1955 Planned Disposition: Long Term Facility Anticipated Discharge Date: Discharge Date: Expected LOS: Initial Reviewer: [email or web address] Initial Review Date: 08/03/2018 Generated: 08/26/18 3:42 pm Comments DCP- Discharge Planning Updated by [email or web address]: Ina Arteaga on 08/26/18 1:[address] Spoke with patient again about discharge planning. I informed him that [facility] and [facility] will be unable to accept him. He states he would like to be close to his home. List of assisted facilities provided again and he chooses [facility]. I sent Philip forms for approval. CM will continue to follow and assist with discharge planning/needs. DCP- Discharge Planning Updated by [id number]: Ina Arteaga on 08/25/18 4:[address] Kenya from [facility] returned call and states that he would have to pay 6700 dollars prior to admission to SNF since he has not met his out of pocket maximum and cannot be assured the hospital would bill prior to their facility billing. I informed the patient and he states "I just want to drop everything right now, I want to go home." I offered a rehab screen here without him having an out of pocket up front cost and offered to check another skilled facility. He states he wants to go home on discharge from here. I will follow along with therapy notes and continue to assist with discharge planning/needs. DCP- Discharge Planning Updated by [email or web address]: Ina Arteaga on 08/25/18 1:[address] Met with patient and informed that [facility] does not take his insurance and I sent his clinical to [facility], he is in agreement to [facility] for SN therapy prior to returning home. CM will continue to follow and assist with discharge planning/needs. DCP- Discharge Planning Updated by [email or web address]: Ina Arteaga on 08/22/18 11:[address] Received a call from Mayi at [facility] and she states they are not able to accept patient to their facility related to insurance and acuity. I called Kenya at [facility] (2nd choice) and referral sent. Patient is in surgery at this time, I will meet with him later. CM will continue to follow and assist with discharge planning/needs. DCP- Discharge Planning Updated by [email or web address]: Ina Arteaga on 08/21/18 2:[address] Received a call from Rhina at [facility] and they will accept his insurance, he will need preauthorization. Clinical faxed to [facility]. CM will continue to follow and assist with discharge planning/needs. DCP- Discharge Planning Updated by [email or web address]: Ina Arteaga on 08/21/18 10:[address] I spoke with Mayi at [facility] to check on skilled status and she has not received a fax for patient. I faxed face sheet so they could run his insurance to see if he is in network. CM will continue to follow and assist with discharge planning/needs. DCP- Discharge Planning Updated by [email or web address]: Justa Langford on 08/20/18 10:[address] Patient Name: CLAUDIA SUGGS Admission Status: ER Accout number: [id number] Admission Date: 08-03-2018 : 1955 Admission Diagnosis:RIGHT UPPER QUADRANT PAIN Attending: VIVEK MONGE Current LOS: 17 Anticipated DC Date: Planned Disposition: Home Primary Insurance: [facility] MEDICARE SOLUTIONS Discharge Planning Comments: CM MET WITH PATIENT ABOUT DC PLANNING. PATIENT WILL NEED A SNF. GITA SIGNED FOR [facility]. CM WILL FOLLOW AND ASSIST NEEDED WITH DC PLANNING/NEEDS. Freight Sorter: Justa Langford Appended by Justa Langford on 08/20/2018 11:19 CDT: REFERRAL DOCUMENTS FAXED TO [facility]. WAITING FOR CALL BACK. DCP- Discharge Planning Updated by [id number]: María Gallagher on 08/12/18 5:[address] CM spoke with Khurram Bose whom is listed as patient's contact. Khurram stated that he is patient's best friend. They consider each others as brothers. Khurram states that the patient doesn't have any family that he is in contact with. The patient has two estranged sons that he hasn't seen in over 25 yrs. and a daughter that no one knows how to contact her. No siblings and parents are . CM asked if there was any plans for patient upon discharge. Khurram states he doesn't know he hopes that the patient turns around soon. He states that he could stay with him until he gets back on his feet. At this time the patient is unable to make decisions for himself and there isn't any family or POA to make decisions for him. CM will continue to follow and assist as needed with discharge planning / needs. DCP- Discharge Planning Updated by [email or web address]: Ina Arteaga on 08/06/18 11:[address] Patient Name: CLAUDIA SUGGS Admission Status: ER Accout number: [id number] Admission Date: 08-03-2018 : 1955 Admission Diagnosis:RIGHT UPPER QUADRANT PAIN Attending: VIVEK MONGE Current LOS: 3 Anticipated DC Date: Planned Disposition: Home Primary Insurance: [facility] MEDICARE SOLUTIONS Discharge Planning Comments: CM met with patient to discuss discharge planning, he is alone in the room. He is oriented and answers questions appropriately, he does seem drowsy. States he has still been living with his brother, Khurram, he will take him home on discharge. States that he is usually now in a self propelled wheelchair. States he also has a walker. States he no longer is using home health and does not feel he will need them at discharge. He has had [facility] in the past. He states he uses oxygen as needed and gets supplies from [facility]. CM will continue to follow and assist with discharge planning/needs. Freight Sorter: Ina Arteaga DCP- Discharge Planning Updated by [id number]: Ina Arteaga on 08/05/18 11:[address] Attempted to meet with patient, he is getting ready to go to [place]. I will meet with him tomorrow to discuss discharge planning/needs. DCPIA - Discharge Planning Initial Assessment Updated by [id number]: Ina Arteaga on 08/06/18 1:33 pm * Is the patient Alert and Oriented? No * How many steps to enter\\exit or inside your home? 3/0 * PCP Dr. Monge * Pharmacy [facility] * Preadmission Environment Home with Family * ADLs Partial Dependent * Partial ADLs (Assistance needed) Ambulation * Equipment Other Oxygen Walker Wheelchair * Other Equipment Prosthetic Leg * List name and contact numbers for known caregivers / representatives who currently or will assist patient after discharge: Khurram quick - [phone] * Verbal permission to speak to the caregivers and representatives has been obtained from the patient. Yes * Community resources currently utilized None * Please name any agencies selected above. Oxygen from [facility] from [employer] * Additional services required to return to the preadmission environment? No * Can the patient safely return to the preadmission environment? Yes * Has this patient been hospitalized within the prior 30 days at any hospital? No External Providers External Provider: [facility] Next Contact Date: Service Request Date: Service Type: Resolution: Reviewer: Comments: Coverage Notice Reviewer: [id number] Abraham Langford Notice Issued Date-Time: 08/20/2018 10:04 Notice Type: Patient Choice Letter Notice Delivered To: Patient Relationship to Patient: Vat Operator Name: Delivery Method: HAND - Hand Delivered Mary Days: Prior Verbal Notification: Recipient Understood Notice: Yes Recipient Signature: Yes Med Rec Note Co-signed by Attending: Coverage Notice Comment: gita for ANTONIO FLOWERS [place] Last DP export: 08/26/18 1:32 p Patient Name: CLAUDIA SUGGS Page [id number] at 1442 All edits/amendments must be made on the electronic document DICTATION DATE: 08/26/18 1441 INSTRUCTOR PRODUCT INSPECTION: MADISYN 08/26/18 1441 RPT#: [id number] DC DATE: STATUS: ADM IN [facility] [address] [place] [address] END OF REPORT
--- NOTE | 2018-08-26 15:34 | NUR ---
OT NOTE: PT COMPLETED BED MOB AND EOB SITTING BALANCE WITH SBA. PT COMPLETED HYGIENE TASKS WITH SET UP. THANK YOU, JCARLOS SOTO
[2018-08-26 16:39] VITALS: BP 99/66
--- NOTE | 2018-08-26 18:02 | NUR ---
I have reviewed this patient and I concur with the Shift Assessment completed by the Licensed Practical Nurse today this shift.
[2018-08-26 20:27] VITALS: BP 113/68
--- NOTE | 2018-08-26 20:31 | NUR ---
AROUSES EASILY TO VERBAL STIMULI.ALERT,ORIENTED. NO COMPLAINTS VOICED. WEEKEND CAREGIVER DILAUDID IN USE FOR PAIN CONTROL. IV INFUSING TO LEFT PORT WITHOUT REDNESS OR EDEMA NOTED. OBDULIO X 2 INTACT AND COMPRESSED AT ABD SITES. DRESSINGS INTACT. CL IN REACH
[2018-08-27 00:40] VITALS: BP 106/68
--- NOTE | 2018-08-27 04:33 | NUR ---
I have reviewed this patient and I concur with the Shift Assessment completed by the Licensed Practical Nurse today this shift.
[2018-08-27 04:47] VITALS: BP 117/75
[2018-08-27 05:29] LABS: MCH 30.3 pg (26.0-34.0); MCHC 32.4 g/dL (31.0-37.0); MCV 93.3 fL (80.0-100.0); MEAN PLATELET VOLUME 9.1 fL (7.4-10.4); RDW 16.6 % (11.5-14.5); WBC 14.4 10x3/uL (4.8-10.8)
[2018-08-27 05:31] LABS: HEMATOCRIT 29.3 % (42.0-54.0); HEMOGLOBIN 9.5 g/dL (13.5-17.5); PLATELET COUNT 573 10x3/uL (130-400); RBC 3.14 10x6/uL (4.20-6.10)
[2018-08-27 05:58] LABS: ALBUMIN 2.2 g/dL (3.4-5.0); ALKALINE PHOSPHATASE 312 U/L (46-116); ALT (SGPT) 44 U/L (10-68); BILIRUBIN - TOTAL 0.31 mg/dL (0.2-1.3); CALC OSMOLALITY 266 mosm/kg (275-300); CALCIUM 9.1 mg/dL (8.5-10.1); CARBON DIOXIDE 31.7 mmol/L (21.0-32.0); CHLORIDE - SERUM 96 mmol/L (98-107); CREATININE - SERUM 0.5 mg/dL (0.6-1.3); GLUCOSE 121 mg/dL (74-106); PROTEIN - SERUM 6.6 g/dL (6.4-8.2); SODIUM 133 mmol/L (136-145); UREA NITROGEN 13 mg/dL (7-18); eGFR NON AFRICAN AMERICAN > 90 mL/min (90-120)
[2018-08-27 09:19] VITALS: BP 125/88
[2018-08-27 09:45] LABS: EOSINOPHILS 2 % (0-7); LYMPHOCYTES 22 % (15-50); MONOCYTES 19 % (2-11); NEUTROPHILS 57 % (40-80)
[2018-08-27 09:46] LABS: PLATELET ESTIMATE INCREASED
[2018-08-27 09:50] LABS: ANISOCYTOSIS 2+
[2018-08-27 12:43] VITALS: BP 109/78
[2018-08-27 16:14] VITALS: BP 120/74
--- NOTE | 2018-08-27 16:44 | NUR ---
OT NOTE: PT COMPLETED UE AROM AXS FOR INCREASED I WITH BED MOB. THANK YOU, JCARLOS SOTO
--- NOTE | 2018-08-27 19:23 | NUR ---
I have reviewed this patient and I concur with the Shift Assessment completed by the Licensed Practical Nurse today this shift.
--- NOTE | 2018-08-27 20:15 | NUR ---
AWAKE,ALERT.NO COMPLAITNS VOICED AT PRESENT. POLICY ANALYST DILAUDID IN USE FOR PAIN CONTROL. DRESSING INTACT TO MID ABDOMEN WITH OBDULIO DRAINS X 2 PATENT AND COMPRESSED.NO DISTRESS NOTED. CL IN REACH.
[2018-08-27 21:02] VITALS: BP 118/74
--- NOTE | 2018-08-28 01:10 | NUR ---
PATIENT IN BATHROOM.HAS EMPTIED OBDULIO DRAINS. INFORMED PATIENT NOT TO EMPTY THEM THAT STAFF WAS TO DO THAT SO WE COULD MONITOR OUTPUT. STATES UNDERSTANDING.
--- NOTE | 2018-08-28 02:30 | NUR ---
PATIENT OBSERVED SITTING UP IN BED SMOKING. INFORMED PATIENT HE WAS NOT ALLOWED TO SMOKE IN THE HOSPITAL. STATES" THATS RIGHT,IM SORRY, FORGOT I WAS AT THE HOSPITAL. CIGARETTE TAKEN FROM PATIENT PUT OUT. PATIENT GAVE THIS NURSE HIS CIGARETTES AND POISER TO PUT UP.CL IN REACH
[2018-08-28 04:46] VITALS: BP 102/77
--- NOTE | 2018-08-28 04:51 | NUR ---
I have reviewed this patient and I concur with the Shift Assessment completed by the Licensed Practical Nurse today this shift.
[2018-08-28 05:06] LABS: BASOPHILS 0.5 % (0-2); EOSINOPHILS 3.6 % (0-7); HEMATOCRIT 25.6 % (42.0-54.0); HEMOGLOBIN 8.3 g/dL (13.5-17.5); IMMATURE GRANULOCYTES 1.1 % (0-5); LYMPHOCYTES 16.4 % (15-50); MCH 30.1 pg (26.0-34.0); MCHC 32.4 g/dL (31.0-37.0); MCV 92.8 fL (80.0-100.0); MEAN PLATELET VOLUME 8.8 fL (7.4-10.4); MONOCYTES 20.7 % (2-11); NEUTROPHILS 57.7 % (40-80); RBC 2.76 10x6/uL (4.20-6.10); RDW 16.8 % (11.5-14.5)
[2018-08-28 05:10] LABS: PLATELET COUNT 375 10x3/uL (130-400); WBC 10.7 10x3/uL (4.8-10.8)
[2018-08-28 05:28] LABS: ALKALINE PHOSPHATASE 300 U/L (46-116); ALT (SGPT) 44 U/L (10-68); CALC OSMOLALITY 267 mosm/kg (275-300); CALCIUM 8.8 mg/dL (8.5-10.1); CARBON DIOXIDE 30.9 mmol/L (21.0-32.0); CHLORIDE - SERUM 97 mmol/L (98-107); CREATININE - SERUM 0.4 mg/dL (0.6-1.3); GLUCOSE 108 mg/dL (74-106); SODIUM 133 mmol/L (136-145); UREA NITROGEN 14 mg/dL (7-18); eGFR NON AFRICAN AMERICAN > 90 mL/min (90-120)
--- NOTE | 2018-08-28 07:01 | MORECARE ---
CASE MANAGEMENT DISCHARGE SUMMARY PATIENT: CLAUDIA SUGGS UNIT: [id number] ADM DATE: 08/03/18 AGE: 63 : 57 SEX: M ROOM/BED: D.2237 AUTHOR: ALEJANDRA,DOC PHYSICIAN: REFERRING PHYSICIAN: VIVEK MONGE MD DATE OF SERVICE: 08/28/18 Discharge Plan Patient Name: CLAUDIA SUGGS Facility: [facility]:[place] : 1955 Planned Disposition: Alf Facility Anticipated Discharge Date: Discharge Date: Expected LOS: Initial Reviewer: [id number] Initial Review Date: 08/03/2018 Generated: 08/28/18 8:01 am Comments DCP- Discharge Planning Updated by [email or web address]: Ina Arteaga on 08/26/18 1:[address] Spoke with patient again about discharge planning. I informed him that [facility] and [facility] will be unable to accept him. He states he would like to be close to his home. List of half-way facilities provided again and he chooses [facility]. I sent [place] forms for approval. CM will continue to follow and assist with discharge planning/needs. DCP- Discharge Planning Updated by [id number]: Ina Arteaga on 08/25/18 4:[address] Kenya from [facility] returned call and states that he would have to pay 6700 dollars prior to admission to SNF since he has not met his out of pocket maximum and cannot be assured the hospital would bill prior to their facility billing. I informed the patient and he states "I just want to drop everything right now, I want to go home." I offered a rehab screen here without him having an out of pocket up front cost and offered to check another skilled facility. He states he wants to go home on discharge from here. I will follow along with therapy notes and continue to assist with discharge planning/needs. DCP- Discharge Planning Updated by [email or web address]: Ina Arteaga on 08/25/18 1:[address] Met with patient and informed that [facility] does not take his insurance and I sent his clinical to [facility], he is in agreement to [facility] for SN therapy prior to returning home. CM will continue to follow and assist with discharge planning/needs. DCP- Discharge Planning Updated by [id number]: Ina Arteaga on 08/22/18 11:[address] Received a call from Mayi at [facility] and she states they are not able to accept patient to their facility related to insurance and acuity. I called Kenya at [facility] (2nd choice) and referral sent. Patient is in surgery at this time, I will meet with him later. CM will continue to follow and assist with discharge planning/needs. DCP- Discharge Planning Updated by [email or web address]: Ina Arteaga on 08/21/18 2:[address] Received a call from Rhina at [facility] and they will accept his insurance, he will need preauthorization. Clinical faxed to [facility]. CM will continue to follow and assist with discharge planning/needs. DCP- Discharge Planning Updated by [id number]: Ina Arteaga on 08/21/18 10:[address] I spoke with Mayi at [facility] to check on skilled status and she has not received a fax for patient. I faxed face sheet so they could run his insurance to see if he is in network. CM will continue to follow and assist with discharge planning/needs. DCP- Discharge Planning Updated by [id number]: Justa Langford on 08/20/18 10:[address] Patient Name: CLAUDIA SUGGS Admission Status: ER Accout number: [id number] Admission Date: 08-03-2018 : 1955 Admission Diagnosis:RIGHT UPPER QUADRANT PAIN Attending: VIVEK MONGE Current LOS: 17 Anticipated DC Date: Planned Disposition: Home Primary Insurance: [facility] MEDIC[employer] SOLUTIONS Discharge Planning Comments: CM MET WITH PATIENT ABOUT DC PLANNING. PATIENT WILL NEED A SNF. GITA SIGNED FOR [facility]. CM WILL FOLLOW AND ASSIST NEEDED WITH DC PLANNING/NEEDS. Revolving Field Assembler: Justa Langford Appended by Justa Langford on 08/20/2018 11:19 CDT: REFERRAL DOCUMENTS FAXED TO [facility]. WAITING FOR CALL BACK. DCP- Discharge Planning Updated by [id number]: María Gallagher on 08/12/18 5:[address] CM spoke with Khurram Bose whom is listed as patient's contact. Khurram stated that he is patient's best friend. They consider each others as brothers. Khurram states that the patient doesn't have any family that he is in contact with. The patient has two estranged sons that he hasn't seen in over 25 yrs. and a daughter that no one knows how to contact her. No siblings and parents are . CM asked if there was any plans for patient upon discharge. Khurram states he doesn't know he hopes that the patient turns around soon. He states that he could stay with him until he gets back on his feet. At this time the patient is unable to make decisions for himself and there isn't any family or POA to make decisions for him. CM will continue to follow and assist as needed with discharge planning / needs. DCP- Discharge Planning Updated by [email or web address]: Ina Arteaga on 08/06/18 11:[address] Patient Name: CLAUDIA SUGGS Admission Status: ER Accout number: [id number] Admission Date: 08-03-2018 : 1955 Admission Diagnosis:RIGHT UPPER QUADRANT PAIN Attending: VIVEK MONGE Current LOS: 3 Anticipated DC Date: Planned Disposition: Home Primary Insurance: [facility] MEDICARE SOLUTIONS Discharge Planning Comments: CM met with patient to discuss discharge planning, he is alone in the room. He is oriented and answers questions appropriately, he does seem drowsy. States he has still been living with his brother, Khurram, he will take him home on discharge. States that he is usually now in a self propelled wheelchair. States he also has a walker. States he no longer is using home health and does not feel he will need them at discharge. He has had [facility] in the past. He states he uses oxygen as needed and gets supplies from [facility]. CM will continue to follow and assist with discharge planning/needs. Revolving Field Assembler: Ina Arteaga DCP- Discharge Planning Updated by [id number]: Ina Arteaga on 08/05/18 11:[address] Attempted to meet with patient, he is getting ready to go to [place]. I will meet with him tomorrow to discuss discharge planning/needs. DCPIA - Discharge Planning Initial Assessment Updated by [email or web address]: Ina Arteaga on 08/06/18 1:33 pm * Is the patient Alert and Oriented? No * How many steps to enter\\exit or inside your home? 3/0 * PCP Dr. Monge * Pharmacy [facility] * Preadmission Environment Home with Family * ADLs Partial Dependent * Partial ADLs (Assistance needed) Ambulation * Equipment Other Oxygen Walker Wheelchair * Other Equipment Prosthetic Leg * List name and contact numbers for known caregivers / representatives who currently or will assist patient after discharge: Khurram Bose - - [phone] * Verbal permission to speak to the caregivers and representatives has been obtained from the patient. Yes * Community resources currently utilized None * Please name any agencies selected above. Oxygen from [facility] Prosthetic from [employer] * Additional services required to return to the preadmission environment? No * Can the patient safely return to the preadmission environment? Yes * Has this patient been hospitalized within the prior 30 days at any hospital? No Coverage Notice Reviewer: [id number] Abraham Langford Notice Issued Date-Time: 08/20/2018 10:04 Notice Type: Patient Choice Letter Notice Delivered To: Patient Relationship to Patient: Highballer Name: Delivery Method: HAND - Hand Delivered Mary Days: Prior Verbal Notification: Recipient Understood Notice: Yes Recipient Signature: Yes Med Rec Note Co-signed by Attending: Coverage Notice Comment: gita for [employer] Last DP export: 08/26/18 1:42 p Patient Name: CLAUDIA SUGGS Page [id number] at 0701 All edits/amendments must be made on the electronic document DICTATION DATE: 08/28/18699 FIREPROOF DOOR ASSEMBLER: MADISYN 08/28/18699 RPT#: [id number] DC DATE: STATUS: ADM IN [facility] [address] [place] [address] END OF REPORT
--- NOTE | 2018-08-28 07:15 | NUR ---
REC'D IN BED WITH EYES CLOSED EASILY TO AROUSED WHEN NAME IS CALLED. RESP EVEN AND UNLABORED WITH NO DISTRESS NOTED. CAN EXPRESS NEEDS AND WANTS WITH NO C/O NOTED OR VOICED. ASSESSMENT COMPLETED. C/L IN REACH AT BEDSIDE.
[2018-08-28 09:35] VITALS: BP 124/70
[2018-08-28 13:24] VITALS: BP 121/81
--- NOTE | 2018-08-28 14:00 | NUR ---
DRESSING CHANGED TO DRAIN SITES AT THIS TIME. C/L IN REACH AT BEDSIDE.
--- NOTE | 2018-08-28 14:52 | NUR ---
OT NOTE: RFUSED IN AM AND WAS PROVIDED WITH PAIN MED IN PM WHICH MADE HIM LETHARGIC. KEYUR REYNOSO, OTR/L
--- NOTE | 2018-08-28 14:55 | NUR ---
I have reviewed this patient and I concur with the Shift Assessment completed by the Licensed Practical Nurse today this shift.
[2018-08-28 17:46] VITALS: BP 114/68
[2018-08-28 20:00] VITALS: BP 101/64
--- NOTE | 2018-08-28 20:30 | NUR ---
LYING QUIELTY. NO DISTRESS NOTED. RESP EVEN AND UNALBORED. NO COMPLAINTS VOICED. OBDULIO X 2 PATENT AND COMPRESSED. CL IN REACH
[2018-08-29] VITALS (7 sets, daily range): BP systolic 97–157; BP diastolic 51–71
[2018-08-29 05:55] LABS: ALBUMIN 2.1 g/dL (3.4-5.0); ALKALINE PHOSPHATASE 314 U/L (46-116); ALT (SGPT) 42 U/L (10-68); BILIRUBIN - TOTAL 0.26 mg/dL (0.2-1.3); CALC OSMOLALITY 270 mosm/kg (275-300); CALCIUM 8.6 mg/dL (8.5-10.1); CARBON DIOXIDE 29.7 mmol/L (21.0-32.0); CHLORIDE - SERUM 100 mmol/L (98-107); CREATININE - SERUM 0.5 mg/dL (0.6-1.3); GLUCOSE 100 mg/dL (74-106); HEMATOCRIT 26.1 % (42.0-54.0); HEMOGLOBIN 8.5 g/dL (13.5-17.5); MCH 30.1 pg (26.0-34.0); MCHC 32.6 g/dL (31.0-37.0); MCV 92.6 fL (80.0-100.0); PLATELET COUNT 433 10x3/uL (130-400); PROTEIN - SERUM 5.9 g/dL (6.4-8.2); RBC 2.82 10x6/uL (4.20-6.10); RDW 17.1 % (11.5-14.5); SODIUM 135 mmol/L (136-145); UREA NITROGEN 16 mg/dL (7-18); WBC 11.2 10x3/uL (4.8-10.8); eGFR NON AFRICAN AMERICAN > 90 mL/min (90-120)
--- NOTE | 2018-08-29 07:15 | NUR ---
REC'D IN WALKING ROUND RESTING WELL AT THIS TIME WITH EYES CLOSED EASILY TO AROUSED WHEN NAME IS CALLED. RESP EVEN AND UNLABORED WITH NO DISTRESS NOTED. HAS O2 IN USE VIA NC @ 4 L/M. DENIES ANY PAIN AT THIS TIME. ASSESSMENT COMPLETED. C/L IN REACH AT BEDSIDE.
[2018-08-29 08:47] LABS: EOSINOPHILS 5 % (0-7); LYMPHOCYTES 17 % (15-50); MONOCYTES 14 % (2-11); NEUTROPHILS 64 % (40-80); PLATELET ESTIMATE NORMAL
--- NOTE | 2018-08-29 09:41 | NUR ---
WAS MEDICATED WITH DILAUDID PER ORDERS FOR C/O PAIN RATING 10/10.
--- NOTE | 2018-08-29 14:16 | NUR ---
Nutrition Follow Up: Chart reviewed. Pt is on a regular diet but no recent po intake is recorded in chart. Labs reviewed Meds noted including Procalamine @ 100 ml/hr providing 588 kcal, 70 g protein per day Rec continue current diet. Rec consider an appetite stimulant. Will continue to honor food preferences and provide supplements prn. RD following.
--- NOTE | 2018-08-29 14:28 | NUR ---
I have reviewed this patient and I concur with the Shift Assessment completed by the Licensed Practical Nurse today this shift.
--- NOTE | 2018-08-29 16:05 | NUR ---
OT NOTE: PT COMPLETED EOB SITTING WITH SBA/CGA. PT COMPLETED SIT TO STAND WITH MIN A. THANK YOU, JCARLOS SOTO
--- NOTE | 2018-08-29 17:49 | NUR ---
OBDULIO DRAIN #2 WAS DC AT THIS WITH ONLY 5 ML NOTED. C/L IN REACH AT BEDSIDE.
--- NOTE | 2018-08-29 19:42 | NUR ---
RECEIVED REPORT, ASSUMED CARE, SLEEPING, AROUSED EASILY TO VOICE, DENIES NEEDS, BED LOWEST POSITION, CALL LIGHT IN REACH, WILL CONTINUE POC
--- NOTE | 2018-08-30 02:15 | NUR ---
I have reviewed this patient and I concur with the Shift Assessment completed by the Licensed Practical Nurse today this shift. PT IS ASLEEP AT THIS TIME.
[2018-08-30 04:00] VITALS: BP 96/65
[2018-08-30 06:30] LABS: BASOPHILS 0.5 % (0-2); EOSINOPHILS 3.2 % (0-7); HEMATOCRIT 26.7 % (42.0-54.0); HEMOGLOBIN 8.6 g/dL (13.5-17.5); IMMATURE GRANULOCYTES 1.4 % (0-5); LYMPHOCYTES 15.4 % (15-50); MCH 30.3 pg (26.0-34.0); MCHC 32.2 g/dL (31.0-37.0); MEAN PLATELET VOLUME 8.7 fL (7.4-10.4); MONOCYTES 17.2 % (2-11); NEUTROPHILS 62.3 % (40-80); PLATELET COUNT 404 10x3/uL (130-400); RBC 2.84 10x6/uL (4.20-6.10); RDW 17.3 % (11.5-14.5); WBC 12.7 10x3/uL (4.8-10.8)
[2018-08-30 07:00] LABS: ALBUMIN 2.2 g/dL (3.4-5.0); ALKALINE PHOSPHATASE 314 U/L (46-116); ALT (SGPT) 42 U/L (10-68); BILIRUBIN - TOTAL 0.27 mg/dL (0.2-1.3); CALC OSMOLALITY 267 mosm/kg (275-300); CALCIUM 8.7 mg/dL (8.5-10.1); CARBON DIOXIDE 29.7 mmol/L (21.0-32.0); CHLORIDE - SERUM 98 mmol/L (98-107); CREATININE - SERUM 0.4 mg/dL (0.6-1.3); GLUCOSE 97 mg/dL (74-106); POTASSIUM - SERUM 4.6 mmol/L (3.5-5.1); PROTEIN - SERUM 5.8 g/dL (6.4-8.2); SODIUM 133 mmol/L (136-145); UREA NITROGEN 19 mg/dL (7-18); eGFR NON AFRICAN AMERICAN > 90 mL/min (90-120)
--- NOTE | 2018-08-30 08:05 | NUR ---
PT SITTING UP ON SOB. NO ACUTE DISTRESS NOTED. RATES PAIN IN ABDOMEN 02/10. DISCUSSED NEXT DOSE DUE OF PAIN MEDICATION. PT REPORTS UNDERSTANDING. DRESSING TO ABDOMEN C/D/I. OBDULIO DRAIN TO L UPPER QUAD INTACT. LEFT CHEST PORT INTACT WITH PROCALAMINE @ 100ML/HR INFUSING VIA PUMP. SITE WITHOUT REDNESS OR EDEMA. DENIES FURTHER NEEDS AT THIS TIME. CL WITHIN REACH. CONTINUE POC
[2018-08-30 08:44] VITALS: BP 109/65
[2018-08-30 12:32] VITALS: BP 107/63
[2018-08-30 17:14] VITALS: BP 96/67
--- NOTE | 2018-08-30 19:30 | NUR ---
RECEIVED REPROT, ASSUMED CARE, SLEEPING, BREATHING EVEN UNLBAORED, CALL LIGHT IN REACH, BED LOWEST POSITION, AROUSED EASILY TO VOICE, WILL CONTINUE POC
[2018-08-30 19:41] VITALS: BP 97/64
[2018-08-31 00:02] VITALS: BP 110/75
--- NOTE | 2018-08-31 03:49 | NUR ---
I have reviewed this patient and I concur with the Shift Assessment completed by the Licensed Practical Nurse today this shift.
[2018-08-31 04:00] VITALS: BP 98/64
[2018-08-31 06:37] LABS: BASOPHILS 0.4 % (0-2); EOSINOPHILS 3.3 % (0-7); HEMATOCRIT 26.6 % (42.0-54.0); HEMOGLOBIN 8.6 g/dL (13.5-17.5); IMMATURE GRANULOCYTES 1.1 % (0-5); LYMPHOCYTES 11.5 % (15-50); MCH 30.6 pg (26.0-34.0); MCHC 32.3 g/dL (31.0-37.0); MCV 94.7 fL (80.0-100.0); MEAN PLATELET VOLUME 8.8 fL (7.4-10.4); MONOCYTES 18.5 % (2-11); NEUTROPHILS 65.2 % (40-80); PLATELET COUNT 405 10x3/uL (130-400); RBC 2.81 10x6/uL (4.20-6.10); RDW 17.5 % (11.5-14.5); WBC 13.3 10x3/uL (4.8-10.8)
[2018-08-31 06:50] LABS: ALBUMIN 2.2 g/dL (3.4-5.0); ALKALINE PHOSPHATASE 288 U/L (46-116); ALT (SGPT) 34 U/L (10-68); BILIRUBIN - TOTAL 0.29 mg/dL (0.2-1.3); CALC OSMOLALITY 270 mosm/kg (275-300); CALCIUM 8.8 mg/dL (8.5-10.1); CARBON DIOXIDE 31.6 mmol/L (21.0-32.0); CHLORIDE - SERUM 97 mmol/L (98-107); CREATININE - SERUM 0.4 mg/dL (0.6-1.3); GLUCOSE 111 mg/dL (74-106); POTASSIUM - SERUM 4.5 mmol/L (3.5-5.1); PROTEIN - SERUM 6.3 g/dL (6.4-8.2); SODIUM 133 mmol/L (136-145); UREA NITROGEN 23 mg/dL (7-18); eGFR NON AFRICAN AMERICAN > 90 mL/min (90-120)
--- NOTE | 2018-08-31 08:05 | NUR ---
PT RESTING IN BED WATCHING TV. NO ACUTE DISTRESS NOTED. O2 @ 3L NC IN PLACE. IV TO LEFT CHEST PORT WITH PROCALAMINE @ 100ML/HR INFUSING VIA PUMP. SITE WITHOUT REDNESS OR EDEMA. OBDULIO DRAIN INTACT. DENIES FURTHER NEEDS AT THIS TIME. CL WITHIN REACH. ENCOURAGED TO CALL WITH NEEDS. CONTINUE POC
[2018-08-31 08:44] VITALS: BP 103/64
[2018-08-31 13:21] VITALS: BP 109/70
[2018-08-31 17:30] VITALS: BP 106/67
--- NOTE | 2018-08-31 19:15 | NUR ---
RECEIVED REPORT, ASSUMED CARE, CALL LIGHT IN REACH, BED LOWEST POSITION, REQUESTS PAIN MEDS, DENIES OTHER NEEDS, WILL CONTINUE TO MONITOR
[2018-08-31 20:00] VITALS: BP 109/76
[2018-09-01 04:00] VITALS: BP 81/54
[2018-09-01 05:14] LABS: BASOPHILS 0.5 % (0-2); EOSINOPHILS 3.5 % (0-7); HEMATOCRIT 26.8 % (42.0-54.0); HEMOGLOBIN 8.6 g/dL (13.5-17.5); IMMATURE GRANULOCYTES 1.2 % (0-5); LYMPHOCYTES 16.2 % (15-50); MCH 30.4 pg (26.0-34.0); MCHC 32.1 g/dL (31.0-37.0); MCV 94.7 fL (80.0-100.0); MEAN PLATELET VOLUME 8.7 fL (7.4-10.4); MONOCYTES 18.1 % (2-11); NEUTROPHILS 60.5 % (40-80); PLATELET COUNT 387 10x3/uL (130-400); RBC 2.83 10x6/uL (4.20-6.10); RDW 17.6 % (11.5-14.5); WBC 12.2 10x3/uL (4.8-10.8)
[2018-09-01 05:28] LABS: ALBUMIN 2.3 g/dL (3.4-5.0); ALKALINE PHOSPHATASE 273 U/L (46-116); ALT (SGPT) 28 U/L (10-68); BILIRUBIN - TOTAL 0.21 mg/dL (0.2-1.3); CALC OSMOLALITY 270 mosm/kg (275-300); CALCIUM 8.7 mg/dL (8.5-10.1); CARBON DIOXIDE 33.6 mmol/L (21.0-32.0); CHLORIDE - SERUM 98 mmol/L (98-107); CREATININE - SERUM 0.4 mg/dL (0.6-1.3); GLUCOSE 106 mg/dL (74-106); POTASSIUM - SERUM 4.4 mmol/L (3.5-5.1); PROTEIN - SERUM 6.2 g/dL (6.4-8.2); SODIUM 134 mmol/L (136-145); UREA NITROGEN 22 mg/dL (7-18); eGFR NON AFRICAN AMERICAN > 90 mL/min (90-120)
--- NOTE | 2018-09-01 07:35 | NUR ---
PT RESTING IN BED. ALERT AND ORIENTED. NO C/O PAIN. NO S/S OF ACUTE DISTRESS NOTED. ON ELECTROLYTE PROTOCOL. OBDULIO DRAIN TO LEFT LOWER QUADRANT, CLEAR DRAINAGE. LAP SITES ON ABDOMEN. LEFT BKA. ON 3L O2, NC. PORT TO LEFT CHEST, PROCAL INFUSING @ 100 ML/HR. SITE PATENT WITHOUT REDNESS OR SWELLING. PT DENIES ANYTHING FURTHER AT THIS TIME. CALL LIGHT IN REACH. WILL CONTINUE TO MONITOR.
--- NOTE | 2018-09-01 11:08 | MORECARE ---
CASE MANAGEMENT DISCHARGE SUMMARY PATIENT: CLAUDIA SUGGS UNIT: [id number] ADM DATE: 08/03/18 AGE: 63 : 57 SEX: M ROOM/BED: D.2237 AUTHOR: ALEJANDRA,DOC PHYSICIAN: REFERRING PHYSICIAN: VIVEK MONGE MD DATE OF SERVICE: 09/01/18 Discharge Plan Patient Name: CLAUDIA SUGGS Facility: [facility]:[place] : 1955 Planned Disposition: [facility] Facility Anticipated Discharge Date: Discharge Date: Expected LOS: Initial Reviewer: [id number] Initial Review Date: 08/03/2018 Generated: 09/01/18 12:08 pm Comments DCP- Discharge Planning Updated by [id number]: Ina Arteaga on 09/01/18 10:[address] Received a call from nicanor Diaz for [facility], patient is not going to be accepted to [facility] clinically. I went to room to inform and he is sleeping, will speak with him at a later time for discharge plan. CM will continue to follow and assist with discharge planning/needs. DCP- Discharge Planning Updated by [email or web address]: Ina Arteaga on 08/26/18 1:[address] Spoke with patient again about discharge planning. I informed him that [facility] will be unable to accept him. He states he would like to be close to his home. List of longterm facilities provided again and he chooses [facility]. I sent [place] forms for approval. CM will continue to follow and assist with discharge planning/needs. DCP- Discharge Planning Updated by [email or web address]: Ina Arteaga on 08/25/18 4:[address] Kenya from [facility] returned call and states that he would have to pay 6700 dollars prior to admission to SNF since he has not met his out of pocket maximum and cannot be assured the hospital would bill prior to their facility billing. I informed the patient and he states "I just want to drop everything right now, I want to go home." I offered a rehab screen here without him having an out of pocket up front cost and offered to check another skilled facility. He states he wants to go home on discharge from here. I will follow along with therapy notes and continue to assist with discharge planning/needs. DCP- Discharge Planning Updated by [email or web address]: Ina Arteaga on 08/25/18 1:[address] Met with patient and informed that [facility] does not take his insurance and I sent his clinical to [facility], he is in agreement to [facility] for SN therapy prior to returning home. CM will continue to follow and assist with discharge planning/needs. DCP- Discharge Planning Updated by [email or web address]: Ina Arteaga on 08/22/18 11:[address] Received a call from Mayi at [facility] and she states they are not able to accept patient to their facility related to insurance and acuity. I called Kenya at [facility] (2nd choice) and referral sent. Patient is in surgery at this time, I will meet with him later. CM will continue to follow and assist with discharge planning/needs. DCP- Discharge Planning Updated by [id number]: Ina Arteaga on 08/21/18 2:[address] Received a call from Rhina at [facility] and they will accept his insurance, he will need preauthorization. Clinical faxed to [facility]. CM will continue to follow and assist with discharge planning/needs. DCP- Discharge Planning Updated by [id number]: Ina Arteaga on 08/21/18 10:[address] I spoke with Mayi at [facility] to check on skilled status and she has not received a fax for patient. I faxed face sheet so they could run his insurance to see if he is in network. CM will continue to follow and assist with discharge planning/needs. DCP- Discharge Planning Updated by [email or web address]: Justa Langford on 08/20/18 10:[address] Patient Name: CLAUDIA SUGGS Admission Status: ER Accout number: [id number] Admission Date: 08-03-2018 : 1955 Admission Diagnosis:RIGHT UPPER QUADRANT PAIN Attending: VIVEK MONGE Current LOS: 17 Anticipated DC Date: Planned Disposition: Home Primary Insurance: [facility] MEDICARE SOLUTIONS Discharge Planning Comments: CM MET WITH PATIENT ABOUT DC PLANNING. PATIENT WILL NEED A SNF. GITA SIGNED FOR [facility]. CM WILL FOLLOW AND ASSIST NEEDED WITH DC PLANNING/NEEDS. Hand Winder: Justa Langford Appended by Justa Langford on 08/20/2018 11:19 CDT: REFERRAL DOCUMENTS FAXED TO [facility]. WAITING FOR CALL BACK. DCP- Discharge Planning Updated by [id number]: María Gallagher on 08/12/18 5:[address] CM spoke with Khurram Bose whom is listed as patient's contact. Khurram stated that he is patient's best friend. They consider each others as brothers. Khurram states that the patient doesn't have any family that he is in contact with. The patient has two estranged sons that he hasn't seen in over 25 yrs. and a daughter that no one knows how to contact her. No siblings and parents are . CM asked if there was any plans for patient upon discharge. Khurram states he doesn't know he hopes that the patient turns around soon. He states that he could stay with him until he gets back on his feet. At this time the patient is unable to make decisions for himself and there isn't any family or POA to make decisions for him. CM will continue to follow and assist as needed with discharge planning / needs. DCP- Discharge Planning Updated by [id number]: Ina Arteaga on 08/06/18 11:[address] Patient Name: CLAUDIA SUGGS Admission Status: ER Accout number: [id number] Admission Date: 08-03-2018 : 1955 Admission Diagnosis:RIGHT UPPER QUADRANT PAIN Attending: VIVEK MONGE Current LOS: 3 Anticipated DC Date: Planned Disposition: Home Primary Insurance: [facility] MEDIC[employer] SOLUTIONS Discharge Planning Comments: CM met with patient to discuss discharge planning, he is alone in the room. He is oriented and answers questions appropriately, he does seem drowsy. States he has still been living with his brother, Khurram, he will take him home on discharge. States that he is usually now in a self propelled wheelchair. States he also has a walker. States he no longer is using home health and does not feel he will need them at discharge. He has had [facility] in the past. He states he uses oxygen as needed and gets supplies from [facility]. CM will continue to follow and assist with discharge planning/needs. Hand Winder: Ina Arteaga DCP- Discharge Planning Updated by [id number]: Ina Arteaga on 08/05/18 11:[address] Attempted to meet with patient, he is getting ready to go to [place]. I will meet with him tomorrow to discuss discharge planning/needs. DCPIA - Discharge Planning Initial Assessment Updated by [email or web address]: Ina Arteaga on 08/06/18 1:33 pm * Is the patient Alert and Oriented? No * How many steps to enter\\exit or inside your home? 3/0 * PCP Dr. Monge * Pharmacy [facility] * Preadmission Environment Home with Family * ADLs Partial Dependent * Partial ADLs (Assistance needed) Ambulation * Equipment Other Oxygen Walker Wheelchair * Other Equipment Prosthetic Leg * List name and contact numbers for known caregivers / representatives who currently or will assist patient after discharge: Khurram Bose [phone] * Verbal permission to speak to the caregivers and representatives has been obtained from the patient. Yes * Community resources currently utilized None * Please name any agencies selected above. Oxygen from [facility] Prosthetic from [employer] * Additional services required to return to the preadmission environment? No * Can the patient safely return to the preadmission environment? Yes * Has this patient been hospitalized within the prior 30 days at any hospital? No Coverage Notice Reviewer: [id number] Abraham Langford Notice Issued Date-Time: 08/20/2018 10:04 Notice Type: Patient Choice Letter Notice Delivered To: Patient Relationship to Patient: Karate Black Belt Name: Delivery Method: HAND - Hand Delivered Mary Days: Prior Verbal Notification: Recipient Understood Notice: Yes Recipient Signature: Yes Med Rec Note Co-signed by Attending: Coverage Notice Comment: gita for ANTONIO FLOWERS SAW[employer]ER Last DP export: 08/28/18 6:01 a Patient Name: CLAUDIA SUGGS Page [id number] at 1108 All edits/amendments must be made on the electronic document DICTATION DATE: 09/01/181107 TOUR LEADER: MADISYN 09/01/181107 RPT#: [id number] DC DATE: STATUS: ADM IN [facility] [address] [place] [address] END OF REPORT
[2018-09-01] MEDS ORDERED: CLEOCIN HCL300 MG PO (12:42)
--- NOTE | 2018-09-01 13:50 | MORECARE ---
CASE MANAGEMENT DISCHARGE SUMMARY PATIENT: CLAUDIA SUGGS UNIT: [id number] ADM DATE: 08/03/18 AGE: 63 : 57 SEX: M ROOM/BED: D.2237 AUTHOR: ALEJANDRA,DOC PHYSICIAN: REFERRING PHYSICIAN: VIVEK MONGE MD DATE OF SERVICE: 09/01/18 Discharge Plan Patient Name: CLAUDIA SUGGS Facility: [facility]:[place] : 1955 Planned Disposition: [facility] Facility Anticipated Discharge Date: Discharge Date: Expected LOS: Initial Reviewer: [id number] Initial Review Date: 08/03/2018 Generated: 09/01/18 2:50 pm Comments DCP- Discharge Planning Updated by [email or web address]: Ina Arteaga on 09/01/18 10:[address] Received a call from nicanor Diaz for [facility], patient is not going to be accepted to [facility] clinically. I went to room to inform and he is sleeping, will speak with him at a later time for discharge plan. CM will continue to follow and assist with discharge planning/needs. DCP- Discharge Planning Updated by [id number]: Ina Arteaga on 08/26/18 1:[address] Spoke with patient again about discharge planning. I informed him that [facility] will be unable to accept him. He states he would like to be close to his home. List of care home facilities provided again and he chooses [facility]. I sent Philip forms for approval. CM will continue to follow and assist with discharge planning/needs. DCP- Discharge Planning Updated by [id number]: Ina Arteaga on 08/25/18 4:[address] Kenya from [facility] returned call and states that he would have to pay 6700 dollars prior to admission to SNF since he has not met his out of pocket maximum and cannot be assured the hospital would bill prior to their facility billing. I informed the patient and he states "I just want to drop everything right now, I want to go home." I offered a rehab screen here without him having an out of pocket up front cost and offered to check another skilled facility. He states he wants to go home on discharge from here. I will follow along with therapy notes and continue to assist with discharge planning/needs. DCP- Discharge Planning Updated by [id number]: Ina Arteaga on 08/25/18 1:[address] Met with patient and informed that [facility] does not take his insurance and I sent his clinical to [facility], he is in agreement to [facility] for SN therapy prior to returning home. CM will continue to follow and assist with discharge planning/needs. DCP- Discharge Planning Updated by [id number]: Ina Arteaga on 08/22/18 11:[address] Received a call from Mayi at [facility] and she states they are not able to accept patient to their facility related to insurance and acuity. I called Kenya at [facility] (2nd choice) and referral sent. Patient is in surgery at this time, I will meet with him later. CM will continue to follow and assist with discharge planning/needs. DCP- Discharge Planning Updated by [id number]: Ina Arteaga on 08/21/18 2:[address] Received a call from Rhina at [facility] and they will accept his insurance, he will need preauthorization. Clinical faxed to [facility]. CM will continue to follow and assist with discharge planning/needs. DCP- Discharge Planning Updated by [email or web address]: Ina Arteaga on 08/21/18 10:[address] I spoke with Mayi at [facility] to check on skilled status and she has not received a fax for patient. I faxed face sheet so they could run his insurance to see if he is in network. CM will continue to follow and assist with discharge planning/needs. DCP- Discharge Planning Updated by [id number]: Justa Langford on 08/20/18 10:[address] Patient Name: CLAUDIA SUGGS Admission Status: ER Accout number: [id number] Admission Date: 08-03-2018 : 1955 Admission Diagnosis:RIGHT UPPER QUADRANT PAIN Attending: VIVEK MONGE Current LOS: 17 Anticipated DC Date: Planned Disposition: Home Primary Insurance: [facility] [employer] Discharge Planning Comments: CM MET WITH PATIENT ABOUT DC PLANNING. PATIENT WILL NEED A SNF. GITA SIGNED FOR [facility]. CM WILL FOLLOW AND ASSIST NEEDED WITH DC PLANNING/NEEDS. Vice President Of Communications: Justa Langford Appended by Justa Langford on 08/20/2018 11:19 CDT: REFERRAL DOCUMENTS FAXED TO [facility]. WAITING FOR CALL BACK. DCP- Discharge Planning Updated by [id number]: María Gallagher on 08/12/18 5:[address] CM spoke with Khurram Bose whom is listed as patient's contact. Khurram stated that he is patient's best friend. They consider each others as brothers. Khurram states that the patient doesn't have any family that he is in contact with. The patient has two estranged sons that he hasn't seen in over 25 yrs. and a daughter that no one knows how to contact her. No siblings and parents are . CM asked if there was any plans for patient upon discharge. Khurram states he doesn't know he hopes that the patient turns around soon. He states that he could stay with him until he gets back on his feet. At this time the patient is unable to make decisions for himself and there isn't any family or POA to make decisions for him. CM will continue to follow and assist as needed with discharge planning / needs. DCP- Discharge Planning Updated by [email or web address]: Ina Arteaga on 08/06/18 11:[address] Patient Name: CLAUDIA SUGGS Admission Status: ER Accout number: [id number] Admission Date: 08-03-2018 : 1955 Admission Diagnosis:RIGHT UPPER QUADRANT PAIN Attending: VIVEK MONGE Current LOS: 3 Anticipated DC Date: Planned Disposition: Home Primary Insurance: [facility] [employer] Discharge Planning Comments: CM met with patient to discuss discharge planning, he is alone in the room. He is oriented and answers questions appropriately, he does seem drowsy. States he has still been living with his brother, Khurram, he will take him home on discharge. States that he is usually now in a self propelled wheelchair. States he also has a walker. States he no longer is using home health and does not feel he will need them at discharge. He has had [facility] in the past. He states he uses oxygen as needed and gets supplies from [facility]. CM will continue to follow and assist with discharge planning/needs. Vice President Of Communications: Ina Arteaga DCP- Discharge Planning Updated by [email or web address]: Ina Arteaga on 08/05/18 11:[address] Attempted to meet with patient, he is getting ready to go to [place]. I will meet with him tomorrow to discuss discharge planning/needs. DCPIA - Discharge Planning Initial Assessment Updated by [id number]: Ina Arteaga on 08/06/18 1:33 pm * Is the patient Alert and Oriented? No * How many steps to enter\\exit or inside your home? 3/0 * PCP Dr. Monge * Pharmacy [facility] * Preadmission Environment Home with Family * ADLs Partial Dependent * Partial ADLs (Assistance needed) Ambulation * Equipment Other Oxygen Walker Wheelchair * Other Equipment Prosthetic Leg * List name and contact numbers for known caregivers / representatives who currently or will assist patient after discharge: Khurram Bose - [phone] * Verbal permission to speak to the caregivers and representatives has been obtained from the patient. Yes * Community resources currently utilized None * Please name any agencies selected above. Oxygen from [facility] Prosthetic from [employer] * Additional services required to return to the preadmission environment? No * Can the patient safely return to the preadmission environment? Yes * Has this patient been hospitalized within the prior 30 days at any hospital? No External Providers [facility] Next Contact Date: Service Request Date: Service Type: Resolution: Reviewer: Comments: Coverage Notice Reviewer: [id number] Abraham Langford Notice Issued Date-Time: 08/20/2018 10:04 Notice Type: Patient Choice Letter Notice Delivered To: Patient Relationship to Patient: Drill Press Operator Name: Delivery Method: HAND - Hand Delivered Mary Days: Prior Verbal Notification: Recipient Understood Notice: Yes Recipient Signature: Yes Med Rec Note Co-signed by Attending: Coverage Notice Comment: [facility] for [facility] Reviewer: [id number] - Ina Arteaga Notice Issued Date-Time: 09/01/2018 13:42 Notice Type: IM Discharge Notice Notice Delivered To: Patient Relationship to Patient: Self Drill Press Operator Name: Delivery Method: HAND - Hand Delivered Mary Days: Prior Verbal Notification: Recipient Understood Notice: Yes Recipient Signature: Yes Med Rec Note Co-signed by Attending: Coverage Notice Comment: IMM explained, signed, given, copy placed in MR Last DP export: 09/01/18 10:08 am Patient Name: CLAUDIA SUGGS Page 15893 at 1350 All edits/amendments must be made on the electronic document DICTATION DATE: 09/01/181348 ASSEMBLER WET WASH: MADISYN 09/01/181348 RPT#: [id number] DC DATE: STATUS: ADM IN [facility] [address] [place] [address] END OF REPORT
[2018-09-01 13:59] VITALS: BP 111/57
--- NOTE | 2018-09-01 14:07 | MORECARE ---
CASE MANAGEMENT DISCHARGE SUMMARY PATIENT: CLAUDIA SUGGS UNIT: [id number] ADM DATE: 08/03/18 AGE: 63 : 57 SEX: M ROOM/BED: D.2237 AUTHOR: ALEJANDRA,DOC PHYSICIAN: REFERRING PHYSICIAN: VIVEK MONGE MD DATE OF SERVICE: 09/01/18 Discharge Plan Patient Name: CLAUDIA SUGGS Facility: [facility]:[place] : 1955 Planned Disposition: Long-Term Facility Anticipated Discharge Date: Discharge Date: Expected LOS: Initial Reviewer: [email or web address] Initial Review Date: 08/03/2018 Generated: 09/01/18 3:07 pm Comments DCP- Discharge Planning Updated by [email or web address]: Ina Arteaga on 09/01/18 1:[address] Received order for discharge. Emily with [facility] states he was not accepted to their facility. Patient is wanting to go home with home health. GITA for [facility] has already been signed. I spoke with Avelina at [facility] and clinical and order faxed, Avelina states they will see him Saturday. No other needs identified. States Khurram is taking him home. CM will continue to follow and assist with discharge planning/needs. Home today with . DCP- Discharge Planning Updated by [id number]: Ina Arteaga on 09/01/18 10:[address] Received a call from nicanor Diaz for [facility], patient is not going to be accepted to [facility] clinically. I went to room to inform and he is sleeping, will speak with him at a later time for discharge plan. CM will continue to follow and assist with discharge planning/needs. DCP- Discharge Planning Updated by [id number]: Ina Arteaga on 08/26/18 1:[address] Spoke with patient again about discharge planning. I informed him that [facility] will be unable to accept him. He states he would like to be close to his home. List of jail facilities provided again and he chooses [facility]. I sent Philip forms for approval. CM will continue to follow and assist with discharge planning/needs. DCP- Discharge Planning Updated by [id number]: Ina Alforddeirdre on 08/25/18 4:[address] Kenya from [facility] returned call and states that he would have to pay 6700 dollars prior to admission to SNF since he has not met his out of pocket maximum and cannot be assured the hospital would bill prior to their facility billing. I informed the patient and he states "I just want to drop everything right now, I want to go home." I offered a rehab screen here without him having an out of pocket up front cost and offered to check another skilled facility. He states he wants to go home on discharge from here. I will follow along with therapy notes and continue to assist with discharge planning/needs. DCP- Discharge Planning Updated by [id number]: Ina Arteaga on 08/25/18 1:[address] Met with patient and informed that [facility] does not take his insurance and I sent [facility] clinical [facility], he is in agreement to [facility] for SN therapy prior to returning home. CM will continue to follow and assist with discharge planning/needs. DCP- Discharge Planning Updated by [id number]: Ina Chandler on 08/22/18 11:[address] Received a call from Mayi at [facility] and she states they are not able to accept patient to their facility related to insurance and acuity. I called Kenya at [facility] (2nd choice) and referral sent. Patient is in surgery at this time, I will meet with him later. CM will continue to follow and assist with discharge planning/needs. DCP- Discharge Planning Updated by [email or web address]: Ina Chandler on 08/21/18 2:[address] Received a call from Rhina at [facility] and they will accept his insurance, he will need preauthorization. Clinical faxed to [facility]. CM will continue to follow and assist with discharge planning/needs. DCP- Discharge Planning Updated by [id number]: Ina Arteaga on 08/21/18 10:[address] I spoke with Mayi at [facility] to check on skilled status and she has not received a fax for patient. I faxed face sheet so they could run his insurance to see if he is in network. CM will continue to follow and assist with discharge planning/needs. DCP- Discharge Planning Updated by [id number]: Justa Langford on 08/20/18 10:[address] Patient Name: CLAUDIA SUGGS Admission Status: ER Accout number: [id number] Admission Date: 08-03-2018 : 1955 Admission Diagnosis:RIGHT UPPER QUADRANT PAIN Attending: VIVEK MONGE Current LOS: 17 Anticipated DC Date: Planned Disposition: Home Primary Insurance: [facility] [employer] Discharge Planning Comments: CM MET WITH PATIENT ABOUT DC PLANNING. PATIENT WILL NEED A SNF. GITA SIGNED FOR [facility]. CM WILL FOLLOW AND ASSIST NEEDED WITH DC PLANNING/NEEDS. Paver: Justa Langford Appended by Justa Langford on 08/20/2018 11:19 CDT: REFERRAL DOCUMENTS FAXED TO [facility]. WAITING FOR CALL BACK. DCP- Discharge Planning Updated by [id number]: María Gallagher on 08/12/18 5:[address] CM spoke with Khurram Bose whom is listed as patient's contact. Khurram stated that he is patient's best friend. They consider each others as brothers. Khurram states that the patient doesn't have any family that he is in contact with. The patient has two estranged sons that he hasn't seen in over 25 yrs. and a daughter that no one knows how to contact her. No siblings and parents are . CM asked if there was any plans for patient upon discharge. Khurram states he doesn't know he hopes that the patient turns around soon. He states that he could stay with him until he gets back on his feet. At this time the patient is unable to make decisions for himself and there isn't any family or POA to make decisions for him. CM will continue to follow and assist as needed with discharge planning / needs. DCP- Discharge Planning Updated by [id number]: Ina Arteaga on 08/06/18 11:[address] Patient Name: CLAUDIA SUGGS Admission Status: ER Accout number: [id number] Admission Date: 08-03-2018 : 1955 Admission Diagnosis:RIGHT UPPER QUADRANT PAIN Attending: VIVEK MONGE Current LOS: 3 Anticipated DC Date: Planned Disposition: Home Primary Insurance: [facility] [employer] Discharge Planning Comments: CM met with patient to discuss discharge planning, he is alone in the room. He is oriented and answers questions appropriately, he does seem drowsy. States he has still been living with his brother, Khurram, he will take him home on discharge. States that he is usually now in a self propelled wheelchair. States he also has a walker. States he no longer is using home health and does not feel he will need them at discharge. He has had [facility] in the past. He states he uses oxygen as needed and gets supplies from [employer]. CM will continue to follow and assist with discharge planning/needs. Paver: Ina Arteaga DCP- Discharge Planning Updated by [id number]: Ina Arteaga on 08/05/18 11:[address] Attempted to meet with patient, he is getting ready to go to [place]. I will meet with him tomorrow to discuss discharge planning/needs. DCPIA - Discharge Planning Initial Assessment Updated by [id number]: Ina Arteaga on 08/06/18 1:33 pm * Is the patient Alert and Oriented? No * How many steps to enter\\exit or inside your home? 3/0 * PCP Dr. Monge * Pharmacy [facility] * Preadmission Environment Home with Family * ADLs Partial Dependent * Partial ADLs (Assistance needed) Ambulation * Equipment Other Oxygen Walker Wheelchair * Other Equipment Prosthetic Leg * List name and contact numbers for known caregivers / representatives who currently or will assist patient after discharge: Khurram Bose - brother - [phone] * Verbal permission to speak to the caregivers and representatives has been obtained from the patient. Yes * Community resources currently utilized None * Please name any agencies selected above. Oxygen from [facility] Prosthetic from [employer] * Additional services required to return to the preadmission environment? No * Can the patient safely return to the preadmission environment? Yes * Has this patient been hospitalized within the prior 30 days at any hospital? No Coverage Notice Reviewer: [id number] Abraham Langford Notice Issued Date-Time: 08/20/2018 10:04 Notice Type: Patient Choice Letter Notice Delivered To: Patient Relationship to Patient: Referral Rn Name: Delivery Method: HAND - Hand Delivered Mary Days: Prior Verbal Notification: Recipient Understood Notice: Yes Recipient Signature: Yes Med Rec Note Co-signed by Attending: Coverage Notice Comment: [facility] for [facility] [place] Reviewer: [id number] - Ina Arteaga Notice Issued Date-Time: 09/01/2018 13:42 Notice Type: IM Discharge Notice Notice Delivered To: Patient Relationship to Patient: Self Referral Rn Name: Delivery Method: HAND - Hand Delivered Mary Days: Prior Verbal Notification: Recipient Understood Notice: Yes Recipient Signature: Yes Med Rec Note Co-signed by Attending: Coverage Notice Comment: IMM explained, signed, given, copy placed in MR Last DP export: 09/01/18 12:50 pm Patient Name: CLAUDIA SUGGS Page 19928 at 1407 All edits/amendments must be made on the electronic document DICTATION DATE: 09/01/18 1406 DRESS FINISHER: MADISYN 09/01/18 1406 RPT#: [id number] DC DATE: STATUS: ADM IN [facility] [address] [place] [address] END OF REPORT
--- NOTE | 2018-09-01 15:27 | NUR ---
LEFT CHEST PORT DEACCESSED WITH 300 ML OF HEPARIN PER PROTOCOL. WAITING ON WALLET AND CELL PHONE AND OTHER PERSONAL EFFECTS FROM THE [facility]. NO FURTHER NEEDS AT THIS TIME
--- NOTE | 2018-09-01 16:13 | NUR ---
PT DISCHARGED HOME WITH FAMILY MEMBER VIA WHEELCHAIR. PORT DISCONTINUED BY MARIO PAYAN RN. NO C/O PAIN. NO S/S OF ACUTE DISTRESS NOTED. PT GOT WALLET FROM [facility]. PT DENIES ANYTHING FURTHER.
[2018-09-01 17:09] LABS: AEROBE ID Final report (())
== END 2018-09-01 16:15 | DRG 417 ==
LOC: D.ER 21:14 → D.MS 08-03 01:03 → D.EDHOLD 08-03 01:03 → D.MS 08-03 01:47 → D.ICU 08-09 09:44 → D.M3 08-14 15:37 → D.MS 08-20 14:12
PROVIDERS: Anesthesiology; Family Medicine; Internal Medicine Pulmonary Disease; Legal Medicine; Surgery; ADMIT Family Medicine; ATTEND Family Medicine
PROC: 0FB04ZX Excision of Liver, Percutaneous Endoscopic Approach, Diagnostic (ICD-10-PCS; 2018-08-05)
PROC: 0DNU4ZZ Release Omentum, Percutaneous Endoscopic Approach (ICD-10-PCS; 2018-08-05)
PROC: 0DNL4ZZ Release Transverse Colon, Percutaneous Endoscopic Approach (ICD-10-PCS; 2018-08-05)
PROC: 0FT44ZZ Resection of Gallbladder, Percutaneous Endoscopic Approach (ICD-10-PCS; principal; 2018-08-05 11:15)
DX: K80.00 Calculus of gallbladder with acute cholecystitis without obstruction (principal); J96.01 Acute respiratory failure with hypoxia; J18.9 Pneumonia, unspecified organism; C83.30 Diffuse large B-cell lymphoma, unspecified site; K82.A2 Perforation of gallbladder in cholecystitis; J98.11 Atelectasis; J90 Pleural effusion, not elsewhere classified; G93.40 Encephalopathy, unspecified; E87.0 Hyperosmolality and hypernatremia; B19.20 Unspecified viral hepatitis C without hepatic coma; D69.6 Thrombocytopenia, unspecified; G40.909 Epilepsy, unspecified, not intractable, without status epilepticus; F10.20 Alcohol dependence, uncomplicated; Z85.05 Personal history of malignant neoplasm of liver; G89.29 Other chronic pain; Z72.0 Tobacco use; D72.819 Decreased white blood cell count, unspecified; R13.10 Dysphagia, unspecified; B37.9 Candidiasis, unspecified; R53.83 Other fatigue; D50.9 Iron deficiency anemia, unspecified; E87.6 Hypokalemia

== ENCOUNTER 2018-09-10 14:13 | Emergency (ER) | payer MEDICARE, MEDICAID ==
[~2018-09-10] VITALS: Ht 170.2 cm; Wt 51.8 kg
[~2018-09-10 14:13] MED LIST changes: +CLEOCIN HCL300 MG PO
[2018-09-10 14:23] VITALS: Ht 170.2 cm; Wt 51.8 kg
[2018-09-10] MEDS ORDERED: VIBRAMYCIN 100100 MG PO (17:42)
[2018-09-10] MEDS ORDERED: VOLTAREN75 MG PO (17:42)
[2018-09-10 19:00] VITALS: BP 96/55
== END 2018-09-10 18:04 | disposition home or self-care (01) ==
LOC: D.ER 14:13
DX: S01.01XA Laceration without foreign body of scalp, initial encounter (principal); W18.30XA Fall on same level, unspecified, initial encounter; Y93.89 Activity, other specified; Y92.89 Other specified places as the place of occurrence of the external cause; L03.311 Cellulitis of abdominal wall; F17.200 Nicotine dependence, unspecified, uncomplicated; Z89.512 Acquired absence of left leg below knee

== ENCOUNTER 2018-09-14 13:03 | Emergency (ER) | payer MEDICARE, MEDICAID ==
[~2018-09-14 13:03] MED LIST changes: +VIBRAMYCIN 100100 MG PO; +VOLTAREN75 MG PO
[2018-09-14 14:16] LABS: BASOPHILS 0.2 % (0-2); EOSINOPHILS 4.6 % (0-7); HEMATOCRIT 32.4 % (42.0-54.0); HEMOGLOBIN 10.6 g/dL (13.5-17.5); IMMATURE GRANULOCYTES 0.4 % (0-5); LYMPHOCYTES 15.3 % (15-50); MCH 31.6 pg (26.0-34.0); MCHC 32.7 g/dL (31.0-37.0); MCV 96.7 fL (80.0-100.0); MEAN PLATELET VOLUME 8.7 fL (7.4-10.4); MONOCYTES 12.3 % (2-11); NEUTROPHILS 67.2 % (40-80); RBC 3.35 10x6/uL (4.20-6.10); RDW 17.9 % (11.5-14.5); WBC 10.8 10x3/uL (4.8-10.8)
[2018-09-14 14:24] LABS: PLATELET COUNT 217 10x3/uL (130-400)
[2018-09-14 14:34] LABS: ALBUMIN 2.6 g/dL (3.4-5.0); ALKALINE PHOSPHATASE 334 U/L (46-116); ALT (SGPT) 25 U/L (10-68); AMYLASE - SERUM 27 U/L (25-115); BILIRUBIN - TOTAL 0.26 mg/dL (0.2-1.3); CALC OSMOLALITY 272 mosm/kg (275-300); CALCIUM 8.1 mg/dL (8.5-10.1); CARBON DIOXIDE 32.5 mmol/L (21.0-32.0); CHLORIDE - SERUM 100 mmol/L (98-107); CREATININE - SERUM 0.6 mg/dL (0.6-1.3); GLUCOSE 114 mg/dL (74-106); LIPASE 56 U/L (73-393); POTASSIUM - SERUM 3.5 mmol/L (3.5-5.1); PROTEIN - SERUM 6.6 g/dL (6.4-8.2); SODIUM 137 mmol/L (136-145); UREA NITROGEN 7 mg/dL (7-18); eGFR NON AFRICAN AMERICAN > 90 mL/min (90-120)
[2018-09-14 14:38] LABS: APPEARANCE CLEAR (CLEAR); COLOR DK YELLOW (YELLOW); GLUCOSE NEGATIVE (NEGATIVE); KETONE NEGATIVE (NEGATIVE); NITRITE NEGATIVE (NEGATIVE); PROTEIN NEGATIVE (NEGATIVE)
[2018-09-14 14:39] LABS: BILIRUBIN NEGATIVE (NEGATIVE)
== END 2018-09-14 17:46 | disposition home or self-care (01) ==
LOC: D.ER 13:03
PROVIDERS: Family Medicine
DX: L03.311 Cellulitis of abdominal wall (principal)

== ENCOUNTER → 2019-01-12 07:52 | Outpatient (CLI) | payer MEDICARE, MEDICAID ==
[2018-09-14 13:24] VITALS: BMI 17.9
== END | disposition home or self-care (01) ==
LOC: D.CT 07:52
PROVIDERS: ATTEND Internal Medicine Hematology & Oncology
DX: C83.38 Diffuse large B-cell lymphoma, lymph nodes of multiple sites (principal); C22.0 Liver cell carcinoma

== ENCOUNTER 2019-01-25 13:07 | Emergency (ER) | payer MEDICARE, MEDICAID ==
[~2019-01-25] VITALS: Ht 170.2 cm; Wt 58.2 kg
[2019-01-25 13:13] VITALS: Ht 170.2 cm; Wt 58.2 kg
[2019-01-25 14:46] LABS: HEMOGLOBIN 14.7 g/dL (13.5-17.5); MCH 33.9 pg (26.0-34.0); MCHC 35.9 g/dL (31.0-37.0); MCV 94.5 fL (80.0-100.0); MEAN PLATELET VOLUME 8.7 fL (7.4-10.4); PLATELET COUNT 199 10x3/uL (130-400); RBC 4.34 10x6/uL (4.20-6.10); RDW 13.4 % (11.5-14.5)
[2019-01-25 14:49] LABS: INR 0.85 (0.85-1.17); PROTIME 11.2 SECONDS (11.6-15.0)
[2019-01-25 15:04] LABS: ALBUMIN 3.7 g/dL (3.4-5.0); ALKALINE PHOSPHATASE 200 U/L (46-116); ALT (SGPT) 463 U/L (10-68); CALC OSMOLALITY 283 mosm/kg (275-300); CALCIUM 8.7 mg/dL (8.5-10.1); CARBON DIOXIDE 27.8 mmol/L (21.0-32.0); CHLORIDE - SERUM 105 mmol/L (98-107); CREATININE - SERUM 0.7 mg/dL (0.6-1.3); GLUCOSE 112 mg/dL (74-106); POTASSIUM - SERUM 3.6 mmol/L (3.5-5.1); PROTEIN - SERUM 7.9 g/dL (6.4-8.2); SODIUM 143 mmol/L (136-145); UREA NITROGEN 6 mg/dL (7-18); eGFR NON AFRICAN AMERICAN > 90 mL/min (90-120)
[2019-01-25 15:08] LABS: BASOPHILS 3 % (0-2); EOSINOPHILS 2 % (0-7); LYMPHOCYTES 67 % (15-50); MONOCYTES 3 % (2-11); NEUTROPHILS 22 % (40-80); PLATELET ESTIMATE NORMAL
[2019-01-25 15:09] LABS: ROULEAUX 1+; TARGET CELLS 1+
[2019-01-25 15:10] LABS: LIPASE 131 U/L (73-393); MAGNESIUM - SERUM 1.9 mg/dL (1.8-2.4); PRO BNP 55 pg/mL (0-125)
[2019-01-25 15:13] LABS: TROPONIN-I < 0.017 ng/mL (0.000-0.060)
[2019-01-25 15:38] LABS: APPEARANCE CLEAR (CLEAR); BILIRUBIN NEGATIVE (NEGATIVE); GLUCOSE NEGATIVE (NEGATIVE); KETONE NEGATIVE (NEGATIVE); NITRITE NEGATIVE (NEGATIVE); PROTEIN 1+ mg/dL (NEGATIVE); SPECIFIC GRAVITY 1.015 (1.005-1.020); UROBILINOGEN NORMAL (NORMAL)
[2019-01-25 15:40] LABS: BACTERIA FEW /hpf (NONE SEEN); EPITHELIAL CELLS 0-5 /hpf (0-5); GRANULAR CAST 0-5 /lpf (NONE SEEN); RED CELLS - URINE 0-5 /hpf (0-5); WHITE CELLS - URINE 0-5 /hpf (0-5)
[2019-01-25 15:46] LABS: UDS - AMPHET NEGATIVE QUAL (NEGATIVE); UDS - BARB NEGATIVE QUAL (NEGATIVE); UDS - BENZO NEGATIVE QUAL (NEGATIVE); UDS - COCAINE NEGATIVE QUAL (NEGATIVE); UDS - OPIATE NEGATIVE QUAL (NEGATIVE); UDS - PCP NEGATIVE QUAL (NEGATIVE); UDS - THC POSITIVE QUAL (NEGATIVE)
[2019-01-25 17:06] VITALS: BP 136/78
== END 2019-01-25 17:07 | disposition home or self-care (01) ==
LOC: D.ER 13:07
PROVIDERS: Family Medicine
DX: R07.89 Other chest pain (principal); G89.29 Other chronic pain; Z85.72 Personal history of non-Hodgkin lymphomas; Z85.05 Personal history of malignant neoplasm of liver